=== PATIENT | male | born 1950 | race African-American/Black ===

== ENCOUNTER 2016-03-16 00:04 | Observation (INO) | payer MEDICARE, OTHER ==
[~2016-03-16] VITALS: Ht 167.6 cm; Wt 89.0 kg
[2016-03-16] VITALS (10 sets, daily range): BP systolic 127–156; BP diastolic 64–75; PULSE 57–88; RESP 18–19; TEMP 97.5–98.4; O2SAT 96–99
[~2016-03-16 00:04] MED LIST: CIPR500T4 PO
[2016-03-16] MEDS ORDERED: SODIUM CHLORIDE 0.9% FLUSH 5 ML FLUSH IVF PRN ×2 (00:30→01:45)
[2016-03-16] MEDS ORDERED: MORPHINE SULFATE 4 MG/ML INJ IV PUSH ONE (00:30)
--- NOTE | 2016-03-16 00:31 | PD ---
HPI Chief Complaint: Chest Pain Time Seen by Provider: 00:11 Travel History International Travel<30 days: No Contact w/Intl Traveler<30days: No Traveled to known affect area: No History of Present Illness HPI 65-year-old male with a history of coronary artery disease and end-stage renal disease arrives chest pain. It started while he was at dialysis today. It radiated from the left or right anterior chest. It was quite severe. Dialysis was stopped and he came here. Patient has undergone catheterization twice 16 years ago and again 2 years ago. He has 3 stents. He has diabetes, hypertension. He denies a smoking history. PFSH Past Medical History Hx Anticoagulant Therapy: Yes Arthritis: Yes Asthma: No Autoimmune Disease: No Blood Disorders: No Anxiety: No Depression: No Heart Rhythm Problems: No Cancer: Yes Cardiac Catheterization: Yes Cardiovascular Problems: Yes (HTN) High Cholesterol: Yes Chemotherapy: No Chest Pain: Yes Congestive Heart Failure: No Cerebrovascular Accident: Yes Coronary Artery Disease: Yes Diabetes: Yes Patient Takes Glucophage: No Diminished Hearing: No Endocrine: No Gastrointestinal Disorders: Yes GERD: Yes Genitourinary: No Headaches: No Hiatal Hernia: No Hypertension: Yes Immune Disorder: No Implanted Vascular Access Dvce: No Kidney Stones: Yes Musculoskeletal: Yes (METABOLIC MUSCLE DISEASE) Neurologic: Yes Psychiatric: No Reproductive: No Respiratory: No Migraines: No Myocardial Infarction: Yes (X 1 IN 2005) Radiation Therapy: No Renal Failure: No Seizures: No Sleep Apnea: No Thyroid Disease: No Ulcer: No ?: Not Past Surgical History Abdominal Surgery: Yes (HERNIA REPAIR) Cardiac Surgery: No Ear Surgery: No Endocrine Surgery: No Eye Surgery: No Genitourinary Surgery: Yes (LITHOTRIPSY) Gynecologic Surgery: No Neurologic Surgery: Yes (RT TEMPRAL ART BIOPSY) Oral Surgery: No Pacemaker: No Prostatectomy: Yes Thoracic Surgery: No Other Surgery: Yes (TEMPORAL ARTERITIS) Social History Alcohol Use: No Tobacco Use: No Substance Use: No Allergies-Medications (Allergen,Severity, Reaction): Coded Allergies: Shellfish (Verified Allergy, Severe, Swelling, 09/28/15) Reported Meds & Prescriptions Reported Meds & Active Scripts Active Reported Gaby-Cruz (B-Complex W/ C & Folic Acid) 1 Tab 1 Tab PO HS Ranitidine (Ranitidine HCl) 150 Mg Cap 150 Mg PO DAILY Phoslo (Calcium Acetate (Phosphate Binder)) 667 Mg Cap 667 Mg PO TID Omeprazole 40 Mg Cap 40 Mg PO DAILY Metoprolol Tartrate 25 Mg Tab 25 Mg PO DAILY Lovastatin 20 Mg Tab 20 Mg PO DAILY Lantus Inj (Insulin Glargine) 100 Unit/Ml Inj Humalog Kwikpen Pen Inj (Insulin Lispro (Human) Inj) 300 Unit/3 Ml Pen 100 Units SQ Gabapentin 300 Mg Cap 300 Mg PO DAILY Furosemide Liq (Furosemide) 10 Mg/Ml Soln 40 Mg PO DAILY Clopidogrel (Clopidogrel Bisulfate) 75 Mg Tab 75 Mg PO DAILY Amlodipine (Amlodipine Besylate) 10 Mg Tab 10 Mg PO DAILY Allopurinol 300 Mg Tab 300 Mg PO DAILY Review of Systems Except as stated in HPI: all other systems reviewed are Neg Physical Exam Narrative GENERAL: 65-year-old male no acute distress pleasant SKIN: Warm and dry. HEAD: Atraumatic. Normocephalic. EYES: Pupils equal and round. No scleral icterus. No injection or drainage. ENT: No nasal bleeding or discharge. Mucous membranes pink and moist. NECK: Trachea midline. No JVD. CARDIOVASCULAR: Regular rate and rhythm. No murmur appreciated. RESPIRATORY: No accessory muscle use. Clear to auscultation. Breath sounds equal bilaterally. GASTROINTESTINAL: Abdomen soft, non-tender, nondistended. Hepatic and splenic margins not palpable. MUSCULOSKELETAL: No obvious deformities. No clubbing. No cyanosis. No edema. NEUROLOGICAL: Awake and alert. No obvious cranial nerve deficits. Motor grossly within normal limits. Normal speech. PSYCHIATRIC: Appropriate mood and affect; insight and judgment normal. Data Data Last Documented VS Vital Signs Date Time Temp Pulse Resp B/P Pulse Ox O2 Delivery O2 Flow Rate FiO2 03/16/16 00:38 99 Room Air 03/16/16 00:13 98.2 67 18 156/65 Vital signs reviewed Orders Electrocardiogram (03/16/16 00:30) Basic Metabolic Panel (Bmp) (03/16/16 00:30) Ckmb (Isoenzyme) Profile (03/16/16 00:30) Complete Blood Count With Diff (03/16/16 00:30) Magnesium (Mg) (03/16/16 00:30) Prothrombin Time / Inr (Pt) (03/16/16 00:30) Act Partial Throm Time (Ptt) (03/16/16 00:30) Troponin I (03/16/16 00:30) Chest, Single Ap (03/16/16 00:30) Ecg Monitoring (03/16/16 00:30) Bilateral Bp Monitoring (03/16/16 00:30) Iv Access Insert/Monitor (03/16/16 00:30) Oximetry (03/16/16 00:30) Oxygen Administration (03/16/16 00:30) Morphine Inj (Morphine Inj) (03/16/16 00:30) Sodium Chloride 0.9% Flush (Ns Flush) (03/16/16 00:30) Nitroglycerin Sl (Nitrostat Sl) (03/16/16 00:30) CKMB (03/16/16 00:35) CKMB% (03/16/16 00:35) Activity Bed Rest With Brp (03/16/16 01:45) Vital Signs (Adult) Q4H (03/16/16 01:45) Cardiac Rhythm .As Directed (03/16/16 01:45) ^ Notify Dr: Other .PRN (03/16/16 01:45) ^ Notify Dr. Parameters (03/16/16 01:45) Resp Oxygen Nasal Cannula (03/16/16 ) Diet Npo (03/16/16 Breakfast) Ckmb (Isoenzyme) Profile (03/16/16 01:45) Ckmb (Isoenzyme) Profile (03/16/16 04:45) Troponin I (03/16/16 01:45) Troponin I (03/16/16 04:45) Electrocardiogram (03/16/16 01:45) Electrocardiogram (03/16/16 04:45) ^ Obtain (03/16/16 01:45) Sodium Chloride 0.9% Flush (Ns Flush) (03/16/16 01:45) Sodium Chloride 0.9% Flush (Ns Flush) (03/16/16 09:00) Acetamin-Hydrocod 325-7.5 Mg ([place] 7.5 (03/16/16 01:45) Morphine Inj (Morphine Inj) (03/16/16 01:45) Ondansetron Inj (Zofran Inj) (03/16/16 01:45) Nitroglycerin 2% Oint (Nitroglycerin 2% (03/16/16 06:00) Nitroglycerin Sl (Nitrostat Sl) (03/16/16 01:45) Aspirin (Aspirin) (03/16/16 09:00) Temazepam (Restoril) (03/16/16 01:45) Alprazolam (Xanax) (03/16/16 01:45) Admit Order (Ed Use Only) (03/16/16 01:45) Labs Laboratory Tests Test 03/16/16 00:35 White Blood Count 6.3 TH/MM3 Red Blood Count 3.34 MIL/MM3 Hemoglobin 10.6 GM/DL Hematocrit 31.5 % Mean Corpuscular Volume 94.3 FL Mean Corpuscular Hemoglobin 31.9 PG Mean Corpuscular Hemoglobin 33.8 % Concent Red Cell Distribution Width 18.4 % Platelet Count 262 TH/MM3 Mean Platelet Volume 7.2 FL Neutrophils (%) (Auto) 49.2 % Lymphocytes (%) (Auto) 30.1 % Monocytes (%) (Auto) 7.2 % Eosinophils (%) (Auto) 12.4 % Basophils (%) (Auto) 1.1 % Neutrophils # (Auto) 3.1 TH/MM3 Lymphocytes # (Auto) 1.9 TH/MM3 Monocytes # (Auto) 0.5 TH/MM3 Eosinophils # (Auto) 0.8 TH/MM3 Basophils # (Auto) 0.1 TH/MM3 CBC Comment DIFF FINAL Differential Comment Prothrombin Time 10.8 SEC Prothromb Time International 1.0 RATIO Ratio Activated Partial 35.9 SEC Thromboplast Time Sodium Level 138 MEQ/L Potassium Level 3.7 MEQ/L Chloride Level 104 MEQ/L Carbon Dioxide Level 25.5 MEQ/L Anion Gap 9 MEQ/L Blood Urea Nitrogen 13 MG/DL Creatinine 4.80 MG/DL Estimat Glomerular Filtration 15 ML/MIN Rate Random Glucose 196 MG/DL Calcium Level 8.5 MG/DL Magnesium Level 2.1 MG/DL Total Creatine Kinase 431 U/L Creatine Kinase MB 2.7 NG/ML Creatine Kinase MB % 0.6 % Troponin I 0.02 NG/ML MDM Medical Decision Making Medical Screen Exam Complete: Yes Emergency Medical Condition: Yes Medical Record Reviewed: Yes Differential Diagnosis NSTEMI, unstable angina, coronary vasospasm, PE, PTX, aortic dissection, pericarditis, myocarditis, endocarditis, PNA, esophageal disease, aneurysm, musculoskeletal etiologies, anxiety, cocaine/sympathomimetic abuse Narrative Course CBC & BMP Diagram 03/16/16 00:35 Troponin 0.02 Chest x-ray reveals no acute disease EKG reveals a sinus rhythm with no ischemia, rate 67, normal intervals The patient will be further evaluated in the chest pain center. Diagnosis Primary Impression: Chest pain Qualified Code: R07.9 - Chest pain, unspecified type Additional Impression: ESRD (end stage renal disease) on dialysis Admitting Information Admitting Physician Requests: Observation Eduard Lewis MD Mar 16, 2016 00:31 Admitting Physician Requests: Observation Eduard Lewis MD Mar 16, 2016 00:31
[2016-03-16] MEDS: NITROGLYCERIN 0.4 MG SL 25 TABS/BTL SL SCH ×3 (00:35→00:44)
--- NOTE | 2016-03-16 00:55 | RADRPT ---
EXAM DATE/TIME: 03/16/2016 00:46 [facility] COMPARISON: CHEST SINGLE AP, September 28, 2015, 3:36. INDICATIONS : Pt C/O chest pain x 2 days. MEDICAL HISTORY : Hypertension. Diabetes mellitus type II. Myocardial infarction. GERD, CAD, CVA SURGICAL HISTORY : Inguinal hernia repair. Prostatectomy. Bilat ankle and knee, Rt. Temporal artery BX ENCOUNTER: Initial ACUITY: 2 days PAIN SCORE: 8/10 LOCATION: Bilateral chest FINDINGS: A single view of the chest demonstrates the lungs to be symmetrically aerated without evidence of mas s, infiltrate or effusion. The cardiomediastinal contours are unremarkable. Osseous structures are intact. CONCLUSION: The lungs are clear. Patrick Griffin MD on March 16, 2016 at 0:53 Board Certified Radiologist. This report was verified electronically.
[2016-03-16 00:56] LABS: AUTOMATED NEUTROPHIL # 3.1 TH/MM3 (1.8-7.7); BASOPHIL # 0.1 TH/MM3 (0-0.2); BASOPHIL % 1.1 % (0.0-2.0); EOSINOPHIL # 0.8 TH/MM3 (0-0.4); EOSINOPHIL % 12.4 % (0.0-4.0); HEMATOCRIT 31.5 % (39.0-51.0); HEMO FLAGS DIFF FINAL; LYMPH % 30.1 % (9.0-44.0); LYMPHOCYTE # 1.9 TH/MM3 (1.0-4.8); MEAN CELL VOLUME 94.3 FL (80.0-100.0); MEAN CORPUSCULAR HEMOGLOBIN 31.9 PG (27.0-34.0); MEAN CORPUSCULAR HGB CONC 33.8 % (32.0-36.0); MONO % 7.2 % (0.0-8.0); NEUT % 49.2 % (16.0-70.0); PLATELET COUNT 262 TH/MM3 (150-450); RED BLOOD COUNT 3.34 MIL/MM3 (4.50-5.90); RED CELL DISTRIBUTION WIDTH 18.4 % (11.6-17.2); WHITE BLOOD COUNT 6.3 TH/MM3 (4.0-11.0)
[2016-03-16 01:04] LABS: APTT (PATIENT) 35.9 SEC (24.3-30.1); PROTHROMBIN TIME - PATIENT 10.8 SEC (9.8-11.6)
[2016-03-16] MEDS ORDERED: FURO10SO PO (01:09)
[2016-03-16] MEDS ORDERED: METO25TA3 PO (01:09)
[2016-03-16] MEDS ORDERED: HUMA100I3 SQ (01:09)
[2016-03-16] MEDS ORDERED: RENATAB5 PO (01:09)
[2016-03-16] MEDS ORDERED: AMLO10TA2 PO (01:09)
[2016-03-16] MEDS ORDERED: PHOS667C5 PO (01:09)
[2016-03-16] MEDS ORDERED: RANI150C PO (01:09)
[2016-03-16] MEDS ORDERED: CLOP75TA PO (01:09)
[2016-03-16] MEDS ORDERED: ALLO300T2 PO (01:09)
[2016-03-16] MEDS ORDERED: LOVA20TA PO (01:09)
[2016-03-16] MEDS ORDERED: LANTUS2P IM (01:09)
[2016-03-16] MEDS ORDERED: GABA300C5 PO (01:09)
[2016-03-16] MEDS ORDERED: OMEP40CA2 PO (01:09)
[2016-03-16 01:33] LABS: CKMB 2.7 NG/ML (0.5-3.6)
[2016-03-16 01:39] LABS: BICARBONATE 25.5 MEQ/L (21.0-32.0); MAGNESIUM 2.1 MG/DL (1.5-2.5); POTASSIUM 3.7 MEQ/L (3.5-5.1)
[2016-03-16] MEDS ORDERED: MORPHINE SULFATE 4 MG/ML INJ IV PRN (01:45)
[2016-03-16] MEDS ORDERED: TEMAZEPAM 15 MG CAP PO PRN (01:45)
[2016-03-16] MEDS ORDERED: ALPRAZolam 0.25 MG TAB PO PRN (01:45)
[2016-03-16] MEDS ORDERED: NITROGLYCERIN 0.4 MG SL 25 TABS/BTL SL PRN (01:45)
[2016-03-16] MEDS ORDERED: ACETAMINOPHEN/HYDROcodone 325 MG/7.5 MG TAB PO PRN (01:45)
[2016-03-16] MEDS ORDERED: ONDANSETRON HCL 4 MG/2 ML VIAL IV PRN (01:45)
[2016-03-16] MEDS: NITROGLYCERIN 2% OINT 1 GM PACKET TOP SCH ×4 (06:00→18:03)
[2016-03-16 06:11] LABS: CKMB 2.4 NG/ML (0.5-3.6)
[2016-03-16 08:02] LABS: CKMB 2.3 NG/ML (0.5-3.6)
[2016-03-16] MEDS: ASPIRIN 325 MG TAB PO SCH ×2 (09:00→14:18)
[2016-03-16] MEDS ORDERED: METOPROLOL TARTRATE 25 MG TAB PO SCH (09:00)
[2016-03-16] MEDS: CLOPIDOGREL 75 MG TAB PO SCH ×2 (09:00→14:18)
[2016-03-16] MEDS: GABAPENTIN 300 MG CAP PO SCH (09:19)
[2016-03-16] MEDS: FAMOTIDINE 20 MG TAB PO SCH ×2 (09:19→19:53)
[2016-03-16] MEDS: SODIUM CHLORIDE 0.9% FLUSH 5 ML FLUSH IVF SCH ×2 (09:20→19:53)
[2016-03-16] MEDS: PRAVASTATIN SOD 20 MG TAB PO SCH (09:36)
[2016-03-16] MEDS: INSULIN ASPART SUPPLEMENTAL SCALE SQ SCH ×3 (11:00→19:52)
[2016-03-16] MEDS ORDERED: DEXTROSE 50% IN WATER 50 ML VIAL(D50) IV PRN (11:00)
[2016-03-16] MEDS ORDERED: GLUCAGON 1 MG/ML VIAL IM/SQ PRN (11:00)
--- NOTE | 2016-03-16 11:30 | EKG ---
Date Performed: 03/16/2016 Time Performed: 07:30:11 PTAGE: 65 years EKG: Sinus rhythm Nonspecific ST and T wave abnormalities BORDERLINE ECG NO PREVIOUS TRACING Since previous tracing, no significant change noted DOCTOR: Benito Lewis Interpretating Date/Time 03/16/2016 11:28:28
[2016-03-16] MEDS ORDERED: SODIUM CHLORIDE 0.9% FLUSH 5 ML FLUSH FLUSH PRN (14:00)
[2016-03-16] MEDS ORDERED: ACETAMINOPHEN 325 MG TAB PO PRN (14:00)
[2016-03-16] MEDS ORDERED: BISACODYL 10 MG SUPP PR PRN (14:00)
[2016-03-16] MEDS ORDERED: ONDANSETRON HCL 4 MG/2 ML VIAL IVP PRN (14:00)
[2016-03-16] MEDS ORDERED: NALOXONE HCL 0.4 MG/ML AMP IV PRN (14:00)
[2016-03-16] MEDS ORDERED: MAGNESIUM HYDROXIDE SUSP 30 ML CUP PO PRN (14:00)
[2016-03-16] MEDS: HEPARIN SODIUM - SQ 10,000 UNITS/ML VIAL SQ SCH (14:22)
[2016-03-16] MEDS: DOCUSATE SODIUM 100 MG CAP PO SCH (14:22)
--- NOTE | 2016-03-16 14:23 | EKG ---
Date Performed: 03/16/2016 Time Performed: 04:08:41 PTAGE: 65 years EKG: Sinus rhythm Nonspecific ST and T wave abnormalities BORDERLINE ECG PREVIOUS TRACING : 03/16/2016 00.09 Since previous tracing, no significant change noted DOCTOR: Benito Lewis Interpretating Date/Time 03/16/2016 14:22:35
--- NOTE | 2016-03-16 14:38 | HHI.HP ---
[facility] Eunice Riggs DO Admission Diagnosis CP Diagnoses: Chief Complaint: Is an articulate 65-year-old black male who has a significant history Travel History International Travel<30 Days: No Contact w/Intl Traveler <30 Da: No Traveled to Known Affected Are: No History of Present Illness This is an articulate 65-year-old black male who has a significant history of coronary artery disease and end-stage renal disease. He was performing his regular ADLs yesterday, sat down to watch a movie last night, and noted a tired sensation. After about 15 minutes he began having sharp pains in his left chest which radiated into his axilla. Chest pain waxed and waned but patient was able to go to sleep last night. This a.m. patient went for his usual dialysis treatment. He then begin to have the sign sharp chest pain with more intensity than the night before. Also complains of nausea without emesis, and pain with numbness that radiates into his left arm and hand. He denies any diaphoresisno headache, appetite good. Patient also states that he was sick approximately 2 weeks ago with cough. He denies any fever and states that he took [id number] medicines and has recovered. Review of Systems Other A 10 point review was obtained with positives and negatives initiated in history of present illness. Past Family Social History Past Medical History Coronary artery disease History of anticoagulant therapy Arthritis Prostate cancer Hyperlipidemia Unstable angina CDA Diabetes type 2 insulin-dependent GERD Hypertension Temporal arthritis Kidney stones End stage renal disease Tobacco abuse Past Surgical History Lithotripsy Cardiac stents 3 Temporal arthritis cranial biopsy Prostatectomy AV shunt AV fistula Reported Medications Please see med reconciliation sheet Allergies: Coded Allergies: Shellfish (Verified Allergy, Severe, Swelling, 09/28/15) Family History Father of stroke mother of stroke, history of [place] Social History Patient was former smoker, quit approximately 20 years ago Former EtOH abuse quit in 1995 Patient is , no children Physical Exam Vital Signs Vital Signs Date Time Temp Pulse Resp B/P Pulse Ox O2 Delivery O2 Flow Rate FiO2 03/16/16 11:58 97.7 58 18 139/69 96 03/16/16 08:00 60 03/16/16 08:00 98.4 63 18 153/73 97 03/16/16 03:15 62 18 152/75 98 Room Air 03/16/16 01:58 88 18 138/75 99 Room Air 03/16/16 00:38 99 Room Air 03/16/16 00:38 99 Room Air 03/16/16 00:13 98.2 67 18 156/65 98 Physical Exam GENERAL: This is a well-nourished, well-developed patient, in no apparent distress. Good historian. SKIN: No rashes, ecchymoses or lesions. Cool and dry. HEAD: Atraumatic. Normocephalic. No temporal or scalp tenderness. EYES: Pupils 2MM equal round and reactive. Extraocular motions intact. No scleral icterus. No injection or drainage. ENT: Nose without bleeding, purulent drainage or septal hematoma. Throat without erythema, tonsillar hypertrophy or exudate. Uvula midline. Airway patent. NECK: Trachea midline. No JVD or lymphadenopathy. Supple, nontender CARDIOVASCULAR: Regular rate and rhythm without murmurs, gallops, or rubs. Sounds distant RESPIRATORY: Clear to auscultation. Breath sounds equal bilaterally. No wheezes , rales, or rhonchi. GASTROINTESTINAL: Abdomen large, soft, non-tender, nondistended. No hepato- splenomegaly, or palpable masses. No guarding. MUSCULOSKELETAL: Extremities without clubbing, cyanosis, or edema. No joint tenderness, effusion, or edema noted. No calf tenderness. bilaterally. NEUROLOGICAL: Awake and alert. Cranial nerves II through XII intact. Motor and sensory grossly within normal limits. Five out of 5 muscle strength in all muscle groups. Normal speech. Laboratory Laboratory Tests Test 03/16/16 03/16/16 03/16/16 00:35 04:49 07:00 White Blood Count 6.3 Red Blood Count 3.34 Hemoglobin 10.6 Hematocrit 31.5 Mean Corpuscular Volume 94.3 Mean Corpuscular Hemoglobin 31.9 Mean Corpuscular Hemoglobin 33.8 Concent Red Cell Distribution Width 18.4 Platelet Count 262 Mean Platelet Volume 7.2 Neutrophils (%) (Auto) 49.2 Lymphocytes (%) (Auto) 30.1 Monocytes (%) (Auto) 7.2 Eosinophils (%) (Auto) 12.4 Basophils (%) (Auto) 1.1 Neutrophils # (Auto) 3.1 Lymphocytes # (Auto) 1.9 Monocytes # (Auto) 0.5 Eosinophils # (Auto) 0.8 Basophils # (Auto) 0.1 CBC Comment DIFF FINAL Differential Comment Prothrombin Time 10.8 Prothromb Time International 1.0 Ratio Activated Partial 35.9 Thromboplast Time Sodium Level 138 Potassium Level 3.7 Chloride Level 104 Carbon Dioxide Level 25.5 Anion Gap 9 Blood Urea Nitrogen 13 Creatinine 4.80 Estimat Glomerular Filtration 15 Rate Random Glucose 196 Calcium Level 8.5 Magnesium Level 2.1 Total Creatine Kinase 431 407 384 Creatine Kinase MB 2.7 2.4 2.3 Creatine Kinase MB % 0.6 0.6 0.6 Troponin I 0.02 0.03 0.02 Result Diagram: 03/16/163403/16/1634 Imaging Chest x-ray shows lungs clear in all cabrera Course Assessments to be performed every shift with any change reported to physician. Septic Shock Reassessment Heart: Regular rate and rhythm Lungs: Clear Skin: Warm, Dry Peripheral Pulses: Bounding Right Radial Bounding Left Radial Bounding Right Popliteal Bounding Left Popliteal Bounding Right Dorsalis Pedis Bounding Left Dorsalis Pedis Bounding Right Posterior Tibial Bounding Left Posterior Tibial Capillary Refill: Brisk (no fever) Assessment and Plan Problem List: (1) Hypertension Plan: Reconcile home medications and monitor BP during hospital stay. Any abnormals including systolic less than 90 or diastolic greater than 100 to be reported to physician Add Nitrol ointment (2) Diabetes mellitus, type II, insulin dependent Plan: Accu-Cheks before meals and at bedtime with home insulin to be continued which is 35 units of Lantus every day. Adding scale insulin plan monitor lab work and blood sugar through hospital stay Reconcile medications (3) Chest pain Plan: Currently patient is a rule out AL . Cardiology consult in place for their expert opinion. Labs, telemetry monitoring, EKG daily and when necessary for any acute chest pain. Patient has significant history of coronary artery disease, possible stress test versus cardiac catheterization. CBC BMP ordered for a.m. O2 at 2 L Pain management and documentation Medication management DVT prophylaxis PUD prophylaxis Discussed with Dr. Serra discussed with patient (4) ESRD (end stage renal disease) on dialysis Plan: Nephrology consult to follow for medical management as well as dialysis needs Code Status Full code full aggressive care Discussed With: Other (patient, Dr. Serra) Problem Qualifiers (1) Chest pain: Qualified Code: R07.9 - Chest pain, unspecified type Isis Jose Mar 16, 2016 14:38
--- NOTE | 2016-03-16 14:41 | EKG ---
Date Performed: 03/16/2016 Time Performed: 00:09:38 PTAGE: 65 years EKG: Sinus rhythm MODERATE VOLTAGE CRITERIA FOR LVH, CONSIDER NORMAL VARIANT Nonspecific ST and T wave abnormalities B ORDERLINE ECG PREVIOUS TRACING : 09/28/2015 03.51 Since previous tracing, no significant change noted DOCTOR: Benito Lewis Interpretating Date/Time 03/16/2016 14:39:49
--- NOTE | 2016-03-16 16:21 | PD.CONS ---
HPI Service Nephrology Consult Requested By Reason for Consult ESRD Primary Care Physician Eunice Riggs DO History of Present Illness Mr. Fairchild is a 65 year old male with history of ESRD, hypertension, CAD and diabetes. He was on dialysis yesterday, had 3 hour of dialysis but it was terminated early because of his complaints of chest pain. He came to the ER with these complaints. The chest pain was substernal, and sharp in nature. He has had 3 coronary stents in the past. Review of Systems Constitutional: DENIES: Fatigue, Fever Cardiovascular: COMPLAINS OF: Chest pain, DENIES: Palpitations, Syncope Gastrointestinal: DENIES: Abdominal pain, Black stools Neurologic: DENIES: Abnormal gait, Localized weakness Psychiatric: DENIES: Anxiety, Confusion Past Family Social History Allergies: Coded Allergies: Shellfish (Verified Allergy, Severe, Swelling, 09/28/15) Past Medical History Coronary artery disease History of anticoagulant therapy Arthritis Prostate cancer Hyperlipidemia Unstable angina Diabetes type 2 insulin-dependent GERD Hypertension Temporal arthritis Kidney stones End stage renal disease Tobacco abuse Past Surgical History Lithotripsy Cardiac stents 3 Temporal arthritis cranial biopsy Prostatectomy AV shunt AV fistula Active Ordered Medications Current Medications Medications (Trade) Dose Ordered Sig/Prince Route Start Time Stop Time Status Last Admin (NS Flush) 2 ml UNSCH PRN IVF 03/16/16 00:30 (NS Flush) 2 ml UNSCH PRN IVF 03/16/16 01:45 (NS Flush) 2 ml BID IVF 03/16/16 09:00 03/16/16 09:20 ([place] 7.5-325 Mg) 1 tab Q4H PRN PO 03/16/16 01:45 (Morphine Inj) 2 mg Q4H PRN IV 03/16/16 01:45 (Zofran Inj) 4 mg Q6H PRN IV 03/16/16 01:45 (Nitroglycerin 2% Oint) 1 inch Q6HR TOP 03/16/16 06:00 03/16/16 14:18 (Nitrostat Sl) 0.4 mg Q5M PRN SL 03/16/16 01:45 (Aspirin) 325 mg DAILY PO 03/16/16 09:00 03/16/16 14:18 (Restoril) 15 mg HS PRN PO 03/16/16 01:45 (Xanax) 0.25 mg Q8H PRN PO 03/16/16 01:45 (Norvasc) 10 mg DAILY PO 03/16/16 09:00 03/16/16 09:20 (Plavix) 75 mg DAILY PO 03/16/16 09:00 03/16/16 14:18 (Neurontin) 300 mg DAILY PO 03/16/16 09:00 03/16/16 09:19 (Pravachol) 20 mg DAILY PO 03/16/16 09:00 03/16/16 09:36 (Lopressor) 25 mg DAILY PO 03/16/16 09:00 03/16/16 09:20 (Pepcid) 10 mg BID PO 03/16/16 09:00 03/16/16 09:19 (Nephrocaps) 1 cap HS PO 03/16/16 21:00 (D50w (Vial) Inj) 25 ml UNSCH PRN IV 03/16/16 11:00 (Glucagon Inj) 1 mg UNSCH PRN IM/SQ 03/16/16 11:00 (NS Flush) 2 ml UNSCH PRN FLUSH 03/16/16 14:00 (NS Flush) 2 ml BID FLUSH 03/16/16 21:00 (Tylenol) 650 mg Q4H PRN PO 03/16/16 14:00 (Zofran Inj) 4 mg Q6H PRN IVP 03/16/16 14:00 (Dulcolax Supp) 10 mg DAILY PRN HI 03/16/16 14:00 (Colace) 100 mg Q12H PO 03/16/16 14:00 03/16/16 14:22 (Milk Of Magnesia Liq) 30 ml Q12H PRN PO 03/16/16 14:00 (Heparin Inj) 5,000 units Q12H SQ 03/16/16 14:00 03/16/16 14:22 (Narcan Inj) 0.4 mg UNSCH PRN IV 03/16/16 14:00 Family History Father of stroke mother of stroke, history of [place] Social History Patient was former smoker, quit approximately 20 years ago Former EtOH abuse quit in 1995 Patient is , no children Physical Exam Vital Signs Vital Signs Date Time Temp Pulse Resp B/P Pulse Ox O2 Delivery O2 Flow Rate FiO2 03/16/16 11:58 97.7 58 18 139/69 96 03/16/16 08:00 60 03/16/16 08:00 98.4 63 18 153/73 97 03/16/16 03:15 62 18 152/75 98 Room Air 03/16/16 01:58 88 18 138/75 99 Room Air 03/16/16 00:38 99 Room Air 03/16/16 00:38 99 Room Air 03/16/16 00:13 98.2 67 18 156/65 98 Physical Exam GENERAL: comfortable at rest, alert and oriented SKIN: Warm and dry. HEAD: Normocephalic. EYES: No scleral icterus. No injection or drainage. NECK: Supple, trachea midline. No JVD or lymphadenopathy. CARDIOVASCULAR: Regular rate and rhythm without murmurs, gallops, or rubs. RESPIRATORY: Breath sounds equal bilaterally. No accessory muscle use. GASTROINTESTINAL: Abdomen soft, non-tender, nondistended. MUSCULOSKELETAL: No cyanosis, or edema. BACK: Nontender without obvious deformity. No CVA tenderness. Laboratory Laboratory Tests Test 03/16/16 03/16/16 03/16/16 00:35 04:49 07:00 White Blood Count 6.3 Red Blood Count 3.34 Hemoglobin 10.6 Hematocrit 31.5 Mean Corpuscular Volume 94.3 Mean Corpuscular Hemoglobin 31.9 Mean Corpuscular Hemoglobin 33.8 Concent Red Cell Distribution Width 18.4 Platelet Count 262 Mean Platelet Volume 7.2 Neutrophils (%) (Auto) 49.2 Lymphocytes (%) (Auto) 30.1 Monocytes (%) (Auto) 7.2 Eosinophils (%) (Auto) 12.4 Basophils (%) (Auto) 1.1 Neutrophils # (Auto) 3.1 Lymphocytes # (Auto) 1.9 Monocytes # (Auto) 0.5 Eosinophils # (Auto) 0.8 Basophils # (Auto) 0.1 CBC Comment DIFF FINAL Differential Comment Prothrombin Time 10.8 Prothromb Time International 1.0 Ratio Activated Partial 35.9 Thromboplast Time Sodium Level 138 Potassium Level 3.7 Chloride Level 104 Carbon Dioxide Level 25.5 Anion Gap 9 Blood Urea Nitrogen 13 Creatinine 4.80 Estimat Glomerular Filtration 15 Rate Random Glucose 196 Calcium Level 8.5 Magnesium Level 2.1 Total Creatine Kinase 431 407 384 Creatine Kinase MB 2.7 2.4 2.3 Creatine Kinase MB % 0.6 0.6 0.6 Troponin I 0.02 0.03 0.02 Result Diagram: 03/16/163403/16/1634 Assessment and Plan Problem List: (1) ESRD (end stage renal disease) on dialysis Plan: usually dialyzes MWF. Incomplete dialysis yesterday. His volume status is acceptable. Potassium is acceptable. No indication for dialysis today. Next dialysis most likely is going to be on Friday. I will continue to monitor volume status and electrolytes. Avoid Gadolinium in this patient. (2) Hypertension Plan: continue home medications. Monitor. (3) Diabetes mellitus, type II, insulin dependent Plan: continue insulin coverage. Maintain blood glucose between 140 and 180. (4) Chest pain Plan: Aspirin daily. He has ruled out for DE by serial cardiac enzymes. Cardiology has been consulted. Assessment and Plan Thanks for the consult. He can be discharged from renal standpoint. Problem Qualifiers (1) Chest pain: Qualified Code: R07.9 - Chest pain, unspecified type Lonnie Owens MD Mar 16, 2016 16:21
[2016-03-16] MEDS: VITAMIN B CMPLX/VITC/FOLIC AC CAP PO SCH (19:47)
[2016-03-16] MEDS: METOPROLOL TARTRATE 25 MG TAB PO SCH ×2 (19:53→19:58)
[2016-03-16] MEDS: SODIUM CHLORIDE 0.9% FLUSH 5 ML FLUSH FLUSH SCH (19:53)
--- NOTE | 2016-03-16 21:11 | MB ---
cc: LLOYD BORDEN MD DATE OF CONSULTATION 03/16/16 REASON FOR CONSULTATION Recurrence of chest pain HISTORY OF PRESENT ILLNESS This is a 65-year-old -Citizen Of [place] male who developed left-sided chest pain with radiation down the left arm yesterday watching television on and off. He went to sleep, however, this morning he went to dialysis and developed substernal sharp pain again with some nausea but no shortness of breath or diaphoresis. He said the pain was similar but much less to the pain that he had in October of 2015. At that time, he had a stress test done complicated by cardiac arrest. Following that, he had two stents put in by Dr. Cano. In November, he had staged PCI with another stent in a different artery. Since then, he denies any chest discomfort. On a good day he could walk four blocks before shortness of breath or pain in the knees. He has had severe degenerative arthritis of the knees. He is known to have hypertension and type 2 diabetes. He is slightly on the obese side. He had three strokes, the last one was in 2007. He had two myocardial infarcts, last one was 2006. He was a heavy smoker and quit 20 years ago. He is a nondrinker. REVIEW OF SYSTEMS Ten-point review has been stated in the chart. PAST MEDICAL HISTORY 1. Prostate cancer treated with prostatectomy 2. Multivessel angioplasty and stenting, 3. Hypertension, 4. Type 2 diabetes, 5. Myocardial infarct, 6. Cerebrovascular accident, 7. Kidney stone 8. End stage renal failure on dialysis 9. Lithotripsy 10. AV shunt creation ALLERGIES SHELLFISH FAMILY HISTORY Mother of a myocardial findings at age 57 and father in his 70s of cerebrovascular accident. 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 MEDICATIONS At home, as stated in the chart. PHYSICAL EXAMINATION VITAL SIGNS: On day of consultation showed blood pressure 137/66, pulse is 71 per minute. HEAD AND NECK: Normal oral exam. Neck is supple. CHEST: Clear CARDIOVASCULAR: Normal neck vein. S1-S2 normal. No S3, no S4. No murmur. ABDOMEN: Liver and spleen not palpable. Bowel sounds normal. Nontender abdomen. 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 PERIPHERAL VASCULAR: All peripheral pulses equal and normal. No bruits. ASSESSMENT 1. Chest pain similar to the angina pain in October of 2015 before the two stents. However, the severity was much less. At the moment after nitroglycerin and morphine, he is completely comfortable. EKG was not impressive. Three sets of cardiac enzymes were normal. There is no montes to do cardiac catheterization. Stress test is not recommended because last time he had a cardiac arrest. 2. Renal failure on dialysis. 3. Hypertension and type 2 diabetes with obesity. 4. Severe degenerative arthritis at the knees. 5. Anemia secondary to renal insufficiency. PLAN He will be treated medically for now. His metoprolol will be increased to twice a day for his hypertension. Heart rate should be able to tolerate more beta aracelis. Dr. Cano will manage the case on Friday and perhaps repeat the cardiac catheterization which can be done urgently if he develops chest pain again. MD MERI Lindsey/ /6:04 PM /8:45 PM MTDD
[2016-03-17] VITALS (8 sets, daily range): BP systolic 131–173; BP diastolic 69–84; PULSE 60–85; RESP 18–20; TEMP 97.7–98.1; O2SAT 96–100
[2016-03-17] MEDS: DOCUSATE SODIUM 100 MG CAP PO SCH ×2 (00:03→12:15)
[2016-03-17] MEDS: NITROGLYCERIN 2% OINT 1 GM PACKET TOP SCH ×4 (00:03→17:32)
[2016-03-17] MEDS: HEPARIN SODIUM - SQ 10,000 UNITS/ML VIAL SQ SCH ×2 (00:03→12:15)
[2016-03-17] MEDS: INSULIN ASPART SUPPLEMENTAL SCALE SQ SCH ×4 (05:42→20:47)
[2016-03-17 06:48] LABS: AUTOMATED NEUTROPHIL # 3.2 TH/MM3 (1.8-7.7); BASOPHIL # 0.1 TH/MM3 (0-0.2); BASOPHIL % 1.6 % (0.0-2.0); EOSINOPHIL # 0.7 TH/MM3 (0-0.4); EOSINOPHIL % 11.8 % (0.0-4.0); HEMATOCRIT 33.1 % (39.0-51.0); HEMO FLAGS DIFF FINAL; LYMPHOCYTE # 1.5 TH/MM3 (1.0-4.8); MEAN CELL VOLUME 94.3 FL (80.0-100.0); MEAN CORPUSCULAR HEMOGLOBIN 30.6 PG (27.0-34.0); MEAN CORPUSCULAR HGB CONC 32.4 % (32.0-36.0); MONO % 7.7 % (0.0-8.0); NEUT % 53.9 % (16.0-70.0); PLATELET COUNT 222 TH/MM3 (150-450); RED BLOOD COUNT 3.51 MIL/MM3 (4.50-5.90); RED CELL DISTRIBUTION WIDTH 18.8 % (11.6-17.2); WHITE BLOOD COUNT 5.9 TH/MM3 (4.0-11.0)
[2016-03-17 07:03] LABS: BICARBONATE 25.8 MEQ/L (21.0-32.0); POTASSIUM 3.9 MEQ/L (3.5-5.1)
[2016-03-17] MEDS ORDERED: SODIUM CHLOR 0.9% 1000 ML INJ 1,000 ML IV PRN ×3 (08:27)
--- NOTE | 2016-03-17 08:27 | HHI.NPPN ---
Subjective Interval History Cardiology note reviewed. Electrolytes noted. Dialysis will be MWF. Objective Data Data 03/16/16 03/17/16 19:00 07:00 Intake Total 2 ml Output Total 35 ml 100 ml Balance -33 ml -100 ml Intake IV Total 2 ml Output Urine Total 35 ml 100 ml # Bowel Movements 0 Vital Signs Date Time Temp Pulse Resp B/P Pulse Ox O2 Delivery O2 Flow Rate FiO2 03/17/16 07:54 97.8 62 18 133/73 100 03/17/16 04:30 97.7 60 20 131/70 99 03/16/16 23:56 97.8 57 18 127/67 97 03/16/16 20:00 60 03/16/16 20:00 98 03/16/16 19:55 97.5 60 18 129/64 98 03/16/16 16:19 97.8 71 19 137/66 96 03/16/16 11:58 97.7 58 18 139/69 96 -: 03/17/16 0620 03/17/16 0620 Physical Exam General Appearance: Well Developed, No Acute Distress Neck Neck Exam: Neck Supple Pulmonary Resp Exam: Clear Bilaterally, Breath Sounds Equal Cardiology CV Exam: Regular, Normal Sinus Rhythm Gastrointestinal/Abdomen GI Exam: Soft, Non-Tender, Bowel Sounds Present Musculoskeletal MS Exam: Joints Intact Integumentary Skin Exam: Intact Extremeties Extremities Exam: No Edema Neurologic Neuro Exam: Moving All Extremities Assessment/Plan Problem List: (1) ESRD (end stage renal disease) on dialysis Plan: usually dialyzes MWF. Incomplete dialysis on Friday. His volume status is acceptable. Potassium is acceptable. No indication for dialysis today. Next dialysis most likely is going to be on Friday. I will continue to monitor volume status and electrolytes. Avoid Gadolinium in this patient. (2) Hypertension Plan: continue home medications. Monitor. (3) Diabetes mellitus, type II, insulin dependent Plan: continue insulin coverage. Maintain blood glucose between 140 and 180. (4) Chest pain Plan: Aspirin daily. He has ruled out for [facility] by serial cardiac enzymes. Cardiology has been consulted. Problem Qualifiers (1) Chest pain: Qualified Code: R07.9 - Chest pain, unspecified type Lonnie Owens MD Mar 17, 2016 08:27
[2016-03-17] MEDS ORDERED: ALBUMIN HUMAN 25% 25 GM/100 ML BAGP IV PRN (08:30)
[2016-03-17] MEDS ORDERED: GELATIN 12 MM/7 MM FOAM TOP PRN (08:30)
[2016-03-17] MEDS ORDERED: ACETAMINOPHEN 325 MG TAB PO PRN (08:30)
[2016-03-17] MEDS ORDERED: NITROGLYCERIN 0.4 MG SL 25 TABS/BTL SL PRN (08:30)
[2016-03-17] MEDS ORDERED: EPOETIN ALFA 10,000 UNITS/ML VIAL IV PRN (08:30)
[2016-03-17] MEDS ORDERED: cloNIDine HCL 0.1 MG TAB PO PRN (08:30)
[2016-03-17] MEDS ORDERED: MANNITOL 12.5 GM/50 ML VIAL IV PRN (08:30)
[2016-03-17] MEDS ORDERED: HEPARIN SODIUM - IV 10,000 UNITS/10 ML VIAL PRN (08:30)
[2016-03-17] MEDS ORDERED: HEPARIN SODIUM - IV 10,000 UNITS/10 ML VIAL IVF PRN (08:30)
[2016-03-17] MEDS ORDERED: SODIUM CHLORIDE 0.9% FLUSH 5 ML FLUSH IVF PRN (08:30)
[2016-03-17] MEDS ORDERED: GENTAMICIN SULFATE (DIALYSIS USE ONLY) 20 MG/2 ML VIAL IV PRN (08:30)
[2016-03-17] MEDS ORDERED: ONDANSETRON HCL 4 MG/2 ML VIAL IV PRN (08:30)
[2016-03-17] MEDS ORDERED: diphenhydrAMINE HCL 25 MG CAP PO PRN (08:30)
[2016-03-17] MEDS: ASPIRIN 325 MG TAB PO SCH (09:00)
[2016-03-17] MEDS: SODIUM CHLORIDE 0.9% FLUSH 5 ML FLUSH IVF SCH ×2 (09:00→20:45)
[2016-03-17] MEDS: METOPROLOL TARTRATE 25 MG TAB PO SCH ×2 (09:01→20:45)
[2016-03-17] MEDS: PRAVASTATIN SOD 20 MG TAB PO SCH (09:01)
[2016-03-17] MEDS: GABAPENTIN 300 MG CAP PO SCH (09:02)
[2016-03-17] MEDS: CLOPIDOGREL 75 MG TAB PO SCH (09:02)
[2016-03-17] MEDS: SODIUM CHLORIDE 0.9% FLUSH 5 ML FLUSH FLUSH SCH ×2 (09:02→20:45)
[2016-03-17] MEDS: FAMOTIDINE 20 MG TAB PO SCH ×2 (09:07→20:46)
--- NOTE | 2016-03-17 09:59 | HHI.PR ---
Subjective Remarks No chest pain Feeling better Review of system for 12 point system otherwise unremarkable Objective Objective Results - Vital Signs Date Time Temp Pulse Resp B/P Pulse Ox O2 Delivery O2 Flow Rate FiO2 03/17/16 08:32 99 21 03/17/16 07:54 97.8 62 18 133/73 100 03/17/16 04:30 97.7 60 20 131/70 99 03/16/16 23:56 97.8 57 18 127/67 97 03/16/16 20:00 60 03/16/16 20:00 98 03/16/16 19:55 97.5 60 18 129/64 98 03/16/16 16:19 97.8 71 19 137/66 96 03/16/16 11:58 97.7 58 18 139/69 96 I/O 03/16/16 03/16/16 03/16/16 03/17/16 03/17/16 03/17/16 07:00 15:00 23:00 07:00 15:00 23:00 Intake Total 2 ml Output Total 35 ml 100 ml Balance -33 ml -100 ml Intake IV Total 2 ml Output Urine Total 35 ml 100 ml # Bowel Movements 0 Result Diagram: 03/17/16 0620 03/17/16 0620 Imaging Chest x-ray shows lungs clear in all cabrera Other Results Laboratory Tests Test 03/17/16 06:20 White Blood Count 5.9 Red Blood Count 3.51 Hemoglobin 10.7 Hematocrit 33.1 Mean Corpuscular Volume 94.3 Mean Corpuscular Hemoglobin 30.6 Mean Corpuscular Hemoglobin 32.4 Concent Red Cell Distribution Width 18.8 Platelet Count 222 Mean Platelet Volume 6.9 Neutrophils (%) (Auto) 53.9 Lymphocytes (%) (Auto) 25.0 Monocytes (%) (Auto) 7.7 Eosinophils (%) (Auto) 11.8 Basophils (%) (Auto) 1.6 Neutrophils # (Auto) 3.2 Lymphocytes # (Auto) 1.5 Monocytes # (Auto) 0.5 Eosinophils # (Auto) 0.7 Basophils # (Auto) 0.1 CBC Comment DIFF FINAL Differential Comment Sodium Level 139 Potassium Level 3.9 Chloride Level 105 Carbon Dioxide Level 25.8 Anion Gap 8 Blood Urea Nitrogen 24 Creatinine 7.29 Estimat Glomerular Filtration 9 Rate Random Glucose 173 Calcium Level 8.4 Physical Exam Physical Exam Physical Exam GENERAL: This is a well-nourished, well-developed patient, in no apparent distress. Good historian. SKIN: No rashes, ecchymoses or lesions. Cool and dry. HEAD: Atraumatic. Normocephalic. No temporal or scalp tenderness. EYES: Extraocular motions intact. No scleral icterus. No injection or drainage. ENT: Airway patent. NECK: Trachea midline. No JVD or lymphadenopathy. Supple, nontender CARDIOVASCULAR: Regular rate and rhythm without murmurs, gallops, or rubs. Sounds distant RESPIRATORY: Clear to auscultation. Breath sounds equal bilaterally. No wheezes , rales, or rhonchi. GASTROINTESTINAL: Abdomen large, soft, non-tender, nondistended. No hepato- splenomegaly, or palpable masses. No guarding. MUSCULOSKELETAL: Extremities without clubbing, cyanosis, or edema. No joint tenderness, effusion, or edema noted. No calf tenderness. bilaterally. NEUROLOGICAL: Awake and alert. Cranial nerves II through XII intact. Motor and sensory grossly within normal limits. Five out of 5 muscle strength in all muscle groups. Normal speech. A/P Assessment and Plan (1) Hypertension Plan: Reconcile home medications and monitor BP, stable (2) Diabetes mellitus, type II, insulin dependent Plan: Accu-Cheks before meals and at bedtime with sliding scale insulin coverage (3) Chest pain Plan: Currently patient is a rule out [place] . Cardiology consult appreciated. telemetry monitoring, EKG reviewed Patient has significant history of coronary artery disease, question of cardiac catheterization. Labs reviewed O2 at 2 L Pain management and documentation Medication management DVT prophylaxis PUD prophylaxis (4) ESRD (end stage renal disease) on dialysis Plan: Nephrology consult appreciated Code Status Full code full aggressive care Discussed With: Patient Discussed With: Other (patient, Dr. Serra) Christian Serra MD Mar 17, 2016 09:59
[2016-03-17] MEDS: INSULIN DETEMIR 100 UNITS/ML VIAL SQ SCH (10:42)
[2016-03-17] MEDS: CALCIUM ACETATE 667 MG CAP PO SCH ×2 (12:43→17:32)
--- NOTE | 2016-03-17 17:11 | PD.CARD.PN ---
Subjective Subjective Remarks CP similar to the CP before stenting last OCT, pain gone now after admission, enzymes normal EKG no acute changes Objective Vital Signs / I&O Vital Signs Date Time Temp Pulse Resp B/P Pulse Ox O2 Delivery O2 Flow Rate FiO2 03/17/16 15:06 97.8 65 18 137/69 96 03/17/16 12:30 98.1 85 18 173/84 98 03/17/16 08:32 99 21 03/17/16 07:54 97.8 62 18 133/73 100 03/17/16 04:30 97.7 60 20 131/70 99 03/16/16 23:56 97.8 57 18 127/67 97 03/16/16 20:00 60 03/16/16 20:00 98 03/16/16 19:55 97.5 60 18 129/64 98 I/O 03/16/16 03/16/16 03/16/16 03/17/16 03/17/16 03/17/16 07:00 15:00 23:00 07:00 15:00 23:00 Intake Total 2 ml Output Total 35 ml 100 ml Balance -33 ml -100 ml Intake IV Total 2 ml Output Urine Total 35 ml 100 ml # Bowel Movements 0 Physical Exam GENERAL: SKIN: Warm and dry. HEAD: Normocephalic. EYES: No scleral icterus. No injection or drainage. NECK: Supple, trachea midline. No JVD or lymphadenopathy. CARDIOVASCULAR: Regular rate and rhythm without murmurs, gallops, or rubs. RESPIRATORY: Breath sounds equal bilaterally. No accessory muscle use. GASTROINTESTINAL: Abdomen soft, non-tender, nondistended. MUSCULOSKELETAL: No cyanosis, or edema. BACK: Nontender without obvious deformity. No CVA tenderness. Laboratory Laboratory Tests Test 03/17/16 06:20 White Blood Count 5.9 TH/MM3 Red Blood Count 3.51 MIL/MM3 Hemoglobin 10.7 GM/DL Hematocrit 33.1 % Mean Corpuscular Volume 94.3 FL Mean Corpuscular Hemoglobin 30.6 PG Mean Corpuscular Hemoglobin 32.4 % Concent Red Cell Distribution Width 18.8 % Platelet Count 222 TH/MM3 Mean Platelet Volume 6.9 FL Neutrophils (%) (Auto) 53.9 % Lymphocytes (%) (Auto) 25.0 % Monocytes (%) (Auto) 7.7 % Eosinophils (%) (Auto) 11.8 % Basophils (%) (Auto) 1.6 % Neutrophils # (Auto) 3.2 TH/MM3 Lymphocytes # (Auto) 1.5 TH/MM3 Monocytes # (Auto) 0.5 TH/MM3 Eosinophils # (Auto) 0.7 TH/MM3 Basophils # (Auto) 0.1 TH/MM3 CBC Comment DIFF FINAL Differential Comment Sodium Level 139 MEQ/L Potassium Level 3.9 MEQ/L Chloride Level 105 MEQ/L Carbon Dioxide Level 25.8 MEQ/L Anion Gap 8 MEQ/L Blood Urea Nitrogen 24 MG/DL Creatinine 7.29 MG/DL Estimat Glomerular Filtration 9 ML/MIN Rate Random Glucose 173 MG/DL Calcium Level 8.4 MG/DL Assessment and Plan Problem List: (1) Chest pain Assessment and Plan: waiting for DR REYES to make decision Friday to cath or not to cath, at the moment he is stable with no chest pain (2) Hypertension (3) Diabetes mellitus, type II, insulin dependent (4) History of heart artery stent Problem Qualifiers (1) Chest pain: Qualified Code: R07.9 - Chest pain, unspecified type Calvin Rodgers MD Mar 17, 2016 17:11
[2016-03-18] MEDS: VITAMIN B CMPLX/VITC/FOLIC AC CAP PO SCH (01:28)
[2016-03-18] MEDS: NITROGLYCERIN 2% OINT 1 GM PACKET TOP SCH ×3 (01:28→12:20)
[2016-03-18] MEDS: DOCUSATE SODIUM 100 MG CAP PO SCH ×2 (01:28→14:00)
[2016-03-18] MEDS: HEPARIN SODIUM - SQ 10,000 UNITS/ML VIAL SQ SCH ×2 (01:29→16:30)
[2016-03-18 04:09] VITALS: BP 141/65; PULSE 62; RESP 16; TEMP 98; O2SAT 99
[2016-03-18 05:28] LABS: BICARBONATE 23.7 MEQ/L (21.0-32.0); POTASSIUM 4.4 MEQ/L (3.5-5.1)
[2016-03-18] MEDS: INSULIN ASPART SUPPLEMENTAL SCALE SQ SCH ×3 (06:54→16:00)
[2016-03-18 07:50] VITALS: O2SAT 98
--- NOTE | 2016-03-18 07:58 | HHI.PR ---
Subjective History of Present Illness (1) Hypertension Plan: Reconcile home medications and monitor BP, stable (2) Diabetes mellitus, type II, insulin dependent Plan: Accu-Cheks before meals and at bedtime with sliding scale insulin coverage (3) Chest pain Plan: Currently patient is a rule out [place] . Cardiology consult appreciated. telemetry monitoring, EKG reviewed Patient has significant history of coronary artery disease, question of cardiac catheterization. Labs reviewed O2 at 2 L Pain management and documentation Medication management DVT prophylaxis PUD prophylaxis (4) ESRD (end stage renal disease) on dialysis Plan: Nephrology consult appreciated Code Status Full code full aggressive care Discussed With: Patient Discussed With: Other (patient, Dr. Serra) Vitals/Results Vital Signs Vital Signs Date Time Temp Pulse Resp B/P Pulse Ox O2 Delivery O2 Flow Rate FiO2 03/18/16 04:09 98.0 62 16 141/65 99 03/17/16 20:31 98.0 68 18 145/75 99 03/17/16 20:09 67 03/17/16 19:55 97 03/17/16 15:06 97.8 65 18 137/69 96 03/17/16 12:30 98.1 85 18 173/84 98 03/17/16 08:32 99 21 CBC/BMP: 03/17/16 0620 03/18/16 0404 Lab Results Laboratory Tests Test 03/18/16 04:04 Sodium Level 138 MEQ/L Potassium Level 4.4 MEQ/L Chloride Level 105 MEQ/L Carbon Dioxide Level 23.7 MEQ/L Anion Gap 9 MEQ/L Blood Urea Nitrogen 33 MG/DL Creatinine 8.23 MG/DL Estimat Glomerular Filtration 8 ML/MIN Rate Random Glucose 155 MG/DL Calcium Level 9.1 MG/DL Phosphorus Level 4.1 MG/DL Albumin 3.6 GM/DL Physical Exam General General Appearance: Well Developed, No Acute Distress Neck Neck Exam: Neck Supple Pulmonary Resp Exam: Clear Bilaterally, Breath Sounds Equal Cardiology CV Exam: Regular, Normal Sinus Rhythm Gastrointestinal/Abdomen GI Exam: Soft, Non-Tender, Bowel Sounds Present Musculoskeletal MS Exam: Joints Intact Integumentary Skin Exam: Intact Extremeties Extremities Exam: No Edema Neurologic Neuro Exam: Moving All Extremities Isis Jose Mar 18, 2016 07:58
[2016-03-18 08:04] VITALS: PULSE 64
[2016-03-18 08:08] VITALS: BP 128/69; PULSE 65; RESP 16; TEMP 98.4; O2SAT 96
--- NOTE | 2016-03-18 08:37 | MH ---
cc: MIAH RANDALL DATE OF ADMISSION: 03/16/2016 DATE OF : 1950 CHIEF COMPLAINT Chest pain. HISTORY OF PRESENT ILLNESS: This is a 65 year-old male who presents to the emergency department with history of coronary artery disease, stating he had two stents in October 2015 and another one in November [address] Cano. He presents complaining of chest discomfort that he describes as a tightness in the center of his chest that began while he was having dialysis last evening. He states that the symptoms were intermittent lasting about 5 to 10 minutes at a time but they continue to recur for maybe ten episodes. This has not occurred recently in the hospital. He was short of breath and nauseous. He denies diaphoresis. He states that the same type of discomfort that he had when doing stenting last year with Dr. Cano. Denies recent illnesses. Denies fevers or chills. PAST MEDICAL HISTORY: 1. Coronary artery disease. 2. History of stenting times three. 3. Renal failure on dialysis Friday, Friday and Friday. 4. Hypertension. 5. Hyperlipidemia. 6. Diabetes. 7. History of prostate cancer with prostatectomy. FAMILY HISTORY: Positive for coronary artery disease. PAST SURGICAL HISTORY: 1. Heart catheterizations with interventions. 2. Hernia repair. 3. Lithotripsy. 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 Gabapentin 2. Allopurinol 3. Metoprolol tartrate. 4. Amlodipine 5. Lovastatin 6. Ranitidine 7. Lantus 8. Humalog for sliding scale. 9. Gaby-Cruz. 10. Plavix 11. PhosLo REVIEW OF SYSTEMS: HEAD, EYES, EARS, NOSE, AND THROAT: Denies headache, earache, short throat, difficulty swallowing. CARDIOVASCULAR SYSTEM: Describes the discomfort as mentioned above. There is no diaphoresis. Denies sensation of heart beating rapidly or irregularly. No syncope. RESPIRATORY: He was short of breath, no inspirational chest discomfort. Denies coughing, wheezing or hemoptysis. GASTROINTESTINAL: There is nausea but denies emesis. Denies abdominal pain. Denies diarrhea, constipation or blood in the stool. MUSCULOSKELETAL: Denies joint pain or edema. Denies calf pain or edema. NEUROVASCULAR: Denies headache or dizziness. ENDOCRINE: Denies polyuria or polydipsia. HEMATOLOGIC: Denies easy bruising. SKIN: Denies rash or itching. PHYSICAL EXAMINATION: VITAL SIGNS: In emergency initially included a blood pressure of 156/65, heart 67, respirations 18, pulse oximetry 90 inches room air and he was afebrile. Most recent vital signs include blood pressure 153 73 63, respiration was 18, pulse oximetry 97% room air and he was afebrile. IN GENERAL: The patient seen in the examination room in no apparent distress. Pleasant. Speaks in clear and complete sentences. HEAD, EYES, EARS, NOSE, AND THROAT: Head is atraumatic, normocephalic. NECK: Neck is supple without lymphadenopathy. Trachea none JVD or carotid bruit. CARDIOVASCULAR SYSTEM: Regular rate and rhythm without gallop or rub. There is a grade 2 systolic murmur, sore more per. RESPIRATORY: Lungs are clear to auscultation bilaterally. No wheezing, rales or rhonchi. No reproducible chest wall discomfort. No use of muscles. ' GASTROINTESTINAL: Abdomen is nontender, nondistended and bowel sounds are normal. No guarding or rebound. No obvious pulsatile mass or bruit. No CVA tenderness. Femoral pulses bilaterally. MUSCULOSKELETAL: The patient is moving upper and lower extremities freely. No joint tenderness or edema. No calf tenderness or edema, No Homans' sign. Strong pulses in upper and lower extremities. NEUROVASCULAR: The patient is alert and oriented, cranial nerves II through XII intact nerves II XII grossly intact. No focal deficits and speech is clear. SKIN: No rashes or normal. He does have the dialysis Access in his left arm. LABORATORY DATA CBC essentially unremarkable. Coagulation studies are unremarkable. Basic metabolic panel has a creatinine elevated 4.80 and GFR decreased to 15. Glucose elevated at 196. Serial cardiac enzymes normal x3. HISTORY OF PRESENT ILLNESS Go back to their nature. HISTORY OF PRESENT ILLNESS Put PAST MEDICAL HISTORY 11/1987 right eye history of stenting x3. A renal failure and in [facility] dialysis on Friday was Friday hypertension, hyperlipidemia, diabetes, history of prostate cancer with prostatectomy 911 international units in the. PROCEDURE Mildly elevated at this surgery short catheterizations with intervention. There are no injuries allergies. She also she MEDICATIONS current medications include he has had an IV abdomen. 1. Allopurinol. 2. Metoprolol tartrate. 3. Amlodipine. 4. Lovastatin. 5. Ranitidine lancets 8 pounds. 6. Humalog per sliding scale right of the left. Light glue. 7. Plavix possible. Return to. IMAGING STUDIES Chest x-ray in the emergency room read by radiologist as lungs are clear. EKG's have sinus rhythm with nonspecific lateral ST-T changes. ASSESSMENT 1. Chest pain: The patient has history of CAD. He had serial cardiac enzymes and EKG's for ruling out purposes. He describes the discomfort similar to when he had stenting. I discussed this patient with Dr. Guzman who is covering for Dr. Cano and request admission to hospitalist and consult Dr. Cano and states that he will see him for Dr. Cano this morning. unlikely for stress testing. 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 Further cardiac plan pending Dr. Nicole consultation. I did speak with Dr. Gross who graciously agreed to accept the patient. Dr. Randall will evaluate the patient as well. 2. Coronary artery disease, we will reassess with this visit per Dr. Roman. 3. Hypertension: Continue medication 4. Diabetes: Will have sliding scale insulin coverage while admitted. And further orders per Dr. Lydia Gross. He needs to follow diabetic diet. 5. Renal failure. With the patient under dialysis three days per week. I have consulted the patient's title department manager Dr. Day for further recommendations as he was not able to complete his dialysis last evening. He states it was short about an hour. 6. Hyperlipidemia, continue current medications. 7. The patient stable at time. He is agreeable this plan. DICTATED BY: Yan Ashley PA-c Miah Randall MD [facility]/ /11:03 AM /8:36 AM
[2016-03-18] MEDS: FAMOTIDINE 20 MG TAB PO SCH (08:43)
[2016-03-18] MEDS: CLOPIDOGREL 75 MG TAB PO SCH (08:43)
[2016-03-18] MEDS: METOPROLOL TARTRATE 25 MG TAB PO SCH (08:43)
[2016-03-18] MEDS: SODIUM CHLORIDE 0.9% FLUSH 5 ML FLUSH FLUSH SCH (08:43)
[2016-03-18] MEDS: ASPIRIN 325 MG TAB PO SCH (08:43)
[2016-03-18] MEDS: GABAPENTIN 300 MG CAP PO SCH (08:43)
[2016-03-18] MEDS: CALCIUM ACETATE 667 MG CAP PO SCH ×2 (08:43→12:20)
[2016-03-18] MEDS: PRAVASTATIN SOD 20 MG TAB PO SCH (08:43)
[2016-03-18] MEDS: INSULIN DETEMIR 100 UNITS/ML VIAL SQ SCH (08:44)
[2016-03-18] MEDS: SODIUM CHLORIDE 0.9% FLUSH 5 ML FLUSH IVF SCH (08:57)
--- NOTE | 2016-03-18 09:10 | HHI.NPPN ---
Subjective Complaints: Chest Pain General Problems: Anemia Renal Failure: Chronic, End Stage Renal Disease Interval History Sitting up eating breakfast. He has no reports of chest pain overnight, no acute concerns. (Carin Shaw) Review of Systems Cardiovascular Cardiac: Chest Pain Cardiac Remarks mostly resolved (Carin Shaw) Objective Data Data Vital Signs Date Time Temp Pulse Resp B/P Pulse Ox O2 Delivery O2 Flow Rate FiO2 03/18/16 08:08 98.4 65 16 128/69 96 03/18/16 04:09 98.0 62 16 141/65 99 03/17/16 20:31 98.0 68 18 145/75 99 03/17/16 20:09 67 03/17/16 19:55 97 03/17/16 15:06 97.8 65 18 137/69 96 03/17/16 12:30 98.1 85 18 173/84 98 (Carin Shaw) -: 03/17/16 0620 03/18/16 0404 Imaging Last 72 hours Impressions Chest X-Ray 03/16/16 0030 Signed Impressions: Service Date/Time: Wednesday, March 16, 2016 00:46 - CONCLUSION: The lungs are clear. Patrick Griffin MD (Carin Shaw) Physical Exam General Appearance: Well Developed, No Acute Distress, Comfortable (Carin Shaw) Throat Throat Exam: Oral Mucosa [place] & Moist (Carin Shaw) Neck Neck Exam: Neck Supple (Carin Shaw) Pulmonary Resp Exam: Clear Bilaterally, Breath Sounds Equal, No Distress (Carin hSaw) Cardiology CV Exam: Regular, Normal Sinus Rhythm, Good Perfusion (Carin Shaw) Gastrointestinal/Abdomen GI Exam: Soft, Non-Tender, Bowel Sounds Present (Carin Shaw) Musculoskeletal MS Exam: Joints Intact, Normal Tone (Carin Shaw) Integumentary Skin Exam: Clear, Warm, Dry, Intact (Carin Shaw) Extremeties Extremities Exam: No Edema Extremeties Remarks LUE AVF, + thrill/bruit (Carin Shaw) Neurologic Neuro Exam: Alert, Awake, Oriented, Speech Clear, Moving All Extremities ( Carin Shaw) Assessment/Plan Discussed Condition With: Patient Assessment Summary: Anemia of CKD, End Stage Renal Disease Problem List: (1) ESRD (end stage renal disease) on dialysis Plan: Typically dialyzes on MWF, He is due today after catheterization if that is decided His volume status is acceptable. Potassium is acceptable. No acute renal concerns AVF is patient Avoid Gadolinium in this patient. (2) Hypertension Plan: continue home medications. Monitor. (3) Diabetes mellitus, type II, insulin dependent Plan: continue insulin coverage. Maintain blood glucose between 140 and 180. (4) Chest pain Plan: He is on daily Aspirin and NTG patch Has been evaluate by cardiology, unsure about catheterization today, no reports of chest pain He has ruled out for CT by serial cardiac enzymes. appreciate further recommendations (Carin Shaw) Plan patient was seen and examined. Dialysis today. Agree with above assessment and plan. (Lonnie Owens MD) Problem Qualifiers (1) Chest pain: Qualified Code: R07.9 - Chest pain, unspecified type Carin Shaw Mar 18, 2016 09:10 Lonnie Owens MD Mar 18, 2016 09:45
--- NOTE | 2016-03-18 09:55 | HHI.PR ---
Subjective Remarks No pain today No SOB No fever No headache Appetite good, taking PO fluids well Voids in urinal Objective Objective Results - Vital Signs Date Time Temp Pulse Resp B/P Pulse Ox O2 Delivery O2 Flow Rate FiO2 03/18/16 08:08 98.4 65 16 128/69 96 03/18/16 04:09 98.0 62 16 141/65 99 03/17/16 20:31 98.0 68 18 145/75 99 03/17/16 20:09 67 03/17/16 19:55 97 03/17/16 15:06 97.8 65 18 137/69 96 03/17/16 12:30 98.1 85 18 173/84 98 I/O 03/17/16 03/17/16 03/17/16 03/18/16 03/18/16 03/18/16 07:00 15:00 23:00 07:00 15:00 23:00 Output Total 100 ml Balance -100 ml Output Urine Total 100 ml # Bowel Movements 0 Result Diagram: 03/17/16 0620 03/18/16 0404 ROS General: Other (12 point review obtained without issues) Physical Exam Physical Exam GENERAL: This is a well-nourished, well-developed patient, in no apparent distress. Good historian. SKIN: No rashes, ecchymoses or lesions. Cool and dry. HEAD: Atraumatic. Normocephalic. No temporal or scalp tenderness. EYES: Pupils 2MM equal round and reactive. Extraocular motions intact. No scleral icterus. No injection or drainage. ENT: Nose without bleeding, purulent drainage or septal hematoma. Throat without erythema, tonsillar hypertrophy or exudate. Uvula midline. Airway patent. NECK: Trachea midline. No JVD or lymphadenopathy. Supple, nontender CARDIOVASCULAR: Regular rate and rhythm without murmurs, gallops, or rubs. Sounds distant RESPIRATORY: Clear to auscultation. Breath sounds equal bilaterally. No wheezes , rales, or rhonchi. GASTROINTESTINAL: Abdomen large, soft, non-tender, nondistended. No hepato- splenomegaly, or palpable masses. No guarding. MUSCULOSKELETAL: Extremities without clubbing, cyanosis, or edema. No joint tenderness, effusion, or edema noted. No calf tenderness. bilaterally. NEUROLOGICAL: Awake and alert. Cranial nerves II through XII intact. Motor and sensory grossly within normal limits. Five out of 5 muscle strength in all muscle groups. Normal speech. A/P Diagnosis: (1) Chest pain Plan: MA ruled out Cardiology input appreciatd, waiting for card to decide on whether cardiac cath needed. continue with aspirin Morphine PRN Pain management with Morphine effective continue ASA/Plavix Nitro PRN (2) Hypertension Plan: monitor BP during hospital stay, continue home meds (3) Diabetes mellitus, type II, insulin dependent Plan: Accu-Cheks before meals and at bedtime with home insulin to be continued (4) ESRD (end stage renal disease) on dialysis Plan: Nephrology following, input appreciated Assessment and Plan Continue with DVT/PUD prophylaxis Discharge planning in progress will wait for cardiology input Discussed With: Other (, Dr. Serra, Bat[place] OMALLEY and patient.) Problem Qualifiers (1) Chest pain: Qualified Code: R07.9 - Chest pain, unspecified type (2) Hypertension: Qualified Code: I15.1 - Hypertension secondary to other renal disorders Isis Jose Mar 18, 2016 09:55
--- NOTE | 2016-03-18 11:50 | PD.CARD.PN ---
Subjective Subjective Remarks feeling well no cp no sob Objective Vital Signs / I&O Vital Signs Date Time Temp Pulse Resp B/P Pulse Ox O2 Delivery O2 Flow Rate FiO2 03/18/16 08:08 98.4 65 16 128/69 96 03/18/16 08:04 64 03/18/16 07:50 98 21 03/18/16 04:09 98.0 62 16 141/65 99 03/17/16 20:31 98.0 68 18 145/75 99 03/17/16 20:09 67 03/17/16 19:55 97 03/17/16 15:06 97.8 65 18 137/69 96 03/17/16 12:30 98.1 85 18 173/84 98 I/O 03/17/16 03/17/16 03/17/16 03/18/16 03/18/16 03/18/16 07:00 15:00 23:00 07:00 15:00 23:00 Intake Total 400 ml Output Total 100 ml Balance -100 ml 400 ml Intake Oral 400 ml Output Urine Total 100 ml # Voids 1 # Bowel Movements 0 Physical Exam vitals stable heart s1s2 lung clear abdomen and ext free Laboratory Laboratory Tests Test 03/18/16 04:04 Sodium Level 138 MEQ/L Potassium Level 4.4 MEQ/L Chloride Level 105 MEQ/L Carbon Dioxide Level 23.7 MEQ/L Anion Gap 9 MEQ/L Blood Urea Nitrogen 33 MG/DL Creatinine 8.23 MG/DL Estimat Glomerular Filtration 8 ML/MIN Rate Random Glucose 155 MG/DL Calcium Level 9.1 MG/DL Phosphorus Level 4.1 MG/DL Albumin 3.6 GM/DL Assessment and Plan Problem List: (1) Chest pain Assessment and Plan: very atypical cp ecg and enzymes negative ambulate and if stable with no cp could go home and follow up as outpatient (2) Hypertension (3) Diabetes mellitus, type II, insulin dependent (4) History of heart artery stent Problem Qualifiers (1) Chest pain: Qualified Code: R07.9 - Chest pain, unspecified type (2) Hypertension: Qualified Code: I15.1 - Hypertension secondary to other renal disorders Sammy Cano MD Mar 18, 2016 11:50
--- NOTE | 2016-03-18 12:47 | HHI.DCPOC ---
Discharge Care Plan Goals to Promote Your Health * To prevent worsening of your condition and complications * To maintain your health at the optimal level Directions to Meet Your Goals Take your medications as prescribed Follow your dietary instruction Follow activity as directed Keep your appointments as scheduled Take your immunizations and boosters as scheduled If your symptoms worsen call your PCP, if no PCP go to Urgent Care Center or Emergency Room Smoking is Dangerous to Your Health. Avoid second hand smoke Call the 24-hour hour crisis hotline for domestic abuse at Isis Jose Mar 18, 2016 12:47
[2016-03-18 12:49] VITALS: BP 140/77; PULSE 62; RESP 16; TEMP 98; O2SAT 16
--- NOTE | 2016-03-18 12:59 | HHI.DS ---
Discharge Summary Admission Date Mar 16, 2016 at 01:47 Discharge Date: Mar 18, 2016 Admitting Diagnosis (1) Chest pain Diagnosis: Principal (2) Hypertension Diagnosis: Principal (3) Diabetes mellitus, type II, insulin dependent Diagnosis: Principal (4) ESRD (end stage renal disease) on dialysis Diagnosis: Principal Procedures none CBC/BMP: 03/17/16 0620 03/18/16 0404 Significant Findings Laboratory Tests Test 03/16/16 03/16/16 03/16/16 03/17/16 00:35 04:49 07:00 06:20 Red Blood Count 3.34 MIL/MM3 3.51 MIL/MM3 (4.50-5.90) (4.50-5.90) Hemoglobin 10.6 GM/DL 10.7 GM/DL (13.0-17.0) (13.0-17.0) Hematocrit 31.5 % 33.1 % (39.0-51.0) (39.0-51.0) Red Cell Distribution Width 18.4 % 18.8 % (11.6-17.2) (11.6-17.2) Eosinophils (%) (Auto) 12.4 % 11.8 % (0.0-4.0) (0.0-4.0) Eosinophils # (Auto) 0.8 TH/MM3 0.7 TH/MM3 (0-0.4) (0-0.4) Activated Partial 35.9 SEC Thromboplast Time (24.3-30.1) Creatinine 4.80 MG/DL 7.29 MG/DL (0.60-1.30) (0.60-1.30) Estimat Glomerular Filtration 15 ML/MIN (>89) 9 ML/MIN (>89) Rate Random Glucose 196 MG/DL 173 MG/DL (74-106) (74-106) Total Creatine Kinase 431 U/L 407 U/L 384 U/L (39-308) (39-308) (39-308) Mean Platelet Volume 6.9 FL (7.0-11.0) Blood Urea Nitrogen 24 MG/DL (7-18) Calcium Level 8.4 MG/DL (8.5-10.1) Test 03/18/16 04:04 Blood Urea Nitrogen 33 MG/DL (7-18) Creatinine 8.23 MG/DL (0.60-1.30) Estimat Glomerular Filtration 8 ML/MIN (>89) Rate Random Glucose 155 MG/DL (74-106) Imaging Last Impressions Chest X-Ray 03/16/16 0030 Signed Impressions: Service Date/Time: Wednesday, March 16, 2016 00:46 - CONCLUSION: The lungs are clear. Patrick Griffin MD Hospital Course This was an articulate 65-year-old black male who has a significant history of coronary artery disease and end-stage renal disease. He was performing his regular ADLs day before admission, sat down to watch a movie , and noted a tired sensation. After about 15 minutes he began having sharp pains in his left chest which radiated into his axilla. Chest pain waxed and waned but patient was finally able to go to sleep last night. The day after, patient went for his usual dialysis treatment. He then begin to have the sign sharp chest pain with more intensity than the night before. Also complained of nausea without emesis, and pain with numbness that radiates into his left arm and hand. He denied any diaphoresis, no headache, appetite good. Patient also stated that he was sick approximately 2 weeks ago with cough. He denied any fever and states that he took [id number] medicines and has recovered. During the course of stay, MA was ruled out. Labs including troponins X 3 were negative. Cardiology saw patient and continue with aspirin and plavix. Morphine was given PRN and effective for pain management. Nitro SL PRN ordered, but not needed. BP was monitored during hospital stay, All home meds were continued. Accu-Cheks checked before meals and at bedtime with home insulin dose continued. Nephrology followed for dialysis and renal function needs. No dialysis procedures were needed during hospital stay. Continued with DVT/PUD prophylaxis Discharge planning initiated on admission and followed needs through hospital course. Cardiology consulted and evaluated plan of care. MA ruled out. CP was found atypical, recommended continuing on med management with ASA and Plavix Cardiology plan is to follow as OP along with patient PCP. OP home medications continued as before. Vitals and pain stable for discharge. Pt Condition on Discharge: Stable Discharge Disposition: Discharge Home Discharge Instructions DIET: Follow Instructions for: Heart Healthy Diet, Diabetic Diet, Renal Failure Diet Activities you can perform: Weight Bearing as Bong Activities to Avoid: Strenuous Activity (until floow up with PCP and cardiology.) Follow up Referrals: Cardiology with Sammy Cano MD PCP Follow-up Continued Medications: Allopurinol (Allopurinol) 300 Mg Tab 300 MG PO DAILY Gout #30 Ref 0 TAB Amlodipine (Amlodipine) 10 Mg Tab 10 MG PO DAILY Blood Pressure Management #30 Ref 0 TAB B-Complex W/ C & Folic Acid (Gaby-Cruz) 1 Tab 1 TAB PO HS TAB Calcium Acetate (Phosphate Binder) (Phoslo) 667 Mg Cap 667 MG PO TID Hyperphosphatemia #90 Ref 0 CAP Clopidogrel (Clopidogrel) 75 Mg Tab 75 MG PO DAILY Blood Clot Prevention #30 Ref 0 TAB Gabapentin (Gabapentin) 300 Mg Cap 300 MG PO DAILY #60 Ref 0 CAP Insulin Glargine Inj (Lantus Inj) 100 Unit/Ml Inj Insulin Lispro (Human) Inj (Humalog Kwikpen Pen Inj) 300 Unit/3 Ml Pen 100 UNITS SQ Blood Sugar Management Ref 0 PEN Lovastatin (Lovastatin) 20 Mg Tab 20 MG PO DAILY Cholesterol Management #30 Ref 0 TAB Metoprolol Tartrate (Metoprolol Tartrate) 25 Mg Tab 25 MG PO DAILY #30 Ref 0 TAB Ranitidine (Ranitidine) 150 Mg Cap 150 MG PO DAILY #30 Ref 0 CAP Isis Jose Mar 18, 2016 12:59 Isis Jose Mar 18, 2016 12:59
[2016-05-06] MEDS ORDERED: LISI10TA3 PO (09:12)
[2016-05-06] MEDS ORDERED: OMEP40CA2 PO (09:12)
[2016-05-06] MEDS ORDERED: NITR0.4S SL (09:12)
== END 2016-03-18 18:48 | disposition home or self-care (01) ==
LOC: NEPC 00:04 → NEDA 01:47 → NEPFCDU 03:42
PROVIDERS: ADMIT Specialist; ATTEND Specialist
DX: R07.89 Other chest pain (principal); D63.1 Anemia in chronic kidney disease; N18.6 End stage renal disease; I12.0 Hypertensive chronic kidney disease with stage 5 chronic kidney disease or end stage renal disease; E11.22 Type 2 diabetes mellitus with diabetic chronic kidney disease; I25.10 Atherosclerotic heart disease of native coronary artery without angina pectoris; E78.5 Hyperlipidemia, unspecified; K21.9 Gastro-esophageal reflux disease without esophagitis; E66.9 Obesity, unspecified; I25.2 Old myocardial infarction; E78.00 Pure hypercholesterolemia, unspecified; M17.0 Bilateral primary osteoarthritis of knee; Z79.4 Long term (current) use of insulin; Z79.02 Long term (current) use of antithrombotics/antiplatelets; Z86.74 Personal history of sudden cardiac arrest; Z87.442 Personal history of urinary calculi; Z87.891 Personal history of nicotine dependence; Z95.5 Presence of coronary angioplasty implant and graft; Z99.2 Dependence on renal dialysis; Z86.73 Personal history of transient ischemic attack (TIA), and cerebral infarction without residual deficits; Z85.46 Personal history of malignant neoplasm of prostate; Z79.82 Long term (current) use of aspirin
CPT/HCPCS: 71010; 80048; 80069; 82550; 82552; 82948; 83735; 84484; 85025; 85610; 85730; 93005; 96374; 99285; G0257; G0378; J1644; J1815; J2270; J7030; Q4081; 90935; J1580

== ENCOUNTER 2017-01-31 15:41 | Emergency (ER) | payer MEDICARE, OTHER ==
[~2017-01-31] VITALS: Ht 167.6 cm; Wt 87.0 kg
[~2017-01-31 15:41] MED LIST changes: +ALLO300T2 PO; +AMLO10TA2 PO; -CIPR500T4 PO; +CLOP75TA PO; +GABA300C5 PO; +HUMA100I3 SQ; +LANTUS2P IM; +LISI10TA3 PO; +LOVA20TA PO; +METO25TA3 PO; +NITR0.4S SL; +OMEP40CA2 PO; +PHOS667C5 PO; +RANI150C PO; +RENATAB5 PO
[2017-01-31 15:56] VITALS: BP 176/78; PULSE 61; RESP 22; TEMP 98; O2SAT 93
--- NOTE | 2017-01-31 16:16 | PD ---
HPI Chief Complaint: Syncope/Near-Syncope Time Seen by Provider: 16:05 Travel History International Travel<30 days: No Contact w/Intl Traveler<30days: No Traveled to known affect area: No History of Present Illness HPI 66-year-old Afro-Danish male with history of CAD, stents, history of stroke, type 2 diabetes, and dialysis; followed by , is brought into the emergency department via EMS status post witnessed syncopal event after dialysis earlier today. Patient has generalized weakness and states "I don't feel well". He denies fever or chills. He denies any specific pain at this time. He has no neurological complaints. He is allergic to shellfish. PFSH Past Medical History Hx Anticoagulant Therapy: Yes Arthritis: Yes Asthma: No Autoimmune Disease: No Blood Disorders: No Anxiety: No Depression: No Heart Rhythm Problems: No Cancer: Yes Cardiac Catheterization: Yes Cardiovascular Problems: Yes (MA AND 3 STINTS ) High Cholesterol: Yes Chemotherapy: No Chest Pain: Yes Congestive Heart Failure: No Cerebrovascular Accident: Yes (TIA X3) Coronary Artery Disease: Yes Diabetes: Yes (TYPE II ) Patient Takes Glucophage: Yes (TYPE II METFORMIN ) Diminished Hearing: No Endocrine: No Gastrointestinal Disorders: Yes GERD: Yes Genitourinary: No Headaches: No Hiatal Hernia: No Hypertension: Yes Immune Disorder: No Implanted Vascular Access Dvce: No Kidney Stones: Yes Musculoskeletal: Yes (METABOLIC MUSCLE DISEASE) Neurologic: Yes Psychiatric: No Reproductive: No Respiratory: No Immunizations Current: Yes Migraines: No Myocardial Infarction: Yes (X 1 IN 2006) Radiation Therapy: No Renal Failure: No Seizures: No Sleep Apnea: No Thyroid Disease: No Ulcer: No Past Surgical History Abdominal Surgery: Yes (HERNIA REPAIR) Cardiac Surgery: No Ear Surgery: No Endocrine Surgery: No Eye Surgery: No Genitourinary Surgery: Yes (LITHOTRIPSY) Gynecologic Surgery: No Neurologic Surgery: Yes (RT TEMPRAL ART BIOPSY) Oral Surgery: No Pacemaker: No Prostatectomy: Yes Thoracic Surgery: No Other Surgery: Yes (TEMPORAL ARTERITIS) Social History Alcohol Use: No Tobacco Use: No Substance Use: No Allergies-Medications (Allergen,Severity, Reaction): Coded Allergies: shellfish derived (Unverified Allergy, Severe, Swelling, 10/22/16) Reported Meds & Prescriptions Reported Meds & Active Scripts Active Reported Nitrostat SL (Nitroglycerin) 0.4 Mg Subl 0.4 Mg SL DIRECTED PRN 1 tablet under the tongue as needed for chest pain. Repeat every 5 minutes for a total of 3 DOSES or call 911 if NO relief. Lisinopril 10 Mg Tab 10 Mg PO DAILY Omeprazole 40 Mg Cap 40 Mg PO DAILY Gaby-Cruz (B-Complex W/ C & Folic Acid) 1 Tab 1 Tab PO HS Ranitidine (Ranitidine HCl) 150 Mg Cap 150 Mg PO DAILY Phoslo (Calcium Acetate (Phosphate Binder)) 667 Mg Cap 667 Mg PO TID Metoprolol Tartrate 25 Mg Tab 25 Mg PO DAILY Lovastatin 20 Mg Tab 20 Mg PO DAILY Lantus Inj (Insulin Glargine) 100 Unit/Ml Inj 35 Unit IM DAILY Humalog Kwikpen Pen Inj (Insulin Lispro (Human) Inj) 300 Unit/3 Ml Pen 100 Units SQ SLIDING SCALE Gabapentin 300 Mg Cap 300 Mg PO DAILY Clopidogrel (Clopidogrel Bisulfate) 75 Mg Tab 75 Mg PO DAILY Amlodipine (Amlodipine Besylate) 10 Mg Tab 10 Mg PO DAILY Allopurinol 300 Mg Tab 300 Mg PO DAILY Review of Systems Except as stated in HPI: all other systems reviewed are Neg General / Constitutional: No: Fever Eyes: No: Visual changes HENT: Positive: Lightheadedness, No: Headaches, Vertigo, Sore Throat, Rhinitis , Rhinorrhea, Neck Stiffness, Neck Pain Cardiovascular: Positive: Syncope, No: Chest Pain or Discomfort, Palpitations, Irregular Rhythm, Tachycardia, Diaphoresis, Dyspnea on exertion, Varicosities, Edema, Cyanosis Respiratory: No: Cough, Shortness of Breath, Wheezing Gastrointestinal: No: Nausea, Vomiting, Diarrhea, Abdominal Pain Genitourinary: No: Dysuria Musculoskeletal: No: Pain Skin: No Rash Neurologic: Positive: Syncope, No: Weakness, Dizziness, Focal Abnormalities, Coordination Problem, Tremor, Ataxia, Headache, Change in Mentation, Slurred Speech, Paresthesia, Incontinence, Seizures, Sensory Disturbance Psychiatric: No: Depression Endocrine: No: Polydipsia Hematologic/Lymphatic: No: Easy Bruising Physical Exam Narrative GENERAL: Patient appears in no acute distress. SKIN: Warm and dry. Normal color. Normal turgor. No diaphoresis. HEAD: Atraumatic. Normocephalic. EYES: Pupils equal and round. No scleral icterus. No injection or drainage. ENT: No nasal bleeding or discharge. Mucous membranes pink and moist. [place] clear. Airway is patent. NECK: Trachea midline. Supple and nontender. CARDIOVASCULAR: Regular rate and rhythm. No murmurs gallops or rubs appreciated. RESPIRATORY: No accessory muscle use. Clear to auscultation. Breath sounds equal bilaterally. GASTROINTESTINAL: Abdomen soft, non-tender, nondistended. Hepatic and splenic margins not palpable. MUSCULOSKELETAL: Extremities without clubbing, cyanosis, or edema. No obvious deformities. NEUROLOGICAL: Awake and alert. No obvious cranial nerve deficits. Motor grossly within normal limits. Five out of 5 muscle strength in the arms and legs. Normal speech. PSYCHIATRIC: Appropriate mood and affect; insight and judgment normal. Data Data Last Documented VS Vital Signs Date Time Temp Pulse Resp B/P (MAP) Pulse Ox O2 Delivery O2 Flow Rate FiO2 01/31/17 18:27 69 173/75 (107) 01/31/17 16:39 97 Room Air 01/31/17 16:05 2.00 01/31/17 15:56 98.0 22 Orders Orders Electrocardiogram (01/31/17 16:16) Complete Blood Count With Diff (01/31/17 16:16) Comprehensive Metabolic Panel (01/31/17 16:16) Magnesium (Mg) (01/31/17 16:16) Ckmb (Isoenzyme) Profile (01/31/17 16:16) Troponin I (01/31/17 16:16) Act Partial Throm Time (Ptt) (01/31/17 16:16) Prothrombin Time / Inr (Pt) (01/31/17 16:16) Chest, Single Ap (01/31/17 16:16) Ecg Monitoring (01/31/17 16:16) Iv Access Insert/Monitor (01/31/17 16:16) Oximetry (01/31/17 16:16) Oxygen Administration (01/31/17 16:16) Sodium Chloride 0.9% Flush (Ns Flush) (01/31/17 16:30) Orthostatic Vital Signs (01/31/17 16:16) CKMB (01/31/17 17:45) CKMB% (01/31/17 17:45) Labs Laboratory Tests Test 01/31/17 16:30 01/31/17 17:45 White Blood Count 4.9 TH/MM3 Red Blood Count 3.12 MIL/MM3 Hemoglobin 10.3 GM/DL Hematocrit 30.3 % Mean Corpuscular Volume 97.0 FL Mean Corpuscular Hemoglobin 33.0 PG Mean Corpuscular Hemoglobin Concent 34.1 % Red Cell Distribution Width 15.1 % Platelet Count 159 TH/MM3 Mean Platelet Volume 8.2 FL Neutrophils (%) (Auto) 56.0 % Lymphocytes (%) (Auto) 25.7 % Monocytes (%) (Auto) 5.1 % Eosinophils (%) (Auto) 12.3 % Basophils (%) (Auto) 0.9 % Neutrophils # (Auto) 2.8 TH/MM3 Lymphocytes # (Auto) 1.3 TH/MM3 Monocytes # (Auto) 0.3 TH/MM3 Eosinophils # (Auto) 0.6 TH/MM3 Basophils # (Auto) 0.0 TH/MM3 CBC Comment DIFF FINAL Differential Comment Prothrombin Time 10.7 SEC Prothromb Time International Ratio 1.0 RATIO Activated Partial Thromboplast Time 29.9 SEC Blood Urea Nitrogen 24 MG/DL Creatinine 6.92 MG/DL Random Glucose 81 MG/DL Total Protein 7.6 GM/DL Albumin 3.6 GM/DL Calcium Level 8.0 MG/DL Magnesium Level 1.8 MG/DL Alkaline Phosphatase 91 U/L Aspartate Amino Transf (AST/SGOT) 17 U/L Alanine Aminotransferase (ALT/SGPT) 15 U/L Total Bilirubin 0.4 MG/DL Sodium Level 139 MEQ/L Potassium Level 4.4 MEQ/L Chloride Level 104 MEQ/L Carbon Dioxide Level 27.2 MEQ/L Anion Gap 8 MEQ/L Estimat Glomerular Filtration Rate 10 ML/MIN Total Creatine Kinase 434 U/L Creatine Kinase MB 2.5 NG/ML Creatine Kinase MB % 0.6 % Troponin I 0.02 NG/ML [facility] Medical Decision Making Medical Screen Exam Complete: Yes Emergency Medical Condition: Yes Medical Record Reviewed: Yes Differential Diagnosis Syncope. Electrolyte imbalance. Dehydration. Narrative Course Patient is medically stable at time of exam. EKG shows sinus rhythm with nonspecific T-wave changes. Is ordered including CBC, CMP, cardiac panel, magnesium. Chest x-ray is ordered. Orthostatics were ordered. CBC is unremarkable except for hemoglobin 10.3 and hematocrit of 30.3 which is typical for the patient. Coagulation studies are normal. Chemistries show sodium 139, potassium 4.4, chloride 104, carbon dioxide 27.2 BUN is 24, creatinine is 6.92 with dysphagia 510. Creatinine kinase is 434. First troponin is 0.[address] English Patient is felt stable for discharge home with follow-up with his primary care physician. Diagnosis Primary Impression: Near syncope Referrals: Primary Care Physician Patient Instructions: General Instructions, Near Syncope (ED) Additional Instructions: CBC is unremarkable except for hemoglobin 10.3 and hematocrit of 30.3 which is typical for the patient. Coagulation studies are normal. Chemistries show sodium 139, potassium 4.4, chloride 104, carbon dioxide 27.2 BUN is 24, creatinine is 6.92 with dysphagia 510. Creatinine kinase is 434. First troponin is 0.[address] English Patient is felt stable for discharge home with follow-up with his primary care physician. Med/Other Pt SpecificInfo: No Change to Meds Disposition: 01 DISCHARGE HOME Condition: Stable Bari Randhawa Jan 31, 2017 16:16
[2017-01-31] MEDS ORDERED: SODIUM CHLORIDE 0.9% FLUSH 10 ML FLUSH IVF PRN (16:30)
[2017-01-31 16:39] VITALS: O2SAT 97
[2017-01-31 16:55] LABS: AUTOMATED NEUTROPHIL # 2.8 TH/MM3 (1.8-7.7); BASOPHIL % 0.9 % (0.0-2.0); EOSINOPHIL # 0.6 TH/MM3 (0-0.4); EOSINOPHIL % 12.3 % (0.0-4.0); HEMATOCRIT 30.3 % (39.0-51.0); HEMO FLAGS DIFF FINAL; LYMPH % 25.7 % (9.0-44.0); LYMPHOCYTE # 1.3 TH/MM3 (1.0-4.8); MEAN CORPUSCULAR HGB CONC 34.1 % (32.0-36.0); MONO % 5.1 % (0.0-8.0); PLATELET COUNT 159 TH/MM3 (150-450); RED BLOOD COUNT 3.12 MIL/MM3 (4.50-5.90); RED CELL DISTRIBUTION WIDTH 15.1 % (11.6-17.2); WHITE BLOOD COUNT 4.9 TH/MM3 (4.0-11.0)
--- NOTE | 2017-01-31 17:10 | RADRPT ---
EXAM DATE/TIME: 01/31/2017 16:46 [facility] COMPARISON: CHEST SINGLE AP, March 16, 2016, 0:46. INDICATIONS : Chest pain. MEDICAL HISTORY : Hypertension. Diabetes mellitus type II. Myocardial infarction. GERD, CAD, CVA SURGICAL HISTORY : Inguinal hernia repair. Prostatectomy. Stents. ENCOUNTER: Initial ACUITY: 1 day PAIN SCORE: 5/10 LOCATION: Left chest FINDINGS: A single view of the chest demonstrates the lungs to be symmetrically aerated without evidence of mas s, infiltrate or effusion. The cardiomediastinal contours are unremarkable. Osseous structures are intact. CONCLUSION: Normal examination. Ming Guajardo MD on January 31, 2017 at 17:08 Board Certified Radiologist. This report was verified electronically.
[2017-01-31 17:23] LABS: APTT (PATIENT) 29.9 SEC (24.3-30.1); PROTHROMBIN TIME - PATIENT 10.7 SEC (9.8-11.6)
[2017-01-31 18:25] VITALS: BP 182/79
[2017-01-31 18:27] VITALS: BP 173/75
[2017-01-31 18:40] LABS: ALKALINE PHOSPHATASE 91 U/L (45-117); CREATINE KINASE 434 U/L (39-308); TOTAL BILIRUBIN ADULT 0.4 MG/DL (0.2-1.0)
--- NOTE | 2017-01-31 18:51 | PD ---
Data Data Last Documented VS Vital Signs Date Time Temp Pulse Resp B/P (MAP) Pulse Ox O2 Delivery O2 Flow Rate FiO2 01/31/17 18:27 69 173/75 (107) 01/31/17 16:39 97 Room Air 01/31/17 16:05 2.00 01/31/17 15:56 98.0 22 Orders Orders Electrocardiogram (01/31/17 16:16) Complete Blood Count With Diff (01/31/17 16:16) Comprehensive Metabolic Panel (01/31/17 16:16) Magnesium (Mg) (01/31/17 16:16) Ckmb (Isoenzyme) Profile (01/31/17 16:16) Troponin I (01/31/17 16:16) Act Partial Throm Time (Ptt) (01/31/17 16:16) Prothrombin Time / Inr (Pt) (01/31/17 16:16) Chest, Single Ap (01/31/17 16:16) Ecg Monitoring (01/31/17 16:16) Iv Access Insert/Monitor (01/31/17 16:16) Oximetry (01/31/17 16:16) Oxygen Administration (01/31/17 16:16) Sodium Chloride 0.9% Flush (Ns Flush) (01/31/17 16:30) Orthostatic Vital Signs (01/31/17 16:16) CKMB (01/31/17 17:45) CKMB% (01/31/17 17:45) Labs Laboratory Tests Test 01/31/17 16:30 01/31/17 17:45 White Blood Count 4.9 TH/MM3 Red Blood Count 3.12 MIL/MM3 Hemoglobin 10.3 GM/DL Hematocrit 30.3 % Mean Corpuscular Volume 97.0 FL Mean Corpuscular Hemoglobin 33.0 PG Mean Corpuscular Hemoglobin Concent 34.1 % Red Cell Distribution Width 15.1 % Platelet Count 159 TH/MM3 Mean Platelet Volume 8.2 FL Neutrophils (%) (Auto) 56.0 % Lymphocytes (%) (Auto) 25.7 % Monocytes (%) (Auto) 5.1 % Eosinophils (%) (Auto) 12.3 % Basophils (%) (Auto) 0.9 % Neutrophils # (Auto) 2.8 TH/MM3 Lymphocytes # (Auto) 1.3 TH/MM3 Monocytes # (Auto) 0.3 TH/MM3 Eosinophils # (Auto) 0.6 TH/MM3 Basophils # (Auto) 0.0 TH/MM3 CBC Comment DIFF FINAL Differential Comment Prothrombin Time 10.7 SEC Prothromb Time International Ratio 1.0 RATIO Activated Partial Thromboplast Time 29.9 SEC Total Protein 7.6 GM/DL Alkaline Phosphatase 91 U/L Total Bilirubin 0.4 MG/DL Total Creatine Kinase 434 U/L Troponin I 0.02 NG/ML [facility] Supervised Visit with STEVEN: Yes Narrative Course The history, exam, and medical decision-making in the associated mid-level provider note were completed with my assistance. I reviewed and agree with the findings presented. I attest that I had a [id number] encounter with the patient on the same day, and personally performed and documented my assessment and findings in the medical record. *My assessment and Findings: This 66-year-old male presents emergency department following a syncopal episode. His a history of end-stage renal disease. 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 Patient's describes a blockage in the vessels going from his liver to his heart was causing him to pass out. Workup was reportedly otherwise unremarkable and he was instructed to follow up with his primary physician. Was in dialysis today, began to feel funny with lightheadedness and abdominal pain and asked to be taken off the machine early. He stood up or peripheral walk and felt lightheaded dizzy and passed out. He looks well now. We'll check labs chest x- ray and EKG. These are unremarkable including to be safe for outpatient follow- up as previously directed. Condition: Stable Ming English MD Jan 31, 2017 18:51
[2017-01-31 18:52] LABS: ALT (GPT) 15 U/L (12-78); ANION GAP 8 MEQ/L (5-15); AST (GOT) 17 U/L (15-37); BICARBONATE 27.2 MEQ/L (21.0-32.0); BLOOD UREA NITROGEN 24 MG/DL (7-18); CHLORIDE 104 MEQ/L (98-107); CKMB 2.5 NG/ML (0.5-3.6); GLOMERULAR FILTRATION RATE 10 ML/MIN (>89); MAGNESIUM 1.8 MG/DL (1.5-2.5); POTASSIUM 4.4 MEQ/L (3.5-5.1); SODIUM (NA) 139 MEQ/L (136-145)
--- NOTE | 2017-02-01 15:24 | EKG ---
Date Performed: 01/31/2017 Time Performed: 16:16:45 PTAGE: 66 years EKG: Sinus rhythm NONSPECIFIC T-WAVE ABNORMALITY ABNORMAL ECG Compared to the PREVIOUS TRACING from 03/16/16, no significant change DOCTOR: Benito Lewis Interpretating Date/Time 02/01/2017 15:22:43
== END 2017-01-31 19:55 | disposition home or self-care (01) ==
LOC: NEPC 15:41
DX: R55 Syncope and collapse (principal); R42 Dizziness and giddiness; R10.9 Unspecified abdominal pain; I25.10 Atherosclerotic heart disease of native coronary artery without angina pectoris; E11.9 Type 2 diabetes mellitus without complications; K21.9 Gastro-esophageal reflux disease without esophagitis; I10 Essential (primary) hypertension; E78.00 Pure hypercholesterolemia, unspecified; R94.31 Abnormal electrocardiogram [ECG] [EKG]
CPT/HCPCS: 71010; 80053; 82550; 82552; 83735; 84484; 85025; 85610; 85730; 93005; 99285

== ENCOUNTER 2017-04-01 10:26 | Inpatient (IN) | payer MEDICARE, OTHER ==
[2017-04-01] MEDS ORDERED: IOHEXOL 350 MG/ML 100 ML BTL (for Cath Lab) OTHER (10:27)
[2017-04-01 11:22] LABS: BASOPHIL # 0.1 TH/MM3 (0-0.2); BASOPHIL % 1.1 % (0.0-2.0); EOSINOPHIL # 1.6 TH/MM3 (0-0.4); EOSINOPHIL % 23.8 % (0.0-4.0); HEMATOCRIT 28.3 % (39.0-51.0); HEMO FLAGS DIFF FINAL; HEMOGLOBIN 9.4 GM/DL (13.0-17.0); LYMPH % 22.9 % (9.0-44.0); LYMPHOCYTE # 1.5 TH/MM3 (1.0-4.8); MEAN CELL VOLUME 102.3 FL (80.0-100.0); MEAN CORPUSCULAR HEMOGLOBIN 33.9 PG (27.0-34.0); MEAN CORPUSCULAR HGB CONC 33.2 % (32.0-36.0); MONO % 7.5 % (0.0-8.0); MONOCYTE # 0.5 TH/MM3 (0-0.9); NEUT % 44.7 % (16.0-70.0); PLATELET COUNT 275 TH/MM3 (150-450); RED BLOOD COUNT 2.77 MIL/MM3 (4.50-5.90); RED CELL DISTRIBUTION WIDTH 17.8 % (11.6-17.2); WHITE BLOOD COUNT 6.6 TH/MM3 (4.0-11.0)
[2017-04-01 11:30] LABS: APTT (PATIENT) 29.2 SEC (24.3-30.1); INTERNATIONAL NORMALIZED RATIO 1.2 RATIO; PROTHROMBIN TIME - PATIENT 12.1 SEC (9.8-11.6)
[2017-04-01 11:39] LABS: ANION GAP 6 MEQ/L (5-15); BICARBONATE 29.2 MEQ/L (21.0-32.0); BLOOD UREA NITROGEN 11 MG/DL (7-18); CALCIUM 8.5 MG/DL (8.5-10.1); CHLORIDE 108 MEQ/L (98-107); CREATININE 6.01 MG/DL (0.60-1.30); GLOMERULAR FILTRATION RATE 11 ML/MIN (>89); GLUCOSE,RANDOM 70 MG/DL (74-106); POTASSIUM 4.2 MEQ/L (3.5-5.1); SODIUM (NA) 143 MEQ/L (136-145)
[2017-04-01] MEDS ORDERED: HEPARIN-NS/PF INJ 1,000 ML (12:16)
[2017-04-01] MEDS: methylPREDNISolone SOD SUCC 125 MG/2 ML VIAL (12:23)
[2017-04-01] MEDS: diphenhydrAMINE HCL 50 MG/ML VIAL (12:23)
[2017-04-01] MEDS: HEPARIN SODIUM - IV 10,000 UNITS/10 ML VIAL (13:12)
[2017-04-01] MEDS: CLOPIDOGREL 300 MG TAB (13:33)
[2017-04-01] MEDS: ONDANSETRON HCL 4 MG/2 ML VIAL (13:34)
[2017-04-01] MEDS: NITROGLYCERIN-D5W 50 MG/250 ML 250 ML ×2 (13:39→21:56)
[2017-04-01] MEDS ORDERED: NITROGLYCERIN 2% OINT 1 GM PACKET (13:39)
[2017-04-01] MEDS ORDERED: MISC INFORMATION XX (14:15)
[2017-04-01] MEDS ORDERED: CLOPIDOGREL 300 MG TAB PO (14:15)
[2017-04-01] MEDS ORDERED: SODIUM CHLORIDE 0.9% FLUSH 10 ML FLUSH IV FLUSH (14:15)
[2017-04-01] MEDS ORDERED: LABETALOL HCL 100 MG/20 ML VIAL IV PUSH (15:30)
[2017-04-01] MEDS ORDERED: hydrALAZINE HCL 20 MG/ML VIAL IV PUSH (16:00)
[2017-04-01] MEDS ORDERED: ONDANSETRON HCL 4 MG/2 ML VIAL IV PUSH (16:15)
[2017-04-01] MEDS ORDERED: MISCELLANEOUS NURSING INFORMATION XX (16:15)
[2017-04-01] MEDS ORDERED: CHLORHEXIDINE GLUCONATE 2 % 1 PACK (2 CLOTHS) TOP (16:15)
[2017-04-01] MEDS ORDERED: RESP: ALBUTEROL 2.5 MG/IPRATROPIUM 0.5 MG NEB (PRN) INH (16:15)
[2017-04-01] MEDS: METOPROLOL TARTRATE 25 MG TAB PO ×2 (16:15→18:10)
[2017-04-01] MEDS ORDERED: NITROGLYCERIN 0.4 MG SL 25 TABS/BTL SL (16:15)
[2017-04-01] MEDS ORDERED: ACETAMINOPHEN 325 MG TAB PO (16:15)
[2017-04-01] MEDS ORDERED: GLUCAGON 1 MG/ML VIAL OTHER (16:30)
[2017-04-01] MEDS ORDERED: DEXTROSE 50% IN WATER 50 ML VIAL(D50) IV PUSH (16:30)
[2017-04-01] MEDS: SODIUM CHLOR 0.9% 1000 ML INJ 1,000 ML IV (17:00)
[2017-04-01] MEDS: INSULIN ASPART SUPPLEMENTAL SCALE SQ ×2 (17:00→20:12)
[2017-04-01] MEDS: PRAVASTATIN SOD 20 MG TAB PO (18:09)
[2017-04-01] MEDS: LISINOPRIL 10 MG TAB PO (18:10)
[2017-04-01] MEDS: CLOPIDOGREL 300 MG TAB PO (18:10)
[2017-04-01] MEDS: CALCIUM ACETATE 667 MG CAP PO (18:11)
[2017-04-01] MEDS: ASPIRIN 81 MG CHEW TAB PO (18:11)
[2017-04-01 19:09] LABS: MRSA PCR SURVEILLANCE MRSA NOT DETECTED (NOT DETECT)
[2017-04-01] MEDS: INSULIN DETEMIR 100 UNITS/ML VIAL SQ (20:11)
[2017-04-01] MEDS: FAMOTIDINE 20 MG/2 ML VIAL IV PUSH (20:11)
[2017-04-01] MEDS: SODIUM CHLORIDE 0.9% FLUSH 10 ML FLUSH IV FLUSH (20:12)
[2017-04-01] MEDS: VITAMIN B CMPLX/VITC/FOLIC AC CAP PO (20:22)
[2017-04-02] MEDS ORDERED: NITROGLYCERIN/DEXTROSE 5% 250 ML for chest pain IV (00:30)
[2017-04-02] MEDS: CHLORHEXIDINE GLUCONATE 2 % 1 PACK (2 CLOTHS) TOP (04:00)
[2017-04-02 04:53] LABS: AUTOMATED NEUTROPHIL # 6.5 TH/MM3 (1.8-7.7); BASOPHIL % 0.5 % (0.0-2.0); EOSINOPHIL % 0.3 % (0.0-4.0); HEMATOCRIT 27.8 % (39.0-51.0); HEMOGLOBIN 9.2 GM/DL (13.0-17.0); LYMPH % 11.6 % (9.0-44.0); LYMPHOCYTE # 0.9 TH/MM3 (1.0-4.8); MEAN CELL VOLUME 103.6 FL (80.0-100.0); MEAN CORPUSCULAR HEMOGLOBIN 34.2 PG (27.0-34.0); MEAN PLATELET VOLUME 7.4 FL (7.0-11.0); MONO % 4.9 % (0.0-8.0); MONOCYTE # 0.4 TH/MM3 (0-0.9); NEUT % 82.7 % (16.0-70.0); PLATELET COUNT 276 TH/MM3 (150-450); RED BLOOD COUNT 2.68 MIL/MM3 (4.50-5.90); RED CELL DISTRIBUTION WIDTH 18.7 % (11.6-17.2); WHITE BLOOD COUNT 7.9 TH/MM3 (4.0-11.0)
[2017-04-02 04:54] LABS: HEMO FLAGS AUTO DIFF
[2017-04-02 04:59] LABS: ANION GAP 8 MEQ/L (5-15); BICARBONATE 23.8 MEQ/L (21.0-32.0); BLOOD UREA NITROGEN 23 MG/DL (7-18); CALCIUM 8.1 MG/DL (8.5-10.1); CHLORIDE 106 MEQ/L (98-107); CREATINE KINASE 242 U/L (39-308); CREATININE 7.17 MG/DL (0.60-1.30); GLOMERULAR FILTRATION RATE 9 ML/MIN (>89); GLUCOSE,RANDOM 185 MG/DL (74-106); MAGNESIUM 2.1 MG/DL (1.5-2.5); PHOSPHORUS 1.9 MG/DL (2.5-4.9); POTASSIUM 5.6 MEQ/L (3.5-5.1); SODIUM (NA) 138 MEQ/L (136-145)
[2017-04-02 05:33] LABS: PLATELET ESTIMATE SMEAR NORMAL (NORMAL); POLYCHROMASIA 3.8 % (0.0-1.9)
[2017-04-02 05:34] LABS: SCAN/DIFF AUTO DIFF CONFIRMED
[2017-04-02 05:35] LABS: ACANTHOCYTES OCC (NORMAL); OVALOCYTES 1+ (NORMAL); PLATELET MORPHOLOGY NORMAL (NORMAL)
[2017-04-02] MEDS: INSULIN ASPART SUPPLEMENTAL SCALE SQ ×2 (08:00→12:00)
[2017-04-02] MEDS ORDERED: NON-FORMULARY DRUG (Ranitidine 150 MG) PO (09:00)
[2017-04-02] MEDS ORDERED: CLOPIDOGREL 75 MG TAB PO (09:00)
[2017-04-02] MEDS ORDERED: SODIUM CHLOR 0.9% 1000 ML INJ 1,000 ML IV (09:11)
[2017-04-02] MEDS ORDERED: SODIUM CHLOR 0.9% 1000 ML INJ 1,000 ML OTHER ×2 (09:11)
[2017-04-02] MEDS ORDERED: ONDANSETRON HCL 4 MG/2 ML VIAL IV PUSH (09:15)
[2017-04-02] MEDS ORDERED: HEPARIN SODIUM - IV 10,000 UNITS/10 ML VIAL (09:15)
[2017-04-02] MEDS ORDERED: SODIUM CHLORIDE 0.9% FLUSH 10 ML FLUSH IV FLUSH (09:15)
[2017-04-02] MEDS ORDERED: ALBUMIN 25% INJ 100 ML IV (09:15)
[2017-04-02] MEDS ORDERED: ACETAMINOPHEN 325 MG TAB PO (09:15)
[2017-04-02] MEDS ORDERED: EPOETIN ALFA 10,000 UNITS/ML VIAL IV PUSH (09:15)
[2017-04-02] MEDS ORDERED: cloNIDine HCL 0.1 MG TAB PO (09:15)
[2017-04-02] MEDS ORDERED: MANNITOL 12.5 GM/50 ML VIAL IV (09:15)
[2017-04-02] MEDS ORDERED: NITROGLYCERIN 0.4 MG SL 25 TABS/BTL SL (09:15)
[2017-04-02] MEDS ORDERED: diphenhydrAMINE HCL 25 MG CAP PO (09:15)
[2017-04-02] MEDS ORDERED: HEPARIN SODIUM - IV 10,000 UNITS/10 ML VIAL IV FLUSH (09:15)
[2017-04-02] MEDS ORDERED: GENTAMICIN SULFATE 20 MG/2 ML VIAL OTHER (09:15)
[2017-04-02] MEDS ORDERED: GELATIN 12 MM/7 MM FOAM TOP (09:15)
[2017-04-02] MEDS: SODIUM CHLOR 0.9% 1000 ML INJ 1,000 ML IV (11:00)
[2017-04-02] MEDS: PRAVASTATIN SOD 20 MG TAB PO (12:21)
[2017-04-02] MEDS: CALCIUM ACETATE 667 MG CAP PO ×2 (12:21→12:24)
[2017-04-02] MEDS: CLOPIDOGREL 75 MG TAB PO (12:22)
[2017-04-02] MEDS: ASPIRIN 81 MG CHEW TAB PO (12:22)
[2017-04-02] MEDS: LISINOPRIL 10 MG TAB PO (12:22)
[2017-04-02] MEDS: ALLOPURINOL 300 MG TAB PO (12:22)
[2017-04-02] MEDS: METOPROLOL TARTRATE 25 MG TAB PO (12:22)
[2017-04-02] MEDS: FAMOTIDINE 20 MG/2 ML VIAL IV PUSH (12:23)
[2017-04-02] MEDS: SODIUM CHLORIDE 0.9% FLUSH 10 ML FLUSH IV FLUSH (12:23)
[2017-04-02] MEDS: GABAPENTIN 300 MG CAP PO (12:23)
== END 2017-04-02 13:55 | disposition home or self-care (01) | DRG 248 ==
LOC: HDOC 10:26 → HDIC 10:26 → N03A 15:18 → HDOC 16:14 → N03A 16:14
PROC: 02703DZ Dilation of Coronary Artery, One Artery with Intraluminal Device, Percutaneous Approach (ICD-10-PCS; principal; 2017-04-01 12:15)
PROC: 4A023N7 Measurement of Cardiac Sampling and Pressure, Left Heart, Percutaneous Approach (ICD-10-PCS; 2017-04-01 12:15)
PROC: B2111ZZ Fluoroscopy of Multiple Coronary Arteries using Low Osmolar Contrast (ICD-10-PCS; 2017-04-01 12:15)
PROC: 5A1D70Z Performance of Urinary Filtration, Intermittent, Less than 6 Hours Per Day (ICD-10-PCS; 2017-04-01 12:15)
DX: I25.110 Atherosclerotic heart disease of native coronary artery with unstable angina pectoris (principal); N18.6 End stage renal disease; I12.0 Hypertensive chronic kidney disease with stage 5 chronic kidney disease or end stage renal disease; E88.89 Other specified metabolic disorders; T82.858A Stenosis of other vascular prosthetic devices, implants and grafts, initial encounter; E11.22 Type 2 diabetes mellitus with diabetic chronic kidney disease; Y71.2 Prosthetic and other implants, materials and accessory cardiovascular devices associated with adverse incidents; Z99.2 Dependence on renal dialysis; Z79.4 Long term (current) use of insulin; I16.0 Hypertensive urgency; Z91.041 Radiographic dye allergy status; R41.82 Altered mental status, unspecified; R11.10 Vomiting, unspecified
CPT/HCPCS: 70450; 80048; 82550; 82948; 83735; 84100; 85002; 85025; 85610; 85730; 87641; 90935; 92928; 93005; 93458; 96374

== ENCOUNTER → 2017-06-26 | Outpatient (CLI) | payer MEDICARE, OTHER ==
[~2017-06-26] VITALS: Ht 167.6 cm; Wt 89.3 kg
[~2017-06-26] MED LIST changes: +AMLO2.5T PO; +ASPI-516 CHEW; +ATOR20TA15 PO; +CALC667T PO; +CHLORHEXIDINE GLUCONATE 2 % 1 PACK (2 CLOTHS) TOPICAL PRN; +DEXTROSE 5%-LACTATED RING INJ 1,000 ML IV SCH; +DEXTROSE 50% IN WATER 50 ML SYRINGE IV ONE; +LACTATED RINGER'S 1000 ML IV PRN; -LOVA20TA PO; +METOPROLOL TARTRATE 25 MG TAB PO PRN; -PHOS667C5 PO; +POVIDONE IODINE 5% (ANTISEPSIS KIT) 4 APPLICATIONS EACH NARE PRN; +SODIUM CHLORID 0.9% 500 ML IV PRN
--- NOTE | 2017-06-26 11:28 | GIPROC ---
[facility] [address] [facility]. [facility], [address] EGD PROCEDURE REPORT EXAM DATE: 06/26/2017 PATIENT NAME: Andrey Fairchild MR #: [id number] BIRTHDATE: 1950 ATTENDING: eBcky Frank MD ORDER #: [id number] GROUP CONTROLLER: Kati Chan and Stacia Linn STATUS: outpatient INDICATIONS: The patient is a 66 yr old male here for an EGD due to anemia, melena, gi bleeding PROCEDURE PERFORMED: EGD w/ biopsy egd with ablation of avm MEDICATIONS: None and Per Anesthesia. TOPICAL ANESTHETIC: none CONSENT: The patient understands the risks and benefits of the procedure and understands that these risks include, but are not limited to: sedation, allergic reaction, infection, perforation and/or bleeding. Alternative means of evaluation and treatment include, among others: physical exam, x-rays, and/or surgical intervention. The patient elects to proceed with this endoscopic procedure. medical equipment was checked for proper function. Hand hygiene and appropriate measures for infection prevention was taken. After the risks, benefits and alternatives of the procedure were thoroughly explained, Informed consent was verified, confirmed and timeout was successfully executed by the treatment team. The patient was anesthetized with topical anesthesia and the EC-[id number] (Pedi C) endoscope was introduced through the mouth and advanced to the second portion of the duodenum. Retroflexed views revealed a hiatal hernia The gastroscope was then slowly withdrawn and removed. 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 ADVERSE EVENTS: There were no complications. IMPRESSIONS: 1. 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 Retroflexed views revealed a hiatal hernia RECOMMENDATIONS: 1. Await biopsy results. Biopsy results will not be ready for 7-10 days. If you don't hear from us in two weeks, call our office for biopsy results. 2. Anti-reflux regimen 3. Continue PPI 4. Avoid NSAIDS PATIENT CONDITION: stable DISPOSITION: Home REPEAT EXAM: Return 3 years EGD Becky Frank MD eSigned: Becky Frank MD 06/26/2017 11:27 AM cc: PATIENT NAME: Andrey Fairchild MR#: [id number]
--- NOTE | 2017-06-26 11:40 | GIPROC ---
[facility] [address] [facility]. [facility], [address] COLONOSCOPY PROCEDURE REPORT EXAM DATE: 06/26/2017 PATIENT NAME: Andrey Fairchild MR #: [id number] BIRTHDATE: 1950 ENDOSCOPIST: Becky Frank MD ORDER #: [id number] LITIGATION ATTORNEY: Kati Chan and Stacia Linn STATUS: outpatient INDICATIONS: The patient is a 66 yr old male here for a colonoscopy due to anemia , gi bleeding, history of polyps PROCEDURE PERFORMED: Colonoscopy, diagnostic MEDICATIONS: None and Per Anesthesia. PREP QUALITY: good PREP TYPE:Other: ESTIMATED BLOOD LOSS: None CONSENT: The patient understands the risks and benefits of the procedure and understands that these risks include, but are not limited to: sedation, allergic reaction, infection, perforation and/or bleeding. Alternative means of evaluation and treatment include, among others: physical exam, x-rays, and/or surgical intervention. The patient elects to proceed with this endoscopic procedure. medical equipment was checked for proper function. Hand hygiene and appropriate measures for infection prevention was taken. After the risks, benefits and alternatives of the procedure were thoroughly explained, Informed consent was verified, confirmed and timeout was successfully executed by the treatment team. A digital exam revealed external hemorrhoids The Pentax EC-3490Li endoscope was introduced through the anus and advanced to the cecum, which was identified by both the appendix and ileocecal valve. The instrument was then slowly withdrawn as the colon was fully examined. COLON FINDINGS: Diverticulosis sigmoid,descending tortous sigmoid colon. Retroflexed views revealed internal hemorrhoids and Retroflexed views revealed medium internal hemorrhoids The scope was then completely withdrawn from the patient and the procedure terminated. PROCEDURE WITHDRAWAL TIME:6minutes ADVERSE EVENTS: There were no complications. IMPRESSIONS: 1. Diverticulosis sigmoid,descending tortous sigmoid colon 2. Retroflexed views revealed internal hemorrhoids 3. Retroflexed views revealed medium internal hemorrhoids 4. Revealed external hemorrhoids RECOMMENDATIONS: 1. Benefiber 2 tsp daily 2. Probiotics from any C or health food store 3. Yearly rectal exams 4. Capsule endoscopy op RECALL: Return 5 years Colonoscopy Becky Frank MD eSigned: Becky Frank MD 06/26/2017 11:40 AM cc: PATIENT NAME: Andrey Fairchild MR#: [id number]
[2017-06-26 12:14] VITALS: BP 140/84; PULSE 65; RESP 18; TEMP 97.2; O2SAT 96
== END ==
LOC: HEND 08:28
PROVIDERS: ATTEND Internal Medicine Gastroenterology
DX: K31.811 Angiodysplasia of stomach and duodenum with bleeding (principal); D64.9 Anemia, unspecified; K44.9 Diaphragmatic hernia without obstruction or gangrene; K29.70 Gastritis, unspecified, without bleeding; K64.4 Residual hemorrhoidal skin tags; K64.8 Other hemorrhoids; I10 Essential (primary) hypertension; K57.30 Diverticulosis of large intestine without perforation or abscess without bleeding; Z86.010 Personal history of colon polyps; Z79.01 Long term (current) use of anticoagulants
CPT/HCPCS: 00813; 43270; 45378; 84132; 88305; 88312; J7040

== ENCOUNTER 2017-08-25 15:42 | Emergency (ER) | payer MEDICARE, OTHER ==
[~2017-08-25] VITALS: Ht 167.6 cm; Wt 88.0 kg
[~2017-08-25 15:42] MED LIST changes: -AMLO10TA2 PO; -CHLORHEXIDINE GLUCONATE 2 % 1 PACK (2 CLOTHS) TOPICAL PRN; -DEXTROSE 5%-LACTATED RING INJ 1,000 ML IV SCH; -DEXTROSE 50% IN WATER 50 ML SYRINGE IV ONE; -LACTATED RINGER'S 1000 ML IV PRN; -METOPROLOL TARTRATE 25 MG TAB PO PRN; -POVIDONE IODINE 5% (ANTISEPSIS KIT) 4 APPLICATIONS EACH NARE PRN; -SODIUM CHLORID 0.9% 500 ML IV PRN
[2017-08-25 15:57] VITALS: BP 158/73; PULSE 55; RESP 20; O2SAT 100
[2017-08-25 16:08] VITALS: BP 158/73; PULSE 56; RESP 20; O2SAT 99
[2017-08-25] MEDS ORDERED: ATOR40TA16 PO (16:12)
[2017-08-25] MEDS ORDERED: METO25TA3 PO (16:12)
[2017-08-25] MEDS ORDERED: AMLO10TA2 PO (16:12)
[2017-08-25] MEDS ORDERED: RANI300T PO (16:12)
[2017-08-25 16:45] VITALS: BP 182/78; PULSE 58; O2SAT 97
--- NOTE | 2017-08-25 17:06 | RADRPT ---
EXAM DATE: 08/25/2017 4:58 PM EDT AGE/SEX: 66 years / Male INDICATIONS: Fever, weakness, short of breath, nonproductive cough CLINICAL DATA: This is the patient's initial encounter. Patient reports that signs and symptoms have been present for 1 day and indicates a pain score of 0/10. MEDICAL/SURGICAL HISTORY: Cardiovascular disease. Renal failure, chronic. CVA, dialysis Prost atectomy. Coronary artery stent. COMPARISON: [facility] [place], CHEST SINGLE AP, 01/31/2017. . FINDINGS: The heart size is mildly enlarged. The lungs are grossly clear. No effusion is seen. Spurs are seen i n the thoracic spine. CONCLUSION: Mild cardiomegaly. Electronically signed by: Andrey Monte MD 08/25/2017 5:05 PM EDT
[2017-08-25 17:40] LABS: AUTOMATED NEUTROPHIL # 3.1 TH/MM3 (1.8-7.7); BASOPHIL # 0.1 TH/MM3 (0-0.2); EOSINOPHIL # 0.7 TH/MM3 (0-0.4); EOSINOPHIL % 12.8 % (0.0-4.0); HEMATOCRIT 35.5 % (39.0-51.0); HEMOGLOBIN 11.5 GM/DL (13.0-17.0); LYMPH % 24.8 % (9.0-44.0); LYMPHOCYTE # 1.4 TH/MM3 (1.0-4.8); MEAN CELL VOLUME 97.9 FL (80.0-100.0); MEAN CORPUSCULAR HEMOGLOBIN 31.7 PG (27.0-34.0); MEAN CORPUSCULAR HGB CONC 32.3 % (32.0-36.0); MEAN PLATELET VOLUME 7.7 FL (7.0-11.0); MONO % 6.5 % (0.0-8.0); MONOCYTE # 0.4 TH/MM3 (0-0.9); NEUT % 54.9 % (16.0-70.0); PLATELET COUNT 219 TH/MM3 (150-450); RED BLOOD COUNT 3.62 MIL/MM3 (4.50-5.90); RED CELL DISTRIBUTION WIDTH 17.4 % (11.6-17.2); WHITE BLOOD COUNT 5.7 TH/MM3 (4.0-11.0)
[2017-08-25 17:55] LABS: INTERNATIONAL NORMALIZED RATIO 1.1 RATIO; PROTHROMBIN TIME - PATIENT 11.4 SEC (9.8-11.6)
[2017-08-25 17:57] LABS: ALBUMIN 3.7 GM/DL (3.4-5.0); AST (GOT) 17 U/L (15-37); BICARBONATE 24.6 MEQ/L (21.0-32.0); BLOOD UREA NITROGEN 18 MG/DL (7-18); CALCIUM 8.7 MG/DL (8.5-10.1); CHLORIDE 106 MEQ/L (98-107); GLOMERULAR FILTRATION RATE 12 ML/MIN (>89); GLUCOSE,RANDOM 52 MG/DL (74-106); MAGNESIUM 1.9 MG/DL (1.5-2.5); SODIUM (NA) 140 MEQ/L (136-145)
[2017-08-25 17:58] LABS: ALT (GPT) 15 U/L (12-78)
[2017-08-25 18:02] LABS: ALKALINE PHOSPHATASE 88 U/L (45-117); TOTAL BILIRUBIN ADULT 0.5 MG/DL (0.2-1.0); TOTAL PROTEIN 7.6 GM/DL (6.4-8.2); TROPONIN I 0.03 NG/ML (0.02-0.05)
--- NOTE | 2017-08-25 18:27 | PD ---
HPI Chief Complaint: General Weakness Time Seen by Provider: 16:06 Travel History International Travel<30 days: No Contact w/Intl Traveler<30days: No Traveled to known affect area: No History of Present Illness HPI 66-year-old male the presents to the ED for evaluation of generalized weakness. Per patient he has had generalized weakness especially to his legs for the past week since Friday. Per patient his symptoms have not improved which is what prompted evaluation. Apparently he had an episode of diarrhea and nausea and vomiting during the weekend and he missed his Friday dialysis. He does have a history of ESRD, ACS as well as hypertension and diabetes. He actually went today to get his dialysis and had the dialysis finished when he continued to mention to his nurses that he was feeling weak and I told him to come here to get evaluated. Per patient the diarrhea now is gone. He does states having some dark stools but states he has had a full work up and has been given medications by his dialysis doctor to help with this. He states that he took some medications which made diarrhea better. Per patient he takes no blood thinners currently. He denies any shortness of breath or chest pain at this time states that he has had some chest pains on and off for the past couple of days. Comes and goes. Denies any fevers chills or sweats. Per patient his symptoms started with some cough and congestion and felt like he has some congestion in his chest. He denies any ear pain. No sore throat. No sick contacts. No recent travel. Uses a cane to get about. PFSH Past Medical History Hx Anticoagulant Therapy: Yes Arthritis: Yes Asthma: No Autoimmune Disease: No Blood Disorders: No Anxiety: No Depression: No Heart Rhythm Problems: No Cancer: Yes (prostate) Cardiac Catheterization: Yes Cardiovascular Problems: Yes High Cholesterol: Yes Chest Pain: Yes Congestive Heart Failure: No Cerebrovascular Accident: Yes Coronary Artery Disease: Yes Diabetes: Yes Patient Takes Glucophage: Yes Diminished Hearing: No Endocrine: Yes Gastrointestinal Disorders: Yes (gerd) GERD: Yes Genitourinary: No Headaches: No Hepatitis: No Hiatal Hernia: No Hypertension: Yes (and chol) Immune Disorder: No Implanted Vascular Access Dvce: No Kidney Stones: Yes Musculoskeletal: Yes (arthritis) Neurologic: Yes (stroke 7 years ago-L sided weakness) Psychiatric: No Reproductive: No Respiratory: Yes Immunizations Current: Yes Migraines: No Myocardial Infarction: Yes (X 1 IN 2006) Radiation Therapy: No Renal Failure: Yes (HD Mon, Wed, Fri) Seizures: No Sleep Apnea: No Thyroid Disease: No Ulcer: No Tetanus Vaccination: < 5 Years Influenza Vaccination: Yes Past Surgical History Abdominal Surgery: Yes (Hernia repair) Body Medical Devices: 3 cardiac stents Cardiac Surgery: Yes (Cardiac stent x3) Ear Surgery: No Endocrine Surgery: No Eye Surgery: No Genitourinary Surgery: Yes (prostatectomy) Gynecologic Surgery: No Joint Replacement: No Neurologic Surgery: Yes (Rt temporal biopsy) Oral Surgery: No Pacemaker: No Prostatectomy: Yes Thoracic Surgery: No Other Surgery: Yes (TEMPORAL ARTERITIS) Social History Alcohol Use: No Tobacco Use: No Substance Use: No Allergies-Medications (Allergen,Severity, Reaction): Coded Allergies: Iodinated Contrast- Oral and IV Dye (Verified Allergy, Severe, Swelling, ) shellfish derived (Verified Allergy, Severe, Swelling, 08/25/17) Reported Meds & Prescriptions Reported Meds & Active Scripts Active Azithromycin 250 Mg Tab 250 Mg PO DIRECTED Take 2 tabs (500 mg) on day 1 then 1 tab daily x 4 days. Reported Ranitidine (Ranitidine HCl) 300 Mg Tab 300 Mg PO DAILY Metoprolol Tartrate 25 Mg Tab 25 Mg PO BID Atorvastatin (Atorvastatin Calcium) 40 Mg Tab 40 Mg PO HS Amlodipine (Amlodipine Besylate) 10 Mg Tab 10 Mg PO DAILY Aspirin 81 Mg Chew 81 Mg CHEW DAILY Calcium Acetate (Phosphate Binder) 667 Mg Tab 667 Mg PO TID Nitrostat SL (Nitroglycerin) 0.4 Mg Subl 0.4 Mg SL DIRECTED PRN 1 tablet under the tongue as needed for chest pain. Repeat every 5 minutes for a total of 3 DOSES or call 911 if NO relief. Lisinopril 10 Mg Tab 10 Mg PO DAILY Omeprazole 40 Mg Cap 40 Mg PO DAILY Gaby-Cruz (B-Complex W/ C & Folic Acid) 1 Tab 1 Tab PO DAILY Gabapentin 300 Mg Cap 300 Mg PO DAILY Clopidogrel (Clopidogrel Bisulfate) 75 Mg Tab 75 Mg PO DAILY Review of Systems Except as stated in HPI: all other systems reviewed are Neg Physical Exam Narrative GENERAL: SKIN: Warm and dry. Patient has a fistula on his left arm. HEAD: Atraumatic. Normocephalic. EYES: Pupils equal and round. No scleral icterus. No injection or drainage. ENT: No nasal bleeding or discharge. Mucous membranes pink and moist. Tongue is midline. No uvula deviation. NECK: Trachea midline. No JVD. CARDIOVASCULAR: Regular rate and rhythm. No murmurs, S3, S4. RESPIRATORY: No accessory muscle use. Clear to auscultation. Breath sounds equal bilaterally. GASTROINTESTINAL: Abdomen soft, non-tender, nondistended. Hepatic and splenic margins not palpable. MUSCULOSKELETAL: Extremities without clubbing, cyanosis, or edema. No obvious deformities. Full range of motion of the upper and lower extremities bilaterally. 2+ pulses bilaterally. NEUROLOGICAL: Awake and alert. No obvious cranial nerve deficits. Motor grossly within normal limits. Five out of 5 muscle strength in the arms and legs. Normal speech. PSYCHIATRIC: Appropriate mood and affect; insight and judgment normal. Data Data Last Documented VS Vital Signs Date Time Temp Pulse Resp B/P (MAP) Pulse Ox O2 Delivery O2 Flow Rate FiO2 08/25/17 16:45 58 182/78 (112) 97 Room Air 08/25/17 16:08 20 Orders Orders Electrocardiogram (08/25/17 16:14) Complete Blood Count With Diff (08/25/17 16:14) Comprehensive Metabolic Panel (08/25/17 16:14) Ckmb (Isoenzyme) Profile (08/25/17 16:14) Troponin I (08/25/17 16:14) B-Type Natriuretic Peptide (08/25/17 16:14) Prothrombin Time / Inr (Pt) (08/25/17 16:14) Act Partial Throm Time (Ptt) (08/25/17 16:14) Blood Culture (08/25/17 16:14) Magnesium (Mg) (08/25/17 16:14) Chest, Single Ap (08/25/17 16:14) Iv Access Insert/Monitor (08/25/17 16:14) Ecg Monitoring (08/25/17 16:14) Oximetry (08/25/17 16:14) Lactic Acid Sepsis Protocol (08/25/17 16:14) Vascular Access Team Consult/P PRN (08/25/17 16:42) Vascular Poc Ultrasound (08/25/17 ) CKMB (08/25/17 17:20) CKMB% (08/25/17 17:20) Ed Discharge Order (08/25/17 19:10) Azithromycin (Zithromax) (08/25/17 19:15) Labs Laboratory Tests Test 08/25/17 17:20 White Blood Count 5.7 TH/MM3 Red Blood Count 3.62 MIL/MM3 Hemoglobin 11.5 GM/DL Hematocrit 35.5 % Mean Corpuscular Volume 97.9 FL Mean Corpuscular Hemoglobin 31.7 PG Mean Corpuscular Hemoglobin Concent 32.3 % Red Cell Distribution Width 17.4 % Platelet Count 219 TH/MM3 Mean Platelet Volume 7.7 FL Neutrophils (%) (Auto) 54.9 % Lymphocytes (%) (Auto) 24.8 % Monocytes (%) (Auto) 6.5 % Eosinophils (%) (Auto) 12.8 % Basophils (%) (Auto) 1.0 % Neutrophils # (Auto) 3.1 TH/MM3 Lymphocytes # (Auto) 1.4 TH/MM3 Monocytes # (Auto) 0.4 TH/MM3 Eosinophils # (Auto) 0.7 TH/MM3 Basophils # (Auto) 0.1 TH/MM3 CBC Comment DIFF FINAL Differential Comment Prothrombin Time 11.4 SEC Prothromb Time International Ratio 1.1 RATIO Activated Partial Thromboplast Time 28.9 SEC Blood Urea Nitrogen 18 MG/DL Creatinine 5.90 MG/DL Random Glucose 52 MG/DL Total Protein 7.6 GM/DL Albumin 3.7 GM/DL Calcium Level 8.7 MG/DL Magnesium Level 1.9 MG/DL Alkaline Phosphatase 88 U/L Aspartate Amino Transf (AST/SGOT) 17 U/L Alanine Aminotransferase (ALT/SGPT) 15 U/L Total Bilirubin 0.5 MG/DL Sodium Level 140 MEQ/L Potassium Level 3.7 MEQ/L Chloride Level 106 MEQ/L Carbon Dioxide Level 24.6 MEQ/L Anion Gap 9 MEQ/L Estimat Glomerular Filtration Rate 12 ML/MIN Lactic Acid Level 1.0 mmol/L Total Creatine Kinase 287 U/L Creatine Kinase MB 3.1 NG/ML Troponin I 0.03 NG/ML B-Type Natriuretic Peptide 202 PG/ML MDM Medical Decision Making Medical Screen Exam Complete: Yes Emergency Medical Condition: Yes Medical Record Reviewed: Yes Interpretation(s) CBC & BMP Diagram 08/25/17 17:20 Total Protein 7.6, Albumin 3.7, Calcium Level 8.7, Magnesium Level 1.9, Alkaline Phosphatase 88, Aspartate Amino Transf (AST/SGOT) 17, Alanine Aminotransferase (ALT/SGPT) 15, Total Bilirubin 0.5 Last Impressions Chest X-Ray 08/25/17 1614 Signed Impressions: CONCLUSION: Mild cardiomegaly. Troponin and CK-MB negative. Lactic acid within normal limits. Differential Diagnosis Fever versus weakness versus acute kidney disease versus electron normality versus chest pain versus a typical chest pain versus pneumonia versus bronchitis Narrative Course 66-year-old male the presents to the ED for evaluation of weakness. Patient was properly examined and found to have signs and symptoms consistent appears to be weakness. Unclear etiology at this time. He does have significant history. He had dialysis today and finished it. He states that apparently he had some diarrhea over the weekend which has resolved states that he has dark stools. He has a history of anemia. Labs and imaging were ordered. Labs and imaging showed no sign of acute disease. Vitals and physical exam are reassuring. My attending Dr. Manning herself evaluated the patient and agrees with plan and discharge. Patient was given first dose of azithromycin. Patient hungry and asked for food and this was given. Told of results. Need for follow up with PCP. See ED if worst. Given prescription for azithromycin. Dr Taylor and patient agree with plan. Diagnosis Primary Impression: Acute bronchitis Qualified Codes: J20.9 - Acute bronchitis, unspecified Additional Impressions: Weakness generalized ESRD (end stage renal disease) on dialysis Patient Instructions: General Instructions Additional Instructions: Motrin and Tylenol for pain and fever. You can use [id number] antihistamine as well as well as Mucinex as needed for runny nose and congestion. Cough drops for cough as needed. Drink plenty of fluids. Follow-up with PCP. See ED for worsening symptoms. Med/Other Pt SpecificInfo: Prescription(s) given Scripts Benzonatate (Tessalon Perles) 100 Mg Cap 100 MG PO TID Y for COUGH, #20 CAP 0 Refills Prov: Luisana Taylor MD 08/25/17 Azithromycin (Azithromycin) 250 Mg Tab 250 MG PO DIRECTED for Infection, #6 TAB 0 Refills Take 2 tabs (500 mg) on day 1 then 1 tab daily x 4 days. Prov: Luisana Taylor MD 08/25/17 Disposition: 01 DISCHARGE HOME Condition: Stable Shubham Smith Aug 25, 2017 18:27
[2017-08-25] MEDS ORDERED: AZIT250T3 PO (19:12)
[2017-08-25] MEDS ORDERED: BENZ100 PO (19:13)
[2017-08-25] MEDS ORDERED: AZITHROMYCIN 250 MG TAB PO ONE (19:15)
--- NOTE | 2017-08-26 17:04 | EKG ---
Date Performed: 08/25/2017 Time Performed: 17:00:54 PTAGE: 66 years EKG: SINUS BRADYCARDIA WITH FIRST DEGREE AV BLOCK MODERATE T-WAVE ABNORMALITY, CONSIDER ANTEROLA TERAL ISCHEMIA ABNORMAL ECG PREVIOUS TRACING :04/01/2017 @11.44 Since the previous tracing, no significant change noted DOCTOR: Lianna Wilkinson Interpretating Date/Time 08/26/2017 17:01:20
== END 2017-08-25 20:11 | disposition home or self-care (01) ==
LOC: NEPE 15:42
DX: I51.7 Cardiomegaly (principal); J20.9 Acute bronchitis, unspecified; R94.31 Abnormal electrocardiogram [ECG] [EKG]; N18.6 End stage renal disease; E11.22 Type 2 diabetes mellitus with diabetic chronic kidney disease; I12.0 Hypertensive chronic kidney disease with stage 5 chronic kidney disease or end stage renal disease; R11.2 Nausea with vomiting, unspecified; R19.7 Diarrhea, unspecified; M19.90 Unspecified osteoarthritis, unspecified site; E78.00 Pure hypercholesterolemia, unspecified; I25.10 Atherosclerotic heart disease of native coronary artery without angina pectoris; K21.9 Gastro-esophageal reflux disease without esophagitis; I25.2 Old myocardial infarction; Z87.442 Personal history of urinary calculi; Z99.2 Dependence on renal dialysis; Z79.01 Long term (current) use of anticoagulants; Z95.5 Presence of coronary angioplasty implant and graft
CPT/HCPCS: 71045; 80053; 82550; 82552; 83605; 83735; 83880; 84484; 85025; 85610; 85730; 87040; 93005; 99285

== ENCOUNTER 2017-11-17 15:36 | Observation (INO) ==
[2017-11-17] MEDS ORDERED: Sod Chloride 0.9% Inj 1,000 ML IV.CONT SCH (15:45)
--- NOTE | 2017-11-17 16:00 | XR ---
EXAM DATE: 11/17/2017 3:56 PM EDT AGE/SEX: 66 years / Male INDICATIONS: Stroke Alert CLINICAL DATA: This is the patient's initial encounter. Patient reports that signs and symptoms have been present for 1 day and indicates a pain score of 0/10. MEDICAL/SURGICAL HISTORY: Hypertension. Previous stroke CABG. Cardiac stent [place] [facility] [place]. . FINDINGS: Heart is mildly enlarged. Lungs are free of significant airspace disease or congestion. There are no pleural effusions. Spondylosis seen throughout the thoracic spine. CONCLUSION: Mild cardiomegaly without evidence of acute cardiopulmonary process. Electronically signed by: Cristhian Schrader MD 11/17/2017 3:58 PM EDT
--- NOTE | 2017-11-17 16:15 | ED ---
HPI General Chief complaint: Weakness Stated complaint: Weakness Time Seen by Provider: 11/17/17 15:42 Source: patient, EMS, RN notes reviewed and old records reviewed Mode of arrival: EMS Limitations: other (Poor historian) History of Present Illness HPI Narrative: 66-year-old male presents stating he has had 2 hour onset of left -sided weakness that is worse than his baseline from his prior stroke in 2010. He also notes headache. He denies any other concurrent complaints. He states he normally can ambulate on his own. He states he had completed all of his dialysis. 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 Complaint: focal weakness Onset (ago): hour(s) Duration: constant Location: LUE and LLE Migration: none Relieving factors: none Exacerbating factors: none Associated symptoms: headaches Related Data Home Medications Medication Instructions Recorded Confirmed B complex-vitamin C-folic acid 1 tab PO DAILY 11/17/17 11/17/17 [Gaby-Cruz] amlodipine 10 mg PO DAILY 11/17/17 11/17/17 aspirin 81 mg PO DAILY 11/17/17 11/17/17 atorvastatin 40 mg PO DAILY 11/17/17 11/17/17 calcium acetate 667 mg PO TID 11/17/17 11/17/17 clopidogrel 75 mg PO DAILY 11/17/17 11/17/17 gabapentin 300 mg PO DAILY 11/17/17 11/17/17 lisinopril 10 mg PO DAILY 11/17/17 11/17/17 metoprolol succinate 25 mg PO DAILY 11/17/17 11/17/17 omeprazole 40 mg PO DAILY 11/17/17 11/17/17 ranitidine HCl 300 mg PO DAILY 11/17/17 11/17/17 Allergies Allergy/AdvReac Type Severity Reaction Status Date / Time Iodinated Contrast- Oral and Allergy Severe Swelling Verified 11/17/17 15:42 IV Dye shellfish derived Allergy Severe Swelling Verified 11/17/17 15:42 Review of Systems ROS: all other systems reviewed are negative [facility] Medical History Medical History Anemia (Acute) CVA (cerebral vascular accident) (Acute) Diabetes (Acute) Dialysis patient (Acute) ESRD (end stage renal disease) (Acute) Hypokalemia (Acute) Hypothyroidism (Acute) TIA (transient ischemic attack) (Acute) Social History Social History Smoking Status: Former smoker How Often Do You Have a Drink Containing Alcohol: Never Recent Travel in [place] within the Last 8 Weeks: No Recent Out of Country Travel within the Last 8 Weeks: No Exam Narrative Exam Narrative: GENERAL: 66-year-old male in no apparent distress SKIN: Focused skin assessment warm/dry. HEAD: Atraumatic. Normocephalic. EYES: Pupils equal and round. No scleral icterus. No injection or drainage. ENT: No nasal bleeding or discharge. Mucous membranes pink and moist. NECK: Trachea midline. CARDIOVASCULAR: Regular rate and rhythm. RESPIRATORY: No accessory muscle use. Clear to auscultation. Breath sounds equal bilaterally. GASTROINTESTINAL: Abdomen soft, non-tender, nondistended. MUSCULOSKELETAL: No obvious deformities. No clubbing. No cyanosis. NEUROLOGICAL: Awake and alert. Normal speech. Patient has significant weakness to the left arm and left leg. He can lift his left leg for a second about an inch and then it quickly falls to the bed. His left arm he is able to lift up but has pronator drift noted. He has decreased grasp on the left. He states this is significantly more than his prior from his stroke. Course Reevaluation(s) Reevaluation #1: patient will be admitted for further care Consultations Consultation #1: dr norris states to make stroke alert and also check mri and mra stat Consultation #2: dr norris states no emergent findings noted on reyna and mra and states to admit, no tpa Consultation #3: dr collins agrees to admit Initial Documented Vital Signs Temperature 97.5 F L 11/17/17 15:42 Pulse Rate 58 L 11/17/17 15:42 Respiratory Rate 16 11/17/17 15:42 Pulse Oximetry 99 11/17/17 15:42 Last Documented Vital Signs Temperature 97.5 F L 11/17/17 15:42 Pulse Rate 60 11/17/17 18:00 Respiratory Rate 16 11/17/17 18:00 Blood Pressure 152/68 H 11/17/17 18:00 Pulse Oximetry 99 11/17/17 18:00 Medical Decision Making MDM Narrative Medical decision making narrative: Will check stroke workup and discuss with neurologist given possible 2 hour timeline with difficult to determine baseline from prior stroke Medical Screen Exam Complete: Yes Emergency Medical Condition: Yes Differential Diagnosis Differential Diagnosis: Stroke, bleed, mass Medical Records Medical records reviewed: Yes I reviewed the patient's medical records. Prior neurology examinations on the last visit show normal, one before that he was in the ICU so limited exam of moving all extremities and lethargic and one before that was normal again the patient states he has been a little bit weak on the left side since 2010. Lab Data Lab results reviewed: Yes I reviewed the patient's lab results. Result diagrams: 11/17/17 16:00 11/17/17 16:00 Lab Results 11/17/17 11/17/17 11/17/17 Range/Units 16:00 16:00 16:00 WBC 6.7 (4.0-11.0) th/mm3 RBC 2.85 L (4.50-5.90) mil/mm3 Hgb 10.7 L (13.0-17.0) gm/dL POC Hgb (Calc) (13.0-17.0) g/dL Hct 30.3 L (39.0-51.0) % POC Hct (39-51.0) % MCV 106.6 H (80.0-100.0) fL MCH 37.6 H (27.0-34.0) pg MCHC 35.3 (32.0-36.0) % RDW 16.3 (11.6-17.2) % Plt Count 205 (150-450) th/mm3 MPV 7.9 (7.0-11.0) fL Neut % (Auto) 53.2 (16.0-70.0) % Lymph % (Auto) 19.8 (9.0-44.0) % [place] % (Auto) 6.5 (0.0-8.0) % Eos % (Auto) 19.5 H (0.0-4.0) % Baso % (Auto) 1.0 (0.0-2.0) % Neut # (Auto) 3.6 (1.8-7.7) th/mm3 Lymph # (Auto) 1.3 (1.0-4.8) th/mm3 [place] # (Auto) 0.4 (0.0-0.9) th/mm3 Eos # (Auto) 1.3 H (0.0-0.4) th/mm3 Baso # (Auto) 0.1 (0.0-0.2) th/mm3 WBC Differential . Differential Comment Auto diff final PT 10.6 (9.8-11.6) sec INR 1.0 Ratio APTT 23.5 L (24.3-30.1) sec Fibrinogen 353 (227-377) mg/dL POC Sodium (137-144) mmol/L Sodium 140 (136-145) meq/L POC Potassium (3.6-5.0) mmol/L Potassium 3.3 L (3.5-5.1) meq/L POC Chloride (102-111) mmol/L Chloride 107 (98-107) meq/L Carbon Dioxide 22.2 (21.0-32.0) meq/L Anion Gap 11 (5-15) meq/L POC BUN (5-21) mg/dL BUN 20 H (7-18) mg/dL Creatinine 6.69 H (0.60-1.30) mg/dL POC Creatinine (0.6-1.3) mg/dL Estimated GFR 10 L (>89) mL/min POC Glucose (68-110) mg/dL Random Glucose 146 H (74-106) mg/dL Calcium 8.0 L (8.5-10.1) mg/dL Total Creatine Kinase (39-308) U/L CK-MB (CK-2) (0.5-3.6) ng/mL CK-MB (CK-2) % (0.0-4.0) % Troponin I (0.02-0.05) ng/mL Triglycerides (42-150) mg/dL Cholesterol (120-200) mg/dL HDL Cholesterol (40.0-60.0) mg/dL Cholesterol/HDL Ratio Ratio 11/17/17 11/17/17 11/17/17 Range/Units 16:00 16:00 16:00 WBC (4.0-11.0) th/mm3 RBC (4.50-5.90) mil/mm3 Hgb (13.0-17.0) gm/dL POC Hgb (Calc) 10.2 L (13.0-17.0) g/dL Hct (39.0-51.0) % POC Hct 30.0 L (39-51.0) % MCV (80.0-100.0) fL MCH (27.0-34.0) pg MCHC (32.0-36.0) % RDW (11.6-17.2) % Plt Count (150-450) th/mm3 MPV (7.0-11.0) fL Neut % (Auto) (16.0-70.0) % Lymph % (Auto) (9.0-44.0) % [place] % (Auto) (0.0-8.0) % Eos % (Auto) (0.0-4.0) % Baso % (Auto) (0.0-2.0) % Neut # (Auto) (1.8-7.7) th/mm3 Lymph # (Auto) (1.0-4.8) th/mm3 [place] # (Auto) (0.0-0.9) th/mm3 Eos # (Auto) (0.0-0.4) th/mm3 Baso # (Auto) (0.0-0.2) th/mm3 WBC Differential Differential Comment PT (9.8-11.6) sec INR Ratio APTT (24.3-30.1) sec Fibrinogen (227-377) mg/dL POC Sodium 140 (137-144) mmol/L Sodium (136-145) meq/L POC Potassium 3.3 L (3.6-5.0) mmol/L Potassium (3.5-5.1) meq/L POC Chloride 105 (102-111) mmol/L Chloride (98-107) meq/L Carbon Dioxide (21.0-32.0) meq/L Anion Gap (5-15) meq/L POC BUN 20 (5-21) mg/dL BUN (7-18) mg/dL Creatinine (0.60-1.30) mg/dL POC Creatinine 7.1 H (0.6-1.3) mg/dL Estimated GFR (>89) mL/min POC Glucose 141 H (68-110) mg/dL Random Glucose (74-106) mg/dL Calcium (8.5-10.1) mg/dL Total Creatine Kinase 471 H (39-308) U/L CK-MB (CK-2) 3.7 H (0.5-3.6) ng/mL CK-MB (CK-2) % 0.8 (0.0-4.0) % Troponin I 0.06 H (0.02-0.05) ng/mL Triglycerides 463 H (42-150) mg/dL Cholesterol 127 (120-200) mg/dL HDL Cholesterol 26.1 L (40.0-60.0) mg/dL Cholesterol/HDL Ratio 4.86 Ratio Imaging Data Attestation: I personally reviewed and interpreted this imaging study as follows : Radiologist's impression: Chest X-Ray 11/17/17 15:42 CONCLUSION: Mild cardiomegaly without evidence of acute cardiopulmonary process. Head MRI 11/17/17 15:53 CONCLUSION: 1. No acute hemorrhage or infarction. 2. Atrophy and mild chronic small vessel ischemic changes. Head MRA 11/17/17 15:53 CONCLUSION: 1. Unremarkable exam. Head CT 11/17/17 15:57 CONCLUSION: 1. Stable noncontrast head CT. No acute intracranial abnormality is identified. 2. Chronic findings include mild generalized atrophy and mild chronic periventricular white matter change. This report was telephoned to Dr. Varela on 11/17/2017 at 4:20 PM. Discharge Plan Discharge Disposition Patient Disposition: 30 Still Patient Discharge Condition Condition: Stable Discharge Details Diagnosis: Weakness, ESRD (end stage renal disease) Physicians Team ED Provider: Evie Varela Primary Care Provider: Eunice Riggs Rxs /Orders / Referrals /Forms Prescriptions: No Action atorvastatin 40 mg Tablet 40 mg PO DAILY RF: 0 clopidogrel 75 mg Tablet 75 mg PO DAILY RF: 0 calcium acetate 667 mg Tablet 667 mg PO TID RF: 0 omeprazole 40 mg Capsule,Delayed Release(Dr/Ec) 40 mg PO DAILY RF: 0 amlodipine 10 mg Tablet 10 mg PO DAILY RF: 0 ranitidine HCl 300 mg Capsule 300 mg PO DAILY RF: 0 lisinopril 10 mg Tablet 10 mg PO DAILY RF: 0 gabapentin 300 mg Capsule 300 mg PO DAILY RF: 0 aspirin 81 mg Tablet,Chewable 81 mg PO DAILY RF: 0 B complex-vitamin C-folic acid [Gaby-Cruz] 0.8 mg Tablet 1 tab PO DAILY RF: 0 metoprolol succinate 25 mg Tablet Extended Release 24 Hr 25 mg PO DAILY RF: 0 Status ED Status: Admitted Observation Patient
[2017-11-17 16:21] LABS: Baso # (Auto) 0.1 th/mm3 (0.0-0.2); Eos # (Auto) 1.3 th/mm3 (0.0-0.4); Eos % (Auto) 19.5 % (0.0-4.0); Hematocrit 30.3 % (39.0-51.0); Hemoglobin 10.7 gm/dL (13.0-17.0); Lymph # (Auto) 1.3 th/mm3 (1.0-4.8); Lymph % (Auto) 19.8 % (9.0-44.0); Mean Corpuscular HGB Conc 35.3 % (32.0-36.0); Mean Corpuscular Hemoglobin 37.6 pg (27.0-34.0); Mean Corpuscular Volume 106.6 fL (80.0-100.0); Mean Platelet Volume 7.9 fL (7.0-11.0); Mono # (Auto) 0.4 th/mm3 (0.0-0.9); Mono % (Auto) 6.5 % (0.0-8.0); Neut # (Auto) 3.6 th/mm3 (1.8-7.7); Neut % (Auto) 53.2 % (16.0-70.0); Platelet Count 205 th/mm3 (150-450); Red Blood Count 2.85 mil/mm3 (4.50-5.90); Red Cell Distribution Width 16.3 % (11.6-17.2); White Blood Count 6.7 th/mm3 (4.0-11.0)
--- NOTE | 2017-11-17 16:23 | CT ---
EXAM DATE: 11/17/2017 4:13 PM EDT AGE/SEX: 66 years / Male INDICATIONS: Generalized weakness let side weakness CLINICAL DATA: This is the patient's initial encounter. Patient reports that signs and symptoms have been present for 1 day and indicates a pain score of 0/10. MEDICAL/SURGICAL HISTORY: Cerebrovascular disease. Renal disease, end stage. None. RADIATION DOSE: 40.71 CTDI (mGy) COMPARISON: [facility] [place], 04/01/2017. . TECHNIQUE: CT of the head without contrast. Using automated exposure control and adjustment of the mA and/or kV according to patient size, radiation dose was kept as low as reasonably achievable to ob tain optimal diagnostic quality images. DICOM format image data is available electronically for revi ew and comparison. FINDINGS: Cerebrum: There is mild generalized atrophy and ventricles are normal given the degree of atrophy. M ild periventricular white matter change is present. No midline shift, mass lesion, hemorrhage or acu te infarction. No extraaxial fluid collections are seen. There is a cavum septum lucidum. Posterior Fossa: The cerebellum and brainstem demonstrate no acute abnormality. The 4th ventricle is midline. The cerebellopontine angle is within normal limits. Extracranial: The visualized sinuses are clear. Skull: The calvaria is intact. No skull fracture. CONCLUSION: 1. Stable noncontrast head CT. No acute intracranial abnormality is identified. 2. Chronic findings include mild generalized atrophy and mild chronic periventricular white matter c hange. This report was telephoned to Dr. Varela on 11/17/2017 at 4:20 PM. Electronically signed by: Andrey Kc MD 11/17/2017 4:21 PM EDT
[2017-11-17 16:52] LABS: Carbon Dioxide 22.2 meq/L (21.0-32.0); Potassium 3.3 meq/L (3.5-5.1)
[2017-11-17 16:55] LABS: Troponin I 0.06 ng/mL (0.02-0.05)
[2017-11-17 17:05] LABS: Activated Partial Thrombo Time 23.5 sec (24.3-30.1); Prothrombin Time 10.6 sec (9.8-11.6)
[2017-11-17 17:11] LABS: CKMB Percent 0.8 % (0.0-4.0); Creatine Kinase MB 3.7 ng/mL (0.5-3.6)
[2017-11-17 17:55] LABS: Chol/HDL Ratio 4.86 Ratio; HDL Cholesterol 26.1 mg/dL (40.0-60.0)
--- NOTE | 2017-11-17 18:50 | MR ---
EXAM DATE: 11/17/2017 6:43 PM EDT AGE/SEX: 66 years / Male INDICATIONS: Cephalgia. Left-sided weakness. CLINICAL DATA: This is the patient's initial encounter. Patient reports that signs and symptoms have been present for 1 day and indicates a pain score of 1/10. MEDICAL/SURGICAL HISTORY: Diabetes mellitus type II. CVA. Inguinal hernia repair. Bilateral kn ee repair. [place] [facility] [place]17/2017. . TECHNIQUE: Multiplanar, multisequence examination of the brain was performed without contrast. FINDINGS: Cerebrum: The ventricles are normal for age with diffuse mild to moderate atrophic change with sulca l and ventricular prominence. No evidence of midline shift, mass lesion, hemorrhage or acute infarcti on. No extraaxial fluid collections are seen. The pituitary gland and suprasellar cistern are julia l in configuration. White Matter: Mild chronic small vessel ischemic changes are noted in the white matter on the FLAIR weighted images. Posterior Fossa: The cerebellum and brainstem are intact. The 4th ventricle is midline. The cerebel lopontine angle is unremarkable. The cerebellar tonsils are normal in position. Diffusion Imaging: No focal areas of restricted diffusion are seen. No evidence of acute infarction . Extracranial: The visualized portions of the orbits and paranasal sinuses are unremarkable. CONCLUSION: 1. No acute hemorrhage or infarction. 2. Atrophy and mild chronic small vessel ischemic changes. Electronically signed by: Isidoro Swan MD 11/17/2017 6:49 PM EDT
--- NOTE | 2017-11-17 18:51 | MR ---
EXAM DATE: 11/17/2017 6:43 PM EDT AGE/SEX: 66 years / Male INDICATIONS: Cephalgia. Weakness. CLINICAL DATA: This is the patient's initial encounter. Patient reports that signs and symptoms have been present for 1 day and indicates a pain score of 0/10. MEDICAL/SURGICAL HISTORY: Diabetes mellitus type II. CVA. Inguinal hernia repair. Bilateral kn ee repair. [place] [facility] [place]. . TECHNIQUE: 3D [id number] MRA was performed. Source images, multiplanar STS MIP, and 3D volum e MIP reconstructions were reviewed. FINDINGS: There is excellent visualization of the major intracranial arteries out to the second-order branch ve ssels. There is no evidence for aneurysm, vessel truncation or stenosis, and no evidence for vascula r malformation. CONCLUSION: 1. Unremarkable exam. Electronically signed by: Isidoro Swan MD 11/17/2017 6:50 PM EDT
[2017-11-17] MEDS ORDERED: Aspirin 325 MG Tablet PO ONE (18:52)
[2017-11-17] MEDS ORDERED: Acetaminophen 325 MG Tablet PO PRN (20:02)
[2017-11-17] MEDS ORDERED: Dextrose 50% in Water 50 ML Vial IV.PUSH PRN (21:20)
--- NOTE | 2017-11-17 21:22 | MB ---
cc: Jeff Aviles MD, PhD DATE: 11/17/2017 REASON FOR CONSULTATION: Stroke alert. HISTORY OF PRESENT ILLNESS: Mr. Fairchild is a 66-year-old man, end-stage renal disease on dialysis and has had strokes in the past with chronic left-sided weakness. He was in dialysis, he felt he got weaker on the left side. He came to the ER as a stroke alert. On interviewing the patient, it was unclear whether he was at his baseline or whether his weakness was accentuated. He normally takes an aspirin a day. CT of the brain revealed no acute change. Therefore, an MRI of the brain has been ordered to try to differentiate as to whether or not this is an acute stroke. He cannot get contrast for a CTA or CT perfusion due to his renal failure. PAST MEDICAL HISTORY: History of stroke in the past with chronic left-sided weakness. He has a history of coronary artery disease with coronary stents in place. History of end-stage renal disease, on dialysis. MEDICATIONS: He takes aspirin. He is not on any anticoagulation. NEUROLOGICAL EXAMINATION: VITAL SIGNS: His blood pressure is described. Pulse is 58 regular, respirations are 16, temperature 97.4 degrees. NEUROLOGICAL: Higher cortical functions are normal, including speech. Cranial nerves are intact. Motor exam: He is weak in the left arm and left leg, rated at 4/5, proximally and distally. He states that he is improving in strength. He has normal strength on the right. Sensory exam is diminished left arm and left leg, diffusely. Reflexes are 2+ symmetric. IMAGING STUDIES: CT scan of the head: Stable chronic changes, mild atrophy is seen periventricular ischemic changes identified. There is no acute change present. No hemorrhage. LABORATORY DATA: The white count is 6700, hemoglobin 10.7, hematocrit 30.3%, platelets 205,000. His PT is 10.6, INR 1, aPTT 23.5. Sodium is 140, potassium 3.3, chloride 105, CO2 is 22.2, BUN is 20, creatinine is 6.69. CPK 471. IMPRESSION: Left-sided weakness, which based on exam is probably residual from his old stroke. I cannot say for sure that there is increasing weakness and the patient states at this time, his major problem is pain in the foot. I recommend MRI of the brain stat to further differentiate as to whether or not there is an acute change in the diffusion images to indicate an acute stroke, I would not recommend tPA because of its risk unless the MRI were to show acute changes consistent with stroke. Thank you for asking me to see this patient in consultation. I also recommend completing NIH stroke scale. Jeff Aviles MD, PhD MARIALUISA/nam , 05:08 PM , 05:16 PM
--- NOTE | 2017-11-17 21:24 | P.HP ---
History of Present Illness Service: [facility] Primary Care Physician: Eunice Riggs History of Present Illness: 66-year-old male with a past medical history significant for coronary artery disease, history of previous CVA, history of prostate cancer, diabetes mellitus , hypertension, hyperlipidemia, ESRD on dialysis, neuropathy and history of temporal arteritis presents to the emergency department from dialysis for weakness. The patient reports he woke up this morning with a headache and states he just generally "did not feel well." He went to dialysis after skipping all of his medication. While in dialysis he slept and woke up with a severe headache. His blood pressure in dialysis was 180/93. He also reports left upper and lower extremity weakness that is worse from his baseline from a previous CVA. He complains of left foot tingling which is chronic for the past 4 months. He also states for the past 2 days he has had left eye pulsations and tingling any states the vision in his left eye is "weak". He states that the symptoms are similar to when he had temporal arteritis in his right eye. The patient denies any chest pain or shortness of breath. No nausea/vomiting/ diarrhea. No fevers/chills. 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 - Medical History Medical History: Medical History (Last Updated 11/17/17 @ 21:08 by Cierra Sousa MD) AV fistula Anemia CAD (coronary artery disease) CVA (cerebral vascular accident) Diabetes Dialysis patient ESRD (end stage renal disease) HTN (hypertension) Hypokalemia Hypothyroidism TIA (transient ischemic attack) Temporal arteritis - Surgical History Surgical History: Surgical History (Last Updated 11/17/17 @ 21:08 by Cierra Sousa MD) History of ankle surgery History of cardiac catheterization History of knee surgery - Family History Family History: Family History (Last Updated 11/17/17 @ 21:09 by Cierra Sousa MD) Other CAD (coronary artery disease) Diabetes mellitus - Tobacco History Smoking Status: Former smoker - Alcohol History How Often Do You Have a Drink Containing Alcohol: Never - Travel History Recent Travel in the [place] Within the Last 8 Weeks: No Recent Travel Out of the Country Within the Last 8 Weeks: No - Immunization History Tetanus Immunization: Unsure Hx Influenza Vaccine This Season: No Medications and Allergies Active Medications: Active Medications Acetaminophen (Tylenol) 650 mg PO Q4H PRN PRN Reason: Temp > 100.4 Amlodipine Besylate (Norvasc) 10 mg PO DAILY [facility] Aspirin (Aspirin Chew) 81 mg PO DAILY [facility] Atorvastatin Calcium (Lipitor) 40 mg PO DAILY [facility] Calcium Acetate (Phoslo) 667 mg PO TID [facility] Clopidogrel Bisulfate (Plavix) 75 mg PO DAILY [facility] Famotidine (Pepcid) 10 mg PO BID [facility] Gabapentin (Neurontin) 300 mg PO DAILY [facility] Heparin Sodium (Porcine) (Heparin Inj) 5,000 units SQ Q8H [facility] Lisinopril (Prinivil) 10 mg PO DAILY [facility] Metoprolol Succinate (Toprol Xl) 25 mg PO DAILY [facility] Ondansetron HCl (Zofran Inj) 4 mg IV.PUSH Q6H PRN PRN Reason: NAUSEA OR VOMITING Pantoprazole Sodium (Protonix) 40 mg PO DAILY [facility] Vitamin B Complex/Vit C/Folic Acid (Nephrocaps) 1 tab PO DAILY [facility] Allergies Allergy/AdvReac Type Severity Reaction Status Date / Time Iodinated Contrast- Oral and Allergy Severe Swelling Verified 11/17/17 15:42 IV Dye shellfish derived Allergy Severe Swelling Verified 11/17/17 15:42 Home Medications Medication Instructions Recorded Confirmed Type B complex-vitamin C-folic acid 1 tab PO DAILY 11/17/17 11/17/17 History [Gaby-Cruz] amlodipine 10 mg PO DAILY 11/17/17 11/17/17 History aspirin 81 mg PO DAILY 11/17/17 11/17/17 History atorvastatin 40 mg PO DAILY 11/17/17 11/17/17 History calcium acetate 667 mg PO TID 11/17/17 11/17/17 History clopidogrel 75 mg PO DAILY 11/17/17 11/17/17 History gabapentin 300 mg PO DAILY 11/17/17 11/17/17 History lisinopril 10 mg PO DAILY 11/17/17 11/17/17 History metoprolol succinate 25 mg PO DAILY 11/17/17 11/17/17 History omeprazole 40 mg PO DAILY 11/17/17 11/17/17 History ranitidine HCl 300 mg PO DAILY 11/17/17 11/17/17 History Exam Vital signs: Vital Signs 11/17/17 15:42 11/17/17 18:00 11/17/17 19:46 Temperature 97.5 F L Pulse Rate 58 L 60 64 Respiratory Rate 16 16 18 Blood Pressure 152/68 H 160/78 H Pulse Oximetry 99 99 98 Intake & Output 11/17/17 11/17/17 11/18/17 06:59 18:59 06:59 Weight 87.5 kg Narrative: Gen.: No acute distress Head: Normocephalic. Atraumatic. No temporal pain. EENT: Pupils equal round and reactive to light. Nose without drainage. Airway intact. Throat without injection. Cardiovascular: Regular rate and rhythm. No murmurs, rubs or gallops. Respiratory: Lungs clear to auscultation bilaterally. No wheezes or rhonchi. Abdomen: Soft, nontender, nondistended. No peritoneal signs. Musculoskeletal: No gross deformities. No edema. Skin: No obvious rashes or erythema. Neuro: Decreased sensation left upper and lower extremity. Cranial nerves II through XII intact. A&O 4. Strength 2/5 and handgrip, upper and lower extremity of the left side. Patient's effort is questionable throughout exam. Results - Labs CBC & Chem 7: 11/17/17 16:00 11/17/17 16:00 Labs: Laboratory Results - last 24 hr 11/17/17 11/17/17 11/17/17 16:00 16:00 16:00 WBC 6.7 RBC 2.85 L Hgb 10.7 L POC Hgb (Calc) Hct 30.3 L POC Hct MCV 106.6 H MCH 37.6 H MCHC 35.3 RDW 16.3 Plt Count 205 MPV 7.9 Neut % (Auto) 53.2 Lymph % (Auto) 19.8 [place] % (Auto) 6.5 Eos % (Auto) 19.5 H Baso % (Auto) 1.0 Neut # (Auto) 3.6 Lymph # (Auto) 1.3 [place] # (Auto) 0.4 Eos # (Auto) 1.3 H Baso # (Auto) 0.1 WBC Differential . Differential Comment Auto diff final PT 10.6 INR 1.0 APTT 23.5 L Fibrinogen 353 POC Sodium Sodium 140 POC Potassium Potassium 3.3 L POC Chloride Chloride 107 Carbon Dioxide 22.2 Anion Gap 11 POC BUN BUN 20 H Creatinine 6.69 H POC Creatinine Estimated GFR 10 L POC Glucose Random Glucose 146 H Calcium 8.0 L Total Creatine Kinase CK-MB (CK-2) CK-MB (CK-2) % Troponin I Triglycerides Cholesterol LDL Cholesterol, Calc HDL Cholesterol Cholesterol/HDL Ratio 11/17/17 11/17/17 11/17/17 16:00 16:00 16:00 WBC RBC Hgb POC Hgb (Calc) 10.2 L Hct POC Hct 30.0 L MCV MCH MCHC RDW Plt Count MPV Neut % (Auto) Lymph % (Auto) [place] % (Auto) Eos % (Auto) Baso % (Auto) Neut # (Auto) Lymph # (Auto) [place] # (Auto) Eos # (Auto) Baso # (Auto) WBC Differential Differential Comment PT INR APTT Fibrinogen POC Sodium 140 Sodium POC Potassium 3.3 L Potassium POC Chloride 105 Chloride Carbon Dioxide Anion Gap POC BUN 20 BUN Creatinine POC Creatinine 7.1 H Estimated GFR POC Glucose 141 H Random Glucose Calcium Total Creatine Kinase 471 H CK-MB (CK-2) 3.7 H CK-MB (CK-2) % 0.8 Troponin I 0.06 H Triglycerides 463 H Cholesterol 127 LDL Cholesterol, Calc HDL Cholesterol 26.1 L Cholesterol/HDL Ratio 4.86 - Imaging Impressions Chest X-Ray 11/17/17 15:42 CONCLUSION: Mild cardiomegaly without evidence of acute cardiopulmonary process. Head MRI 11/17/17 15:53 CONCLUSION: 1. No acute hemorrhage or infarction. 2. Atrophy and mild chronic small vessel ischemic changes. Head MRA 11/17/17 15:53 CONCLUSION: 1. Unremarkable exam. Head CT 11/17/17 15:57 CONCLUSION: 1. Stable noncontrast head CT. No acute intracranial abnormality is identified. 2. Chronic findings include mild generalized atrophy and mild chronic periventricular white matter change. This report was telephoned to Dr. Varela on 11/17/2017 at 4:20 PM. Caprini VTE Risk Assessment Caprini VTE Risk Assessment: Moderate/High Risk (score >= 2) Caprini Risk Assessment Model: Point Value = 1 Point Value = 2 Point Value = 3 Point Value = 5 Age 41-60 Minor surgery BMI > 25 kg/m2 Swollen legs Varicose veins or History of unexplained or recurrent spontaneous Oral contraceptives or hormone replacement Sepsis (< 1 month) Serious lung disease, including pneumonia (< 1 month) Abnormal pulmonary function Acute myocardial infarction Congestive heart failure (< 1 month) History of inflammatory bowel disease Medical patient at bed rest Age 61-74 Arthroscopic surgery Major open surgery (> 45 min) Laparoscopic surgery (> 45 min) Malignancy Confined to bed (> 72 hours) Immobilizing plaster cast Central venous access Age >= 75 History of VTE Family history of VTE Factor V Leiden Prothrombin [id number] Lupus anticoagulant Anticardiolipin antibodies Elevated serum homocysteine Heparin-induced thrombocytopenia Other congenital or acquired thrombophilia Stroke (< 1 month) Elective arthroplasty Hip, pelvis, or leg fracture Acute spinal cord injury (< 1 month) Prophylaxis Regimen: Total Risk Factor Score Risk Level Prophylaxis Regimen 0-1 Low Early ambulation 2 Moderate Order ONE of the following: *Sequential Compression Device (SCD) *Heparin 5000 units SQ BID 3-4 Higher Order ONE of the following medications: *Heparin 5000 units SQ TID *Enoxaparin/Lovenox 40 mg SQ daily (WT < 150 kg, CrCl > 30 mL/min) *Enoxaparin/Lovenox 30 mg SQ daily (WT < 150 kg, CrCl > 10-29 mL/min) *Enoxaparin/Lovenox 30 mg SQ BID (WT < 150 kg, CrCl > 30 mL/min) AND/OR *Sequential Compression Device (SCD) 5 or more Highest Order ONE of the following medications: *Heparin 5000 units SQ TID (Preferred with Epidurals) *Enoxaparin/Lovenox 40 mg SQ daily (WT < 150 kg, CrCl > 30 mL/min) *Enoxaparin/Lovenox 30 mg SQ daily (WT < 150 kg, CrCl > 10-29 mL/min) *Enoxaparin/Lovenox 30 mg SQ BID (WT < 150 kg, CrCl > 30 mL/min) AND *Sequential Compression Device (SCD) Assessment and Plan - Plan Assessment/plan: 1. Weakness/? CVA Head CT, head MRI/MRA negative Neurology consulted, appreciate recommendations Echo pending 2. End-stage renal disease on dialysis Status post dialysis today Nephrology consulted, appreciate assistance 3. Diabetes mellitus Sliding-scale insulin Monitor blood glucose 4. Headache/visual changes/? Temporal arteritis No significant visual changes No temporal pain with palpation ESR pending 5. Hypertension/hyperlipidemia/CAD/neuropathy Continue home medications FEN NPO Electrolytes: Monitor and replete as needed Heparin
[2017-11-17] MEDS: Famotidine 20 MG Tablet PO SCH (22:02)
[2017-11-17] MEDS: Heparin - SQ 10,000 UNITS/ML Vial SQ SCH (22:03)
--- NOTE | 2017-11-17 22:03 | US ---
EXAM DATE: 11/17/2017 10:00 PM EDT AGE/SEX: 66 years / Male INDICATIONS: Cerebrovascular accident. CLINICAL DATA: This is the patient's subsequent encounter. Patient reports that signs and symptoms h ave been present for 1 day and indicates a pain score of 0/10. MEDICAL/SURGICAL HISTORY: Anemia. Diabetes. Renal disease, end stage. AV fistula. Coronary a rtery disease. Cerebral vascular accident. Dialysis. Hypertension. Hypokalemia. Hypothyroidism. Tempo ral arteritis. Transient ischemic attack. . Ankle surgery. Cardiac catheterization. Knee surgery. [place] [facility] [place]. . VELOCITY PARAMETERS: ICA/CCA Ratio: Right 0.9 , Left 1.0 ICA: Right 74 cm/sec, Left 75 cm/sec CCA: Right 82 cm/sec, Left 74 cm/sec ECA: Right 97 cm/sec, Left 93 cm/sec Vertebral: Right 93 cm/sec antegrade, Left 33 cm/sec antegrade FINDINGS: Right Carotid: No significant plaque is visualized.The waveforms are within normal limits. Left Carotid: No significant plaque is visualized. The waveforms are within normal limits. Other: None. CONCLUSION: Negative exam with no evidence of stenosis. Electronically signed by: Isidoro Swan MD 11/17/2017 10:02 PM EDT
[2017-11-18] MEDS: Insulin NovoLOG Aspart Correctional Sugar Inj SQ SCH ×3 (04:15→13:13)
[2017-11-18 04:42] LABS: Troponin I 0.07 ng/mL (0.02-0.05)
[2017-11-18 04:54] LABS: CKMB Percent 0.8 % (0.0-4.0); Creatine Kinase MB 3.5 ng/mL (0.5-3.6)
[2017-11-18] MEDS: Heparin - SQ 10,000 UNITS/ML Vial SQ SCH ×2 (05:23→13:13)
[2017-11-18 07:32] VITALS: RESP 18
--- NOTE | 2017-11-18 08:37 | P.CONNP ---
<Juan JoséjanelleElinor pollock - Last Filed: 11/18/17 09:05> History of Present Illness Service: Nephrology Consult date: 11/18/17 Requesting Physician: Cierra Sousa Reason for Consult: End stage renal disease on hemodialysis Primary Care Provider: Eunice Riggs Family Provider: Eunice Riggs History of Present Illness: Patient is a 66-year-old male with a past medical history significant for coronary artery disease, history of previous CVA, history of prostate cancer, diabetes mellitus, hypertension, hyperlipidemia, ESRD on dialysis, neuropathy and history of temporal arteritis. Presented to the emergency department from dialysis with headache, weakness, pressure over left eye and increased weakness over left upper arm and leg. Nephrology is consulted for end stage renal disease on hemodialysis. 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 He completed all of hemodialysis on Friday. Yesterday he reported some nausea which has resolved now. Denies any shortness of breath, chest pain, vomiting, diarrhea, or fevers. REPLACED BY [facility] - History History Provided By: Patient - Medical History Medical History: Medical History (Last Updated 11/17/17 @ 21:08 by Cierra Sousa MD) AV fistula Anemia CAD (coronary artery disease) CVA (cerebral vascular accident) Diabetes Dialysis patient ESRD (end stage renal disease) HTN (hypertension) Hypokalemia Hypothyroidism TIA (transient ischemic attack) Temporal arteritis - Surgical History Surgical History: Surgical History (Last Updated 11/17/17 @ 21:08 by Cierra Sousa MD) History of ankle surgery History of cardiac catheterization History of knee surgery - Family History Family History: Family History (Last Updated 11/17/17 @ 21:09 by Cierra Sousa MD) Other CAD (coronary artery disease) Diabetes mellitus - Tobacco History Second Hand Smoke Exposure: No Tobacco Use In Past 30 Days: No Smoking Status: Former smoker Tobacco Type: Cigarettes - Alcohol History How Often Do You Have a Drink Containing Alcohol: Never - Substance Use History Substance History: No History of Abuse - Travel History Recent Travel in the [place] Within the Last 8 Weeks: No Recent Travel Out of the Country Within the Last 8 Weeks: No - Immunization History Tetanus Immunization: Unsure Hx Influenza Vaccine This Season: No Medications and Allergies Allergies Allergy/AdvReac Type Severity Reaction Status Date / Time Iodinated Contrast- Oral and Allergy Severe Swelling Verified 11/17/17 15:42 IV Dye shellfish derived Allergy Severe Swelling Verified 11/17/17 15:42 Home Medications Medication Instructions Recorded Confirmed Type B complex-vitamin C-folic acid 1 tab PO DAILY 11/17/17 11/17/17 History [Gaby-Cruz] amlodipine 10 mg PO DAILY 11/17/17 11/17/17 History aspirin 81 mg PO DAILY 11/17/17 11/17/17 History atorvastatin 40 mg PO DAILY 11/17/17 11/17/17 History calcium acetate 667 mg PO TID 11/17/17 11/17/17 History clopidogrel 75 mg PO DAILY 11/17/17 11/17/17 History gabapentin 300 mg PO DAILY 11/17/17 11/17/17 History lisinopril 10 mg PO DAILY 11/17/17 11/17/17 History metoprolol succinate 25 mg PO DAILY 11/17/17 11/17/17 History omeprazole 40 mg PO DAILY 11/17/17 11/17/17 History ranitidine HCl 300 mg PO DAILY 11/17/17 11/17/17 History Active Medications: Active Medications Acetaminophen (Tylenol) 650 mg PO Q4H PRN PRN Reason: Temp > 100.4 Amlodipine Besylate (Norvasc) 10 mg PO DAILY [facility] Aspirin (Aspirin Chew) 81 mg PO DAILY [facility] Atorvastatin Calcium (Lipitor) 40 mg PO DAILY [facility] Calcium Acetate (Phoslo) 667 mg PO TID [facility] Clopidogrel Bisulfate (Plavix) 75 mg PO DAILY [facility] Dextrose (D50w Vial) 50 ml IV.PUSH UNSCH PRN PRN Reason: PER HYPOGLYCEMIA PROTOCOL Famotidine (Pepcid) 10 mg PO BID [facility] Last Admin: 11/17/17 22:02 Dose: 10 mg Gabapentin (Neurontin) 300 mg PO DAILY [facility] Glucagon (Glucagon Inj) 1 mg OTHER PRN PRN PRN Reason: for Hypoglycemia Protocol Heparin Sodium (Porcine) (Heparin Inj) 5,000 units SQ Q8H [facility] Last Admin: 11/18/17 05:23 Dose: 5,000 units Insulin Aspart (Novolog Insulin Correctional Sugar Inj) 0 unit SQ ACHS AND 3AM [facility]; Protocol Last Admin: 11/18/17 04:15 Dose: Not Given Lisinopril (Prinivil) 10 mg PO DAILY [facility] Metoprolol Succinate (Toprol Xl) 25 mg PO DAILY [facility] Ondansetron HCl (Zofran Inj) 4 mg IV.PUSH Q6H PRN PRN Reason: NAUSEA OR VOMITING Pantoprazole Sodium (Protonix) 40 mg PO DAILY [facility] Vitamin B Complex/Vit C/Folic Acid (Nephrocaps) 1 tab PO DAILY [facility] Exam Vital signs: Vital Signs 11/17/17 15:42 11/17/17 18:00 11/17/17 19:46 Temperature 97.5 F L Pulse Rate 58 L 60 64 Respiratory Rate 16 16 18 Blood Pressure 152/68 H 160/78 H Pulse Oximetry 99 99 98 11/17/17 22:13 11/18/17 00:00 11/18/17 04:00 Temperature 98.0 F 97.7 F 98.2 F Pulse Rate 61 61 51 L Respiratory Rate 20 16 16 Blood Pressure 132/83 144/66 H 153/79 H Pulse Oximetry 97 99 100 11/18/17 07:31 11/18/17 07:45 Temperature 97.5 F L Pulse Rate 60 68 Respiratory Rate 18 Blood Pressure 158/73 H Pulse Oximetry 98 Intake & Output 11/17/17 11/18/17 11/18/17 18:59 06:59 18:59 Intake Total 1000 / 1000 Balance 1000 / 1000 Weight 87.5 kg 87.09 kg Intake: IV 1000 / 1000 NS Inj 1,000 ML @ 70 mls/hr IV. 1000 / 1000 CONT .[id number] [facility] Rx#:[id number] Other: # Voids 2 Date of Last Bowel Movement 11/17/17 Weight On Admission 87.09 kg Narrative: General: Alert and oriented. NAD Head: Normocephalic. Atraumatic. No temporal pain. EENT: Pupils equal round and reactive to light. Nose without drainage. Airway intact. Cardiovascular: Regular rate and rhythm. No murmurs, rubs or gallops. Left AVF positive thrill and bruit. Respiratory: Lungs clear to auscultation bilaterally. No wheezes or rhonchi. Abdomen: Soft, nontender, nondistended. No peritoneal signs. Musculoskeletal: No gross deformities. No edema. Skin: No obvious rashes or erythema. Neuro: Decreased strength left upper and lower extremity. Results - Lab Results 11/17/17 16:00 11/17/17 16:00 Most recent lab results Calcium 8.0 mg/dL (8.5-10.1) L 11/17/17 16:00 Assessment and Plan - Assessment (1) ESRD (end stage renal disease) Code(s): N18.6 - End stage renal disease Status: Acute Plan: End stage renal disease on hemodialysis on Friday, Friday, and Friday Left AVF with positive thrill and bruit Avoid IVF administration. Continue phoslo Hemodialysis planned for tomorrow (2) Weakness Code(s): R53.1 - Weakness Status: Acute Plan: Neurology consulted. MRI and Head CT with no acute findings. (3) Hypertension Code(s): I10 - Essential (primary) hypertension Status: Acute Plan: SBP in 140's to 150's Continue current antihypertensives. <Deloris Crespo - Last Filed: 11/18/17 16:37> History of Present Illness Primary Care Provider: Eunice Riggs Family Provider: Eunice Riggs REPLACED BY [facility] - Medical History Medical History: Medical History (Last Updated 11/17/17 @ 21:08 by Cierra Sousa MD) AV fistula Anemia CAD (coronary artery disease) CVA (cerebral vascular accident) Diabetes Dialysis patient ESRD (end stage renal disease) HTN (hypertension) Hypokalemia Hypothyroidism TIA (transient ischemic attack) Temporal arteritis - Surgical History Surgical History: Surgical History (Last Updated 11/17/17 @ 21:08 by Cierra Sousa MD) History of ankle surgery History of cardiac catheterization History of knee surgery - Family History Family History: Family History (Last Updated 11/17/17 @ 21:09 by Cierra Sousa MD) Other CAD (coronary artery disease) Diabetes mellitus Medications and Allergies Active Medications: Active Medications Acetaminophen (Tylenol) 650 mg PO Q4H PRN PRN Reason: Temp > 100.4 Acetaminophen (Tylenol) 650 mg PO UNSCH PRN PRN Reason: SEE LABEL COMMENTS Amlodipine Besylate (Norvasc) 10 mg PO DAILY [facility] Last Admin: 11/18/17 09:14 Dose: 10 mg Aspirin (Aspirin Chew) 81 mg PO DAILY [facility] Last Admin: 11/18/17 09:15 Dose: 81 mg Atorvastatin Calcium (Lipitor) 40 mg PO DAILY [facility] Last Admin: 11/18/17 09:14 Dose: 40 mg Calcium Acetate (Phoslo) 667 mg PO TID [facility] Last Admin: 11/18/17 13:13 Dose: 667 mg Clonidine HCl (Catapres) 0.1 mg PO UNSCH PRN PRN Reason: SEE LABEL COMMENTS Clopidogrel Bisulfate (Plavix) 75 mg PO DAILY [facility] Last Admin: 11/18/17 09:14 Dose: 75 mg Dextrose (D50w Vial) 50 ml IV.PUSH UNSCH PRN PRN Reason: PER HYPOGLYCEMIA PROTOCOL Diphenhydramine HCl (Benadryl) 25 mg PO UNSCH PRN PRN Reason: SEE LABEL COMMENTS Famotidine (Pepcid) 10 mg PO BID [facility] Last Admin: 11/18/17 09:14 Dose: 10 mg Gabapentin (Neurontin) 300 mg PO DAILY [facility] Last Admin: 11/18/17 09:15 Dose: 300 mg Gelatin (Gelfoam 12 Mm/7 Mm Topical) 1 foam TOPICAL PRN PRN PRN Reason: help stop bleeding from site Gentamicin Sulfate (Gentamicin Inj) 20 mg OTHER WITH DIALYSIS PRN PRN Reason: Dwell Gentamycin Lock Glucagon (Glucagon Inj) 1 mg OTHER PRN PRN PRN Reason: for Hypoglycemia Protocol Heparin Sodium (Porcine) (Heparin Inj) 5,000 units SQ Q8H [facility] Last Admin: 11/18/17 13:13 Dose: 5,000 units Heparin Sodium (Porcine) (Heparin Inj) 8,000 units OTHER WITH DIALYSIS PRN PRN Reason: for machine prime Heparin Sodium (Porcine) (Heparin Inj) 1,000 units OTHER WITH DIALYSIS PRN PRN Reason: Dwell Heparin to Fill Catheter Sodium Chloride (Ns Inj) 1,000 mls @ 0 mls/hr OTHER .Q0M PRN PRN Reason: for prime and rinse back Sodium Chloride (Ns Inj) 1,000 mls @ 200 mls/hr OTHER .Q5H PRN PRN Reason: for dialyzer flush PRN Sodium Chloride (Ns Inj) 1,000 mls @ 0 mls/hr IV.CONT .Q0M PRN PRN Reason: hypotension / volume replace Albumin Human (Flexbumin 25% Inj) 100 mls @ 60 mls/hr IV.SIG WITH DIALYSIS PRN PRN Reason: hypotension / volume replace Insulin Aspart (Novolog Insulin Correctional Sugar Inj) 0 unit SQ ACHS AND 3AM [facility]; Protocol Last Admin: 11/18/17 13:13 Dose: Not Given Lisinopril (Prinivil) 10 mg PO DAILY [facility] Last Admin: 11/18/17 09:14 Dose: 10 mg Mannitol (Mannitol Inj) 12.5 gm IV.PUSH UNSCH PRN PRN Reason: hypotension / volume replace Metoprolol Succinate (Toprol Xl) 25 mg PO DAILY [facility] Last Admin: 11/18/17 09:14 Dose: 25 mg Nitroglycerin (Nitrostat Sl) 0.4 mg SL Q5M PRN PRN Reason: CHEST PAIN Ondansetron HCl (Zofran Inj) 4 mg IV.PUSH Q6H PRN PRN Reason: NAUSEA OR VOMITING Ondansetron HCl (Zofran Inj) 4 mg IV.PUSH UNSCH PRN PRN Reason: NAUSEA OR VOMITING Pantoprazole Sodium (Protonix) 40 mg PO DAILY [facility] Last Admin: 11/18/17 09:14 Dose: 40 mg Sodium Chloride (Ns Flush) 5 ml IV.FLUSH PRN PRN PRN Reason: flush each lumen during HD Vitamin B Complex/Vit C/Folic Acid (Nephrocaps) 1 tab PO DAILY [facility] Last Admin: 11/18/17 09:15 Dose: 1 tab Exam Vital signs: Vital Signs 11/17/17 18:00 11/17/17 19:46 11/17/17 22:13 Temperature 98.0 F Pulse Rate 60 64 61 Respiratory Rate 16 18 20 Blood Pressure 152/68 H 160/78 H 132/83 Pulse Oximetry 99 98 97 11/18/17 00:00 11/18/17 04:00 11/18/17 07:31 Temperature 97.7 F 98.2 F 97.5 F L Pulse Rate 61 51 L 60 Respiratory Rate 16 16 18 Blood Pressure 144/66 H 153/79 H 158/73 H Pulse Oximetry 99 100 98 11/18/17 07:45 11/18/17 11:28 11/18/17 11:58 Temperature 96.4 F L Pulse Rate 68 60 58 L Respiratory Rate 18 Blood Pressure 163/72 H Pulse Oximetry 99 Intake & Output 11/17/17 11/18/17 11/18/17 18:59 06:59 18:59 Intake Total 1000 / 1000 Balance 1000 / 1000 Weight 87.5 kg 87.09 kg Intake: IV 1000 / 1000 NS Inj 1,000 ML @ 70 mls/hr IV. 1000 / 1000 CONT .[id number] [facility] Rx#:[id number] Other: # Voids 2 Date of Last Bowel Movement 11/17/17 Weight On Admission 87.09 kg Results - Lab Results 11/17/17 16:00 11/17/17 16:00 Most recent lab results Calcium 8.0 mg/dL (8.5-10.1) L 11/17/17 16:00 Assessment and Plan - Assessment (1) ESRD (end stage renal disease) Code(s): N18.6 - End stage renal disease Status: Acute Plan: Patient seen and examined, agree with above. HD was done yesterday, Now the BP is stable, K was low after HD. For discharge home, to continue HD as out patient. He he will follow with Dr. Day. (2) Weakness Code(s): R53.1 - Weakness Status: Acute (3) Hypertension Code(s): I10 - Essential (primary) hypertension Status: Acute
[2017-11-18] MEDS ORDERED: amLODIPine 10 MG Tablet PO SCH (09:00)
[2017-11-18] MEDS ORDERED: Gabapentin 300 MG Capsule PO SCH (09:00)
[2017-11-18] MEDS ORDERED: Lisinopril 10 MG Tablet PO SCH (09:00)
[2017-11-18] MEDS ORDERED: Vitamin B Complex/Vit C/Folic Tablet PO SCH (09:00)
[2017-11-18] MEDS ORDERED: Gelatin 12 MM/7 MM Topical Foam TOPICAL PRN (09:07)
[2017-11-18] MEDS ORDERED: Sod Chloride 0.9% Inj 1,000 ML OTHER PRN ×2 (09:07)
[2017-11-18] MEDS ORDERED: Acetaminophen 325 MG Tablet PO PRN (09:07)
[2017-11-18] MEDS ORDERED: Sod Chloride 0.9% Inj 1,000 ML IV.CONT PRN (09:07)
[2017-11-18] MEDS ORDERED: Heparin 10,000 UNITS/10 ML Vial (for IV use) OTHER PRN ×2 (09:07)
[2017-11-18] MEDS ORDERED: Albumin Human 25% Inj 100 ML IV.SIG PRN (09:07)
[2017-11-18] MEDS: Calcium Acetate 667 MG Capsule PO SCH ×2 (09:14→13:13)
[2017-11-18] MEDS: Famotidine 20 MG Tablet PO SCH (09:14)
[2017-11-18 11:36] VITALS: BP 163/72; TEMP 96.4; O2SAT 99
[2017-11-18 12:01] VITALS: PULSE 58
--- NOTE | 2017-11-18 14:00 | ECG ---
Date Performed: 11/17/2017 Time Performed: 22:45:51 PTAGE: 66 years EKG: SINUS BRADYCARDIA WITH FIRST DEGREE AV BLOCK MODERATE T-WAVE ABNORMALITY, CONSIDER LATERAL ISCHEMIA ABNORMAL ECG Since the PREVIOUS TRACING , no significant change noted PREVIOUS TRACIN08/25/2017 17.00 DOCTOR: Dion Perkins Interpretating Date/Time 11/18/2017 13:58:52
--- NOTE | 2017-11-18 14:20 | P.PN ---
Subjective Interval history: Patient thinks that his 4 times a week dialysis sessions are little bit too much and cause him to feel a little bit more drained and fatigued. Says after eating his meal today he feels much more energetic and ready to go home. Physical Exam Vital signs: Vital Signs 11/17/17 15:42 11/17/17 18:00 11/17/17 19:46 Temperature 97.5 F L Pulse Rate 58 L 60 64 Respiratory Rate 16 16 18 Blood Pressure 152/68 H 160/78 H Pulse Oximetry 99 99 98 11/17/17 22:13 11/18/17 00:00 11/18/17 04:00 Temperature 98.0 F 97.7 F 98.2 F Pulse Rate 61 61 51 L Respiratory Rate 20 16 16 Blood Pressure 132/83 144/66 H 153/79 H Pulse Oximetry 97 99 100 11/18/17 07:31 11/18/17 07:45 11/18/17 11:28 Temperature 97.5 F L 96.4 F L Pulse Rate 60 68 60 Respiratory Rate 18 18 Blood Pressure 158/73 H 163/72 H Pulse Oximetry 98 99 11/18/17 11:58 Temperature Pulse Rate 58 L Respiratory Rate Blood Pressure Pulse Oximetry Intake & Output 11/17/17 11/18/17 11/18/17 18:59 06:59 18:59 Intake Total 1000 / 1000 Balance 1000 / 1000 Weight 87.5 kg 87.09 kg Intake: IV 1000 / 1000 NS Inj 1,000 ML @ 70 mls/hr IV. 1000 / 1000 CONT .[id number] [facility] Rx#:[id number] Other: # Voids 2 Date of Last Bowel Movement 11/17/17 Weight On Admission 87.09 kg Narrative: 5/5 proximal upper and lower extremity strength bilaterally No facial droop, no slurred speech Alert and oriented 3 Results - Labs CBC & Chem 7: 11/17/17 16:00 11/17/17 16:00 Laboratory Results - last 24 hr 11/17/17 11/17/17 11/17/17 16:00 16:00 16:00 WBC 6.7 RBC 2.85 L Hgb 10.7 L POC Hgb (Calc) Hct 30.3 L POC Hct MCV 106.6 H MCH 37.6 H MCHC 35.3 RDW 16.3 Plt Count 205 MPV 7.9 Neut % (Auto) 53.2 Lymph % (Auto) 19.8 [place] % (Auto) 6.5 Eos % (Auto) 19.5 H Baso % (Auto) 1.0 Neut # (Auto) 3.6 Lymph # (Auto) 1.3 [place] # (Auto) 0.4 Eos # (Auto) 1.3 H Baso # (Auto) 0.1 WBC Differential . Differential Comment Auto diff final ESR PT 10.6 INR 1.0 APTT 23.5 L Fibrinogen 353 POC Sodium Sodium 140 POC Potassium Potassium 3.3 L POC Chloride Chloride 107 Carbon Dioxide 22.2 Anion Gap 11 POC BUN BUN 20 H Creatinine 6.69 H POC Creatinine Estimated GFR 10 L POC Glucose Random Glucose 146 H Calcium 8.0 L Total Creatine Kinase CK-MB (CK-2) CK-MB (CK-2) % Troponin I Triglycerides Cholesterol LDL Cholesterol, Calc HDL Cholesterol Cholesterol/HDL Ratio Blood Type Antibody Screen 11/17/17 11/17/17 11/17/17 16:00 16:00 16:00 WBC RBC Hgb POC Hgb (Calc) 10.2 L Hct POC Hct 30.0 L MCV MCH MCHC RDW Plt Count MPV Neut % (Auto) Lymph % (Auto) [place] % (Auto) Eos % (Auto) Baso % (Auto) Neut # (Auto) Lymph # (Auto) [place] # (Auto) Eos # (Auto) Baso # (Auto) WBC Differential Differential Comment ESR PT INR APTT Fibrinogen POC Sodium 140 Sodium POC Potassium 3.3 L Potassium POC Chloride 105 Chloride Carbon Dioxide Anion Gap POC BUN 20 BUN Creatinine POC Creatinine 7.1 H Estimated GFR POC Glucose 141 H Random Glucose Calcium Total Creatine Kinase 471 H CK-MB (CK-2) 3.7 H CK-MB (CK-2) % 0.8 Troponin I 0.06 H Triglycerides 463 H Cholesterol 127 LDL Cholesterol, Calc HDL Cholesterol 26.1 L Cholesterol/HDL Ratio 4.86 Blood Type Antibody Screen 11/17/17 11/17/17 11/17/17 16:00 20:00 21:23 WBC RBC Hgb POC Hgb (Calc) Hct POC Hct MCV MCH MCHC RDW Plt Count MPV Neut % (Auto) Lymph % (Auto) [place] % (Auto) Eos % (Auto) Baso % (Auto) Neut # (Auto) Lymph # (Auto) [place] # (Auto) Eos # (Auto) Baso # (Auto) WBC Differential Differential Comment ESR 36 H PT INR APTT Fibrinogen POC Sodium Sodium POC Potassium Potassium POC Chloride Chloride Carbon Dioxide Anion Gap POC BUN BUN Creatinine POC Creatinine Estimated GFR POC Glucose 88 Random Glucose Calcium Total Creatine Kinase CK-MB (CK-2) CK-MB (CK-2) % Troponin I Triglycerides Cholesterol LDL Cholesterol, Calc HDL Cholesterol Cholesterol/HDL Ratio Blood Type O Negative Antibody Screen Negative 11/18/17 11/18/17 11/18/17 02:38 03:36 07:41 WBC RBC Hgb POC Hgb (Calc) Hct POC Hct MCV MCH MCHC RDW Plt Count MPV Neut % (Auto) Lymph % (Auto) [place] % (Auto) Eos % (Auto) Baso % (Auto) Neut # (Auto) Lymph # (Auto) [place] # (Auto) Eos # (Auto) Baso # (Auto) WBC Differential Differential Comment ESR PT INR APTT Fibrinogen POC Sodium Sodium POC Potassium Potassium POC Chloride Chloride Carbon Dioxide Anion Gap POC BUN BUN Creatinine POC Creatinine Estimated GFR POC Glucose 94 75 Random Glucose Calcium Total Creatine Kinase 464 H CK-MB (CK-2) 3.5 CK-MB (CK-2) % 0.8 Troponin I 0.07 H Triglycerides Cholesterol LDL Cholesterol, Calc HDL Cholesterol Cholesterol/HDL Ratio Blood Type Antibody Screen 11/18/17 12:45 WBC RBC Hgb POC Hgb (Calc) Hct POC Hct MCV MCH MCHC RDW Plt Count MPV Neut % (Auto) Lymph % (Auto) [place] % (Auto) Eos % (Auto) Baso % (Auto) Neut # (Auto) Lymph # (Auto) [place] # (Auto) Eos # (Auto) Baso # (Auto) WBC Differential Differential Comment ESR PT INR APTT Fibrinogen POC Sodium Sodium POC Potassium Potassium POC Chloride Chloride Carbon Dioxide Anion Gap POC BUN BUN Creatinine POC Creatinine Estimated GFR POC Glucose 142 H Random Glucose Calcium Total Creatine Kinase CK-MB (CK-2) CK-MB (CK-2) % Troponin I Triglycerides Cholesterol LDL Cholesterol, Calc HDL Cholesterol Cholesterol/HDL Ratio Blood Type Antibody Screen - Imaging Impressions Carotid Doppler Study 11/17/17 00:00 CONCLUSION: Negative exam with no evidence of stenosis. Chest X-Ray 11/17/17 15:42 CONCLUSION: Mild cardiomegaly without evidence of acute cardiopulmonary process. Head MRI 11/17/17 15:53 CONCLUSION: 1. No acute hemorrhage or infarction. 2. Atrophy and mild chronic small vessel ischemic changes. Head MRA 11/17/17 15:53 CONCLUSION: 1. Unremarkable exam. Head CT 11/17/17 15:57 CONCLUSION: 1. Stable noncontrast head CT. No acute intracranial abnormality is identified. 2. Chronic findings include mild generalized atrophy and mild chronic periventricular white matter change. This report was telephoned to Dr. Varela on 11/17/2017 at 4:20 PM. Assessment and Plan - Plan Weakness resolved. Imaging studies are negative for any acute neurological insults. Neurology does not feel that the patient has a true acute strokelike presentation. Patient feels good and wants to go home. I advised him that he can hold off on taking his Lipitor if his muscle cramps increased to unbearable levels. Discussed case with neurology and nephrology, clear for discharge. Patient has met maximal benefit from hospitalization.
== END 2017-11-18 18:04 | disposition home or self-care (01) ==
LOC: NEDA 15:36 → NEPE 15:36 → NEPHCDU 20:53
PROVIDERS: ADMIT Hospitalist; ATTEND Hospitalist

== ENCOUNTER 2017-12-15 12:58 | Inpatient (IN) ==
--- NOTE | 2017-12-15 13:51 | XR ---
EXAM DATE: 12/15/2017 1:24 PM EDT AGE/SEX: 67 years / Male INDICATIONS: Chest pain for about one month, short of breath CLINICAL DATA: This is the patient's initial encounter. Patient reports that signs and symptoms have been present for 1 month and indicates a pain score of 10/10. MEDICAL/SURGICAL HISTORY: Cardiovascular disease. Hypertension. Stroke. CABG. Coronary arter y stent. COMPARISON: [facility] – [place], CHEST 1V SINGLE AP, 11/17/2017. . FINDINGS: A single AP view of the chest demonstrates cardiomegaly with slight interstitial prominence. No cons olidation or pleural effusion. The cardiomediastinal contours are unremarkable. Osseous structures a re intact. CONCLUSION: Cardiomegaly with slight interstitial prominence. No change. Electronically signed by: Cavlin Hewitt MD 12/15/2017 1:49 PM EDT
[2017-12-15 15:21] LABS: Baso # (Auto) 0.1 th/mm3 (0.0-0.2); Baso % (Auto) 1.1 % (0.0-2.0); Eos # (Auto) 0.5 th/mm3 (0.0-0.4); Eos % (Auto) 9.3 % (0.0-4.0); Hematocrit 21.1 % (39.0-51.0); Hemoglobin 7.4 gm/dL (13.0-17.0); Lymph # (Auto) 1.2 th/mm3 (1.0-4.8); Lymph % (Auto) 22.6 % (9.0-44.0); Mean Corpuscular Hemoglobin 38.1 pg (27.0-34.0); Mean Corpuscular Volume 108.9 fL (80.0-100.0); Mean Platelet Volume 7.6 fL (7.0-11.0); Mono # (Auto) 0.4 th/mm3 (0.0-0.9); Neut # (Auto) 3.2 th/mm3 (1.8-7.7); Platelet Count 183 th/mm3 (150-450); Red Blood Count 1.93 mil/mm3 (4.50-5.90); Red Cell Distribution Width 16.1 % (11.6-17.2); White Blood Count 5.4 th/mm3 (4.0-11.0)
--- NOTE | 2017-12-15 15:38 | ED ---
HPI General Chief Complaint: Chest Pain Stated Complaint: Chest discomfort Time Seen by Provider: 12/15/17 13:16 Source: patient Limitations: no limitations History of Present Illness HPI narrative: Patient is a 67-year-old placed and end-stage renal disease on hemodialysis who presents with complaint of chest pain. He was in dialysis today when he began to have chest pain at which time he was given aspirin and his pain was relieved with sublingual nitroglycerin. Dialysis was then stopped thus he only had 1-2 hours of his dialysis. He states that he has had this pain intermittently for the last several weeks and had a stress test last week with his power shovel operator helper which he failed. He has an appointment with his power shovel operator helper, Dr. Daily, tomorrow. He denies any fever, chills. He denies any cough. MD complaint: Reports chest pain STEMI Alert: No Onset (ago): hour(s) Duration: intermittent Onset: during rest Pain location: Reports substernal Severity: mild Quality: Reports aching Pain radiation: Reports none Relieving factors: nitroglycerin Exacerbating factors: nothing Treatments prior to arrival chest pain: Reports aspirin and nitroglycerin Related Data Home Medications Medication Instructions Recorded Confirmed B complex-vitamin C-folic acid 1 tab PO DAILY 11/17/17 12/15/17 [Gaby-Cruz] amlodipine 10 mg PO DAILY 11/17/17 12/15/17 aspirin 81 mg PO DAILY 11/17/17 12/15/17 calcium acetate 2 - 3 tab PO TID 11/17/17 12/15/17 clopidogrel 75 mg PO DAILY 11/17/17 12/15/17 gabapentin 300 mg PO TID 11/17/17 12/15/17 lisinopril 10 mg PO HS 11/17/17 12/15/17 metoprolol succinate 25 mg PO DAILY 11/17/17 12/15/17 omeprazole 40 mg PO DAILY 11/17/17 12/15/17 insulin glargine [Lantus Solostar 35 unit SUBCUT 12/15/17 12/15/17 U-100 Insulin] ranitidine HCl [Zantac] 150 mg PO DAILY 12/15/17 12/15/17 Allergies Allergy/AdvReac Type Severity Reaction Status Date / Time Iodinated Contrast- Oral and Allergy Severe Swelling Verified 09/10/18 15:42 IV Dye shellfish derived Allergy Severe Swelling Verified 11/17/17 15:42 diphenhydramine Allergy Hives Verified 12/16/17 22:38 [From Benadryl] Review of Systems ROS: all other systems reviewed are negative [facility] Medical History Medical History AV fistula (Acute) Anemia (Acute) CAD (coronary artery disease) (Acute) CVA (cerebral vascular accident) (Acute) Diabetes (Acute) Dialysis patient (Acute) ESRD (end stage renal disease) (Acute) HTN (hypertension) (Acute) Hypokalemia (Acute) Hypothyroidism (Acute) TIA (transient ischemic attack) (Acute) Temporal arteritis (Acute) Surgical History Surgical History History of ankle surgery (Acute) History of cardiac catheterization (Acute) History of knee surgery (Acute) Family History Family History Other CAD (coronary artery disease) Diabetes mellitus Social History Social History Substance History: No History of Abuse Second Hand Smoke Exposure: No Smoking Status: Former smoker Tobacco Type: Cigarettes How Often Do You Have a Drink Containing Alcohol: Never Recent Travel in [facility] within the Last 8 Weeks: No Recent Out of Country Travel within the Last 8 Weeks: No Immunization History Tetanus Immunization: <5 Years Exam Narrative Exam Narrative: GENERAL: Well-appearing male in no acute distress SKIN: Focused skin assessment warm/dry. No rashes. Bandages over his left AV fistula. HEAD: Atraumatic. Normocephalic. EYES: Pupils equal and round. No scleral icterus. No injection or drainage. ENT: No nasal bleeding or discharge. Mucous membranes pink and moist. NECK: Trachea midline. No JVD. CARDIOVASCULAR: Regular rate and rhythm. No murmur appreciated. Intact and equal peripheral pulses. Positive thrill in the left upper extremity. RESPIRATORY: No accessory muscle use. Clear to auscultation. Breath sounds equal bilaterally. GASTROINTESTINAL: Abdomen soft, non-tender, nondistended. Hepatic and splenic margins not palpable. MUSCULOSKELETAL: No obvious deformities. No clubbing. No cyanosis. Bilateral lower extremity pitting edema. NEUROLOGICAL: Awake and alert. No obvious cranial nerve deficits. Motor grossly within normal limits. Normal speech. PSYCHIATRIC: Appropriate mood and affect; insight and judgment normal. Course Initial Documented Vital Signs Temperature 97.6 F 12/15/17 13:13 Pulse Rate 60 12/15/17 13:13 Respiratory Rate 20 12/15/17 13:13 Blood Pressure 151/68 H 12/15/17 13:13 Pulse Oximetry 100 12/15/17 13:13 Last Documented Vital Signs Temperature 97.8 F 12/17/17 17:43 Pulse Rate 60 12/17/17 17:43 Respiratory Rate 18 12/17/17 17:43 Blood Pressure 164/56 H 12/17/17 17:43 Pulse Oximetry 97 12/17/17 17:43 Sign Out Sign Out Data: Patient Sign Out occurred on 12/15/17 at 16:32. Patient's care was discussed, and care was transferred from Angela Bryant MD to Anupam Melvin. Sign Out Comment: Labs pending. Plan to discuss with his power shovel operator helper, Dr Daily, when labs return. Last updated by Angela Bryant MD at 12/15/17 15:01 Post-Handoff Eval: Found to have anemia of 7.4/21 down from 01/06 from November 17. Significant for a megaloblastic type of anemia MCV of 109 Troponin 0 0.05, total CPK of 840 CK-MB percentage is pending Elect lites are within normal limits. As expected severely elevated creatinine and BUN consistent with ESRD Chest x-ray read by radiologist as cardiomegaly with slight interstitial prominence. Medical Decision Making MDM Narrative Medical decision making narrative: Patient is a 67-year-old male who presents with complaint of chest pain during dialysis today. EKG has nonspecific changes. He was given aspirin and nitro prior to arrival and has no pain on arrival here. Chest x-ray shows cardiomegaly but no other changes. Labs pending at time of checkout to Dr. Melvin. Medical Screen Exam Complete: Yes Emergency Medical Condition: Yes Differential Diagnosis Differential Diagnosis: Differential diagnosis includes but is not limited to acute coronary syndrome, pericardial effusion, pneumonia. Medical Records Medical records reviewed: Yes I reviewed the patient's medical records. Lab Data Lab results reviewed: Yes I reviewed the patient's lab results. Result diagrams: 12/17/17 05:19 12/16/17 05:00 Lab Results 12/15/17 12/15/17 12/15/17 Range/Units 14:45 14:45 14:45 WBC 5.4 (4.0-11.0) th/mm3 RBC 1.93 L (4.50-5.90) mil/mm3 Hgb 7.4 L (13.0-17.0) gm/dL Hct 21.1 L (39.0-51.0) % MCV 108.9 H (80.0-100.0) fL MCH 38.1 H (27.0-34.0) pg MCHC 35.0 (32.0-36.0) % RDW 16.1 (11.6-17.2) % Plt Count 183 (150-450) th/mm3 MPV 7.6 (7.0-11.0) fL Neut % (Auto) 60.0 (16.0-70.0) % Lymph % (Auto) 22.6 (9.0-44.0) % [place] % (Auto) 7.0 (0.0-8.0) % Eos % (Auto) 9.3 H (0.0-4.0) % Baso % (Auto) 1.1 (0.0-2.0) % Neut # (Auto) 3.2 (1.8-7.7) th/mm3 Lymph # (Auto) 1.2 (1.0-4.8) th/mm3 [place] # (Auto) 0.4 (0.0-0.9) th/mm3 Eos # (Auto) 0.5 H (0.0-0.4) th/mm3 Baso # (Auto) 0.1 (0.0-0.2) th/mm3 WBC Differential . Differential Comment Auto diff final Sodium 143 (136-145) meq/L Potassium 4.2 (3.5-5.1) meq/L Chloride 108 H (98-107) meq/L Carbon Dioxide 23.8 (21.0-32.0) meq/L Anion Gap 11 (5-15) meq/L BUN 39 H (7-18) mg/dL Creatinine 9.88 H (0.60-1.30) mg/dL Estimated GFR 6 L (>89) mL/min POC Glucose (68-110) mg/dl Random Glucose 76 (74-106) mg/dL Calcium 7.7 L (8.5-10.1) mg/dL Iron (65-175) mcg/dL TIBC (250-450) mcg/dL % Saturation (20-50) % Ferritin (26-388) ng/mL Total Bilirubin 0.4 (0.2-1.0) mg/dL AST 19 (15-37) U/L ALT 13 (12-78) U/L Alkaline Phosphatase 78 (45-117) U/L Total Creatine Kinase 840 H (39-308) U/L CK-MB (CK-2) 4.4 H (0.5-3.6) ng/mL CK-MB (CK-2) % 0.5 (0.0-4.0) % Troponin I 0.05 (0.02-0.05) ng/mL B-Natriuretic Peptide 96 (0-100) pg/mL Total Protein 7.0 (6.4-8.2) g/dL Albumin 3.5 (3.4-5.0) g/dL Blood Type Antibody Screen MTS Gel Crossmatch 12/15/17 12/15/17 12/15/17 Range/Units 16:40 23:09 23:29 WBC (4.0-11.0) th/mm3 RBC (4.50-5.90) mil/mm3 Hgb (13.0-17.0) gm/dL Hct (39.0-51.0) % MCV (80.0-100.0) fL MCH (27.0-34.0) pg MCHC (32.0-36.0) % RDW (11.6-17.2) % Plt Count (150-450) th/mm3 MPV (7.0-11.0) fL Neut % (Auto) (16.0-70.0) % Lymph % (Auto) (9.0-44.0) % [place] % (Auto) (0.0-8.0) % Eos % (Auto) (0.0-4.0) % Baso % (Auto) (0.0-2.0) % Neut # (Auto) (1.8-7.7) th/mm3 Lymph # (Auto) (1.0-4.8) th/mm3 [place] # (Auto) (0.0-0.9) th/mm3 Eos # (Auto) (0.0-0.4) th/mm3 Baso # (Auto) (0.0-0.2) th/mm3 WBC Differential Differential Comment Sodium (136-145) meq/L Potassium (3.5-5.1) meq/L Chloride (98-107) meq/L Carbon Dioxide (21.0-32.0) meq/L Anion Gap (5-15) meq/L BUN (7-18) mg/dL Creatinine (0.60-1.30) mg/dL Estimated GFR (>89) mL/min POC Glucose 92 (68-110) mg/dl Random Glucose (74-106) mg/dL Calcium (8.5-10.1) mg/dL Iron (65-175) mcg/dL TIBC (250-450) mcg/dL % Saturation (20-50) % Ferritin (26-388) ng/mL Total Bilirubin (0.2-1.0) mg/dL AST (15-37) U/L ALT (12-78) U/L Alkaline Phosphatase (45-117) U/L Total Creatine Kinase (39-308) U/L CK-MB (CK-2) (0.5-3.6) ng/mL CK-MB (CK-2) % (0.0-4.0) % Troponin I 0.06 H 0.05 (0.02-0.05) ng/mL B-Natriuretic Peptide (0-100) pg/mL Total Protein (6.4-8.2) g/dL Albumin (3.4-5.0) g/dL Blood Type Antibody Screen MTS Gel Crossmatch 12/15/17 12/16/17 12/16/17 Range/Units 23:29 02:37 05:00 WBC (4.0-11.0) th/mm3 RBC (4.50-5.90) mil/mm3 Hgb 7.9 L (13.0-17.0) gm/dL Hct 24.7 L (39.0-51.0) % MCV (80.0-100.0) fL MCH (27.0-34.0) pg MCHC (32.0-36.0) % RDW (11.6-17.2) % Plt Count (150-450) th/mm3 MPV (7.0-11.0) fL Neut % (Auto) (16.0-70.0) % Lymph % (Auto) (9.0-44.0) % [place] % (Auto) (0.0-8.0) % Eos % (Auto) (0.0-4.0) % Baso % (Auto) (0.0-2.0) % Neut # (Auto) (1.8-7.7) th/mm3 Lymph # (Auto) (1.0-4.8) th/mm3 [place] # (Auto) (0.0-0.9) th/mm3 Eos # (Auto) (0.0-0.4) th/mm3 Baso # (Auto) (0.0-0.2) th/mm3 WBC Differential Differential Comment Sodium 143 (136-145) meq/L Potassium 4.8 (3.5-5.1) meq/L Chloride 108 H (98-107) meq/L Carbon Dioxide 22.7 (21.0-32.0) meq/L Anion Gap 12 (5-15) meq/L BUN 44 H (7-18) mg/dL Creatinine 11.14 H* D (0.60-1.30) mg/dL Estimated GFR 6 L (>89) mL/min POC Glucose (68-110) mg/dl Random Glucose 91 (74-106) mg/dL Calcium 8.0 L (8.5-10.1) mg/dL Iron 75 (65-175) mcg/dL TIBC 279 (250-450) mcg/dL % Saturation 26.9 (20-50) % Ferritin 147 (26-388) ng/mL Total Bilirubin (0.2-1.0) mg/dL AST (15-37) U/L ALT (12-78) U/L Alkaline Phosphatase (45-117) U/L Total Creatine Kinase (39-308) U/L CK-MB (CK-2) (0.5-3.6) ng/mL CK-MB (CK-2) % (0.0-4.0) % Troponin I 0.04 (0.02-0.05) ng/mL B-Natriuretic Peptide (0-100) pg/mL Total Protein (6.4-8.2) g/dL Albumin (3.4-5.0) g/dL Blood Type O Negative Antibody Screen Negative MTS Gel Crossmatch See Detail 12/16/17 12/16/17 12/16/17 Range/Units 08:00 12:06 17:21 WBC 5.0 (4.0-11.0) th/mm3 RBC 2.05 L (4.50-5.90) mil/mm3 Hgb 7.5 L (13.0-17.0) gm/dL Hct 22.5 L (39.0-51.0) % MCV 109.8 H (80.0-100.0) fL MCH 36.4 H (27.0-34.0) pg MCHC 33.2 (32.0-36.0) % RDW 16.0 (11.6-17.2) % Plt Count 188 (150-450) th/mm3 MPV 7.7 (7.0-11.0) fL Neut % (Auto) 60.5 (16.0-70.0) % Lymph % (Auto) 21.7 (9.0-44.0) % [place] % (Auto) 6.3 (0.0-8.0) % Eos % (Auto) 10.7 H (0.0-4.0) % Baso % (Auto) 0.8 (0.0-2.0) % Neut # (Auto) 3.0 (1.8-7.7) th/mm3 Lymph # (Auto) 1.1 (1.0-4.8) th/mm3 [place] # (Auto) 0.3 (0.0-0.9) th/mm3 Eos # (Auto) 0.5 H (0.0-0.4) th/mm3 Baso # (Auto) 0.0 (0.0-0.2) th/mm3 WBC Differential . Differential Comment Auto diff final Sodium (136-145) meq/L Potassium (3.5-5.1) meq/L Chloride (98-107) meq/L Carbon Dioxide (21.0-32.0) meq/L Anion Gap (5-15) meq/L BUN (7-18) mg/dL Creatinine (0.60-1.30) mg/dL Estimated GFR (>89) mL/min POC Glucose 130 H 107 (68-110) mg/dl Random Glucose (74-106) mg/dL Calcium (8.5-10.1) mg/dL Iron (65-175) mcg/dL TIBC (250-450) mcg/dL % Saturation (20-50) % Ferritin (26-388) ng/mL Total Bilirubin (0.2-1.0) mg/dL AST (15-37) U/L ALT (12-78) U/L Alkaline Phosphatase (45-117) U/L Total Creatine Kinase (39-308) U/L CK-MB (CK-2) (0.5-3.6) ng/mL CK-MB (CK-2) % (0.0-4.0) % Troponin I (0.02-0.05) ng/mL B-Natriuretic Peptide (0-100) pg/mL Total Protein (6.4-8.2) g/dL Albumin (3.4-5.0) g/dL Blood Type Antibody Screen MTS Gel Crossmatch 12/16/17 12/16/17 12/17/17 Range/Units 19:40 20:40 05:19 WBC (4.0-11.0) th/mm3 RBC (4.50-5.90) mil/mm3 Hgb 8.6 L (13.0-17.0) gm/dL Hct 25.6 L (39.0-51.0) % MCV (80.0-100.0) fL MCH (27.0-34.0) pg MCHC (32.0-36.0) % RDW (11.6-17.2) % Plt Count (150-450) th/mm3 MPV (7.0-11.0) fL Neut % (Auto) (16.0-70.0) % Lymph % (Auto) (9.0-44.0) % [place] % (Auto) (0.0-8.0) % Eos % (Auto) (0.0-4.0) % Baso % (Auto) (0.0-2.0) % Neut # (Auto) (1.8-7.7) th/mm3 Lymph # (Auto) (1.0-4.8) th/mm3 [place] # (Auto) (0.0-0.9) th/mm3 Eos # (Auto) (0.0-0.4) th/mm3 Baso # (Auto) (0.0-0.2) th/mm3 WBC Differential Differential Comment Sodium (136-145) meq/L Potassium (3.5-5.1) meq/L Chloride (98-107) meq/L Carbon Dioxide (21.0-32.0) meq/L Anion Gap (5-15) meq/L BUN (7-18) mg/dL Creatinine (0.60-1.30) mg/dL Estimated GFR (>89) mL/min POC Glucose 154 H (68-110) mg/dl Random Glucose (74-106) mg/dL Calcium (8.5-10.1) mg/dL Iron (65-175) mcg/dL TIBC (250-450) mcg/dL % Saturation (20-50) % Ferritin (26-388) ng/mL Total Bilirubin (0.2-1.0) mg/dL AST (15-37) U/L ALT (12-78) U/L Alkaline Phosphatase (45-117) U/L Total Creatine Kinase (39-308) U/L CK-MB (CK-2) (0.5-3.6) ng/mL CK-MB (CK-2) % (0.0-4.0) % Troponin I 0.03 (0.02-0.05) ng/mL B-Natriuretic Peptide (0-100) pg/mL Total Protein (6.4-8.2) g/dL Albumin (3.4-5.0) g/dL Blood Type Antibody Screen MTS Gel Crossmatch 12/17/17 12/17/17 12/17/17 Range/Units 08:30 13:23 17:22 WBC (4.0-11.0) th/mm3 RBC (4.50-5.90) mil/mm3 Hgb (13.0-17.0) gm/dL Hct (39.0-51.0) % MCV (80.0-100.0) fL MCH (27.0-34.0) pg MCHC (32.0-36.0) % RDW (11.6-17.2) % Plt Count (150-450) th/mm3 MPV (7.0-11.0) fL Neut % (Auto) (16.0-70.0) % Lymph % (Auto) (9.0-44.0) % [place] % (Auto) (0.0-8.0) % Eos % (Auto) (0.0-4.0) % Baso % (Auto) (0.0-2.0) % Neut # (Auto) (1.8-7.7) th/mm3 Lymph # (Auto) (1.0-4.8) th/mm3 [place] # (Auto) (0.0-0.9) th/mm3 Eos # (Auto) (0.0-0.4) th/mm3 Baso # (Auto) (0.0-0.2) th/mm3 WBC Differential Differential Comment Sodium (136-145) meq/L Potassium (3.5-5.1) meq/L Chloride (98-107) meq/L Carbon Dioxide (21.0-32.0) meq/L Anion Gap (5-15) meq/L BUN (7-18) mg/dL Creatinine (0.60-1.30) mg/dL Estimated GFR (>89) mL/min POC Glucose 183 H 139 H 270 H (68-110) mg/dl Random Glucose (74-106) mg/dL Calcium (8.5-10.1) mg/dL Iron (65-175) mcg/dL TIBC (250-450) mcg/dL % Saturation (20-50) % Ferritin (26-388) ng/mL Total Bilirubin (0.2-1.0) mg/dL AST (15-37) U/L ALT (12-78) U/L Alkaline Phosphatase (45-117) U/L Total Creatine Kinase (39-308) U/L CK-MB (CK-2) (0.5-3.6) ng/mL CK-MB (CK-2) % (0.0-4.0) % Troponin I (0.02-0.05) ng/mL B-Natriuretic Peptide (0-100) pg/mL Total Protein (6.4-8.2) g/dL Albumin (3.4-5.0) g/dL Blood Type Antibody Screen MTS Gel Crossmatch 12/17/17 Range/Units 20:15 WBC (4.0-11.0) th/mm3 RBC (4.50-5.90) mil/mm3 Hgb (13.0-17.0) gm/dL Hct (39.0-51.0) % MCV (80.0-100.0) fL MCH (27.0-34.0) pg MCHC (32.0-36.0) % RDW (11.6-17.2) % Plt Count (150-450) th/mm3 MPV (7.0-11.0) fL Neut % (Auto) (16.0-70.0) % Lymph % (Auto) (9.0-44.0) % [place] % (Auto) (0.0-8.0) % Eos % (Auto) (0.0-4.0) % Baso % (Auto) (0.0-2.0) % Neut # (Auto) (1.8-7.7) th/mm3 Lymph # (Auto) (1.0-4.8) th/mm3 [place] # (Auto) (0.0-0.9) th/mm3 Eos # (Auto) (0.0-0.4) th/mm3 Baso # (Auto) (0.0-0.2) th/mm3 WBC Differential Differential Comment Sodium (136-145) meq/L Potassium (3.5-5.1) meq/L Chloride (98-107) meq/L Carbon Dioxide (21.0-32.0) meq/L Anion Gap (5-15) meq/L BUN (7-18) mg/dL Creatinine (0.60-1.30) mg/dL Estimated GFR (>89) mL/min POC Glucose 209 H (68-110) mg/dl Random Glucose (74-106) mg/dL Calcium (8.5-10.1) mg/dL Iron (65-175) mcg/dL TIBC (250-450) mcg/dL % Saturation (20-50) % Ferritin (26-388) ng/mL Total Bilirubin (0.2-1.0) mg/dL AST (15-37) U/L ALT (12-78) U/L Alkaline Phosphatase (45-117) U/L Total Creatine Kinase (39-308) U/L CK-MB (CK-2) (0.5-3.6) ng/mL CK-MB (CK-2) % (0.0-4.0) % Troponin I (0.02-0.05) ng/mL B-Natriuretic Peptide (0-100) pg/mL Total Protein (6.4-8.2) g/dL Albumin (3.4-5.0) g/dL Blood Type Antibody Screen MTS Gel Crossmatch Imaging Data Attestation: I personally reviewed and interpreted this imaging study as follows : My impression: Cardiomegaly. Radiologist's impression: Chest X-Ray 12/15/17 13:24 CONCLUSION: Cardiomegaly with slight interstitial prominence. No change. ECG Data EKG Prior to Arrival: No Attestation: I personally reviewed and interpreted this ECG as follows: (Sinus rhythm at a rate of 59 bpm. There is nonspecific T wave changes in the inferior leads with T wave inversions in V5 and V6. No ST changes.) Interpretation: moriah: Sinus bradycardia, 59 bpm, with first-degree AV block , some nonspecific ST-T wave changes without any evidence of acute ST elevation [place] Discharge Plan Discharge Disposition Patient Disposition: 30 Still Patient Discharge Condition Condition: Fair Discharge Details Diagnosis: Chest pain, rule out acute myocardial infarction Physicians Team ED Provider: Anupam Melvin Primary Care Provider: Eunice Riggs Attending Provider: Nadia Ferreiar Other Providers: Doe Daily ; Romina Krishnamurthy ; Easton Kruger Status ED Status: Left Department Discharge Information Discharge Date/Time: 12/15/17 20:50
[2017-12-15 16:29] LABS: Alanine Aminotransferase 13 U/L (12-78); Albumin 3.5 g/dL (3.4-5.0); Anion Gap 11 meq/L (5-15); Aspartate Aminotransferase 19 U/L (15-37); Blood Urea Nitrogen 39 mg/dL (7-18); Calcium 7.7 mg/dL (8.5-10.1); Carbon Dioxide 23.8 meq/L (21.0-32.0); Chloride 108 meq/L (98-107); Glomerular Filtration Rate 6 mL/min (>89); Glucose,Random 76 mg/dL (74-106); Potassium 4.2 meq/L (3.5-5.1); Sodium 143 meq/L (136-145)
[2017-12-15 16:33] LABS: Alkaline Phosphatase 78 U/L (45-117); Creatine Kinase 840 U/L (39-308); Troponin I 0.05 ng/mL (0.02-0.05)
[2017-12-15 16:45] LABS: CKMB Percent 0.5 % (0.0-4.0); Creatine Kinase MB 4.4 ng/mL (0.5-3.6)
[2017-12-15] MEDS ORDERED: Senna/Docusate Sodium 8.6/50 MG Tablet PO SCH (21:00)
[2017-12-15] MEDS: Pantoprazole Inj 40 MG Vial IV.PUSH SCH (21:28)
[2017-12-15] MEDS: Lisinopril 10 MG Tablet PO SCH (21:29)
--- NOTE | 2017-12-15 21:59 | P.HPIM ---
History of Present Illness Service: [facility] Primary Care Physician: Eunice Riggs Chief Complaint: chest pain, sob History of Present Illness: 67 y/o male with a history of ESRD on hemodialysis, CVA, HTN, DM, and hypothyroid presented to the ED with complaints of sob and chest pain. Patient was at dialysis today when he developed chest pain and dialysis was then stopped. He states his chest pain has been a 6/10, intermittent to the Left lower chest, with increasing shortness of breath. NO radiation or associated symptoms. Patient states nothing makes it worse or better. He states one week ago he had a stress test and failed it outpatient. No cardiac cath was scheduled. He is due to follow up with Dr. Daily. He denies any blood in his stool, or urine. No fever or chills noted. 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 - Medical History Medical History: Medical History (Last Reviewed 12/15/17 @ 21:46 by SHAHRAM Sheldon) AV fistula Anemia CAD (coronary artery disease) CVA (cerebral vascular accident) Diabetes Dialysis patient ESRD (end stage renal disease) HTN (hypertension) Hypokalemia Hypothyroidism TIA (transient ischemic attack) Temporal arteritis - Surgical History Surgical History: Surgical History (Last Reviewed 12/15/17 @ 21:46 by SHAHRAM Sheldon) History of ankle surgery History of cardiac catheterization History of knee surgery - Family History Family History: Family History (Last Reviewed 12/15/17 @ 21:46 by SHAHRAM Sheldon) Other CAD (coronary artery disease) Diabetes mellitus - Social History I have reviewed the patient's Social History: Yes - Tobacco History Second Hand Smoke Exposure: No Smoking Status: Former smoker Tobacco Type: Cigarettes - Alcohol History How Often Do You Have a Drink Containing Alcohol: Never - Substance Use History Substance History: No History of Abuse - Travel History Recent Travel in the [place] Within the Last 8 Weeks: No Recent Travel Out of the Country Within the Last 8 Weeks: No - Immunization History Tetanus Immunization: <5 Years Medications and Allergies Active Medications: Active Medications Amlodipine Besylate (Norvasc) 10 mg PO DAILY [facility] Aspirin (Aspirin Chew) 81 mg PO DAILY [facility] Clopidogrel Bisulfate (Plavix) 75 mg PO DAILY [facility] Gabapentin (Neurontin) 300 mg PO DAILY [facility] Lisinopril (Prinivil) 10 mg PO [facility] Last Admin: 12/15/17 21:29 Dose: 10 mg Metoprolol Succinate (Toprol Xl) 25 mg PO DAILY [facility] Ondansetron HCl (Zofran Inj) 4 mg IV.PUSH Q6H PRN PRN Reason: NAUSEA OR VOMITING Pantoprazole Sodium (Protonix Inj) 40 mg IV.PUSH Q12H [facility] Last Admin: 12/15/17 21:28 Dose: 40 mg Sodium Chloride (Ns Flush) 2 ml IV.FLUSH UNSCH PRN PRN Reason: FLUSH AFTER USING IV ACCESS Allergies Allergy/AdvReac Type Severity Reaction Status Date / Time Iodinated Contrast- Oral and Allergy Severe Swelling Verified 11/17/17 15:42 IV Dye shellfish derived Allergy Severe Swelling Verified 11/17/17 15:42 Home Medications Medication Instructions Recorded Confirmed Type B complex-vitamin C-folic acid 1 tab PO DAILY 11/17/17 12/15/17 History [Gaby-Cruz] amlodipine 10 mg PO DAILY 11/17/17 12/15/17 History aspirin 81 mg PO DAILY 11/17/17 12/15/17 History calcium acetate 2 - 3 tab PO TID 11/17/17 12/15/17 History clopidogrel 75 mg PO DAILY 11/17/17 12/15/17 History gabapentin 300 mg PO TID 11/17/17 12/15/17 History lisinopril 10 mg PO HS 11/17/17 12/15/17 History metoprolol succinate 25 mg PO DAILY 11/17/17 12/15/17 History omeprazole 40 mg PO DAILY 11/17/17 12/15/17 History insulin glargine [Lantus Solostar 35 unit SUBCUT 12/15/17 12/15/17 History U-100 Insulin] ranitidine HCl [Zantac] 150 mg PO DAILY 12/15/17 12/15/17 History Exam Vital signs: Vital Signs 12/15/17 13:13 12/15/17 13:24 12/15/17 13:26 Temperature 97.6 F Pulse Rate 60 60 58 L Respiratory Rate 20 16 Blood Pressure 151/68 H 149/65 H Pulse Oximetry 100 100 100 12/15/17 15:18 12/15/17 20:00 12/15/17 21:40 Temperature 97.5 F L Pulse Rate 66 53 L Respiratory Rate 18 16 Blood Pressure 166/71 H 128/62 Pulse Oximetry 100 100 99 Intake & Output 12/15/17 12/15/17 12/16/17 06:59 18:59 06:59 Weight 113.398 kg Narrative: GENERAL: This is a well-nourished, well-developed patient, in no apparent distress. CARDIOVASCULAR: Regular rate and rhythm without murmurs, gallops, or rubs. RESPIRATORY: Clear to auscultation. Breath sounds equal bilaterally. No wheezes , rales, or rhonchi. GASTROINTESTINAL: Abdomen soft, non-tender, nondistended. Normal active bowel sounds MUSCULOSKELETAL: Extremities without clubbing, cyanosis, or edema. NEURO: Alert & Oriented x4 to person, place, time, situation. Moves all ext x4 Results - Labs CBC & Chem 7: 12/15/17 23:29 12/15/17 14:45 Labs: Short CBC 12/15/17 Range/Units 14:45 WBC 5.4 (4.0-11.0) th/mm3 Hgb 7.4 L (13.0-17.0) gm/dL Hct 21.1 L (39.0-51.0) % Plt Count 183 (150-450) th/mm3 BMP 12/15/17 14:45 Sodium 143 Potassium 4.2 Chloride 108 H Carbon Dioxide 23.8 BUN 39 H Creatinine 9.88 H Calcium 7.7 L Cardiac Enzymes 12/15/17 12/15/17 Range/Units 14:45 16:40 Total Creatine Kinase 840 H (39-308) U/L CK-MB (CK-2) 4.4 H (0.5-3.6) ng/mL Troponin I 0.05 0.06 H (0.02-0.05) ng/mL Liver Function 12/15/17 Range/Units 14:45 Total Bilirubin 0.4 (0.2-1.0) mg/dL AST 19 (15-37) U/L ALT 13 (12-78) U/L Alkaline Phosphatase 78 (45-117) U/L Albumin 3.5 (3.4-5.0) g/dL - Imaging Impressions Chest X-Ray 12/15/17 13:24 CONCLUSION: Cardiomegaly with slight interstitial prominence. No change. Caprini VTE Risk Assessment Caprini VTE Risk Assessment: Moderate/High Risk (score >= 2) Caprini Risk Assessment Model: Point Value = 1 Point Value = 2 Point Value = 3 Point Value = 5 Age 41-60 Minor surgery BMI > 25 kg/m2 Swollen legs Varicose veins or History of unexplained or recurrent spontaneous Oral contraceptives or hormone replacement Sepsis (< 1 month) Serious lung disease, including pneumonia (< 1 month) Abnormal pulmonary function Acute myocardial infarction Congestive heart failure (< 1 month) History of inflammatory bowel disease Medical patient at bed rest Age 61-74 Arthroscopic surgery Major open surgery (> 45 min) Laparoscopic surgery (> 45 min) Malignancy Confined to bed (> 72 hours) Immobilizing plaster cast Central venous access Age >= 75 History of VTE Family history of VTE Factor V Leiden Prothrombin [id number] Lupus anticoagulant Anticardiolipin antibodies Elevated serum homocysteine Heparin-induced thrombocytopenia Other congenital or acquired thrombophilia Stroke (< 1 month) Elective arthroplasty Hip, pelvis, or leg fracture Acute spinal cord injury (< 1 month) Prophylaxis Regimen: Total Risk Factor Score Risk Level Prophylaxis Regimen 0-1 Low Early ambulation 2 Moderate Order ONE of the following: *Sequential Compression Device (SCD) *Heparin 5000 units SQ BID 3-4 Higher Order ONE of the following medications: *Heparin 5000 units SQ TID *Enoxaparin/Lovenox 40 mg SQ daily (WT < 150 kg, CrCl > 30 mL/min) *Enoxaparin/Lovenox 30 mg SQ daily (WT < 150 kg, CrCl > 10-29 mL/min) *Enoxaparin/Lovenox 30 mg SQ BID (WT < 150 kg, CrCl > 30 mL/min) AND/OR *Sequential Compression Device (SCD) 5 or more Highest Order ONE of the following medications: *Heparin 5000 units SQ TID (Preferred with Epidurals) *Enoxaparin/Lovenox 40 mg SQ daily (WT < 150 kg, CrCl > 30 mL/min) *Enoxaparin/Lovenox 30 mg SQ daily (WT < 150 kg, CrCl > 10-29 mL/min) *Enoxaparin/Lovenox 30 mg SQ BID (WT < 150 kg, CrCl > 30 mL/min) AND *Sequential Compression Device (SCD) Assessment and Plan - Plan 67 y/o male with a history of ESRD on hemodialysis, CVA, HTN, DM, and hypothyroid presented to the ED with complaints of sob and chest pain. Chest pain, likely Symptomatic Anemia, hgb 7.4, baseline 10.7, r/o ACS Troponin .05--.06 -repeat h&h ordered, 7.9, transfuse 1 unit because patient is symptomatic -Serial troponin and ekg -Iron profile ordered -Occult stool ordered, consult GI if positive -Protonix IV ordered ESRD on hemodialysis MWF -Consult nephrology for evaluation -Avoid nephrotoxins -Resume home medications HTN, chronic -Resume home medications, monitor vitals Diabetes -Accu checks with SSI -Resume home medications DVT prophylaxis: SCDs, hold anticoagulation due to decreased hemoglobin Discussed Condition With: Patient and RN
[2017-12-15] MEDS ORDERED: Dextrose 50% in Water 50 ML Vial IV.PUSH PRN (22:38)
[2017-12-15] MEDS ORDERED: Sodium Chloride 0.9% 2 ML Flush PRN IV.FLUSH (23:10)
[2017-12-16 00:22] LABS: Hematocrit 24.7 % (39.0-51.0); Hemoglobin 7.9 gm/dL (13.0-17.0)
[2017-12-16] MEDS ORDERED: Sodium Chlor 0.9% Inj 250 ML IV.SIG SCH (01:00)
[2017-12-16 06:09] LABS: % Iron Saturation 26.9 % (20-50); Carbon Dioxide 22.7 meq/L (21.0-32.0); Potassium 4.8 meq/L (3.5-5.1); Troponin I 0.04 ng/mL (0.02-0.05)
[2017-12-16] MEDS: Insulin NovoLOG Aspart Correctional Sugar Inj SQ SCH ×4 (07:38→20:51)
[2017-12-16] MEDS: amLODIPine 10 MG Tablet PO SCH (08:21)
[2017-12-16] MEDS: Pantoprazole Inj 40 MG Vial IV.PUSH SCH ×2 (08:21→20:45)
[2017-12-16] MEDS: Sodium Chloride 0.9% 2 ML Flush BID IV.FLUSH SCH ×2 (08:22→20:48)
[2017-12-16] MEDS: Gabapentin 300 MG Capsule PO SCH (08:22)
[2017-12-16] MEDS: Calcium Acetate 667 MG Capsule PO SCH ×3 (08:22→18:06)
[2017-12-16 08:30] LABS: Baso % (Auto) 0.8 % (0.0-2.0); Eos # (Auto) 0.5 th/mm3 (0.0-0.4); Eos % (Auto) 10.7 % (0.0-4.0); Hematocrit 22.5 % (39.0-51.0); Hemoglobin 7.5 gm/dL (13.0-17.0); Lymph # (Auto) 1.1 th/mm3 (1.0-4.8); Lymph % (Auto) 21.7 % (9.0-44.0); Mean Corpuscular HGB Conc 33.2 % (32.0-36.0); Mean Corpuscular Hemoglobin 36.4 pg (27.0-34.0); Mean Corpuscular Volume 109.8 fL (80.0-100.0); Mean Platelet Volume 7.7 fL (7.0-11.0); Mono # (Auto) 0.3 th/mm3 (0.0-0.9); Mono % (Auto) 6.3 % (0.0-8.0); Neut % (Auto) 60.5 % (16.0-70.0); Platelet Count 188 th/mm3 (150-450); Red Blood Count 2.05 mil/mm3 (4.50-5.90)
--- NOTE | 2017-12-16 09:37 | P.PNIM ---
Subjective Interval history: f/u; chest pain in no acute distress. has on and off chest pain. no sob. blood transfusion in process. Physical Exam Vital signs: Vital Signs 12/15/17 13:13 12/15/17 13:24 12/15/17 13:26 Temperature 97.6 F Pulse Rate 60 60 58 L Respiratory Rate 20 16 Blood Pressure 151/68 H 149/65 H Pulse Oximetry 100 100 100 12/15/17 15:18 12/15/17 20:00 12/15/17 21:40 Temperature 97.5 F L Pulse Rate 66 53 L Respiratory Rate 18 16 Blood Pressure 166/71 H 128/62 Pulse Oximetry 100 100 99 12/16/17 00:00 12/16/17 04:00 12/16/17 06:09 Temperature 97.5 F L 97.7 F 97.5 F L Pulse Rate 54 L 57 L 58 L Respiratory Rate 17 16 16 Blood Pressure 154/71 H 146/69 H 112/59 L Pulse Oximetry 100 99 99 12/16/17 06:29 12/16/17 06:33 12/16/17 08:00 Temperature 97.7 F 97.7 F Pulse Rate 60 65 65 Respiratory Rate 16 16 Blood Pressure 106/76 106/76 Pulse Oximetry 96 98 Intake & Output 12/15/17 12/16/17 12/16/17 18:59 06:59 18:59 Intake Total 240 / 240 Balance 240 / 240 Weight 113.398 kg 113.398 kg Intake: Oral 240 / 240 Intake (Blood Product) Amt 0 / 0 Rbc As-3 Leukoreduced Unit 0 / 0 [id number] Other: Weight On Admission 113.398 kg - Constitutional no acute distress - Routine Respiratory Exam Present: CTA bilaterally - Routine Cardiovascular Exam Present: RRR - Routine Abdominal Exam Present: soft - Routine Extremities Exam Comments: no pedal edema. - Routine Neurological Exam Present: alert, oriented X3 Results - Labs CBC & Chem 7: 12/16/17 08:00 12/16/17 05:00 Laboratory Results - last 24 hr 12/15/17 12/15/17 12/15/17 14:45 14:45 14:45 WBC 5.4 RBC 1.93 L Hgb 7.4 L Hct 21.1 L MCV 108.9 H MCH 38.1 H MCHC 35.0 RDW 16.1 Plt Count 183 MPV 7.6 Neut % (Auto) 60.0 Lymph % (Auto) 22.6 Ashley % (Auto) 7.0 Eos % (Auto) 9.3 H Baso % (Auto) 1.1 Neut # (Auto) 3.2 Lymph # (Auto) 1.2 Ashley # (Auto) 0.4 Eos # (Auto) 0.5 H Baso # (Auto) 0.1 WBC Differential . Differential Comment Auto diff final Sodium 143 Potassium 4.2 Chloride 108 H Carbon Dioxide 23.8 Anion Gap 11 BUN 39 H Creatinine 9.88 H Estimated GFR 6 L POC Glucose Random Glucose 76 Calcium 7.7 L Iron TIBC % Saturation Ferritin Total Bilirubin 0.4 AST 19 ALT 13 Alkaline Phosphatase 78 Total Creatine Kinase 840 H CK-MB (CK-2) 4.4 H CK-MB (CK-2) % 0.5 Troponin I 0.05 B-Natriuretic Peptide 96 Total Protein 7.0 Albumin 3.5 Blood Type Antibody Screen MTS Gel Crossmatch 12/15/17 12/15/17 12/15/17 16:40 23:09 23:29 WBC RBC Hgb Hct MCV MCH MCHC RDW Plt Count MPV Neut % (Auto) Lymph % (Auto) Ashley % (Auto) Eos % (Auto) Baso % (Auto) Neut # (Auto) Lymph # (Auto) Ashley # (Auto) Eos # (Auto) Baso # (Auto) WBC Differential Differential Comment Sodium Potassium Chloride Carbon Dioxide Anion Gap BUN Creatinine Estimated GFR POC Glucose 92 Random Glucose Calcium Iron TIBC % Saturation Ferritin Total Bilirubin AST ALT Alkaline Phosphatase Total Creatine Kinase CK-MB (CK-2) CK-MB (CK-2) % Troponin I 0.06 H 0.05 B-Natriuretic Peptide Total Protein Albumin Blood Type Antibody Screen MTS Gel Crossmatch 12/15/17 12/16/17 12/16/17 23:29 02:37 05:00 WBC RBC Hgb 7.9 L Hct 24.7 L MCV MCH MCHC RDW Plt Count MPV Neut % (Auto) Lymph % (Auto) Ashley % (Auto) Eos % (Auto) Baso % (Auto) Neut # (Auto) Lymph # (Auto) Ashley # (Auto) Eos # (Auto) Baso # (Auto) WBC Differential Differential Comment Sodium 143 Potassium 4.8 Chloride 108 H Carbon Dioxide 22.7 Anion Gap 12 BUN 44 H Creatinine 11.14 H* D Estimated GFR 6 L POC Glucose Random Glucose 91 Calcium 8.0 L Iron 75 TIBC 279 % Saturation 26.9 Ferritin 147 Total Bilirubin AST ALT Alkaline Phosphatase Total Creatine Kinase CK-MB (CK-2) CK-MB (CK-2) % Troponin I 0.04 B-Natriuretic Peptide Total Protein Albumin Blood Type O Negative Antibody Screen Negative MTS Gel Crossmatch See Detail 12/16/17 08:00 WBC 5.0 RBC 2.05 L Hgb 7.5 L Hct 22.5 L MCV 109.8 H MCH 36.4 H MCHC 33.2 RDW 16.0 Plt Count 188 MPV 7.7 Neut % (Auto) 60.5 Lymph % (Auto) 21.7 Ashley % (Auto) 6.3 Eos % (Auto) 10.7 H Baso % (Auto) 0.8 Neut # (Auto) 3.0 Lymph # (Auto) 1.1 Ashley # (Auto) 0.3 Eos # (Auto) 0.5 H Baso # (Auto) 0.0 WBC Differential . Differential Comment Auto diff final Sodium Potassium Chloride Carbon Dioxide Anion Gap BUN Creatinine Estimated GFR POC Glucose Random Glucose Calcium Iron TIBC % Saturation Ferritin Total Bilirubin AST ALT Alkaline Phosphatase Total Creatine Kinase CK-MB (CK-2) CK-MB (CK-2) % Troponin I B-Natriuretic Peptide Total Protein Albumin Blood Type Antibody Screen MTS Gel Crossmatch - Imaging Impressions Chest X-Ray 12/15/17 13:24 CONCLUSION: Cardiomegaly with slight interstitial prominence. No change. Assessment and Plan - Plan Chest pain, likely Symptomatic Anemia, hgb 7.4, baseline 10.7, r/o ACS Troponin stable. - transfused 1 unit because patient is symptomatic -Iron profile ordered -Occult stool ordered, consult GI if positive -cardiology consulted. ESRD on hemodialysis MWF -Consult nephrology for evaluation -Avoid nephrotoxins -Resumed home medications HTN, chronic -Resumed home medications, monitor vitals Diabetes -Accu checks with SSI -Resumed home medications DVT prophylaxis: SCDs, hold anticoagulation due to decreased hemoglobin Discharge Planning: awaiting cardiology/ nephrology evaluation.
[2017-12-16] MEDS ORDERED: Gelatin 12 MM/7 MM Topical Foam TOPICAL PRN (11:38)
[2017-12-16] MEDS ORDERED: Sod Chloride 0.9% Inj 1,000 ML OTHER PRN ×2 (11:38)
[2017-12-16] MEDS ORDERED: Acetaminophen 325 MG Tablet PO PRN (11:38)
[2017-12-16] MEDS ORDERED: Heparin 10,000 UNITS/10 ML Vial (for IV use) OTHER PRN (11:38)
[2017-12-16] MEDS ORDERED: Albumin Human 25% Inj 100 ML IV.SIG PRN (11:38)
[2017-12-16] MEDS ORDERED: Sod Chloride 0.9% Inj 1,000 ML IV.CONT PRN (11:38)
--- NOTE | 2017-12-16 12:12 | P.CONNP ---
History of Present Illness Service: Nephrology Consult date: 12/16/17 Primary Care Provider: Eunice Riggs Family Provider: Eunice Riggs Chief Complaint: chest pain, sob History of Present Illness: Patient is a 67-year-old black male with history of end-stage renal disease on hemodialysis, coronary artery disease, history of CVA, hypertension who was admitted yesterday after expressing chest pain during dialysis, his dialysis milligrams 4 hours hour this was cut short and he was sent over here, patient states that he is feeling tired he has intermittent chest pains, he is getting blood products packed red blood cell due to low hemoglobin., He denies any abdominal pain, GI bleeding, but admits to dark stools. He follows with Dr. Day and his dialysis days are Friday, Friday and Friday. Review of Systems Constitutional: Reports lack of energy Eyes: Denies blind spots, Denies blurry vision, Denies bulging eyes, Denies change in vision, Denies double vision, Denies discharge, Denies dry eyes, Denies floaters, Denies irritation, Denies itchy eyes, Denies loss of vision, Denies pain, Denies requires corrective lenses, Denies sensitivity to light, Denies other Ears, Nose, Mouth, and Throat: Denies abnormal hearing, Denies bleeding gums, Denies bad breath, Denies change in voice, Denies dental pain, Denies difficulty swallowing, Denies dizziness, Denies dry mouth, Denies ear discharge , Denies ear pain, Denies facial pain, Denies headache(s), Denies hearing loss, Denies hoarseness, Denies lip swelling, Denies nosebleed, Denies mouth lesions, Denies mouth pain, Denies nasal congestion, Denies nasal discharge, Denies nasal obstruction, Denies nasal trauma, Denies neck lump, Denies neck pain, Denies nose pain, Denies pain with swallowing, Denies poor balance, Denies post nasal drip, Denies ringing in the ears, Denies sinus pain, Denies sinus pressure , Denies sore throat, Denies throat swelling, Denies tongue swelling, Denies other Cardiovascular: Reports chest pain, Reports shortness of breath Respiratory: Reports shortness of breath with activity Gastrointestinal: Reports black, tarry stools Genitourinary: Reports other Musculoskeletal: Reports muscle weakness Skin/Breast: Reports other Neurologic: Reports weakness Psychiatric: Reports anxiety Endocrine: Reports other Hematologic/Lymphatic: Reports other PMFSH - History History Provided By: Patient - Medical History Medical History: Medical History (Last Reviewed 12/16/17 @ 12:08 by Romina Krishnamurthy MD) AV fistula Anemia CAD (coronary artery disease) CVA (cerebral vascular accident) Diabetes Dialysis patient ESRD (end stage renal disease) HTN (hypertension) Hypokalemia Hypothyroidism TIA (transient ischemic attack) Temporal arteritis - Surgical History Surgical History: Surgical History (Last Reviewed 12/16/17 @ 12:08 by Romina Krishnamurthy MD) History of ankle surgery History of cardiac catheterization History of knee surgery - Family History Family History: Family History (Last Reviewed 12/16/17 @ 12:08 by Romina Krishnamurthy MD) Other CAD (coronary artery disease) Diabetes mellitus - Social History I have reviewed the patient's Social History: Yes - Tobacco History Second Hand Smoke Exposure: No Smoking Status: Former smoker Tobacco Type: Cigarettes - Alcohol History How Often Do You Have a Drink Containing Alcohol: Never - Substance Use History Substance History: No History of Abuse - Travel History Recent Travel in the [place] Within the Last 8 Weeks: No Recent Travel Out of the Country Within the Last 8 Weeks: No - Immunization History Tetanus Immunization: <5 Years Medications and Allergies Active Medications: Active Medications Acetaminophen (Tylenol) 650 mg PO UNSCH PRN PRN Reason: SEE LABEL COMMENTS Amlodipine Besylate (Norvasc) 10 mg PO DAILY [facility] [place] Last Admin: 12/16/17 08:21 Dose: 10 mg Aspirin (Aspirin Chew) 81 mg PO DAILY [facility] [place] Last Admin: 12/16/17 08:21 Dose: 81 mg Calcium Acetate (Phoslo) 2,001 mg PO TID [facility] [place] Last Admin: 12/16/17 08:22 Dose: 2,001 mg Clonidine HCl (Catapres) 0.1 mg PO UNSCH PRN PRN Reason: SEE LABEL COMMENTS Clopidogrel Bisulfate (Plavix) 75 mg PO DAILY [facility] [place] Last Admin: 12/16/17 08:21 Dose: 75 mg Dextrose (D50w Vial) 50 ml IV.PUSH UNSCH PRN PRN Reason: PER HYPOGLYCEMIA PROTOCOL Diphenhydramine HCl (Benadryl) 25 mg PO UNSCH PRN PRN Reason: SEE LABEL COMMENTS Epoetin Linus (Epogen Inj) 10,000 unit IV.PUSH UNSCH PRN PRN Reason: SEE LABEL COMMENTS Gabapentin (Neurontin) 300 mg PO DAILY [facility] [place] Last Admin: 12/16/17 08:22 Dose: 300 mg Gelatin (Gelfoam 12 Mm/7 Mm Topical) 1 foam TOPICAL PRN PRN PRN Reason: help stop bleeding from site Glucagon (Glucagon Inj) 1 mg OTHER PRN PRN PRN Reason: for Hypoglycemia Protocol Heparin Sodium (Porcine) (Heparin Inj) 8,000 units OTHER WITH DIALYSIS PRN PRN Reason: for machine prime Sodium Chloride (Ns Inj) 250 mls @ 15 mls/hr IV.SIG ONCE ANAYA Stop: 12/16/17 17:39 Last Admin: 12/16/17 02:41 Dose: 15 mls/hr Albumin Human (Flexbumin 25% Inj) 100 mls @ 60 mls/hr IV.SIG WITH DIALYSIS PRN PRN Reason: hypotension / volume replace Sodium Chloride (Ns Inj) 1,000 mls @ 0 mls/hr OTHER .Q0M PRN PRN Reason: for prime and rinse back Sodium Chloride (Ns Inj) 1,000 mls @ 200 mls/hr OTHER .Q5H PRN PRN Reason: for dialyzer flush PRN Sodium Chloride (Ns Inj) 1,000 mls @ 0 mls/hr IV.CONT .Q0M PRN PRN Reason: hypotension / volume replace Insulin Aspart (Novolog Insulin Correctional Sugar Inj) 0 unit SQ ACHS [facility] [place]; Protocol Last Admin: 12/16/17 07:38 Dose: Not Given Insulin Detemir (Levemir Inj) 35 unit SQ HS [facility] [place] Lisinopril (Prinivil) 10 mg PO HS [facility] [place] Last Admin: 12/15/17 21:29 Dose: 10 mg Mannitol (Mannitol Inj) 12.5 gm IV.PUSH UNSCH PRN PRN Reason: hypotension / volume replace Metoprolol Succinate (Toprol Xl) 25 mg PO DAILY [facility] [place] Last Admin: 12/16/17 08:22 Dose: 25 mg Nitroglycerin (Nitrostat Sl) 0.4 mg SL Q5M PRN PRN Reason: CHEST PAIN Ondansetron HCl (Zofran Inj) 4 mg IV.PUSH Q6H PRN PRN Reason: NAUSEA OR VOMITING Ondansetron HCl (Zofran Inj) 4 mg IV.PUSH UNSCH PRN PRN Reason: NAUSEA OR VOMITING Pantoprazole Sodium (Protonix Inj) 40 mg IV.PUSH Q12H [facility] [place] Last Admin: 12/16/17 08:21 Dose: 40 mg Sodium Chloride (Ns Flush) 2 ml IV.FLUSH BID [facility] [place] Last Admin: 12/16/17 08:22 Dose: 2 ml Sodium Chloride (Ns Flush) 2 ml IV.FLUSH PRN PRN PRN Reason: FLUSH AFTER USING IV ACCESS Sodium Chloride (Ns Flush) 5 ml IV.FLUSH PRN PRN PRN Reason: flush each lumen during HD Vitamin B Complex/Vit C/Folic Acid (Nephrocaps) 1 tab PO DAILY [facility] [place] Allergies Allergy/AdvReac Type Severity Reaction Status Date / Time Iodinated Contrast- Oral and Allergy Severe Swelling Verified 11/17/17 15:42 IV Dye shellfish derived Allergy Severe Swelling Verified 11/17/17 15:42 Home Medications Medication Instructions Recorded Confirmed Type B complex-vitamin C-folic acid 1 tab PO DAILY 11/17/17 12/15/17 History [Gaby-Cruz] amlodipine 10 mg PO DAILY 11/17/17 12/15/17 History aspirin 81 mg PO DAILY 11/17/17 12/15/17 History calcium acetate 2 - 3 tab PO TID 11/17/17 12/15/17 History clopidogrel 75 mg PO DAILY 11/17/17 12/15/17 History gabapentin 300 mg PO TID 11/17/17 12/15/17 History lisinopril 10 mg PO HS 11/17/17 12/15/17 History metoprolol succinate 25 mg PO DAILY 11/17/17 12/15/17 History omeprazole 40 mg PO DAILY 11/17/17 12/15/17 History insulin glargine [Lantus Solostar 35 unit SUBCUT 12/15/17 12/15/17 History U-100 Insulin] ranitidine HCl [Zantac] 150 mg PO DAILY 12/15/17 12/15/17 History Exam Vital signs: Vital Signs 12/15/17 13:13 12/15/17 13:24 12/15/17 13:26 Temperature 97.6 F Pulse Rate 60 60 58 L Respiratory Rate 20 16 Blood Pressure 151/68 H 149/65 H Pulse Oximetry 100 100 100 12/15/17 15:18 12/15/17 20:00 12/15/17 21:40 Temperature 97.5 F L Pulse Rate 66 53 L Respiratory Rate 18 16 Blood Pressure 166/71 H 128/62 Pulse Oximetry 100 100 99 12/16/17 00:00 12/16/17 04:00 12/16/17 06:09 Temperature 97.5 F L 97.7 F 97.5 F L Pulse Rate 54 L 57 L 58 L Respiratory Rate 17 16 16 Blood Pressure 154/71 H 146/69 H 112/59 L Pulse Oximetry 100 99 99 12/16/17 06:29 12/16/17 06:33 12/16/17 08:00 Temperature 97.7 F 97.7 F Pulse Rate 60 65 65 Respiratory Rate 16 16 Blood Pressure 106/76 106/76 Pulse Oximetry 96 98 12/16/17 11:32 Temperature 97.7 F Pulse Rate 64 Respiratory Rate 18 Blood Pressure 126/60 Pulse Oximetry 99 Intake & Output 12/15/17 12/16/17 12/16/17 18:59 06:59 18:59 Intake Total 240 / 240 Balance 240 / 240 Weight 113.398 kg 113.398 kg Intake: Oral 240 / 240 Intake (Blood Product) Amt 0 / 0 Rbc As-3 Leukoreduced Unit 0 / 0 [id number] Other: Weight On Admission 113.398 kg Narrative: GENERAL: Well-nourished, well-developed patient. SKIN: Warm and dry. HEAD: Normocephalic. EYES: No scleral icterus. No injection or drainage. NECK: Supple, trachea midline. No JVD or lymphadenopathy. CARDIOVASCULAR: Regular rate and rhythm without murmurs, gallops, or rubs. RESPIRATORY: Breath sounds equal bilaterally. No accessory muscle use. GASTROINTESTINAL: Abdomen soft, non-tender, nondistended. EXTREMITIES: No edema NEUROLOGICAL: Awake, alert, and oriented x 3. Non-focal. Results - Lab Results 12/16/17 08:00 12/16/17 05:00 Most recent lab results Calcium 8.0 mg/dL (8.5-10.1) L 12/16/17 05:00 Assessment and Plan - Assessment (1) ESRD (end stage renal disease) Code(s): N18.6 - End stage renal disease Status: Acute (2) Weakness Code(s): R53.1 - Weakness Status: Acute (3) Hypertension Code(s): I10 - Essential (primary) hypertension Status: Acute (4) Chest pain, rule out acute myocardial infarction Code(s): R07.9 - Chest pain, unspecified Status: Acute (5) GI bleed Code(s): K92.2 - Gastrointestinal hemorrhage, unspecified Status: Acute - Plan Patient is seen he follows with Dr. Day Hemodialysis is planned for Friday, Friday and Friday Continue supportive care Chest pain likely due to severe anemia he is getting blood transfusion Cardiology consult is pending may need GI consult for anemia
[2017-12-16] MEDS: Vitamin B Complex/Vit C/Folic Tablet PO SCH (12:32)
--- NOTE | 2017-12-16 15:13 | P.CONGI ---
History of Present Illness Consult date: 12/16/17 Consult reason: Anemia with black stools Chief complaint: cp r/o mi History of Present Illness: Mr. Fairchild is a 67-year-old -[place] male with a medical history significant for renal failure on hemodialysis, CVA, hypertension, diabetes, and hypothyroidism. Patient also endorses history of prostate cancer diagnosed in 2010. Patient presented to the emergency room at [facility] on 12/15 with report of shortness of breath and chest pain. Patient reported that chest pain began while he was receiving dialysis treatment and dialysis treatment was ended at that time. Patient attends hemodialysis 3 times a week on Wednesdays and Fridays. GI has been consulted to evaluate patient's report of "dark to black tarry" stools for 1 month. Of note, patient is currently on Plavix 75 mg p.o. daily last dose this a.m. Patient states he is on Plavix for history of CVA as well as NM in 2006. Patient states last EGD and colonoscopy were done approximately 1 year ago. Per patient there were no ulcers or polyps found and he states he was not told of any significant findings. Patient denies alcohol or tobacco use. He denies any known family history for any gastrointestinal diseases or disorders. Patient denies any nausea vomiting or abdominal pain. Denies heartburn or any acid reflux symptoms. Patient states he is on omeprazole and ranitidine at home that controls symptoms of GERD. 12/16/2017 hemoglobin 7.5 hematocrit 22.5 platelet count 188. Patient completed transfusion of 1 unit of leuko-reduced packed RBCs today. <Rowan Velázquez - Last Filed: 12/16/17 14:40> Review of Systems All other systems reviewed negative except as stated in HPI <Rowan Velázquez - Last Filed: 12/16/17 14:40> PMFSH - History History Provided By: Patient - Medical History Medical History: Medical History (Last Reviewed 12/16/17 @ 12:08 by Romina Krishnamurthy MD) AV fistula Anemia CAD (coronary artery disease) CVA (cerebral vascular accident) Diabetes Dialysis patient ESRD (end stage renal disease) HTN (hypertension) Hypokalemia Hypothyroidism TIA (transient ischemic attack) Temporal arteritis - Surgical History Surgical History: Surgical History (Last Reviewed 12/16/17 @ 12:08 by Romina Krishnamurthy MD) History of ankle surgery History of cardiac catheterization History of knee surgery - Family History Family History: Family History (Last Reviewed 12/16/17 @ 12:08 by Romina Krishnamurthy MD) Other CAD (coronary artery disease) Diabetes mellitus - Tobacco History Second Hand Smoke Exposure: No Smoking Status: Former smoker Tobacco Type: Cigarettes - Alcohol History How Often Do You Have a Drink Containing Alcohol: Never - Substance Use History Substance History: No History of Abuse - Travel History Recent Travel in the [place] Within the Last 8 Weeks: No Recent Travel Out of the Country Within the Last 8 Weeks: No - Immunization History Tetanus Immunization: <5 Years <Rowan Velázquez - Last Filed: 12/16/17 14:40> - Medical History Medical History: Medical History (Last Reviewed 12/16/17 @ 12:08 by Romina Krishnamurthy MD) AV fistula Anemia CAD (coronary artery disease) CVA (cerebral vascular accident) Diabetes Dialysis patient ESRD (end stage renal disease) HTN (hypertension) Hypokalemia Hypothyroidism TIA (transient ischemic attack) Temporal arteritis - Surgical History Surgical History: Surgical History (Last Reviewed 12/16/17 @ 12:08 by Romina Krishnamurthy MD) History of ankle surgery History of cardiac catheterization History of knee surgery - Family History Family History: Family History (Last Reviewed 12/16/17 @ 12:08 by Romina Krishnamurthy MD) Other CAD (coronary artery disease) Diabetes mellitus <Easton Kruger - Last Filed: 12/16/17 15:23> Medications and Allergies Active Medications: Active Medications Acetaminophen (Tylenol) 650 mg PO UNSCH PRN PRN Reason: SEE LABEL COMMENTS Amlodipine Besylate (Norvasc) 10 mg PO DAILY COUNT INCLUDES THE [facility] Last Admin: 12/16/17 08:21 Dose: 10 mg Aspirin (Aspirin Chew) 81 mg PO DAILY COUNT INCLUDES THE [facility] Last Admin: 12/16/17 08:21 Dose: 81 mg Calcium Acetate (Phoslo) 2,001 mg PO TID COUNT INCLUDES THE [facility] Last Admin: 12/16/17 12:32 Dose: 2,001 mg Clonidine HCl (Catapres) 0.1 mg PO UNSCH PRN PRN Reason: SEE LABEL COMMENTS Clopidogrel Bisulfate (Plavix) 75 mg PO DAILY COUNT INCLUDES THE [facility] Last Admin: 12/16/17 08:21 Dose: 75 mg Dextrose (D50w Vial) 50 ml IV.PUSH UNSCH PRN PRN Reason: PER HYPOGLYCEMIA PROTOCOL Diphenhydramine HCl (Benadryl) 25 mg PO UNSCH PRN PRN Reason: SEE LABEL COMMENTS Epoetin Linus (Epogen Inj) 10,000 unit IV.PUSH UNSCH PRN PRN Reason: SEE LABEL COMMENTS Gabapentin (Neurontin) 300 mg PO DAILY COUNT INCLUDES THE [facility] Last Admin: 12/16/17 08:22 Dose: 300 mg Gelatin (Gelfoam 12 Mm/7 Mm Topical) 1 foam TOPICAL PRN PRN PRN Reason: help stop bleeding from site Glucagon (Glucagon Inj) 1 mg OTHER PRN PRN PRN Reason: for Hypoglycemia Protocol Heparin Sodium (Porcine) (Heparin Inj) 8,000 units OTHER WITH DIALYSIS PRN PRN Reason: for machine prime Sodium Chloride (Ns Inj) 250 mls @ 15 mls/hr IV.SIG ONCE ANAYA Stop: 12/16/17 17:39 Last Admin: 12/16/17 02:41 Dose: 15 mls/hr Albumin Human (Flexbumin 25% Inj) 100 mls @ 60 mls/hr IV.SIG WITH DIALYSIS PRN PRN Reason: hypotension / volume replace Sodium Chloride (Ns Inj) 1,000 mls @ 0 mls/hr OTHER .Q0M PRN PRN Reason: for prime and rinse back Sodium Chloride (Ns Inj) 1,000 mls @ 200 mls/hr OTHER .Q5H PRN PRN Reason: for dialyzer flush PRN Sodium Chloride (Ns Inj) 1,000 mls @ 0 mls/hr IV.CONT .Q0M PRN PRN Reason: hypotension / volume replace Insulin Aspart (Novolog Insulin Correctional Sugar Inj) 0 unit SQ ACHS ANAYA; Protocol Last Admin: 12/16/17 12:32 Dose: Not Given Insulin Detemir (Levemir Inj) 35 unit SQ HS ANAYA Lisinopril (Prinivil) 10 mg PO HS COUNT INCLUDES THE [facility] Last Admin: 12/15/17 21:29 Dose: 10 mg Mannitol (Mannitol Inj) 12.5 gm IV.PUSH UNSCH PRN PRN Reason: hypotension / volume replace Methylprednisolone Sodium Succinate (Solumedrol Inj) 60 mg IV.PUSH Q12HR ANAYA Stop: 12/17/17 11:00 Metoprolol Succinate (Toprol Xl) 25 mg PO DAILY COUNT INCLUDES THE [facility] Last Admin: 12/16/17 08:22 Dose: 25 mg Nitroglycerin (Nitrostat Sl) 0.4 mg SL Q5M PRN PRN Reason: CHEST PAIN Ondansetron HCl (Zofran Inj) 4 mg IV.PUSH Q6H PRN PRN Reason: NAUSEA OR VOMITING Ondansetron HCl (Zofran Inj) 4 mg IV.PUSH UNSCH PRN PRN Reason: NAUSEA OR VOMITING Pantoprazole Sodium (Protonix Inj) 40 mg IV.PUSH Q12H COUNT INCLUDES THE [facility] Last Admin: 12/16/17 08:21 Dose: 40 mg Sodium Chloride (Ns Flush) 2 ml IV.FLUSH BID COUNT INCLUDES THE [facility] Last Admin: 12/16/17 08:22 Dose: 2 ml Sodium Chloride (Ns Flush) 2 ml IV.FLUSH PRN PRN PRN Reason: FLUSH AFTER USING IV ACCESS Sodium Chloride (Ns Flush) 5 ml IV.FLUSH PRN PRN PRN Reason: flush each lumen during HD Vitamin B Complex/Vit C/Folic Acid (Nephrocaps) 1 tab PO DAILY COUNT INCLUDES THE [facility] Last Admin: 12/16/17 12:32 Dose: 1 tab <Rowan Velázquez - Last Filed: 12/16/17 14:40> Active Medications: Active Medications Acetaminophen (Tylenol) 650 mg PO UNSCH PRN PRN Reason: SEE LABEL COMMENTS Amlodipine Besylate (Norvasc) 10 mg PO DAILY COUNT INCLUDES THE [facility] Last Admin: 12/16/17 08:21 Dose: 10 mg Aspirin (Aspirin Chew) 81 mg PO DAILY COUNT INCLUDES THE [facility] Last Admin: 12/16/17 08:21 Dose: 81 mg Calcium Acetate (Phoslo) 2,001 mg PO TID COUNT INCLUDES THE [facility] Last Admin: 12/16/17 12:32 Dose: 2,001 mg Clonidine HCl (Catapres) 0.1 mg PO UNSCH PRN PRN Reason: SEE LABEL COMMENTS Clopidogrel Bisulfate (Plavix) 75 mg PO DAILY COUNT INCLUDES THE [facility] Last Admin: 12/16/17 08:21 Dose: 75 mg Dextrose (D50w Vial) 50 ml IV.PUSH UNSCH PRN PRN Reason: PER HYPOGLYCEMIA PROTOCOL Diphenhydramine HCl (Benadryl) 25 mg PO UNSCH PRN PRN Reason: SEE LABEL COMMENTS Epoetin Linus (Epogen Inj) 10,000 unit IV.PUSH UNSCH PRN PRN Reason: SEE LABEL COMMENTS Gabapentin (Neurontin) 300 mg PO DAILY COUNT INCLUDES THE [facility] Last Admin: 12/16/17 08:22 Dose: 300 mg Gelatin (Gelfoam 12 Mm/7 Mm Topical) 1 foam TOPICAL PRN PRN PRN Reason: help stop bleeding from site Glucagon (Glucagon Inj) 1 mg OTHER PRN PRN PRN Reason: for Hypoglycemia Protocol Heparin Sodium (Porcine) (Heparin Inj) 8,000 units OTHER WITH DIALYSIS PRN PRN Reason: for machine prime Sodium Chloride (Ns Inj) 250 mls @ 15 mls/hr IV.SIG ONCE ANAYA Stop: 12/16/17 17:39 Last Admin: 12/16/17 02:41 Dose: 15 mls/hr Albumin Human (Flexbumin 25% Inj) 100 mls @ 60 mls/hr IV.SIG WITH DIALYSIS PRN PRN Reason: hypotension / volume replace Sodium Chloride (Ns Inj) 1,000 mls @ 0 mls/hr OTHER .Q0M PRN PRN Reason: for prime and rinse back Sodium Chloride (Ns Inj) 1,000 mls @ 200 mls/hr OTHER .Q5H PRN PRN Reason: for dialyzer flush PRN Sodium Chloride (Ns Inj) 1,000 mls @ 0 mls/hr IV.CONT .Q0M PRN PRN Reason: hypotension / volume replace Insulin Aspart (Novolog Insulin Correctional Sugar Inj) 0 unit SQ [facility] COUNT INCLUDES THE [facility]; Protocol Last Admin: 12/16/17 12:32 Dose: Not Given Insulin Detemir (Levemir Inj) 35 unit SQ HS COUNT INCLUDES THE [facility] Lisinopril (Prinivil) 10 mg PO HS COUNT INCLUDES THE [facility] Last Admin: 12/15/17 21:29 Dose: 10 mg Mannitol (Mannitol Inj) 12.5 gm IV.PUSH UNSCH PRN PRN Reason: hypotension / volume replace Methylprednisolone Sodium Succinate (Solumedrol Inj) 60 mg IV.PUSH Q12HR COUNT INCLUDES THE [facility] Stop: 12/17/17 11:00 Metoprolol Succinate (Toprol Xl) 25 mg PO DAILY COUNT INCLUDES THE [facility] Last Admin: 12/16/17 08:22 Dose: 25 mg Nitroglycerin (Nitrostat Sl) 0.4 mg SL Q5M PRN PRN Reason: CHEST PAIN Ondansetron HCl (Zofran Inj) 4 mg IV.PUSH Q6H PRN PRN Reason: NAUSEA OR VOMITING Ondansetron HCl (Zofran Inj) 4 mg IV.PUSH UNSCH PRN PRN Reason: NAUSEA OR VOMITING Pantoprazole Sodium (Protonix Inj) 40 mg IV.PUSH Q12H COUNT INCLUDES THE [facility] Last Admin: 12/16/17 08:21 Dose: 40 mg Sodium Chloride (Ns Flush) 2 ml IV.FLUSH BID COUNT INCLUDES THE [facility] Last Admin: 12/16/17 08:22 Dose: 2 ml Sodium Chloride (Ns Flush) 2 ml IV.FLUSH PRN PRN PRN Reason: FLUSH AFTER USING IV ACCESS Sodium Chloride (Ns Flush) 5 ml IV.FLUSH PRN PRN PRN Reason: flush each lumen during HD Vitamin B Complex/Vit C/Folic Acid (Nephrocaps) 1 tab PO DAILY COUNT INCLUDES THE [facility] Last Admin: 12/16/17 12:32 Dose: 1 tab <Easton Kruger - Last Filed: 12/16/17 15:23> Allergies Allergy/AdvReac Type Severity Reaction Status Date / Time Iodinated Contrast- Oral and Allergy Severe Swelling Verified 11/17/17 15:42 IV Dye shellfish derived Allergy Severe Swelling Verified 11/17/17 15:42 Home Medications Medication Instructions Recorded Confirmed Type B complex-vitamin C-folic acid 1 tab PO DAILY 11/17/17 12/15/17 History [Gaby-Cruz] amlodipine 10 mg PO DAILY 11/17/17 12/15/17 History aspirin 81 mg PO DAILY 11/17/17 12/15/17 History calcium acetate 2 - 3 tab PO TID 11/17/17 12/15/17 History clopidogrel 75 mg PO DAILY 11/17/17 12/15/17 History gabapentin 300 mg PO TID 11/17/17 12/15/17 History lisinopril 10 mg PO HS 11/17/17 12/15/17 History metoprolol succinate 25 mg PO DAILY 11/17/17 12/15/17 History omeprazole 40 mg PO DAILY 11/17/17 12/15/17 History insulin glargine [Lantus Solostar 35 unit SUBCUT HS 12/15/17 12/15/17 History U-100 Insulin] ranitidine HCl [Zantac] 150 mg PO DAILY 12/15/17 12/15/17 History Exam Vital signs: Vital Signs 12/15/17 15:18 12/15/17 20:00 12/15/17 21:40 Temperature 97.5 F L Pulse Rate 66 53 L Respiratory Rate 18 16 Blood Pressure 166/71 H 128/62 Pulse Oximetry 100 100 99 12/16/17 00:00 12/16/17 04:00 12/16/17 06:09 Temperature 97.5 F L 97.7 F 97.5 F L Pulse Rate 54 L 57 L 58 L Respiratory Rate 17 16 16 Blood Pressure 154/71 H 146/69 H 112/59 L Pulse Oximetry 100 99 99 12/16/17 06:29 12/16/17 06:33 12/16/17 08:00 Temperature 97.7 F 97.7 F Pulse Rate 60 65 65 Respiratory Rate 16 16 Blood Pressure 106/76 106/76 Pulse Oximetry 96 98 12/16/17 09:00 12/16/17 11:32 Temperature 97.7 F Pulse Rate 66 64 Respiratory Rate 18 Blood Pressure 126/60 Pulse Oximetry 99 Intake & Output 12/15/17 12/16/17 12/16/17 18:59 06:59 18:59 Intake Total 240 / 240 Balance 240 / 240 Weight 113.398 kg 113.398 kg Intake: Oral 240 / 240 Intake (Blood Product) Amt 0 / 0 Rbc As-3 Leukoreduced Unit 0 / 0 [id number] Other: Weight On Admission 113.398 kg - Constitutional no acute distress - Routine HEENT Exam Head: Present: normocephalic - Routine Neck Exam Present: supple, full ROM - Routine Respiratory Exam Present: CTA bilaterally. Absent: accessory muscle use - Routine Cardiovascular Exam Present: RRR - Routine Abdominal Exam Present: soft, normoactive bowel sounds. Absent: tenderness, distended, guarding, firm - Routine Extremities Exam Present: full ROM, pulses intact. Absent: edema - Routine Skin Exam Present: dry, pallor, warm - Routine Neurological Exam Present: alert, oriented X3 <Velázquez,Rowan - Last Filed: 12/16/17 14:40> Vital signs: Vital Signs 12/15/17 20:00 12/15/17 21:40 12/16/17 00:00 Temperature 97.5 F L 97.5 F L Pulse Rate 53 L 54 L Respiratory Rate 16 17 Blood Pressure 128/62 154/71 H Pulse Oximetry 100 99 100 12/16/17 04:00 12/16/17 06:09 12/16/17 06:29 Temperature 97.7 F 97.5 F L 97.7 F Pulse Rate 57 L 58 L 60 Respiratory Rate 16 16 16 Blood Pressure 146/69 H 112/59 L 106/76 Pulse Oximetry 99 99 96 12/16/17 06:33 12/16/17 08:00 12/16/17 09:00 Temperature 97.7 F Pulse Rate 65 65 66 Respiratory Rate 16 Blood Pressure 106/76 Pulse Oximetry 98 12/16/17 11:32 Temperature 97.7 F Pulse Rate 64 Respiratory Rate 18 Blood Pressure 126/60 Pulse Oximetry 99 Intake & Output 12/15/17 12/16/17 12/16/17 18:59 06:59 18:59 Intake Total 240 / 240 Balance 240 / 240 Weight 113.398 kg 113.398 kg Intake: Oral 240 / 240 Intake (Blood Product) Amt 0 / 0 Rbc As-3 Leukoreduced Unit 0 / 0 [id number] Other: Weight On Admission 113.398 kg <Easton Kruger - Last Filed: 12/16/17 15:23> Results - Labs CBC & Chem 7: 12/16/17 08:00 12/16/17 05:00 Labs: Laboratory Results - last 24 hr 12/15/17 12/15/17 12/15/17 14:45 14:45 14:45 WBC 5.4 RBC 1.93 L Hgb 7.4 L Hct 21.1 L MCV 108.9 H MCH 38.1 H MCHC 35.0 RDW 16.1 Plt Count 183 MPV 7.6 Neut % (Auto) 60.0 Lymph % (Auto) 22.6 [place] % (Auto) 7.0 Eos % (Auto) 9.3 H Baso % (Auto) 1.1 Neut # (Auto) 3.2 Lymph # (Auto) 1.2 [place] # (Auto) 0.4 Eos # (Auto) 0.5 H Baso # (Auto) 0.1 WBC Differential . Differential Comment Auto diff final Sodium 143 Potassium 4.2 Chloride 108 H Carbon Dioxide 23.8 Anion Gap 11 BUN 39 H Creatinine 9.88 H Estimated GFR 6 L POC Glucose Random Glucose 76 Calcium 7.7 L Iron TIBC % Saturation Ferritin Total Bilirubin 0.4 AST 19 ALT 13 Alkaline Phosphatase 78 Total Creatine Kinase 840 H CK-MB (CK-2) 4.4 H CK-MB (CK-2) % 0.5 Troponin I 0.05 B-Natriuretic Peptide 96 Total Protein 7.0 Albumin 3.5 Blood Type Antibody Screen MTS Gel Crossmatch 12/15/17 12/15/17 12/15/17 16:40 23:09 23:29 WBC RBC Hgb Hct MCV MCH MCHC RDW Plt Count MPV Neut % (Auto) Lymph % (Auto) [place] % (Auto) Eos % (Auto) Baso % (Auto) Neut # (Auto) Lymph # (Auto) [place] # (Auto) Eos # (Auto) Baso # (Auto) WBC Differential Differential Comment Sodium Potassium Chloride Carbon Dioxide Anion Gap BUN Creatinine Estimated GFR POC Glucose 92 Random Glucose Calcium Iron TIBC % Saturation Ferritin Total Bilirubin AST ALT Alkaline Phosphatase Total Creatine Kinase CK-MB (CK-2) CK-MB (CK-2) % Troponin I 0.06 H 0.05 B-Natriuretic Peptide Total Protein Albumin Blood Type Antibody Screen MTS Gel Crossmatch 12/15/17 12/16/17 12/16/17 23:29 02:37 05:00 WBC RBC Hgb 7.9 L Hct 24.7 L MCV MCH MCHC RDW Plt Count MPV Neut % (Auto) Lymph % (Auto) [place] % (Auto) Eos % (Auto) Baso % (Auto) Neut # (Auto) Lymph # (Auto) [place] # (Auto) Eos # (Auto) Baso # (Auto) WBC Differential Differential Comment Sodium 143 Potassium 4.8 Chloride 108 H Carbon Dioxide 22.7 Anion Gap 12 BUN 44 H Creatinine 11.14 H* D Estimated GFR 6 L POC Glucose Random Glucose 91 Calcium 8.0 L Iron 75 TIBC 279 % Saturation 26.9 Ferritin 147 Total Bilirubin AST ALT Alkaline Phosphatase Total Creatine Kinase CK-MB (CK-2) CK-MB (CK-2) % Troponin I 0.04 B-Natriuretic Peptide Total Protein Albumin Blood Type O Negative Antibody Screen Negative MTS Gel Crossmatch See Detail 12/16/17 12/16/17 08:00 12:06 WBC 5.0 RBC 2.05 L Hgb 7.5 L Hct 22.5 L MCV 109.8 H MCH 36.4 H MCHC 33.2 RDW 16.0 Plt Count 188 MPV 7.7 Neut % (Auto) 60.5 Lymph % (Auto) 21.7 [place] % (Auto) 6.3 Eos % (Auto) 10.7 H Baso % (Auto) 0.8 Neut # (Auto) 3.0 Lymph # (Auto) 1.1 [place] # (Auto) 0.3 Eos # (Auto) 0.5 H Baso # (Auto) 0.0 WBC Differential . Differential Comment Auto diff final Sodium Potassium Chloride Carbon Dioxide Anion Gap BUN Creatinine Estimated GFR POC Glucose 130 H Random Glucose Calcium Iron TIBC % Saturation Ferritin Total Bilirubin AST ALT Alkaline Phosphatase Total Creatine Kinase CK-MB (CK-2) CK-MB (CK-2) % Troponin I B-Natriuretic Peptide Total Protein Albumin Blood Type Antibody Screen MTS Gel Crossmatch <Rowan Velázquez - Last Filed: 12/16/17 14:40> - Labs CBC & Chem 7: 12/16/17 08:00 12/16/17 05:00 Labs: Laboratory Results - last 24 hr 12/15/17 12/15/17 12/15/17 14:45 14:45 14:45 WBC 5.4 RBC 1.93 L Hgb 7.4 L Hct 21.1 L MCV 108.9 H MCH 38.1 H MCHC 35.0 RDW 16.1 Plt Count 183 MPV 7.6 Neut % (Auto) 60.0 Lymph % (Auto) 22.6 [place] % (Auto) 7.0 Eos % (Auto) 9.3 H Baso % (Auto) 1.1 Neut # (Auto) 3.2 Lymph # (Auto) 1.2 [place] # (Auto) 0.4 Eos # (Auto) 0.5 H Baso # (Auto) 0.1 WBC Differential . Differential Comment Auto diff final Sodium 143 Potassium 4.2 Chloride 108 H Carbon Dioxide 23.8 Anion Gap 11 BUN 39 H Creatinine 9.88 H Estimated GFR 6 L POC Glucose Random Glucose 76 Calcium 7.7 L Iron TIBC % Saturation Ferritin Total Bilirubin 0.4 AST 19 ALT 13 Alkaline Phosphatase 78 Total Creatine Kinase 840 H CK-MB (CK-2) 4.4 H CK-MB (CK-2) % 0.5 Troponin I 0.05 B-Natriuretic Peptide 96 Total Protein 7.0 Albumin 3.5 Blood Type Antibody Screen MTS Gel Crossmatch 12/15/17 12/15/17 12/15/17 16:40 23:09 23:29 WBC RBC Hgb Hct MCV MCH MCHC RDW Plt Count MPV Neut % (Auto) Lymph % (Auto) [place] % (Auto) Eos % (Auto) Baso % (Auto) Neut # (Auto) Lymph # (Auto) [place] # (Auto) Eos # (Auto) Baso # (Auto) WBC Differential Differential Comment Sodium Potassium Chloride Carbon Dioxide Anion Gap BUN Creatinine Estimated GFR POC Glucose 92 Random Glucose Calcium Iron TIBC % Saturation Ferritin Total Bilirubin AST ALT Alkaline Phosphatase Total Creatine Kinase CK-MB (CK-2) CK-MB (CK-2) % Troponin I 0.06 H 0.05 B-Natriuretic Peptide Total Protein Albumin Blood Type Antibody Screen MTS Gel Crossmatch 12/15/17 12/16/17 12/16/17 23:29 02:37 05:00 WBC RBC Hgb 7.9 L Hct 24.7 L MCV MCH MCHC RDW Plt Count MPV Neut % (Auto) Lymph % (Auto) [place] % (Auto) Eos % (Auto) Baso % (Auto) Neut # (Auto) Lymph # (Auto) [place] # (Auto) Eos # (Auto) Baso # (Auto) WBC Differential Differential Comment Sodium 143 Potassium 4.8 Chloride 108 H Carbon Dioxide 22.7 Anion Gap 12 BUN 44 H Creatinine 11.14 H* D Estimated GFR 6 L POC Glucose Random Glucose 91 Calcium 8.0 L Iron 75 TIBC 279 % Saturation 26.9 Ferritin 147 Total Bilirubin AST ALT Alkaline Phosphatase Total Creatine Kinase CK-MB (CK-2) CK-MB (CK-2) % Troponin I 0.04 B-Natriuretic Peptide Total Protein Albumin Blood Type O Negative Antibody Screen Negative MTS Gel Crossmatch See Detail 12/16/17 12/16/17 08:00 12:06 WBC 5.0 RBC 2.05 L Hgb 7.5 L Hct 22.5 L MCV 109.8 H MCH 36.4 H MCHC 33.2 RDW 16.0 Plt Count 188 MPV 7.7 Neut % (Auto) 60.5 Lymph % (Auto) 21.7 [place] % (Auto) 6.3 Eos % (Auto) 10.7 H Baso % (Auto) 0.8 Neut # (Auto) 3.0 Lymph # (Auto) 1.1 [place] # (Auto) 0.3 Eos # (Auto) 0.5 H Baso # (Auto) 0.0 WBC Differential . Differential Comment Auto diff final Sodium Potassium Chloride Carbon Dioxide Anion Gap BUN Creatinine Estimated GFR POC Glucose 130 H Random Glucose Calcium Iron TIBC % Saturation Ferritin Total Bilirubin AST ALT Alkaline Phosphatase Total Creatine Kinase CK-MB (CK-2) CK-MB (CK-2) % Troponin I B-Natriuretic Peptide Total Protein Albumin Blood Type Antibody Screen MTS Gel Crossmatch <Easton Kruger - Last Filed: 12/16/17 15:23> Assessment and Plan (1) Anemia Status: Acute Code(s): D64.9 - Anemia, unspecified (2) GI bleed Status: Acute Code(s): K92.2 - Gastrointestinal hemorrhage, unspecified - Plan Melena stools-patient endorses 1 month history of black tarry stools, of note patient is currently taking Plavix 75 mg p.o. daily for history of CVA as well as NM. We will need to hold Plavix, plan for EGD. Anemia-12/16/2017 hemoglobin 7.5 hematocrit 22.5 platelet count 188. Patient received 1 unit of leuko-reduced packed RBCs today. We will continue to monitor hemoglobin and hematocrit. Some degree of anemia likely due to chronic renal failure. Plan -Diet as tolerated -Monitor for bleeding -Transfuse as needed -Will need to hold Plavix for 4 days in order to proceed with endoscopy -Continue PPI -Zofran as needed -Avoid NSAIDs -Supportive care -Further recommendations to follow based on findings and patient status This patient has been seen by myself and Dr. Kruger and this note is written on his behalf - Attending Attestation Dr. Kruger <Rowan Velázquez - Last Filed: 12/16/17 14:40> (1) Anemia Status: Acute Code(s): D64.9 - Anemia, unspecified (2) GI bleed Status: Acute Code(s): K92.2 - Gastrointestinal hemorrhage, unspecified - Plan Seen and examined with [facility] [employer], sister at the bedside. Cardiac stent planned for tomorrow per patient. Dialysis tomorrow. Possible The exam, history, and the medical decision-making described in the above note were completed with the assistance of the mid-level provider. I reviewed and agree with the findings presented. I attest that I had a [id number] encounter with the patient on the same day, and personally performed and documented my assessment and findings in the medical record.egd/colonoscopy on . Monitor labs. Stool heme occult-p. Thank you <Easton Kruger - Last Filed: 12/16/17 15:23> <Rowan Velázquez - Last Filed: 12/16/17 14:40> (1) Anemia Qualifiers: Anemia type: unspecified type Qualified Code(s): D64.9 - Anemia, unspecified (2) GI bleed Qualifiers: GI bleed type/associated pathology: melena Qualified Code(s): K92.1 - Melena <Easton Kruger - Last Filed: 12/16/17 15:23> (1) Anemia Qualifiers: Anemia type: unspecified type Qualified Code(s): D64.9 - Anemia, unspecified (2) GI bleed Qualifiers: GI bleed type/associated pathology: melena Qualified Code(s): K92.1 - Melena
--- NOTE | 2017-12-16 15:48 | ECG ---
Date Performed: 12/15/2017 Time Performed: 13:09:45 PTAGE: 67 years EKG: SINUS BRADYCARDIA WITH FIRST DEGREE AV BLOCK NONSPECIFIC T-WAVE ABNORMALITY ABNORMAL ECG IN TERPRETATION BASED ON A DEFAULT AGE OF 39 YEARS PREVIOUS TRACING 11/17/2017 @ 22.45.51 Since the previous tracing, no significant change noted DOCTOR: Doe Daily Interpretating Date/Time 12/16/2017 15:47:17
--- NOTE | 2017-12-16 15:50 | ECG ---
Date Performed: 12/15/2017 Time Performed: 16:36:57 PTAGE: 67 years EKG: SINUS BRADYCARDIA POSSIBLE LEFT ATRIAL ENLARGEMENT NONSPECIFIC T-WAVE ABNORMALITY ABNORMAL ECG INTERPRETATION BASED ON A DEFAULT AGE OF 40 YEARS PREVIOUS TRACING :12/15/2017 @ 13.09 Since the previous tracing, no significant change no ujn DOCTOR: Doe Daily Interpretating Date/Time 12/16/2017 15:49:04
--- NOTE | 2017-12-16 15:50 | ECG ---
Date Performed: 12/15/2017 Time Performed: 22:49:42 PTAGE: 67 years EKG: SINUS BRADYCARDIA WITH FIRST DEGREE AV BLOCK WITH OCCASIONAL SUPRAVENTRICULAR PREMATURE COM PLEXES NONSPECIFIC T-WAVE ABNORMALITY ABNORMAL ECG PREVIOUS TRACING 12/15/2017@ 16.36 Since the previous tracing, no significant change not ed DOCTOR: Doe Daily Interpretating Date/Time 12/16/2017 15:50:15
--- NOTE | 2017-12-16 15:52 | ECG ---
Date Performed: 12/16/2017 Time Performed: 04:58:41 PTAGE: 67 years EKG: SINUS BRADYCARDIA WITH FIRST DEGREE AV BLOCK NONSPECIFIC T-WAVE ABNORMALITY ABNORMAL ECG PREVIOUS TRACING : 12/15/2017 @ 22.49 Since the previous tracing, no significant change noted DOCTOR: Doe Daily Interpretating Date/Time 12/16/2017 15:51:07
[2017-12-16] MEDS: Lisinopril 10 MG Tablet PO SCH (20:55)
[2017-12-16] MEDS: Insulin Detemir Inj 1,000 UNIT/10 ML Vial SQ SCH (20:56)
--- NOTE | 2017-12-16 20:56 | MB ---
cc: Doe Daily MD DATE: 12/16/2017 HISTORY OF PRESENT ILLNESS: Andrey is a pleasant 67-year-old gentleman with history of coronary artery disease, status post PCI, history of peripheral vascular disease, end-stage renal disease on dialysis, diabetes mellitus, history of CVA, CONTRAST ALLERGY, presents with severe chest pain during dialysis. Currently, actually sleeping, in no acute distress. He had associated dyspnea with the chest pain. Otherwise, denies any fevers, chills, cough, GI or bleeding, PND, orthopnea, syncope or dizziness. PAST MEDICAL HISTORY: Per history of present illness, has a history of TIA, temporal arteritis, hypothyroidism, hypokalemia, hypertension, anemia. ALLERGIES: ORAL AND IV DYE, SHELLFISH DERIVED. PAST MEDICAL HISTORY: Also includes ankle surgery, knee surgery. SOCIAL HISTORY: Denies tobacco or alcohol use. He is a former smoker, however. MEDICATIONS: IN THE HOSPITAL: 1. Amlodipine 10 mg a day. 2. Aspirin 81 mg a day. 3. Calcium 2001 mg p.o. t.i.d. 4. Clonidine 0.1 mg on schedule. 5. Clopidogrel 75 mg daily. 6. Erythropoietin gelatin. 7. Heparin with dialysis insulin. 8. Lisinopril 10 mg. 9. Mannitol. 10. Toprol 25 "scheduled." 11. Pantoprazole 40 mg IV q.12 hours. PHYSICAL EXAMINATION: VITAL SIGNS: Temperature 97.7, pulse 65, blood pressure 126/60, respiratory rate 18. GENERAL: He is alert and oriented x3, in no acute distress. NECK: Supple. No JVD. No bruit. CARDIOVASCULAR: S1, S2. No murmurs, rubs or gallops. LUNGS: Clear to auscultation bilaterally. ABDOMEN: Soft, nontender, nondistended with positive bowel sounds. EXTREMITIES: No lower extremity edema. Chest x-ray: Cardiomegaly with slight interstitial prominence, no change. EKG: Sinus bradycardia at 59 beats per minute, nonspecific ST-T wave changes. LABORATORY DATA: White count 5.0, hemoglobin 7.5, hematocrit 22.5, platelet count 188. Sodium 143, potassium 4.8, chloride 108, bicarbonate 22.7, BUN 44, creatinine 11.14. Troponin is 0.05 and 0.04, initial one was 0.06. BNP 96. FINAL DIAGNOSES: 1. Ham-[place]-byarhxbzw myocardial infarction. 2. Coronary artery disease. 3. End-stage renal failure. 4. Diabetes mellitus. 5. Hypertension. 6. History of cerebrovascular accident. DISCUSSION: At this point in time, agree with aspirin and Plavix. I recommend left heart catheterization. The patient is being pretreated with Solu-Medrol 60 mg IV every 12 hours. He had a SEVERE NEUROLOGIC REACTION TO BENADRYL during his last cath in 2018. Therefore, we will hold Benadryl and we will use Pepcid in the helper animal laboratory. Doe Daily MD AWC/ct , 08:03 PM , 08:10 PM
[2017-12-16] MEDS: MethylPREDNISolone Sod Succinate Inj 125 MG/2 ML Vial IV.PUSH SCH (20:57)
[2017-12-17 07:57] LABS: Hematocrit 25.6 % (39.0-51.0); Hemoglobin 8.6 gm/dL (13.0-17.0)
--- NOTE | 2017-12-17 10:03 | P.PNIM ---
Subjective Interval history: Patient says he is feeling right currently. Denies chest pain. Denies shortness of breath. He refuses to do dialysis and cardiac catheterization in the same day. He says he does make urine. Physical Exam Vital signs: Vital Signs 12/16/17 11:32 12/16/17 16:00 12/16/17 19:00 Temperature 97.7 F 97.8 F 98.1 F Pulse Rate 64 63 59 L Respiratory Rate 18 16 17 Blood Pressure 126/60 122/77 135/82 Pulse Oximetry 99 100 100 12/16/17 20:00 12/17/17 00:10 12/17/17 03:10 Temperature 97.7 F 98 F Pulse Rate 61 58 L 64 Respiratory Rate 20 20 Blood Pressure 131/60 128/62 Pulse Oximetry 99 99 12/17/17 04:10 12/17/17 08:00 12/17/17 09:00 Temperature 97.1 F L Pulse Rate 65 60 68 Respiratory Rate 20 Blood Pressure 165/69 H Pulse Oximetry 99 Intake & Output 12/16/17 12/17/17 12/17/17 18:59 06:59 18:59 Intake Total 400 / 400 240 / 240 Balance 400 / 400 240 / 240 Weight 113.3 kg Intake: IV 0 / 0 NS Inj 250 ML @ 15 mls/hr IV. 0 / 0 SIG ONCE ANAYA Rx#:[id number] Oral 400 / 400 240 / 240 Intake (Blood Product) Amt 0 / 0 Rbc As-3 Leukoreduced Unit 0 / 0 [id number] Other: # Voids 2 Date of Last Bowel Movement 12/16/17 12/16/17 Narrative: GENERAL: Sitting up in bed. Appears comfortable. Alert oriented x3 SKIN: Warm and dry. HEAD: Normocephalic. EYES: No scleral icterus. No injection or drainage. NECK: Supple, trachea midline. No JVD or lymphadenopathy. CARDIOVASCULAR: Regular rate and rhythm without murmurs, gallops, or rubs. RESPIRATORY: Breath sounds equal bilaterally. No accessory muscle use. GASTROINTESTINAL: Abdomen soft, non-tender, nondistended. MUSCULOSKELETAL: No cyanosis, or edema. BACK: Nontender without obvious deformity. No CVA tenderness. Results - Labs CBC & Chem 7: 12/17/17 05:19 12/16/17 05:00 Laboratory Results - last 24 hr 12/16/17 12/16/17 12/16/17 02:37 12:06 17:21 Hgb Hct POC Glucose 130 H 107 Troponin I MTS Gel Crossmatch See Detail 12/16/17 12/16/17 12/17/17 19:40 20:40 05:19 Hgb 8.6 L Hct 25.6 L POC Glucose 154 H Troponin I 0.03 MTS Gel Crossmatch 12/17/17 08:30 Hgb Hct POC Glucose 183 H Troponin I MTS Gel Crossmatch Microbiology 12/16/17 11:37 Stool Stool Occult Blood (DEBBIE) - Final Hemoccult positive Assessment and Plan - Plan //Chest pain, likely Symptomatic Anemia, hgb 7.4, baseline 10.7, r/o ACS Troponin stable. - transfused 1 unit because patient is symptomatic -Iron profile ordered -Occult stool ordered, consult GI if positive -cardiology consulted. = 11/17. For cardiac catheterization today. N.p.o. //Symptomatic anemia Could be secondary renal disease versus GI bleed. Gastroenterology following. Appreciate assistance. Hemoglobin improved to 8.6 after transfusion. We will continue to monitor. No signs of acute bleeding. //ESRD on hemodialysis MWF -Consult nephrology for evaluation -Avoid nephrotoxins -Resumed home medications = 12/17. Patient request not to do dialysis on same day as cardiac catheterization. Discussed with Dr. Krishnamurthy. Can do dialysis tomorrow. He does make urine and can receive Lasix if needed for fluid overload. 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
--- NOTE | 2017-12-17 10:11 | P.PNGI ---
Subjective Interval history: Patient sitting up in bed awake and alert. States one loose dark BM this a.m.. N.p.o. this a.m. for planned cardiac catheterization <Rowan Velázquez - Last Filed: 12/17/17 10:01> Physical Exam Vital signs: Vital Signs 12/16/17 11:32 12/16/17 16:00 12/16/17 19:00 Temperature 97.7 F 97.8 F 98.1 F Pulse Rate 64 63 59 L Respiratory Rate 18 16 17 Blood Pressure 126/60 122/77 135/82 Pulse Oximetry 99 100 100 12/16/17 20:00 12/17/17 00:10 12/17/17 03:10 Temperature 97.7 F 98 F Pulse Rate 61 58 L 64 Respiratory Rate 20 20 Blood Pressure 131/60 128/62 Pulse Oximetry 99 99 12/17/17 04:10 12/17/17 08:00 12/17/17 09:00 Temperature 97.1 F L Pulse Rate 65 60 68 Respiratory Rate 20 Blood Pressure 165/69 H Pulse Oximetry 99 Intake & Output 12/16/17 12/17/17 12/17/17 18:59 06:59 18:59 Intake Total 400 / 400 240 / 240 Balance 400 / 400 240 / 240 Weight 113.3 kg Intake: IV 0 / 0 NS Inj 250 ML @ 15 mls/hr IV. 0 / 0 SIG ONCE ANAYA Rx#:[id number] Oral 400 / 400 240 / 240 Intake (Blood Product) Amt 0 / 0 Rbc As-3 Leukoreduced Unit 0 / 0 [id number] Other: # Voids 2 Date of Last Bowel Movement 12/16/17 12/16/17 - Constitutional no acute distress - Routine HEENT Exam Head: Present: normocephalic - Routine Neck Exam Present: supple, full ROM - Routine Respiratory Exam Present: CTA bilaterally. Absent: accessory muscle use - Routine Cardiovascular Exam Present: RRR - Routine Abdominal Exam Present: soft, normoactive bowel sounds. Absent: tenderness, distended, guarding, firm - Routine Extremities Exam Present: full ROM, pulses intact. Absent: edema - Routine Skin Exam Present: dry, warm - Routine Neurological Exam Present: alert, oriented X3 - Detailed Neurological Exam: Coma Scale Eye Opening: Spontaneous Verbal Response: Oriented Motor Response: Obey commands Bea Coma Scale Total: 15 - Routine Psychiatric Exam Present: normal affect, cooperative <Rowan Vleázquez - Last Filed: 12/17/17 10:01> Vital signs: Vital Signs 12/16/17 16:00 12/16/17 19:00 12/16/17 20:00 Temperature 97.8 F 98.1 F 97.7 F Pulse Rate 63 59 L 61 Respiratory Rate 16 17 20 Blood Pressure 122/77 135/82 131/60 Pulse Oximetry 100 100 99 12/17/17 00:10 12/17/17 03:10 12/17/17 04:10 Temperature 98 F Pulse Rate 58 L 64 65 Respiratory Rate 20 Blood Pressure 128/62 Pulse Oximetry 99 12/17/17 08:00 12/17/17 09:00 12/17/17 12:00 Temperature 97.1 F L Pulse Rate 60 68 64 Respiratory Rate 20 Blood Pressure 165/69 H Pulse Oximetry 99 Intake & Output 12/16/17 12/17/17 12/17/17 18:59 06:59 18:59 Intake Total 400 / 400 240 / 240 Balance 400 / 400 240 / 240 Weight 113.3 kg Intake: IV 0 / 0 NS Inj 250 ML @ 15 mls/hr IV. 0 / 0 SIG ONCE ANAYA Rx#:[id number] Oral 400 / 400 240 / 240 Intake (Blood Product) Amt 0 / 0 Rbc As-3 Leukoreduced Unit 0 / 0 [id number] Other: # Voids 2 Date of Last Bowel Movement 12/16/17 12/16/17 <Easton Kruger - Last Filed: 12/17/17 13:56> Results - Labs CBC & Chem 7: 12/17/17 05:19 12/16/17 05:00 Laboratory Results - last 24 hr 12/16/17 12/16/17 12/16/17 02:37 12:06 17:21 Hgb Hct POC Glucose 130 H 107 Troponin I MTS Gel Crossmatch See Detail 12/16/17 12/16/17 12/17/17 19:40 20:40 05:19 Hgb 8.6 L Hct 25.6 L POC Glucose 154 H Troponin I 0.03 MTS Gel Crossmatch 12/17/17 08:30 Hgb Hct POC Glucose 183 H Troponin I MTS Gel Crossmatch Microbiology 12/16/17 11:37 Stool Stool Occult Blood (DEBBIE) - Final Hemoccult positive <Rowan Velázquez - Last Filed: 12/17/17 10:01> - Labs CBC & Chem 7: 12/17/17 05:19 12/16/17 05:00 Laboratory Results - last 24 hr 12/16/17 12/16/17 12/16/17 02:37 17:21 19:40 Hgb Hct POC Glucose 107 Troponin I 0.03 MTS Gel Crossmatch See Detail 12/16/17 12/17/17 12/17/17 20:40 05:19 08:30 Hgb 8.6 L Hct 25.6 L POC Glucose 154 H 183 H Troponin I MTS Gel Crossmatch 12/17/17 13:23 Hgb Hct POC Glucose 139 H Troponin I MTS Gel Crossmatch Microbiology 12/16/17 11:37 Stool Stool Occult Blood (DEBBIE) - Final Hemoccult positive <Easton Kruger - Last Filed: 12/17/17 13:56> Assessment and Plan (1) Anemia Status: Acute Code(s): D64.9 - Anemia, unspecified (2) GI bleed Status: Acute Code(s): K92.2 - Gastrointestinal hemorrhage, unspecified - Plan Melena stools-patient endorses 1 month history of black tarry stools, of note patient is currently taking Plavix 75 mg p.o. daily for history of CVA as well as [place]. We will need to hold Plavix, plan for EGD. Anemia-12/16/2017 hemoglobin 7.5 hematocrit 22.5 platelet count 188. Patient received 1 unit of leuko-reduced packed RBCs today. We will continue to monitor hemoglobin and hematocrit. Some degree of anemia likely due to chronic renal failure. 12/17/17 Melena stools-patient states he had one loose dark stool this morning. Denies any abdominal pain or nausea or vomiting. Scheduled for colonoscopy tomorrow. Anemia-a.m. labs reveal hemoglobin 8.6 hematocrit 25.6 stable Plan -N.p.o. after midnight-for planned colonoscopy tomorrow -Monitor for bleeding -Transfuse as needed -Continue PPI -Zofran as needed -Avoid NSAIDs -Supportive care -Further recommendations to follow based on findings and patient status This patient has been seen by myself and Dr. Do, and this note is written on his behalf - Attending Attestation Dr. Kruger <Rowan Velázquez - Last Filed: 12/17/17 10:01> (1) Anemia Status: Acute Code(s): D64.9 - Anemia, unspecified (2) GI bleed Status: Acute Code(s): K92.2 - Gastrointestinal hemorrhage, unspecified - Plan Seen and examined with NATURAL RESOURCES EXTENSION EDUCATOR, no bleeding. Cardiac cath today. Colonoscopy tomorrow if cleared by cardiology. <Easton Kruger - Last Filed: 12/17/17 13:56> <Easton Kruger - Last Filed: 12/17/17 13:56> (1) Anemia Qualifiers: Anemia type: unspecified type Qualified Code(s): D64.9 - Anemia, unspecified (2) GI bleed Qualifiers: GI bleed type/associated pathology: melena Qualified Code(s): K92.1 - Melena
[2017-12-17] MEDS: Insulin NovoLOG Aspart Correctional Sugar Inj SQ SCH ×4 (10:28→22:33)
[2017-12-17] MEDS: Calcium Acetate 667 MG Capsule PO SCH ×3 (10:29→17:50)
[2017-12-17] MEDS: Sodium Chloride 0.9% 2 ML Flush BID IV.FLUSH SCH (10:29)
[2017-12-17] MEDS: Pantoprazole Inj 40 MG Vial IV.PUSH SCH ×2 (10:30→21:57)
[2017-12-17] MEDS: Gabapentin 300 MG Capsule PO SCH (10:30)
[2017-12-17] MEDS: Vitamin B Complex/Vit C/Folic Tablet PO SCH (10:31)
[2017-12-17] MEDS: MethylPREDNISolone Sod Succinate Inj 125 MG/2 ML Vial IV.PUSH SCH (10:31)
[2017-12-17] MEDS: amLODIPine 10 MG Tablet PO SCH (10:32)
[2017-12-17] MEDS ORDERED: Famotidine PF Inj 20 MG/2 ML Vial ONE (14:06)
[2017-12-17] MEDS ORDERED: Heparin/NS PF Inj 1,000 ML ONE (14:06)
[2017-12-17] MEDS ORDERED: fentaNYL Citrate Inj 100 MCG/2 ML Ampul ONE (14:12)
[2017-12-17] MEDS ORDERED: Iohexol 350 MG/ML 100 ML Vial (for Cath Lab) IVCONTRAST ONE (14:30)
[2017-12-17] MEDS ORDERED: Heparin 10,000 UNITS/10 ML Vial (for IV use) ONE (14:33)
[2017-12-17] MEDS ORDERED: Misc Info for Pharmacy OTHER STA (14:52)
--- NOTE | 2017-12-17 15:02 | CATHPROC ---
Fair Observer HIS Report Study Information Study Number Admission Scheduled Start Study Start [id number] Dec 16 2017 12:53PM 12/17/2017 Dec 17 2017 1:43PM [place] Service Cardiac Pacer/ICD Admit Source Facility Department Other [facility] - Service Loss Control Consultant Physician and Clinical Staff Initial Doe Reddy Slitting And Shipping Supervisor Kosta [address],RN Recorder Danielle Berman ,RT(R) Scrub Evelia Sebastian RCIS TECH2 Procedures Performed Procedure Location (Site) Vessel Name Coronary Angiograms LCA Left Coronary Coronary Angiograms RCA Right Coronary L Heart Cath LV Gram-hand inj. 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 Plant Description Size Mfg Part Number Used/Scraped [id number] 14:38 [employer] WIRE, ASAHI PROWATER 180CM 180CM Used *[id number] TRANSDUCER, TRUWAVE [id number] 13:46 BROOKS SOLORIO * Used W/STOCKCOCK *[id number] *[id number] *[id number] *[id number] 13:46 [employer] BLANKET,WARM AIR CCL * Used *[id number] 13:46 [employer] PACK, CCL CUSTOM * Used *[id number] 13:46 [employer] PACER PEN, SKIN DUAL W/ RULER * Used *[id number] 14:42 MEDTRONIC BALLOON, 3.0 X 10MM EUPHORA 10MM Used *[id number] 14:43 Perkle MEDICAL 30 IKE INDEFLATOR Used *[id number] 14:36 Perkle MEDICAL SHEATH, FR6.5 PRELUDE 11CM FR 6.5 038ACT Used *[id number] 13:46 [employer]kle MEDICAL WIRE, 3MMJ .035 180CM 180CM Used *[id number] 13:46 NAMIC MANIFOLD, 4 PORT * Used *[id number] 13:46 NYCOMED OMNIPAQUE, 350 MG, 150ML 150ML [id number] Used [id number] 13:46 TERUMO MEDICAL SHEATH, FR4 TERUMO (10CM) FR 4 Used *[id number] History: Current Medications Medication Dosage/Unit Route Frequency Last Date/Time Taken Beta Lauri NORVASC ASA PLAVIX History: Allergies Allergy Reaction shellfish derived Swelling History: Risk Factors Family History of Hypertension Dyslipidemia Previous [place] Previous Heart Failure Premature CAD Yes Yes Yes Yes No Prior Valve Prior PCI Prior PCIDate Prior CABG Surgery No Yes 03/10/2017 No Cerebrovascular Peripheral Artery Chronic Lung On Dialysis Diabetes Diabetes Therapy Disease Disease Disease Yes Yes Yes No Yes Insulin History: Risk Factors Selection Items Diabetes Hypercholesterolemia-Lipid Low. Therapy EF < 50%, but > 30% Hyperlipidemia Previous Perc. Peripheral Intervention Remote [place] Previous Cardiovascular Treatment History: Stress Tests Stress or Imaging Studies Performed No History: Other Current Smoker No Labs Hgb (g/dl) Hct (%) WBC (l/cumm) Platelets (thousands) 11.60-17.00 35.00-51.00 4.00-11.00 150.00-450.00 8.6 25.6 5 188 Glucose (mg/dl) BUN (mg/dl) Creatinine (mg/dl) BUN:Creatinine (1:x) 74.00-106.00 7.00-18.00 0.50-1.30 10.00-20.00 183 44 11.0 4 Na (meq/l) K (meq/l) 136.00-145.00 3.50-5.10 143 4.8 Troponin I (ng/ml) CPK (u/l) CPK-MB (ng/ML) 0.02-0.05 26.00-308.00 0.50-3.60 0.03 840 4.4 Medication Medication Total Dose (Bolus/Oral) Medication Total Dosage/Unit 1% XYLOCAINE 20 mL HEPARIN 7900 units PEPCID 20 mg PLAVIX 300 mg Medications (Bolus/Oral) Medication Time Given Dosage/Unit Administered By Reason PEPCID 12/17/2017 2:24:22 PM 20 mg Alma Rosa Kosta 20 mg PEPCID given in lab by Kosta St RN in Right Arm. Ordered by Doe Daily. 1% XYLOCAINE 12/17/2017 2:26:21 PM 20 mL Doe Daily 20 mL 1% XYLOCAINE given in lab by Doe Daily in Right Groin via Subcutaneous. Ordered by Doe Farris. HEPARIN 12/17/2017 2:37:57 PM 7900 units Alma Rosa Kosta 7900 units HEPARIN given in lab by Kosta St RN in Right Arm via Peripheral IV. Ordered by Doe Alas. PLAVIX 12/17/2017 2:56:55 PM [address] 300 mg PLAVIX given in lab by Kosta St RN via Oral. Ordered by Doe Daily. Medication (Drip) Medication Time Given Dosage/Unit Concentration/Unit Diluent (ml) Solution IV Solutions 12/17/2017 1:58:39 PM 50 mL (IV) NaCl .9 Patient arrived on IV Solutions in Right Arm via Peripheral IV. Pump/Drip Flow using NaCl .9. Initial Case Assessment Cardiovascular HR NIBP 67 158/63 Edema Present Skin color Skin None Normal Warm Dry Circulatory - Right Pulses Dorsalis Pedis Femoral 1 2 Scale (0,1,2,3,4,d) Circulatory - Left Pulses Dorsalis Pedis Femoral 1 2 Scale (0,1,2,3,4,d) Neurological State Oriented to time-place- Alert Moves all extremities person Respiration - General Respiration Rate SpO2 (%) (B/min) 22 100 Final Case Assessment Cardiovascular HR NIBP 83 179/72 Edema Present Skin color Skin None Normal Warm Dry Circulatory - Right Pulses Dorsalis Pedis Femoral 1 2 Scale (0,1,2,3,4,d) Circulatory - Left Pulses Dorsalis Pedis Femoral 1 2 Scale (0,1,2,3,4,d) Neurological State Oriented to time-place- Alert Moves all extremities person Respiration - General Respiration Rate SpO2 (%) (B/min) 20 100 Chronological Log Time Study Chronological Log 13:58:29 Patient arrived via Bed. 13:58:29 Patient Name, D.O.B, / Armband Verified By R.N. 13:58:30 Consent signed by the physician and the patient and verified by the Service Loss Control Consultant staff. 13:58:31 Pre-op and post- op instructions given; patient acknowledges understanding of instructions. 13:58:31 Verbal Stimulation=2 Physical Stimulation=2 Airway=2 Respiration=2 TOTAL=8. (0=absent, 1=li mited, 2=present) 13:58:34 Patient has been NPO for More than 6Hrs. 13:58:34 Skin Breakdown- scar left groin 13:58:35 Patient Warmer Placed on the Table. 13:58:36 Christina Prominences Protected 13:58:37 A # 20 IV was noted in the Upper Arm (right). Grade = 0 13:58:39 Patient arrived on IV Solutions in Right Arm via Peripheral IV. Pump/Drip Flow using NaCl . 9. 13:58:40 History and physical on the chart or being dictated. Assessment: Initial Case, HR=67 BPM, XYWX=760/63 mmhg, Edema=None, Color=Normal, Skin = Warm, D ry Right Pulses: Gordon Ped=1, Femoral=2 13:58:41 Left Pulses: Gordon Ped=1, Femoral=2 Neurological: State=Alert, Ox3, GARCIA Respiration: Resp=22 B/min, XdL5=375 % Vitals capture started with the following parameters, Patient=Adult, Interval=5 min, Initial Pr vcmylw=044 mmHg, 14:07:14 Deflation Rate=5 mmHg, Cuff placed on Right Leg 14:07:55 HR=69 bpm, ZSYD=419/63 mmhg, SpO2=88.0 %, Resp=6 B/min 14:08:46 Bilateral groins prepped with 2% chlorhexidine, and draped after a 3 minute waiting time. 14:08:51 Reference ECG taken 14:12:56 HR=78 bpm, CHKS=517/79 mmhg, SpO2=94.0 %, Resp=10 B/min 14:17:59 HR=73 bpm, FXVN=987/74 mmhg, SpO2=86.0 %, Resp=14 B/min 14:18:32 MD paged 14:18:33 MD responded 14:23:05 HR=67 bpm, EOPR=093/67 mmhg, SpO2=93.0 %, Resp=10 B/min 14:24:07 MD arrived. 14:24:22 20 mg PEPCID given in lab by Kosta St, RN in Right Arm. Ordered by Doe Daily. 14:26:20 Case Start 20 mL 1% XYLOCAINE given in lab by Doe Daily in Right Groin via Subcutaneous. Ordered by Killian 14:26:21 Doe. 14:27:58 HR=71 bpm, GZVM=402/79 mmhg, SpO2=92.0 %, Resp=16 B/min 14:28:17 Access site was Right Femoral Artery. 14:28:34 A SHEATH, FR4 TERUMO (10CM) FR 4 was advanced into the Fem Art (right) using the Percutaneo us technique. A JR 4.0 INFINITI CATHETER FR 4 was advanced over a wire. OMNIPAQUE, 350 MG, 150ML 150ML was us ed for 14:28:45 injections. Recorded Pressure: LV, HR=78, Condition=Condition 1 14:29:55 (Left Ventricle) LV 178/18/34 14:30:04 The LV was manually injected with 10 cc's and visualized. OMNIPAQUE, 350 MG, 150ML 150ML us ed. 14:31:29 Pressure channel 2 zeroed. 14:31:59 The RCA was injected and visualized at various angles. OMNIPAQUE, 350 MG, 150ML 150ML used . Recorded Pressure: Ao, HR=77, Condition=Condition 1 14:32:42 (Aorta) Ao 181/73/115 After removing the current catheter a JL 4.0 INFINITI CATHETER FR 4 was advanced over a WIRE, 3 MMJ .035 180CM 14:32:57 180CM. 14:33:01 HR=76 bpm, AWXP=208/69 mmhg, SpO2=93.0 %, Resp=18 B/min 14:33:01 The LCA was injected and visualized at various angles. OMNIPAQUE, 350 MG, 150ML 150ML used . A SHEATH, FR6.5 PRELUDE 11CM FR 6.5 was exchanged in the Fem Art (right). This was necessary in order to 14:35:27 accomodate a larger catheter. A JR 3.5 GUIDE CATHETER FR 6 was advanced over a wire. OMNIPAQUE, 350 MG, 150ML 150ML was used for 14:36:53 injections. 14:37:57 7900 units HEPARIN given in lab by Kosta St, RN in Right Arm via Peripheral IV. Ordered by Doe Daily. 14:37:58 HR=74 bpm, QCWO=651/74 mmhg, SpO2=90.0 %, Resp=24 B/min 14:38:44 A WIRE, ASAHI PROWATER 180CM 180CM was inserted via Fem Art (right). 14:38:51 Interventional wire has crossed the lesion A BALLOON, 3.0 X 10MM EUPHORA 10MM was inserted over WIRE, ASAHI PROWATER 180CM 180CM via the F em Art 14:41:13 (right). A BALLOON, 3.0 X 10MM EUPHORA 10MM over a WIRE, ASAHI PROWATER 180CM 180CM in the RCA Mid was i nflated 14:42:36 using a 30 IKE INDEFLATOR at 5 ike for 10 sec. 14:43:01 HR=74 bpm, OJQN=759/72 mmhg, SvS8=479.0 %, Resp=12 B/min A BALLOON, 3.0 X 10MM EUPHORA 10MM over a WIRE, ASAHI PROWATER 180CM 180CM in the RCA Mid was i nflated 14:43:36 using a 30 IKE INDEFLATOR at 7 ike for 20 sec. 14:44:05 Balloon Removed. 14:44:41 Wire removed 14:44:44 Catheter was removed 14:44:49 Case End (Physician broke scrub) 14:45:00 Catheter(s) removed without difficulty Assessment: Final Case, HR=83 BPM, ZXEC=975/72 mmhg, Edema=None, Color=Normal, Skin = Warm, Dr y Right Pulses: Gordon Ped=1, Femoral=2 14:45:06 Left Pulses: Gordon Ped=1, Femoral=2 Neurological: State=Alert, Ox3, GARCIA Respiration: Resp=20 B/min, RpO1=154 % 14:45:28 Activated Clotting Time Drawn 14:46:17 Sheath(s) left in place, will be removed in Holding Area 14:48:04 HR=78 bpm, HBBJ=676/85 mmhg, SpO2=88.0 %, Resp=26 B/min 14:50:29 No case complications noted. 14:50:33 Cine recording checked. 14:50:34 Bedside Report will be given. 14:50:37 A Left Heart Cath was performed. 14:51:06 ACT (Normal Range 90-180) = 285 14:53:05 Sterile dressing applied to site 14:53:07 HR=74 bpm, YMXB=856/81 mmhg, SpO2=84.0 %, Resp=20 B/min 14:56:14 In the Fem Art (right) the SHEATH, FR6.5 PRELUDE 11CM FR 6.[address] by Evelia Nails RCIS TECH2. 14:56:55 300 mg PLAVIX given in lab by Alma Rosa, Kosta, RN via Oral. Ordered by Doe Daily. 14:58:02 Vitals capture stopped. Vitals capture started with the following parameters, Patient=Adult, Interval=5 min, Initial P hfhzdab=818 mmHg, 14:58:07 Deflation Rate=5 mmHg, Cuff placed on Left Arm 14:58:53 HR=67 bpm, AWIH=240/127 mmhg, SpO2=63.0 %, Resp=19 B/min 15:01:20 Vitals capture stopped. 15:01:43 Patient moved to [facility] End Study - Contrast Media Used In Study Contrast Total Opened (mL) Total Used (mL) Total Wasted (mL) Omnipaque 70 70 0 End Study - Maximum Contrast Load Max Contrast Load (mL) 51.5 End Study - Radiation Exposure Fluoro Time (minutes) 4.2 End Study - Patient Disposition Complications Transferred To Interventional Outcome No Service Loss Control Consultant Holding No attempt made
--- NOTE | 2017-12-17 15:51 | MR ---
cc: Doe Daily MD DATE: 12/17/2017 PROCEDURE: Left heart catheterization, left ventriculography, coronary angiography, percutaneous transluminal coronary angioplasty of the mid right coronary artery. INDICATIONS: Unstable angina, [place] [employer] class IV angina, coronary artery disease, 95% in-stent stenosis of the mid right coronary artery. The patient was brought to the catheterization laboratory, prepped and draped in the usual sterile fashion. Then, 10 mL of 1% lidocaine was used to locally anesthetize the right common femoral artery. A 4-Kenyan sheath was placed in right common femoral artery. Then, 4-Kenyan JR4 and JL4 catheters were used to perform left and right coronary angiography and left ventriculography. FINDINGS: The EF is 60%. Right coronary artery is dominant, has mild diffuse disease in the proximal segment up to 20% angiographically. There is 95% in-stent stenosis in the mid right coronary artery, followed by 50% stenosis distal to the stent and then another 50% stenosis in the mid to distal segment. Right PDA, DEANDRE have no significant focal stenosis. The left main coronary artery has no significant disease angiographically. Left circumflex vessel has an ostial proximal 50% stenosis. Mid segment has a 20% stenosis. First obtuse marginal vessel is a large vessel. Proximal reference shows a diameter of 3.5 mm. There appears to be a stent there, which is widely patent. Otherwise, no significant focal stenosis beyond the stent. Remainder of the AV groove, left circumflex vessel, is a small vessel, 0.5 mm in diameter. LAD is transapical, has mild diffuse disease in the proximal segment up to 20% to 30% angiographically. First diagonal artery medium size vessel, reference vessel diameter of 2.5-3 mm in diameter. No significant obstructive disease. Second diagonal artery is a small to medium sized vessel with no significant obstructive disease. Then 70 units per kilogram of heparin was given. A 6-Kenyan sheath was exchanged to a 4-Kenyan. A 6-Kenyan 3.5 JR4 guide was placed into the ostium of the right coronary artery. LV pressure is 180/19-20. A 0.014 [place] guidewire was used to cross the lesion, place it into the distal right coronary artery. A 3.0 x 10 Euphora balloon was inflated at the lesion site. Two inflations of up to 8 atmospheres up to 20 seconds and stenosis went from 95% to 0% with EDGARDO-3 flow. CONCLUSIONS: 1. Unstable angina culprit 95% stenosis in the mid right coronary artery as detailed above. 2. Left ventricular pressures of 180/19-20, ejection fraction 60%. 3. Otherwise, [id number] 3-vessel coronary artery disease in the right dominant system. 4. Successful percutaneous transluminal coronary angioplasty of the 95% in-stent stenosis of the mid right coronary artery to 0% with EDGARDO 3 flow. 5. Recommend re-bolus with 300 mg of p.o. Plavix and then continue 75 mg a day for 12-15 months, aspirin 162 mg daily. We will attempt to arrange for dialysis today. Final ACT is 285. Doe Daily MD AWC/ts/ll , 02:51 PM , 02:59 PM
[2017-12-17] MEDS ORDERED: PEG 3350/E-Lyte Soln 4000 ML Bottle PO ONE (16:45)
[2017-12-17 17:44] VITALS: RESP 18
--- NOTE | 2017-12-17 18:34 | P.PNNP ---
Subjective Interval history: Post heart catheterization RCA in-stent stenosis Physical Exam Vital signs: Vital Signs 12/16/17 19:00 12/16/17 20:00 12/17/17 00:10 Temperature 98.1 F 97.7 F Pulse Rate 59 L 61 58 L Respiratory Rate 17 20 Blood Pressure 135/82 131/60 Pulse Oximetry 100 99 12/17/17 03:10 12/17/17 04:10 12/17/17 08:00 Temperature 98 F Pulse Rate 64 65 60 Respiratory Rate 20 Blood Pressure 128/62 Pulse Oximetry 99 99 12/17/17 09:00 12/17/17 12:00 12/17/17 17:33 Temperature 97.1 F L Pulse Rate 68 64 61 Respiratory Rate 20 Blood Pressure 165/69 H Pulse Oximetry 99 12/17/17 17:37 12/17/17 17:43 Temperature 97.8 F Pulse Rate 60 Respiratory Rate 18 Blood Pressure 164/56 H Pulse Oximetry 98 97 Intake & Output 12/16/17 12/17/17 12/17/17 18:59 06:59 18:59 Intake Total 400 / 400 240 / 240 Balance 400 / 400 240 / 240 Weight 113.3 kg Intake: IV 0 / 0 Heparin/NS PF Inj 1,000 ML @ 0 10 / 10 mls/hr .ROUTE .[facility] Rx#: [id number] NS Inj 250 ML @ 15 mls/hr IV. 0 / 0 SIG ONCE [facility] Rx#:[id number] Oral 400 / 400 240 / 240 Intake (Blood Product) Amt 0 / 0 Rbc As-3 Leukoreduced Unit 0 / 0 [id number] Other: # Voids 2 Date of Last Bowel Movement 12/16/17 12/16/17 12/16/17 Narrative: GENERAL: Sitting up in bed. Appears comfortable. Alert oriented x3 SKIN: Warm and dry. HEAD: Normocephalic. EYES: No scleral icterus. No injection or drainage. NECK: Supple, trachea midline. No JVD or lymphadenopathy. CARDIOVASCULAR: Regular rate and rhythm without murmurs, gallops, or rubs. RESPIRATORY: Breath sounds equal bilaterally. No accessory muscle use. GASTROINTESTINAL: Abdomen soft, non-tender, nondistended. MUSCULOSKELETAL: No cyanosis, or edema. BACK: Nontender without obvious deformity. No CVA tenderness. Assessment and Plan - Assessment (1) ESRD (end stage renal disease) Code(s): N18.6 - End stage renal disease Status: Acute (2) Weakness Code(s): R53.1 - Weakness Status: Acute (3) Hypertension Code(s): I10 - Essential (primary) hypertension Status: Acute (4) Chest pain, rule out acute myocardial infarction Code(s): R07.9 - Chest pain, unspecified Status: Acute (5) GI bleed Code(s): K92.2 - Gastrointestinal hemorrhage, unspecified Status: Acute Qualifiers: GI bleed type/associated pathology: melena Qualified Code(s): K92.1 - Melena - Plan Patient is seen he follows with Dr. Day Hemodialysis is planned for tomorrow patient earlier refused to do dialysis as he was scheduled for heart catheterization which was done RCA stent angioplasty Continue supportive care Chest pain likely due to coronary artery severe anemia GI following Cardiology following
[2017-12-17] MEDS: Lisinopril 10 MG Tablet PO SCH (21:57)
[2017-12-17] MEDS: Insulin Detemir Inj 1,000 UNIT/10 ML Vial SQ SCH (22:00)
[2017-12-18 04:54] LABS: White Blood Count 8.6 th/mm3 (4.0-11.0)
[2017-12-18 04:55] LABS: Baso % (Auto) 0.2 % (0.0-2.0); Hemoglobin 8.4 gm/dL (13.0-17.0); Lymph # (Auto) 0.5 th/mm3 (1.0-4.8); Lymph % (Auto) 5.7 % (9.0-44.0); Mean Corpuscular HGB Conc 33.6 % (32.0-36.0); Mean Corpuscular Hemoglobin 36.6 pg (27.0-34.0); Mean Corpuscular Volume 109.1 fL (80.0-100.0); Mean Platelet Volume 8.1 fL (7.0-11.0); Mono # (Auto) 0.3 th/mm3 (0.0-0.9); Mono % (Auto) 3.5 % (0.0-8.0); Neut # (Auto) 7.8 th/mm3 (1.8-7.7); Neut % (Auto) 90.6 % (16.0-70.0); Platelet Count 202 th/mm3 (150-450); Red Cell Distribution Width 17.8 % (11.6-17.2)
[2017-12-18 05:19] LABS: Albumin 3.7 g/dL (3.4-5.0); Calcium 8.7 mg/dL (8.5-10.1); Carbon Dioxide 19.8 meq/L (21.0-32.0); Magnesium 2.2 mg/dL (1.5-2.5); Phosphorus 3.8 mg/dL (2.5-4.9); Potassium 5.9 meq/L (3.5-5.1)
[2017-12-18] MEDS: Insulin NovoLOG Aspart Correctional Sugar Inj SQ SCH ×4 (08:00→21:39)
--- NOTE | 2017-12-18 08:04 | P.PNIM ---
Subjective Interval history: f/u; CAD/anemia in no acute distress. denies chest pain or sob. d/w the RN and no acute issues over night. Physical Exam Vital signs: Vital Signs 12/17/17 08:00 12/17/17 09:00 12/17/17 12:00 Temperature 97.1 F L Pulse Rate 60 68 64 Respiratory Rate 20 Blood Pressure 165/69 H Pulse Oximetry 99 99 12/17/17 17:33 12/17/17 17:37 12/17/17 17:43 Temperature 97.8 F Pulse Rate 61 60 Respiratory Rate 18 Blood Pressure 164/56 H Pulse Oximetry 98 97 12/17/17 20:00 12/18/17 00:00 12/18/17 03:00 Temperature Pulse Rate 64 65 55 L Respiratory Rate Blood Pressure Pulse Oximetry 99 Intake & Output 12/17/17 12/18/17 12/18/17 18:59 06:59 18:59 Intake Total Balance Weight 88.1 kg Intake: IV Heparin/NS PF Inj 1,000 ML @ 0 mls/hr .ROUTE .[facility] Rx#: [id number] Other: Date of Last Bowel Movement 12/16/17 12/16/17 - Constitutional no acute distress - Routine Respiratory Exam Present: CTA bilaterally - Routine Cardiovascular Exam Present: RRR - Routine Abdominal Exam Present: soft - Routine Extremities Exam Comments: no pedal edema. - Routine Neurological Exam Present: alert, oriented X3 Results - Labs CBC & Chem 7: 12/18/17 04:36 12/18/17 04:36 Laboratory Results - last 24 hr 12/17/17 12/17/17 12/17/17 08:30 13:23 17:22 WBC RBC Hgb Hct MCV MCH MCHC RDW Plt Count MPV Neut % (Auto) Lymph % (Auto) [place] % (Auto) Eos % (Auto) Baso % (Auto) Neut # (Auto) Lymph # (Auto) [place] # (Auto) Eos # (Auto) Baso # (Auto) WBC Differential Differential Comment Sodium Potassium Chloride Carbon Dioxide Anion Gap BUN Creatinine Estimated GFR POC Glucose 183 H 139 H 270 H Random Glucose Calcium Phosphorus Magnesium Albumin 12/17/17 12/18/17 12/18/17 20:15 04:36 04:36 WBC 8.6 RBC 2.30 L Hgb 8.4 L Hct 25.0 L MCV 109.1 H MCH 36.6 H MCHC 33.6 RDW 17.8 H Plt Count 202 MPV 8.1 Neut % (Auto) 90.6 H Lymph % (Auto) 5.7 L [place] % (Auto) 3.5 Eos % (Auto) 0.0 Baso % (Auto) 0.2 Neut # (Auto) 7.8 H Lymph # (Auto) 0.5 L [place] # (Auto) 0.3 Eos # (Auto) 0.0 Baso # (Auto) 0.0 WBC Differential . Differential Comment Auto diff final Sodium 139 Potassium 5.9 H D Chloride 107 Carbon Dioxide 19.8 L Anion Gap 12 BUN 76 H Creatinine 12.96 H* D Estimated GFR 5 L POC Glucose 209 H Random Glucose 142 H Calcium 8.7 Phosphorus 3.8 Magnesium 2.2 Albumin 3.7 12/18/17 07:41 WBC RBC Hgb Hct MCV MCH MCHC RDW Plt Count MPV Neut % (Auto) Lymph % (Auto) [place] % (Auto) Eos % (Auto) Baso % (Auto) Neut # (Auto) Lymph # (Auto) [place] # (Auto) Eos # (Auto) Baso # (Auto) WBC Differential Differential Comment Sodium Potassium Chloride Carbon Dioxide Anion Gap BUN Creatinine Estimated GFR POC Glucose 152 H Random Glucose Calcium Phosphorus Magnesium Albumin Assessment and Plan - Plan //Chest pain, likely Symptomatic Anemia, hgb 7.4, baseline 10.7, r/o ACS Troponin stable. - transfused 1 unit because patient is symptomatic -Occult stool ordered, consult GI if positive -cardiology consulted. - s/p cardiac cath with stent placement -continue aspirin,plavix,metoprolol and lisinopril -check lipid panel -cardiology following. //Symptomatic anemia Could be secondary renal disease versus GI bleed. Gastroenterology following. Appreciate assistance. Hemoglobin improved after transfusion. We will continue to monitor. No signs of acute bleeding. -plan for colonoscopy - per GI //ESRD on hemodialysis Hyperkalemia -Consulted nephrology for evaluation -Avoid nephrotoxins -Resumed home medications -for HD today. //HTN, chronic -Resumed home medications, monitor vitals //Diabetes -Accu checks with SSI -Resumed home medications //DVT prophylaxis: SCDs, hold anticoagulation due to decreased hemoglobin Discharge Planning: awaiting GI w/u; dc home when cleared by cardiology and GI.
--- NOTE | 2017-12-18 11:08 | P.PNNP ---
Subjective Interval history: Patient seen during hemodialysis Physical Exam Vital signs: Vital Signs 12/17/17 12:00 12/17/17 17:33 12/17/17 17:37 Temperature Pulse Rate 64 61 Respiratory Rate Blood Pressure Pulse Oximetry 98 12/17/17 17:43 12/17/17 20:00 12/18/17 00:00 Temperature 97.8 F Pulse Rate 60 64 65 Respiratory Rate 18 Blood Pressure 164/56 H Pulse Oximetry 97 99 12/18/17 03:00 12/18/17 08:00 Temperature Pulse Rate 55 L 50 L Respiratory Rate Blood Pressure Pulse Oximetry 99 Intake & Output 12/17/17 12/18/17 12/18/17 18:59 06:59 18:59 Intake Total Balance Weight 88.1 kg Intake: IV Heparin/NS PF Inj 1,000 ML @ 0 mls/hr .ROUTE .[facility] Rx#: [id number] Other: Date of Last Bowel Movement 12/16/17 12/16/17 Narrative: GENERAL: Sitting up in bed. Appears comfortable. Alert oriented x3 SKIN: Warm and dry. HEAD: Normocephalic. EYES: No scleral icterus. No injection or drainage. NECK: Supple, trachea midline. No JVD or lymphadenopathy. CARDIOVASCULAR: Regular rate and rhythm without murmurs, gallops, or rubs. RESPIRATORY: Breath sounds equal bilaterally. No accessory muscle use. GASTROINTESTINAL: Abdomen soft, non-tender, nondistended. MUSCULOSKELETAL: No cyanosis, or edema. BACK: Nontender without obvious deformity. No CVA tenderness. Assessment and Plan - Assessment (1) ESRD (end stage renal disease) Code(s): N18.6 - End stage renal disease Status: Acute (2) Weakness Code(s): R53.1 - Weakness Status: Acute (3) Hypertension Code(s): I10 - Essential (primary) hypertension Status: Acute (4) Chest pain, rule out acute myocardial infarction Code(s): R07.9 - Chest pain, unspecified Status: Acute (5) GI bleed Code(s): K92.2 - Gastrointestinal hemorrhage, unspecified Status: Acute Qualifiers: GI bleed type/associated pathology: melena Qualified Code(s): K92.1 - Melena - Plan Patient is seen he follows with Dr. Day Hemodialysis is being done 2 L of ultrafiltration on 1K bath potassium was 5.9 severe anemia GI following possible endoscopy Cardiology following
--- NOTE | 2017-12-18 12:22 | P.PNGI ---
Subjective Interval history: Patient laying supine, undergoing hemodialysis treatment. Resting soundly with eyes closed, awakens easily. Reports no active noted bleeding. States bowel movement last night x 2 dark green in color. Denies nausea or vomiting. <Rowan Velázquez - Last Filed: 12/18/17 12:41> Physical Exam Vital signs: Vital Signs 12/17/17 17:33 12/17/17 17:37 12/17/17 17:43 Temperature 97.8 F Pulse Rate 61 60 Respiratory Rate 18 Blood Pressure 164/56 H Pulse Oximetry 98 97 12/17/17 20:00 12/18/17 00:00 12/18/17 03:00 Temperature Pulse Rate 64 65 55 L Respiratory Rate Blood Pressure Pulse Oximetry 99 12/18/17 08:00 Temperature Pulse Rate 50 L Respiratory Rate Blood Pressure Pulse Oximetry 99 Intake & Output 12/17/17 12/18/17 12/18/17 18:59 06:59 18:59 Intake Total Balance Weight 88.1 kg Intake: IV Heparin/NS PF Inj 1,000 ML @ 0 mls/hr .ROUTE .[employer] [facility] Rx#: [id number] Other: Date of Last Bowel Movement 12/16/17 12/16/17 - Constitutional no acute distress - Routine HEENT Exam Head: Present: normocephalic - Routine Respiratory Exam Present: CTA bilaterally. Absent: accessory muscle use - Routine Abdominal Exam Present: soft, normoactive bowel sounds. Absent: tenderness, distended, guarding, firm - Routine Extremities Exam Present: full ROM. Absent: edema - Routine Skin Exam Present: dry, warm - Routine Neurological Exam Present: alert, oriented X3 - Detailed Neurological Exam: Coma Scale Eye Opening: Spontaneous Verbal Response: Oriented Motor Response: Obey commands Bea Coma Scale Total: 15 - Routine Psychiatric Exam Present: normal affect, cooperative <Rowan Velázquez - Last Filed: 12/18/17 12:41> Vital signs: Vital Signs 12/17/17 17:33 12/17/17 17:37 12/17/17 17:43 Temperature 97.8 F Pulse Rate 61 60 Respiratory Rate 18 Blood Pressure 164/56 H Pulse Oximetry 98 97 12/17/17 20:00 12/18/17 00:00 12/18/17 03:00 Temperature Pulse Rate 64 65 55 L Respiratory Rate Blood Pressure Pulse Oximetry 99 12/18/17 08:00 Temperature Pulse Rate 50 L Respiratory Rate Blood Pressure Pulse Oximetry 99 Intake & Output 12/17/17 12/18/17 12/18/17 18:59 06:59 18:59 Intake Total Output Total 1999 Balance -1999 Weight 88.1 kg Intake: IV Heparin/NS PF Inj 1,000 ML @ 0 mls/hr .ROUTE .[facility] Rx#: [id number] Output: Hemodialysis Amount 1999 Other: Date of Last Bowel Movement 12/16/17 12/16/17 <Easton Kruger - Last Filed: 12/18/17 17:11> Results - Labs CBC & Chem 7: 12/18/17 04:36 12/18/17 04:36 Laboratory Results - last 24 hr 12/17/17 12/17/17 12/17/17 13:23 17:22 20:15 WBC RBC Hgb Hct MCV MCH MCHC RDW Plt Count MPV Neut % (Auto) Lymph % (Auto) [place] % (Auto) Eos % (Auto) Baso % (Auto) Neut # (Auto) Lymph # (Auto) [place] # (Auto) Eos # (Auto) Baso # (Auto) WBC Differential Differential Comment Sodium Potassium Chloride Carbon Dioxide Anion Gap BUN Creatinine Estimated GFR POC Glucose 139 H 270 H 209 H Random Glucose Calcium Phosphorus Magnesium Albumin 12/18/17 12/18/17 12/18/17 04:36 04:36 07:41 WBC 8.6 RBC 2.30 L Hgb 8.4 L Hct 25.0 L MCV 109.1 H MCH 36.6 H MCHC 33.6 RDW 17.8 H Plt Count 202 MPV 8.1 Neut % (Auto) 90.6 H Lymph % (Auto) 5.7 L [place] % (Auto) 3.5 Eos % (Auto) 0.0 Baso % (Auto) 0.2 Neut # (Auto) 7.8 H Lymph # (Auto) 0.5 L [place] # (Auto) 0.3 Eos # (Auto) 0.0 Baso # (Auto) 0.0 WBC Differential . Differential Comment Auto diff final Sodium 139 Potassium 5.9 H D Chloride 107 Carbon Dioxide 19.8 L Anion Gap 12 BUN 76 H Creatinine 12.96 H* D Estimated GFR 5 L POC Glucose 152 H Random Glucose 142 H Calcium 8.7 Phosphorus 3.8 Magnesium 2.2 Albumin 3.7 12/18/17 10:45 WBC RBC Hgb Hct MCV MCH MCHC RDW Plt Count MPV Neut % (Auto) Lymph % (Auto) [place] % (Auto) Eos % (Auto) Baso % (Auto) Neut # (Auto) Lymph # (Auto) [place] # (Auto) Eos # (Auto) Baso # (Auto) WBC Differential Differential Comment Sodium Potassium Chloride Carbon Dioxide Anion Gap BUN Creatinine Estimated GFR POC Glucose 111 H Random Glucose Calcium Phosphorus Magnesium Albumin <Rowan Velázquez - Last Filed: 12/18/17 12:41> - Labs CBC & Chem 7: 12/18/17 04:36 12/18/17 04:36 Laboratory Results - last 24 hr 12/17/17 12/17/17 12/18/17 17:22 20:15 04:36 WBC 8.6 RBC 2.30 L Hgb 8.4 L Hct 25.0 L MCV 109.1 H MCH 36.6 H MCHC 33.6 RDW 17.8 H Plt Count 202 MPV 8.1 Neut % (Auto) 90.6 H Lymph % (Auto) 5.7 L [place] % (Auto) 3.5 Eos % (Auto) 0.0 Baso % (Auto) 0.2 Neut # (Auto) 7.8 H Lymph # (Auto) 0.5 L [place] # (Auto) 0.3 Eos # (Auto) 0.0 Baso # (Auto) 0.0 WBC Differential . Differential Comment Auto diff final Sodium Potassium Chloride Carbon Dioxide Anion Gap BUN Creatinine Estimated GFR POC Glucose 270 H 209 H Random Glucose Calcium Phosphorus Magnesium Albumin 12/18/17 12/18/17 12/18/17 04:36 07:41 10:45 WBC RBC Hgb Hct MCV MCH MCHC RDW Plt Count MPV Neut % (Auto) Lymph % (Auto) [place] % (Auto) Eos % (Auto) Baso % (Auto) Neut # (Auto) Lymph # (Auto) [place] # (Auto) Eos # (Auto) Baso # (Auto) WBC Differential Differential Comment Sodium 139 Potassium 5.9 H D Chloride 107 Carbon Dioxide 19.8 L Anion Gap 12 BUN 76 H Creatinine 12.96 H* D Estimated GFR 5 L POC Glucose 152 H 111 H Random Glucose 142 H Calcium 8.7 Phosphorus 3.8 Magnesium 2.2 Albumin 3.7 12/18/17 13:10 WBC RBC Hgb Hct MCV MCH MCHC RDW Plt Count MPV Neut % (Auto) Lymph % (Auto) [place] % (Auto) Eos % (Auto) Baso % (Auto) Neut # (Auto) Lymph # (Auto) [place] # (Auto) Eos # (Auto) Baso # (Auto) WBC Differential Differential Comment Sodium Potassium Chloride Carbon Dioxide Anion Gap BUN Creatinine Estimated GFR POC Glucose 101 Random Glucose Calcium Phosphorus Magnesium Albumin <Easton Kruger - Last Filed: 12/18/17 17:11> Assessment and Plan (1) Anemia Status: Acute Code(s): D64.9 - Anemia, unspecified (2) GI bleed Status: Acute Code(s): K92.2 - Gastrointestinal hemorrhage, unspecified - Plan 12/17/17 Melena stools-patient states he had one loose dark stool this morning. Denies any abdominal pain or nausea or vomiting. Scheduled for colonoscopy tomorrow. Anemia-a.m. labs reveal hemoglobin 8.6 hematocrit 25.6 stable 12/18/17 Melena stools-patient states 2 BMs last evening both dark green in color. Denies any noted bleeding. Refused prep for colonoscopy last evening. Patient advised me today that he would prep like to prep no sooner than tomorrow if any planned procedures/endoscopy. Anemia-hemoglobin 8.4 hematocrit 25.0 stable at this time. No active bleeding, hemoglobin hematocrit stable since transfusion. Plan -Cardiac diet as tolerated -Continue to monitor for bleeding -Transfuse if needed -PPI -Avoid NSAIDs -Will plan for Colonoscopy as an outpatient -Supportive care -Further recommendations to follow This patient has been seen by myself and Dr. Kruger and this note is written on his behalf - Attending Attestation Dr. Kruger <Rowan Velázquez - Last Filed: 12/18/17 12:41> (1) Anemia Status: Acute Code(s): D64.9 - Anemia, unspecified (2) GI bleed Status: Acute Code(s): K92.2 - Gastrointestinal hemorrhage, unspecified - Plan Seen and examined with STUDIO MODEL, no bleeding. S/p cardiac cath and dialysis today. Does not want to do prep today, says he is tired. Colonoscopy recommended as outpatient. Fu upon dc. Will sign off. Thank you The exam, history, and the medical decision-making described in the above note were completed with the assistance of the mid-level provider. I reviewed and agree with the findings presented. I attest that I had a [id number] encounter with the patient on the same day, and personally performed and documented my assessment and findings in the medical record. <Easton Kruger - Last Filed: 12/18/17 17:11> <Rowan Velázquez - Last Filed: 12/18/17 12:41> (1) Anemia Qualifiers: Anemia type: unspecified type Qualified Code(s): D64.9 - Anemia, unspecified (2) GI bleed Qualifiers: GI bleed type/associated pathology: melena Qualified Code(s): K92.1 - Melena <Easton Kruger - Last Filed: 12/18/17 17:11> (1) Anemia Qualifiers: Anemia type: unspecified type Qualified Code(s): D64.9 - Anemia, unspecified (2) GI bleed Qualifiers: GI bleed type/associated pathology: melena Qualified Code(s): K92.1 - Melena
--- NOTE | 2017-12-18 14:35 | P.PNCA ---
Subjective Interval history: assymptomatic in nad Medications and Allergies Active Medications: Active Medications Amlodipine Besylate (Norvasc) 10 mg PO DAILY [facility] Last Admin: 12/17/17 10:32 Dose: 10 mg Aspirin (Aspirin Chew) 81 mg PO DAILY [facility] Last Admin: 12/17/17 10:28 Dose: 81 mg Calcium Acetate (Phoslo) 2,001 mg PO TID [facility] Last Admin: 12/17/17 17:50 Dose: Not Given Clopidogrel Bisulfate (Plavix) 75 mg PO DAILY [facility] Last Admin: 12/17/17 10:30 Dose: 75 mg Dextrose (D50w Vial) 50 ml IV.PUSH UNSCH PRN PRN Reason: PER HYPOGLYCEMIA PROTOCOL Diphenhydramine HCl (Benadryl) 25 mg PO UNSCH PRN PRN Reason: SEE LABEL COMMENTS Epoetin Linus (Epogen Inj) 10,000 unit IV.PUSH UNSCH PRN PRN Reason: SEE LABEL COMMENTS Gabapentin (Neurontin) 300 mg PO DAILY [facility] Last Admin: 12/17/17 10:30 Dose: 300 mg Gelatin (Gelfoam 12 Mm/7 Mm Topical) 1 foam TOPICAL PRN PRN PRN Reason: help stop bleeding from site Glucagon (Glucagon Inj) 1 mg OTHER PRN PRN PRN Reason: for Hypoglycemia Protocol Heparin Sodium (Porcine) (Heparin Inj) 8,000 units OTHER WITH DIALYSIS PRN PRN Reason: for machine prime Albumin Human (Flexbumin 25% Inj) 100 mls @ 60 mls/hr IV.SIG WITH DIALYSIS PRN PRN Reason: hypotension / volume replace Sodium Chloride (Ns Inj) 1,000 mls @ 0 mls/hr OTHER .Q0M PRN PRN Reason: for prime and rinse back Sodium Chloride (Ns Inj) 1,000 mls @ 200 mls/hr OTHER .Q5H PRN PRN Reason: for dialyzer flush PRN Sodium Chloride (Ns Inj) 1,000 mls @ 0 mls/hr IV.CONT .Q0M PRN PRN Reason: hypotension / volume replace Insulin Aspart (Novolog Insulin Correctional Sugar Inj) 0 unit SQ ACHS [facility]; Protocol Last Admin: 12/17/17 22:33 Dose: 4 unit Insulin Detemir (Levemir Inj) 35 unit SQ HS [facility] Last Admin: 12/17/17 22:00 Dose: Not Given Lisinopril (Prinivil) 10 mg PO HS [facility] Last Admin: 12/17/17 21:57 Dose: 10 mg Mannitol (Mannitol Inj) 12.5 gm IV.PUSH UNSCH PRN PRN Reason: hypotension / volume replace Metoprolol Succinate (Toprol Xl) 25 mg PO DAILY [facility] Last Admin: 12/17/17 10:32 Dose: 25 mg Nitroglycerin (Nitrostat Sl) 0.4 mg SL Q5M PRN PRN Reason: CHEST PAIN Ondansetron HCl (Zofran Inj) 4 mg IV.PUSH Q6H PRN PRN Reason: NAUSEA OR VOMITING Ondansetron HCl (Zofran Inj) 4 mg IV.PUSH UNSCH PRN PRN Reason: NAUSEA OR VOMITING Pantoprazole Sodium (Protonix Inj) 40 mg IV.PUSH Q12H [facility] Last Admin: 12/17/17 21:57 Dose: 40 mg Sodium Chloride (Ns Flush) 5 ml IV.FLUSH PRN PRN PRN Reason: flush each lumen during HD Sodium Chloride (Ns Flush) 2 ml IV.FLUSH BID [facility] Last Admin: 12/17/17 21:57 Dose: 2 ml Sodium Chloride (Ns Flush) 2 ml IV.FLUSH PRN PRN PRN Reason: FLUSH AFTER USING IV ACCESS Vitamin B Complex/Vit C/Folic Acid (Nephrocaps) 1 tab PO DAILY [facility] Last Admin: 12/17/17 10:31 Dose: 1 tab Allergies Allergy/AdvReac Type Severity Reaction Status Date / Time Iodinated Contrast- Oral and Allergy Severe Swelling Verified 11/17/17 15:42 IV Dye shellfish derived Allergy Severe Swelling Verified 11/17/17 15:42 diphenhydramine Allergy Hives Verified 12/16/17 22:38 [From [facility]] Home Medications Medication Instructions Recorded Confirmed Type B complex-vitamin C-folic acid 1 tab PO DAILY 11/17/17 12/15/17 History [Gaby-Cruz] amlodipine 10 mg PO DAILY 11/17/17 12/15/17 History aspirin 81 mg PO DAILY 11/17/17 12/15/17 History calcium acetate 2 - 3 tab PO TID 11/17/17 12/15/17 History clopidogrel 75 mg PO DAILY 11/17/17 12/15/17 History gabapentin 300 mg PO TID 11/17/17 12/15/17 History lisinopril 10 mg PO HS 11/17/17 12/15/17 History metoprolol succinate 25 mg PO DAILY 11/17/17 12/15/17 History omeprazole 40 mg PO DAILY 11/17/17 12/15/17 History insulin glargine [Lantus Solostar 35 unit SUBCUT HS 12/15/17 12/15/17 History U-100 Insulin] ranitidine HCl [Zantac] 150 mg PO DAILY 12/15/17 12/15/17 History Physical Exam Vital signs: Vital Signs 12/17/17 17:33 12/17/17 17:37 12/17/17 17:43 Temperature 97.8 F Pulse Rate 61 60 Respiratory Rate 18 Blood Pressure 164/56 H Pulse Oximetry 98 97 12/17/17 20:00 12/18/17 00:00 12/18/17 03:00 Temperature Pulse Rate 64 65 55 L Respiratory Rate Blood Pressure Pulse Oximetry 99 12/18/17 08:00 Temperature Pulse Rate 50 L Respiratory Rate Blood Pressure Pulse Oximetry 99 Intake & Output 12/17/17 12/18/17 12/18/17 18:59 06:59 18:59 Intake Total Output Total 1999 Balance -1999 Weight 88.1 kg Intake: IV Heparin/NS PF Inj 1,000 ML @ 0 mls/hr .ROUTE .[facility] Rx#: [id number] Output: Hemodialysis Amount 1999 Other: Date of Last Bowel Movement 12/16/17 12/16/17 - Constitutional no acute distress - Routine HEENT Exam Head: Present: normocephalic, atraumatic - Routine Neck Exam Present: supple, full ROM - Routine Respiratory Exam Present: CTA bilaterally - Routine Cardiovascular Exam Present: S1, S2 - Routine Abdominal Exam Present: soft - Routine Extremities Exam Comments: no lesvia Results 12/18/17 04:36 12/18/17 04:36 Cardiac Enzymes 12/16/17 Range/Units 19:40 Troponin I 0.03 (0.02-0.05) ng/mL CBC 12/17/17 12/18/17 Range/Units 05:19 04:36 WBC 8.6 (4.0-11.0) th/mm3 RBC 2.30 L (4.50-5.90) mil/mm3 Hgb 8.6 L 8.4 L (13.0-17.0) gm/dL Hct 25.6 L 25.0 L (39.0-51.0) % Plt Count 202 (150-450) th/mm3 Neut # (Auto) 7.8 H (1.8-7.7) th/mm3 Lymph # (Auto) 0.5 L (1.0-4.8) th/mm3 [place]mer # (Auto) 0.3 (0.0-0.9) th/mm3 Eos # (Auto) 0.0 (0.0-0.4) th/mm3 Baso # (Auto) 0.0 (0.0-0.2) th/mm3 Comprehensive Metabolic Panel 12/18/17 Range/Units 04:36 Sodium 139 (136-145) meq/L Potassium 5.9 H D (3.5-5.1) meq/L Chloride 107 (98-107) meq/L Carbon Dioxide 19.8 L (21.0-32.0) meq/L BUN 76 H (7-18) mg/dL Creatinine 12.96 H* D (0.60-1.30) mg/dL Calcium 8.7 (8.5-10.1) mg/dL Albumin 3.7 (3.4-5.0) g/dL Intake and Output 12/17/17 12/18/17 12/18/17 22:59 06:59 14:59 Intake Total Output Total 1999 Balance -1999 Intake: IV Heparin/NS PF Inj 1,000 ML @ 0 mls/hr .ROUTE .[facility] Rx#: [id number] Output: Hemodialysis Amount 1999 Other: Date of Last Bowel Movement 12/16/17 Weight 88.1 kg Assessment and Plan - Assessment (1) CAD (coronary artery disease) Code(s): I25.10 - Atherosclerotic heart disease of [place] coronary artery without angina pectoris Status: Acute (2) Unstable angina Code(s): I20.0 - Unstable angina Status: Acute (3) ESRD (end stage renal disease) Code(s): N18.6 - End stage renal disease Status: Acute (4) Hypertension Code(s): I10 - Essential (primary) hypertension Status: Acute (5) Chest pain, rule out acute myocardial infarction Code(s): R07.9 - Chest pain, unspecified Status: Acute - Plan 1.) CAD - pod #1 ptca isr mid rca, [place] resolved, continue aspirin and plavix; moderate risk for noncardiac procedure
[2017-12-18] MEDS: Calcium Acetate 667 MG Capsule PO SCH ×2 (17:36→19:52)
[2017-12-18] MEDS: Gabapentin 300 MG Capsule PO SCH (17:44)
[2017-12-18] MEDS: Vitamin B Complex/Vit C/Folic Tablet PO SCH (17:46)
[2017-12-18 18:14] VITALS: BP 119/56; TEMP 97.5
[2017-12-18] MEDS: amLODIPine 10 MG Tablet PO SCH (19:51)
[2017-12-18] MEDS: Pantoprazole Inj 40 MG Vial IV.PUSH SCH ×2 (19:52→21:38)
[2017-12-18] MEDS: Lisinopril 10 MG Tablet PO SCH (21:37)
[2017-12-18] MEDS: Insulin Detemir Inj 1,000 UNIT/10 ML Vial SQ SCH (21:39)
[2017-12-19 04:51] LABS: Albumin 3.3 g/dL (3.4-5.0); Calcium 7.9 mg/dL (8.5-10.1); Carbon Dioxide 28.5 meq/L (21.0-32.0); Chol/HDL Ratio 4.53 Ratio; HDL Cholesterol 24.5 mg/dL (40.0-60.0); Total Protein 6.5 g/dL (6.4-8.2)
[2017-12-19 08:21] VITALS: O2SAT 95
--- NOTE | 2017-12-19 10:09 | P.DS ---
Date of admission: 12/16/17 12:53 Primary care physician: Eunice Riggs Brief History from admission: 67 y/o male with a history of ESRD on hemodialysis, CVA, HTN, DM, and hypothyroid presented to the ED with complaints of sob and chest pain. Patient was at dialysis today when he developed chest pain and dialysis was then stopped. He states his chest pain has been a 6/10, intermittent to the Left lower chest, with increasing shortness of breath. NO radiation or associated symptoms. Patient states nothing makes it worse or better. He states one week ago he had a stress test and failed it outpatient. No cardiac cath was scheduled. He is due to follow up with Dr. Daily. He denies any blood in his stool, or urine. No fever or chills noted. DS: Medications - Discharge Medications Prescriptions: atorvastatin 40 mg PO HS #30 tab DS: Summary Hospital Course: Patient was admitted with chest pain. Patient was noted suspicion for GI bleed but he deferred colonoscopy for outpatient, hemoglobin remained stable underwent cardiac cath. Patient was to remain on aspirin and Plavix per cardiology, including through any future procedures such as a colonoscopy because it would be high risk otherwise to come off of them. He had a dialysis session on the day of departure. Patient has met maximal benefit from hospitalization is clinically stable for discharge. He is to get a colonoscopy as an outpatient. Patient was clearly instructed to refrain from operating any heavy machinery or driving given his history of what sounds like syncopal episodes. Was instructed to follow-up with cardiology for possible loop recorder placement and to follow-up with his PCP. - Time Spent with Patient Total time spent providing and/or coordinating discharge services: Less than 30 minutes - Quality: VTE Deep Vein Thrombosis/Pulmonary Embolism Present on Admission: No Exam Vital signs: Vital Signs 12/18/17 11:00 12/18/17 12:00 12/18/17 13:00 Pulse Rate 62 68 66 Pulse Oximetry 12/18/17 14:00 12/18/17 15:00 12/18/17 16:00 Pulse Rate 76 74 70 Pulse Oximetry 12/18/17 17:00 12/18/17 18:00 12/18/17 19:00 Pulse Rate 66 77 63 Pulse Oximetry 12/18/17 19:59 12/18/17 23:00 12/19/17 02:00 Pulse Rate 64 59 L Pulse Oximetry 96 12/19/17 03:00 12/19/17 04:00 12/19/17 06:00 Pulse Rate 55 L 53 L 73 Pulse Oximetry 12/19/17 07:00 12/19/17 08:00 12/19/17 09:16 Pulse Rate 59 L 59 L Pulse Oximetry 95 95 Intake & Output 12/18/17 12/19/17 12/19/17 18:59 06:59 18:59 Intake Total 240 / 240 Output Total 1999 Balance -1999 240 / 240 Weight 87.7 kg Intake: Oral 240 / 240 Output: Hemodialysis Amount 1999 Other: # Voids 2 Narrative: Heart sounds regular rate rhythm, no murmurs Clear lungs bilaterally, unlabored breathing - Constitutional chronically ill appearing Results Procedures completed during hospitalization: Cardiac catheterization ptca isr mid rca Labs on day of discharge: Labs from last 24 hours 12/19/17 12/19/17 12/18/17 07:49 03:52 20:27 Sodium 138 Potassium 4.0 D Chloride 103 Carbon Dioxide 28.5 Anion Gap 7 BUN 55 H Creatinine 10.02 H* D Estimated GFR 6 L POC Glucose 99 176 H Random Glucose 140 H Calcium 7.9 L D Total Bilirubin 0.4 Direct Bilirubin 0.1 Indirect Bilirubin 0.3 AST 10 L ALT 10 L Alkaline Phosphatase 69 Total Protein 6.5 Albumin 3.3 L Triglycerides 143 Cholesterol 111 L LDL Cholesterol, Calc 58 HDL Cholesterol 24.5 L Cholesterol/HDL Ratio 4.53 12/18/17 12/18/17 12/18/17 17:10 13:10 10:45 Sodium Potassium Chloride Carbon Dioxide Anion Gap BUN Creatinine Estimated GFR POC Glucose 252 H 101 111 H Random Glucose Calcium Total Bilirubin Direct Bilirubin Indirect Bilirubin AST ALT Alkaline Phosphatase Total Protein Albumin Triglycerides Cholesterol LDL Cholesterol, Calc HDL Cholesterol Cholesterol/HDL Ratio - Impressions ITS Impressions Chest X-Ray 12/15/17 13:24 CONCLUSION: Cardiomegaly with slight interstitial prominence. No change. Discharge Plan - Discharge Disposition Patient Disposition: 01 Discharge Home - Discharge Condition Condition: Fair - Discharge Order Discharge Orders: Discharge Order (Routine); Ordered 12/19/17 Ordered By: Den Joseph Nephrology Clear for Discharge (Routine); Ordered 12/19/17 Ordered By: Romina Krishnamurthy - Discharge Details Discharge Comment: DC once cleared w/ cardiology and nephrology - Physicians Team Primary Care Provider: Eunice Riggs Attending Provider: Den Joseph Other Providers: Doe Daily MD ; Romina Krishnamurthy MD ; Easton Kruger MD
--- NOTE | 2017-12-19 10:49 | P.PNCA ---
Subjective Interval history: assymptomatic in nad Medications and Allergies Active Medications: Active Medications Amlodipine Besylate (Norvasc) 10 mg PO DAILY [facility] Last Admin: 12/18/17 19:51 Dose: Not Given Aspirin (Aspirin Chew) 81 mg PO DAILY [facility] Last Admin: 12/18/17 17:44 Dose: 81 mg Calcium Acetate (Phoslo) 2,001 mg PO TID [facility] Last Admin: 12/18/17 19:52 Dose: Not Given Clopidogrel Bisulfate (Plavix) 75 mg PO DAILY [facility] Last Admin: 12/18/17 17:44 Dose: 75 mg Dextrose (D50w Vial) 50 ml IV.PUSH UNSCH PRN PRN Reason: PER HYPOGLYCEMIA PROTOCOL Diphenhydramine HCl (Benadryl) 25 mg PO UNSCH PRN PRN Reason: SEE LABEL COMMENTS Epoetin Linus (Epogen Inj) 10,000 unit IV.PUSH UNSCH PRN PRN Reason: SEE LABEL COMMENTS Gabapentin (Neurontin) 300 mg PO DAILY [facility] Last Admin: 12/18/17 17:44 Dose: 300 mg Gelatin (Gelfoam 12 Mm/7 Mm Topical) 1 foam TOPICAL PRN PRN PRN Reason: help stop bleeding from site Glucagon (Glucagon Inj) 1 mg OTHER PRN PRN PRN Reason: for Hypoglycemia Protocol Heparin Sodium (Porcine) (Heparin Inj) 8,000 units OTHER WITH DIALYSIS PRN PRN Reason: for machine prime Albumin Human (Flexbumin 25% Inj) 100 mls @ 60 mls/hr IV.SIG WITH DIALYSIS PRN PRN Reason: hypotension / volume replace Sodium Chloride (Ns Inj) 1,000 mls @ 0 mls/hr OTHER .Q0M PRN PRN Reason: for prime and rinse back Sodium Chloride (Ns Inj) 1,000 mls @ 200 mls/hr OTHER .Q5H PRN PRN Reason: for dialyzer flush PRN Sodium Chloride (Ns Inj) 1,000 mls @ 0 mls/hr IV.CONT .Q0M PRN PRN Reason: hypotension / volume replace Insulin Aspart (Novolog Insulin Correctional Sugar Inj) 0 unit SQ ACHS [facility]; Protocol Last Admin: 12/18/17 21:39 Dose: 2 unit Insulin Detemir (Levemir Inj) 35 unit SQ HS [facility] Last Admin: 12/18/17 21:39 Dose: Not Given Lisinopril (Prinivil) 10 mg PO HS [facility] Last Admin: 12/18/17 21:37 Dose: 10 mg Mannitol (Mannitol Inj) 12.5 gm IV.PUSH UNSCH PRN PRN Reason: hypotension / volume replace Metoprolol Succinate (Toprol Xl) 25 mg PO DAILY [facility] Last Admin: 12/18/17 17:45 Dose: 25 mg Nitroglycerin (Nitrostat Sl) 0.4 mg SL Q5M PRN PRN Reason: CHEST PAIN Ondansetron HCl (Zofran Inj) 4 mg IV.PUSH Q6H PRN PRN Reason: NAUSEA OR VOMITING Ondansetron HCl (Zofran Inj) 4 mg IV.PUSH UNSCH PRN PRN Reason: NAUSEA OR VOMITING Pantoprazole Sodium (Protonix Inj) 40 mg IV.PUSH Q12H [facility] Last Admin: 12/18/17 21:38 Dose: 40 mg Sodium Chloride (Ns Flush) 5 ml IV.FLUSH PRN PRN PRN Reason: flush each lumen during HD Sodium Chloride (Ns Flush) 2 ml IV.FLUSH BID [facility] Last Admin: 12/18/17 21:38 Dose: 2 ml Sodium Chloride (Ns Flush) 2 ml IV.FLUSH PRN PRN PRN Reason: FLUSH AFTER USING IV ACCESS Vitamin B Complex/Vit C/Folic Acid (Nephrocaps) 1 tab PO DAILY [facility] Last Admin: 12/18/17 17:46 Dose: 1 tab Allergies Allergy/AdvReac Type Severity Reaction Status Date / Time Iodinated Contrast- Oral and Allergy Severe Swelling Verified 11/17/17 15:42 IV Dye shellfish derived Allergy Severe Swelling Verified 11/17/17 15:42 diphenhydramine Allergy Hives Verified 12/16/17 22:38 [From [facility]] Home Medications Medication Instructions Recorded Confirmed Type B complex-vitamin C-folic acid 1 tab PO DAILY 11/17/17 12/15/17 History [Gaby-Cruz] amlodipine 10 mg PO DAILY 11/17/17 12/15/17 History aspirin 81 mg PO DAILY 11/17/17 12/15/17 History calcium acetate 2 - 3 tab PO TID 11/17/17 12/15/17 History clopidogrel 75 mg PO DAILY 11/17/17 12/15/17 History gabapentin 300 mg PO TID 11/17/17 12/15/17 History lisinopril 10 mg PO HS 11/17/17 12/15/17 History metoprolol succinate 25 mg PO DAILY 11/17/17 12/15/17 History omeprazole 40 mg PO DAILY 11/17/17 12/15/17 History insulin glargine [Lantus Solostar 35 unit SUBCUT HS 12/15/17 12/15/17 History U-100 Insulin] ranitidine HCl [Zantac] 150 mg PO DAILY 12/15/17 12/15/17 History Physical Exam Vital signs: Vital Signs 12/18/17 11:00 12/18/17 12:00 12/18/17 13:00 Pulse Rate 62 68 66 Pulse Oximetry 12/18/17 14:00 12/18/17 15:00 12/18/17 16:00 Pulse Rate 76 74 70 Pulse Oximetry 12/18/17 17:00 12/18/17 18:00 12/18/17 19:00 Pulse Rate 66 77 63 Pulse Oximetry 12/18/17 19:59 12/18/17 23:00 12/19/17 02:00 Pulse Rate 64 59 L Pulse Oximetry 96 12/19/17 03:00 12/19/17 04:00 12/19/17 06:00 Pulse Rate 55 L 53 L 73 Pulse Oximetry 12/19/17 07:00 12/19/17 08:00 12/19/17 09:16 Pulse Rate 59 L 59 L Pulse Oximetry 95 95 Intake & Output 12/18/17 12/19/17 12/19/17 18:59 06:59 18:59 Intake Total 240 / 240 Output Total 1999 Balance -1999 / -1999 240 / 240 Weight 87.7 kg Intake: Oral 240 / 240 Output: Hemodialysis Amount 1999 Other: # Voids 2 - Constitutional no acute distress - Routine HEENT Exam Head: Present: normocephalic, atraumatic - Routine Respiratory Exam Present: CTA bilaterally - Routine Cardiovascular Exam Present: S1, S2 - Routine Abdominal Exam Present: soft - Routine Extremities Exam Comments: no lesvia Results 12/18/17 04:36 12/19/17 03:52 Cardiac Enzymes 12/19/17 Range/Units 03:52 AST 10 L (15-37) U/L Lipids 12/19/17 Range/Units 03:52 Triglycerides 143 (42-150) mg/dL Cholesterol 111 L (120-200) mg/dL HDL Cholesterol 24.5 L (40.0-60.0) mg/dL Cholesterol/HDL Ratio 4.53 Ratio CBC 12/18/17 Range/Units 04:36 WBC 8.6 (4.0-11.0) th/mm3 RBC 2.30 L (4.50-5.90) mil/mm3 Hgb 8.4 L (13.0-17.0) gm/dL Hct 25.0 L (39.0-51.0) % Plt Count 202 (150-450) th/mm3 Neut # (Auto) 7.8 H (1.8-7.7) th/mm3 Lymph # (Auto) 0.5 L (1.0-4.8) th/mm3 Dent # (Auto) 0.3 (0.0-0.9) th/mm3 Eos # (Auto) 0.0 (0.0-0.4) th/mm3 Baso # (Auto) 0.0 (0.0-0.2) th/mm3 Comprehensive Metabolic Panel 12/18/17 12/19/17 Range/Units 04:36 03:52 Sodium 139 138 (136-145) meq/L Potassium 5.9 H D 4.0 D (3.5-5.1) meq/L Chloride 107 103 (98-107) meq/L Carbon Dioxide 19.8 L 28.5 (21.0-32.0) meq/L BUN 76 H 55 H (7-18) mg/dL Creatinine 12.96 H* D 10.02 H* D (0.60-1.30) mg/dL Calcium 8.7 7.9 L D (8.5-10.1) mg/dL Direct Bilirubin 0.1 (0.0-0.2) mg/dL Indirect Bilirubin 0.3 (0.0-0.8) mg/dL AST 10 L (15-37) U/L ALT 10 L (12-78) U/L Alkaline Phosphatase 69 (45-117) U/L Total Protein 6.5 (6.4-8.2) g/dL Albumin 3.7 3.3 L (3.4-5.0) g/dL Intake and Output 12/18/17 12/19/1718 22:59 06:59 14:59 Intake Total 240 / 240 Balance 240 / 240 Intake: Oral 240 / 240 Other: # Voids 2 Weight 87.7 kg Assessment and Plan - Assessment (1) CAD (coronary artery disease) Code(s): I25.10 - Atherosclerotic heart disease of [place] coronary artery without angina pectoris Status: Acute (2) Unstable angina Code(s): I20.0 - Unstable angina Status: Acute (3) ESRD (end stage renal disease) Code(s): N18.6 - End stage renal disease Status: Acute (4) Hypertension Code(s): I10 - Essential (primary) hypertension Status: Acute (5) Chest pain, rule out acute myocardial infarction Code(s): R07.9 - Chest pain, unspecified Status: Acute - Plan 1.) CAD - pod #2 ptca isr mid rca, [place] resolved, continue aspirin and plavix; moderate risk for noncardiac procedure; i advised patient to f/u with me in office alonso, he understands
--- NOTE | 2017-12-19 11:14 | P.PNNP ---
Subjective Interval history: Patient is upset that he has to do dialysis again continue to argue that he do not want to wait till Friday Physical Exam Vital signs: Vital Signs 12/18/17 12:00 12/18/17 13:00 12/18/17 14:00 Pulse Rate 68 66 76 Pulse Oximetry 12/18/17 15:00 12/18/17 16:00 12/18/17 17:00 Pulse Rate 74 70 66 Pulse Oximetry 12/18/17 18:00 12/18/17 19:00 12/18/17 19:59 Pulse Rate 77 63 Pulse Oximetry 96 12/18/17 23:00 12/19/17 02:00 12/19/17 03:00 Pulse Rate 64 59 L 55 L Pulse Oximetry 12/19/17 04:00 12/19/17 06:00 12/19/17 07:00 Pulse Rate 53 L 73 59 L Pulse Oximetry 12/19/17 08:00 12/19/17 09:16 Pulse Rate 59 L Pulse Oximetry 95 95 Intake & Output 12/18/17 12/19/17 12/19/17 18:59 06:59 18:59 Intake Total 240 / 240 Output Total 1999 Balance -1999 240 / 240 Weight 87.7 kg Intake: Oral 240 / 240 Output: Hemodialysis Amount 1999 Other: # Voids 2 Narrative: Heart sounds regular rate rhythm, no murmurs Clear lungs bilaterally, unlabored breathing Assessment and Plan - Assessment (1) ESRD (end stage renal disease) Code(s): N18.6 - End stage renal disease Status: Acute (2) Weakness Code(s): R53.1 - Weakness Status: Acute (3) Hypertension Code(s): I10 - Essential (primary) hypertension Status: Acute (4) Chest pain, rule out acute myocardial infarction Code(s): R07.9 - Chest pain, unspecified Status: Acute (5) GI bleed Code(s): K92.2 - Gastrointestinal hemorrhage, unspecified Status: Acute Qualifiers: GI bleed type/associated pathology: melena Qualified Code(s): K92.1 - Melena - Plan Patient is seen he follows with Dr. Day Hemodialysis discussed with him in detail that needs to be done 3 times a week, patient continued to argue with me I told him either he has to do it today or wait till tomorrow for his safety we cannot leave him 3 days without dialysis He stated that he has been noncompliant as outpatient and missed Friday on regular basis We told him he had heart procedure dye study and stent placed it is unsafe to leave him without dialysis for 3 days If he wants to do that than leave AGAINST MEDICAL ADVICE He then got upset why I am using AGAINST MEDICAL ADVICE argument And then with intervention of in charge nurse he finally calmed down and stated he will do his dialysis today Patient remains very irate He had repeatedly saying he wants to chino me for advising the dialysis treatment 1550 pm seen at dialysis UF 2 L tolerated it well
[2017-12-19] MEDS: Insulin NovoLOG Aspart Correctional Sugar Inj SQ SCH ×2 (12:22→17:00)
[2017-12-19 17:20] VITALS: PULSE 59
[2017-12-19] MEDS: Vitamin B Complex/Vit C/Folic Tablet PO SCH (18:27)
[2017-12-19] MEDS: amLODIPine 10 MG Tablet PO SCH (18:27)
[2017-12-19] MEDS: Calcium Acetate 667 MG Capsule PO SCH ×2 (18:27→18:28)
[2017-12-19] MEDS: Gabapentin 300 MG Capsule PO SCH (18:27)
[2017-12-19] MEDS: Pantoprazole Inj 40 MG Vial IV.PUSH SCH (18:29)
== END 2017-12-19 18:15 | disposition home or self-care (01) ==
LOC: NEPE 12:58 → NEDA 12:58 → NEPGCP 20:41 → N04 12-16 21:15 → HCIS 12-17 14:41 → HCPC 12-17 16:38
PROVIDERS: ADMIT Hospitalist; ATTEND Hospitalist

== ENCOUNTER 2017-12-29 12:00 | Observation (INO) ==
--- NOTE | 2017-12-29 15:11 | ED ---
HPI General Chief complaint: Eye Problems Stated complaint: Pressure Time Seen by Provider: 12/29/17 14:35 Source: patient Mode of arrival: EMS Limitations: no limitations History of Present Illness HPI Narrative: Patient is a 67-year-old male that is here today for left eye visual changes-seeing double out of L eye as well as pain over temporal artery, pt states "you can feel it pulsating". He states that pain has been intermittent for the past 2 months however became worse today during dialysis so dialysis was stopped early, he only received approximately 15 minutes and EMS was called. Light makes it much worse, nothing has made it better. He does have a history of end-stage renal disease with dialysis, hypertension, previous stroke, GI bleed, anemia, CAD, and right temporal arteritis that required surgery. MD chief complaint: Reports eye pain and vision change Onset (ago): month(s) Onset description: gradual (worse today during dialysis) Duration: constant Location: Reports left eye Eye Symptoms: Reports decreased vision, blurry vision and photophobia Place: other Mechanism: none Severity: moderate Severity scale (1-10): 5 If Pain, Quality: throbbing Treatments Prior to Arrival: Reports none Related Data Home Medications Medication Instructions Recorded Confirmed B complex-vitamin C-folic acid 1 tab PO DAILY 11/17/17 12/29/17 [Gaby-Cruz] amlodipine 10 mg PO DAILY 11/17/17 12/29/17 aspirin 81 mg PO DAILY 11/17/17 12/29/17 calcium acetate 2 - 3 tab PO TID 11/17/17 12/29/17 clopidogrel 75 mg PO DAILY 11/17/17 12/29/17 gabapentin 300 mg PO TID 11/17/17 12/29/17 lisinopril 10 mg PO HS 11/17/17 12/29/17 metoprolol succinate 25 mg PO DAILY 11/17/17 12/29/17 omeprazole 40 mg PO DAILY 11/17/17 12/29/17 insulin glargine [Lantus Solostar 35 unit SUBCUT HS 12/15/17 12/29/17 U-100 Insulin] ranitidine HCl [Zantac] 150 mg PO DAILY 12/15/17 12/29/17 Previous Rx's Medication Instructions Recorded atorvastatin 40 mg PO HS #30 tab 12/19/17 Allergies Allergy/AdvReac Type Severity Reaction Status Date / Time Iodinated Contrast- Oral and Allergy Severe Swelling Verified 11/17/17 15:42 IV Dye shellfish derived Allergy Severe Swelling Verified 11/17/17 15:42 diphenhydramine Allergy Hives Verified 12/16/17 22:38 [From [place]] Review of Systems ROS: all other systems reviewed are negative [facility] Medical History Medical History GERD (gastroesophageal reflux disease) (Acute) Prostate cancer (Acute) AV fistula (Acute) Anemia (Acute) CAD (coronary artery disease) (Acute) CVA (cerebral vascular accident) (Acute) Diabetes (Acute) Dialysis patient (Acute) ESRD (end stage renal disease) (Acute) HTN (hypertension) (Acute) Hypokalemia (Acute) TIA (transient ischemic attack) (Acute) Temporal arteritis (Acute) Surgical History Surgical History H/O prostatectomy (Acute) History of ankle surgery (Acute) History of cardiac catheterization (Acute) History of knee surgery (Acute) Social History Social History Substance History: No History of Abuse Second Hand Smoke Exposure: No Smoking Status: Former smoker Tobacco Type: Cigarettes How Often Do You Have a Drink Containing Alcohol: Never Recent Travel in [facility] within the Last 8 Weeks: No Recent Out of Country Travel within the Last 8 Weeks: No Immunization History Tetanus Immunization: <5 Years Exam Narrative Exam Narrative: GENERAL: Pt awake, alert, oriented. No acute distress. Speech clear, face is symmetrical. SKIN: Focused skin assessment warm/dry. HEAD: Atraumatic. Normocephalic. EYES: Pupils equal and round reactive. In the direct light, both are approx 2- 3 mm equal. No scleral icterus. No injection or drainage. (+) cataracts bilaterally. ENT: No nasal bleeding or discharge. Mucous membranes pink and moist. NECK: Trachea midline. No JVD. CARDIOVASCULAR: Regular rate and rhythm. No murmur appreciated. RESPIRATORY: No accessory muscle use. Clear to auscultation. Breath sounds equal bilaterally. GASTROINTESTINAL: Abdomen soft, non-tender, nondistended. Hepatic and splenic margins not palpable. (+) bowel sounds bilaterally. MUSCULOSKELETAL: No obvious deformities. No clubbing. No cyanosis. No edema. NEUROLOGICAL: Awake and alert. No obvious cranial nerve deficits. Motor grossly within normal limits. Normal speech.Strong equal scarrer bilaterally at 4 (+). Leg strength equal and approx 3 (+) bilaterally, which pt states is normal for him. He ambulates with a cane. PSYCHIATRIC: Appropriate mood and affect; insight and judgment normal. Course Initial Documented Vital Signs Temperature 98.2 F 12/29/17 14:32 Pulse Rate 54 L 12/29/17 14:32 Respiratory Rate 16 12/29/17 14:32 Blood Pressure 152/70 H 12/29/17 14:32 Pulse Oximetry 100 12/29/17 14:32 Last Documented Vital Signs Temperature 97.9 F 12/30/17 12:00 Pulse Rate 68 12/30/17 12:00 Respiratory Rate 18 12/30/17 12:00 Blood Pressure 165/74 H 12/30/17 12:00 Pulse Oximetry 99 12/30/17 12:00 Medical Decision Making MDM Narrative Medical decision making narrative: Pt is medically complex that was getting dialysis today and states his L eye discomfort and photophobia became much worse. He also developed double vision in this eye. He states dialysis was stopped after 15 minutes and he was brought here by EMS. See hpi for description. Hx cva as well as temporal arteritis. CT brain ordered, visual acuity ordered, cbc, esr, cmp. Numbed both eyes with proparacaine- LEFT ocular pressure=24 RIGHT ocular pressure= 20 Multiple abnormalities on his lab work however none of it is unexpected as he is a dialysis patient. There is nothing that needs acute management at this time. I spoke with ophthalmology, Dr. Pagan, who stated to admit patient for possible vascular enteritis and to go ahead and administer IV Solu-Medrol 1000 mg IV. Requested to admit through [facility] and also possibly consult general surgery. Patient aware of this [facility] consulted at 1700 I spoke directly with the nurse practitioner for them. She is currently evaluating patient will place admission orders patient stable for admission. Medical Screen Exam Complete: Yes Emergency Medical Condition: Yes Differential Diagnosis Differential Diagnosis: CVA, temporal arteritis on L, foreign body. Lab Data Lab results reviewed: Yes I reviewed the patient's lab results. Result diagrams: 12/29/17 15:10 12/30/17 13:14 Lab Results 12/29/17 12/29/17 12/29/17 Range/Units 15:10 15:10 15:10 WBC 6.9 (4.0-11.0) th/mm3 RBC 2.81 L (4.50-5.90) mil/mm3 Hgb 9.8 L (13.0-17.0) gm/dL Hct 30.6 L (39.0-51.0) % MCV 108.8 H (80.0-100.0) fL MCH 34.9 H (27.0-34.0) pg MCHC 32.0 (32.0-36.0) % RDW 16.8 (11.6-17.2) % Plt Count 221 (150-450) th/mm3 MPV 7.6 (7.0-11.0) fL Neut % (Auto) 54.9 (16.0-70.0) % Lymph % (Auto) 21.7 (9.0-44.0) % [place] % (Auto) 5.8 (0.0-8.0) % Eos % (Auto) 16.3 H (0.0-4.0) % Baso % (Auto) 1.3 (0.0-2.0) % Neut # (Auto) 3.8 (1.8-7.7) th/mm3 Lymph # (Auto) 1.5 (1.0-4.8) th/mm3 [place]ett # (Auto) 0.4 (0.0-0.9) th/mm3 Eos # (Auto) 1.1 H (0.0-0.4) th/mm3 Baso # (Auto) 0.1 (0.0-0.2) th/mm3 WBC Differential . Differential Comment Auto diff final ESR 36 H (0-20) mm/hr Sodium 140 (136-145) meq/L Potassium 4.6 (3.5-5.1) meq/L Chloride 111 H (98-107) meq/L Carbon Dioxide 20.1 L (21.0-32.0) meq/L Anion Gap 9 (5-15) meq/L BUN 37 H (7-18) mg/dL Creatinine 10.54 H* (0.60-1.30) mg/dL Estimated GFR 6 L (>89) mL/min POC Glucose (68-110) mg/dl Random Glucose 73 L (74-106) mg/dL Calcium 8.4 L (8.5-10.1) mg/dL Total Bilirubin 0.4 (0.2-1.0) mg/dL AST 18 (15-37) U/L ALT 16 (12-78) U/L Alkaline Phosphatase 83 (45-117) U/L Total Protein 7.3 (6.4-8.2) g/dL Albumin 3.5 (3.4-5.0) g/dL 12/29/17 12/30/17 12/30/17 Range/Units 20:03 06:00 07:33 WBC (4.0-11.0) th/mm3 RBC (4.50-5.90) mil/mm3 Hgb (13.0-17.0) gm/dL Hct (39.0-51.0) % MCV (80.0-100.0) fL MCH (27.0-34.0) pg MCHC (32.0-36.0) % RDW (11.6-17.2) % Plt Count (150-450) th/mm3 MPV (7.0-11.0) fL Neut % (Auto) (16.0-70.0) % Lymph % (Auto) (9.0-44.0) % Burnett % (Auto) (0.0-8.0) % Eos % (Auto) (0.0-4.0) % Baso % (Auto) (0.0-2.0) % Neut # (Auto) (1.8-7.7) th/mm3 Lymph # (Auto) (1.0-4.8) th/mm3 Burnett # (Auto) (0.0-0.9) th/mm3 Eos # (Auto) (0.0-0.4) th/mm3 Baso # (Auto) (0.0-0.2) th/mm3 WBC Differential Differential Comment ESR (0-20) mm/hr Sodium 135 L (136-145) meq/L Potassium 6.8 H* D (3.5-5.1) meq/L Chloride 105 (98-107) meq/L Carbon Dioxide 18.2 L (21.0-32.0) meq/L Anion Gap 12 (5-15) meq/L BUN 44 H (7-18) mg/dL Creatinine 11.53 H* (0.60-1.30) mg/dL Estimated GFR 5 L (>89) mL/min POC Glucose 93 315 H (68-110) mg/dl Random Glucose 330 H D (74-106) mg/dL Calcium 8.3 L (8.5-10.1) mg/dL Total Bilirubin (0.2-1.0) mg/dL AST (15-37) U/L ALT (12-78) U/L Alkaline Phosphatase (45-117) U/L Total Protein (6.4-8.2) g/dL Albumin (3.4-5.0) g/dL 12/30/17 12/30/17 12/30/17 Range/Units 08:35 11:56 13:14 WBC (4.0-11.0) th/mm3 RBC (4.50-5.90) mil/mm3 Hgb (13.0-17.0) gm/dL Hct (39.0-51.0) % MCV (80.0-100.0) fL MCH (27.0-34.0) pg MCHC (32.0-36.0) % RDW (11.6-17.2) % Plt Count (150-450) th/mm3 MPV (7.0-11.0) fL Neut % (Auto) (16.0-70.0) % Lymph % (Auto) (9.0-44.0) % Burnett % (Auto) (0.0-8.0) % Eos % (Auto) (0.0-4.0) % Baso % (Auto) (0.0-2.0) % Neut # (Auto) (1.8-7.7) th/mm3 Lymph # (Auto) (1.0-4.8) th/mm3 Burnett # (Auto) (0.0-0.9) th/mm3 Eos # (Auto) (0.0-0.4) th/mm3 Baso # (Auto) (0.0-0.2) th/mm3 WBC Differential Differential Comment ESR (0-20) mm/hr Sodium (136-145) meq/L Potassium 5.7 H D (3.5-5.1) meq/L Chloride (98-107) meq/L Carbon Dioxide (21.0-32.0) meq/L Anion Gap (5-15) meq/L BUN (7-18) mg/dL Creatinine (0.60-1.30) mg/dL Estimated GFR (>89) mL/min POC Glucose 339 H 340 H (68-110) mg/dl Random Glucose (74-106) mg/dL Calcium (8.5-10.1) mg/dL Total Bilirubin (0.2-1.0) mg/dL AST (15-37) U/L ALT (12-78) U/L Alkaline Phosphatase (45-117) U/L Total Protein (6.4-8.2) g/dL Albumin (3.4-5.0) g/dL Imaging Data Radiologist's impression: Head CT 12/29/17 14:54 CONCLUSION: No acute intracranial findings Discharge Plan Discharge Disposition Patient Disposition: 30 Still Patient Discharge Condition Condition: Stable Discharge Order Discharge Orders: Discharge Order (Routine); Ordered 12/30/17 Ordered By: Jess Velazquez Physicians Team ED Provider: Alen Sommer ED Midlevel Provider: Jess Velazquez Primary Care Provider: Eunice Riggs Attending Provider: Eduard Arora Other Providers: Romina Krishnamurthy Nishita Discharge Interventions Interventions: ED Discharge Assessment Last Done: 12/29/17 18:22 Status ED Status: Left Department Discharge Information Discharge Date/Time: 12/29/17 18:23
[2017-12-29 15:27] LABS: Baso # (Auto) 0.1 th/mm3 (0.0-0.2); Baso % (Auto) 1.3 % (0.0-2.0); Eos # (Auto) 1.1 th/mm3 (0.0-0.4); Eos % (Auto) 16.3 % (0.0-4.0); Hematocrit 30.6 % (39.0-51.0); Hemoglobin 9.8 gm/dL (13.0-17.0); Lymph # (Auto) 1.5 th/mm3 (1.0-4.8); Lymph % (Auto) 21.7 % (9.0-44.0); Mean Corpuscular Hemoglobin 34.9 pg (27.0-34.0); Mean Corpuscular Volume 108.8 fL (80.0-100.0); Mean Platelet Volume 7.6 fL (7.0-11.0); Mono # (Auto) 0.4 th/mm3 (0.0-0.9); Mono % (Auto) 5.8 % (0.0-8.0); Neut # (Auto) 3.8 th/mm3 (1.8-7.7); Neut % (Auto) 54.9 % (16.0-70.0); Platelet Count 221 th/mm3 (150-450); Red Blood Count 2.81 mil/mm3 (4.50-5.90); Red Cell Distribution Width 16.8 % (11.6-17.2); White Blood Count 6.9 th/mm3 (4.0-11.0)
[2017-12-29 15:43] LABS: Alanine Aminotransferase 16 U/L (12-78); Albumin 3.5 g/dL (3.4-5.0); Anion Gap 9 meq/L (5-15); Aspartate Aminotransferase 18 U/L (15-37); Blood Urea Nitrogen 37 mg/dL (7-18); Calcium 8.4 mg/dL (8.5-10.1); Carbon Dioxide 20.1 meq/L (21.0-32.0); Chloride 111 meq/L (98-107); Glomerular Filtration Rate 6 mL/min (>89); Glucose,Random 73 mg/dL (74-106); Potassium 4.6 meq/L (3.5-5.1); Sodium 140 meq/L (136-145)
[2017-12-29 15:46] LABS: Alkaline Phosphatase 83 U/L (45-117); Total Protein 7.3 g/dL (6.4-8.2)
--- NOTE | 2017-12-29 16:28 | CT ---
EXAM DATE: 12/29/2017 3:14 PM EDT AGE/SEX: 67 years / Male INDICATIONS: Left sided visual disturbances and headache for two weeks. CLINICAL DATA: This is the patient's initial encounter. Patient reports that signs and symptoms have been present for 1 day and indicates a pain score of 4/10. MEDICAL/SURGICAL HISTORY: Cardiovascular disease. Cerebrovascular disease. Transient ischemic att ack. End stage renal disease, anemia, av fistula, diabetes, temporal arthritis. . Cardiac cath, rig ht temporal bone surgery. RADIATION DOSE: 39.73 CTDI (mGy) [place] [facility] [place]/17/[place]. . TECHNIQUE: CT of the head without contrast. Using automated exposure control and adjustment of the mA and/or kV according to patient size, radiation dose was kept as low as reasonably achievable to ob tain optimal diagnostic quality images. DICOM format image data is available electronically for revi ew and comparison. FINDINGS: Cerebrum: The ventricles are normal for age. No evidence of midline shift, mass lesion, hemorrhage or acute infarction. No extraaxial fluid collections are seen. Posterior Fossa: The cerebellum and brainstem are intact. The 4th ventricle is midline. The cerebe llopontine angle is unremarkable. Extracranial: The visualized portion of the orbits is intact. Skull: The calvaria is intact. No evidence of skull fracture. CONCLUSION: No acute intracranial findings Electronically signed by: Andrey Adamson MD 12/29/2017 4:27 PM EDT
[2017-12-29] MEDS ORDERED: MethylPREDNISolone Sod Suc Inj 1,000 MG in Sodium Chlor 0.9% Inj 100 ML IV.SIG ONE (16:58)
[2017-12-29] MEDS ORDERED: Acetaminophen 325 MG Tablet PO PRN (17:15)
[2017-12-29] MEDS ORDERED: Bisacodyl 10 MG Supp RECTAL PRN (17:15)
[2017-12-29] MEDS ORDERED: Heparin - SQ 10,000 UNITS/ML Vial SQ SCH (17:15)
--- NOTE | 2017-12-29 17:17 | P.HP ---
History of Present Illness Service: [facility] Primary Care Physician: Eunice Riggs DO Chief Complaint: "My left eye started to hurt" History of Present Illness: 67-year-old pleasant -[place] male with past medical history significant for HTN, [place] with stenting in the past, CVA, TIA, ESRD on chronic HD for the past 3 years (Friday, Friday, Friday), temporal arteritis, prostate cancer and GERD who presents to the emergency department with complaints of left eye vision changes as well as temporal pain. Patient reports that back in 2011 he had a biopsy done of the right side and was treated for temporal arteritis he reports that today he has been having symptoms similar on the left side. Patient states that he has been having temporal tenderness as well as pulsating sensation on the left side for about the past 2 weeks. Today he was being dialyzed when he began to have left eye and temporal pain which worsened, he also endorses tenderness to palpation on left temporal area. States that it felt as if there was blood in his eye. He reports that his eye has also been watery for the past 6 months, endorses photophobia, as well as blurred vision on the left side from time to time. He denies any scalp tenderness but does endorse some discomfort when turning his head to the left side. He denies any fevers, chills, cough, shortness of breath or chest pain. - Diagnosis (1) Temporal arteritis (2) Visual changes (3) ESRD (end stage renal disease) (4) Hypertension Review of Systems All other systems reviewed negative except as stated in [facility] - History History Provided By: Patient, Medical Record - Medical History Medical History: Medical History (Last Updated 12/29/17 @ 17:30 by Marina Mckeon) GERD (gastroesophageal reflux disease) Prostate cancer AV fistula Anemia CAD (coronary artery disease) CVA (cerebral vascular accident) Diabetes Dialysis patient ESRD (end stage renal disease) HTN (hypertension) Hypokalemia TIA (transient ischemic attack) Temporal arteritis - Surgical History Surgical History: Surgical History (Last Updated 12/29/17 @ 17:30 by Marina Mckeon) H/O prostatectomy History of ankle surgery History of cardiac catheterization History of knee surgery - Family History Family History: Family History (Last Reviewed 12/29/17 @ 17:27 by Marina Mckeon) Other CAD (coronary artery disease) Diabetes mellitus - Tobacco History Second Hand Smoke Exposure: No Smoking Status: Former smoker (Quit 1999) Tobacco Type: Cigarettes - Alcohol History How Often Do You Have a Drink Containing Alcohol: Monthly or less - Substance Use History Substance History: No History of Abuse - Travel History Recent Travel in the [place] Within the Last 8 Weeks: No Recent Travel Out of the Country Within the Last 8 Weeks: No - Immunization History Tetanus Immunization: <5 Years Medications and Allergies Active Medications: Active Medications Methylprednisolone Sodium Succinate 1,000 mg/ Sodium Chloride 116 mls @ 100 mls /hr IV.SIG ONCE ONE Stop: 12/29/17 18:07 Allergies Allergy/AdvReac Type Severity Reaction Status Date / Time Iodinated Contrast- Oral and Allergy Severe Swelling Verified 11/17/17 15:42 IV Dye shellfish derived Allergy Severe Swelling Verified 11/17/17 15:42 diphenhydramine Allergy Hives Verified 12/16/17 22:38 [From [facility]] Home Medications Medication Instructions Recorded Confirmed Type B complex-vitamin C-folic acid 1 tab PO DAILY 11/17/17 12/29/17 History [Gaby-Cruz] amlodipine 10 mg PO DAILY 11/17/17 12/29/17 History aspirin 81 mg PO DAILY 11/17/17 12/29/17 History calcium acetate 2 - 3 tab PO TID 11/17/17 12/29/17 History clopidogrel 75 mg PO DAILY 11/17/17 12/29/17 History gabapentin 300 mg PO TID 11/17/17 12/29/17 History lisinopril 10 mg PO HS 11/17/17 12/29/17 History metoprolol succinate 25 mg PO DAILY 11/17/17 12/29/17 History omeprazole 40 mg PO DAILY 11/17/17 12/29/17 History insulin glargine [Lantus Solostar 35 unit SUBCUT HS 12/15/17 12/29/17 History U-100 Insulin] ranitidine HCl [Zantac] 150 mg PO DAILY 12/15/17 12/29/17 History Exam Vital signs: Vital Signs 12/29/17 14:32 Temperature 98.2 F Pulse Rate 54 L Respiratory Rate 16 Blood Pressure 152/70 H Pulse Oximetry 100 Intake & Output 12/28/17 12/29/17 12/29/17 18:59 06:59 18:59 Weight 90.718 kg Narrative: GENERAL: Well-nourished, overweight -[place] male in no acute distress. SKIN: Warm and dry. HEAD: Atraumatic. Normocephalic. EYES: Pupils equal and round, reactive, 2mm bilaterally. EOMI. No scleral icterus. No injection or drainage. ENT: No nasal bleeding or discharge. Mucous membranes pink and moist. NECK: Trachea midline. No JVD. CARDIOVASCULAR: Regular rate and rhythm. Left upper arm fistula with positive bruit and thrill. RESPIRATORY: No accessory muscle use. Clear to auscultation. Breath sounds equal bilaterally. GASTROINTESTINAL: Abdomen soft, non-tender, nondistended. + Bowel sounds MUSCULOSKELETAL: Extremities without clubbing, cyanosis, or edema. No obvious deformities. NEUROLOGICAL: Awake, alert, oriented x3. No obvious cranial nerve deficits. Motor grossly within normal limits. Five out of 5 muscle strength in the arms and legs. Normal speech. PSYCHIATRIC: Appropriate mood and affect; insight and judgment normal. Results - Labs CBC & Chem 7: 12/29/17 15:10 12/29/17 15:10 Labs: Laboratory Results - last 24 hr 12/29/17 12/29/17 12/29/17 15:10 15:10 15:10 WBC 6.9 RBC 2.81 L Hgb 9.8 L Hct 30.6 L MCV 108.8 H MCH 34.9 H MCHC 32.0 RDW 16.8 Plt Count 221 MPV 7.6 Neut % (Auto) 54.9 Lymph % (Auto) 21.7 [place] % (Auto) 5.8 Eos % (Auto) 16.3 H Baso % (Auto) 1.3 Neut # (Auto) 3.8 Lymph # (Auto) 1.5 [place] # (Auto) 0.4 Eos # (Auto) 1.1 H Baso # (Auto) 0.1 WBC Differential . Differential Comment Auto diff final ESR 36 H Sodium 140 Potassium 4.6 Chloride 111 H Carbon Dioxide 20.1 L Anion Gap 9 BUN 37 H Creatinine 10.54 H* Estimated GFR 6 L Random Glucose 73 L Calcium 8.4 L Total Bilirubin 0.4 AST 18 ALT 16 Alkaline Phosphatase 83 Total Protein 7.3 Albumin 3.5 - Imaging Impressions Head CT 12/29/17 14:54 CONCLUSION: No acute intracranial findings Caprini VTE Risk Assessment Caprini VTE Risk Assessment: Moderate/High Risk (score >= 2) Caprini Risk Assessment Model: Point Value = 1 Point Value = 2 Point Value = 3 Point Value = 5 Age 41-60 Minor surgery BMI > 25 kg/m2 Swollen legs Varicose veins or History of unexplained or recurrent spontaneous Oral contraceptives or hormone replacement Sepsis (< 1 month) Serious lung disease, including pneumonia (< 1 month) Abnormal pulmonary function Acute myocardial infarction Congestive heart failure (< 1 month) History of inflammatory bowel disease Medical patient at bed rest Age 61-74 Arthroscopic surgery Major open surgery (> 45 min) Laparoscopic surgery (> 45 min) Malignancy Confined to bed (> 72 hours) Immobilizing plaster cast Central venous access Age >= 75 History of VTE Family history of VTE Factor V Leiden Prothrombin [id number] Lupus anticoagulant Anticardiolipin antibodies Elevated serum homocysteine Heparin-induced thrombocytopenia Other congenital or acquired thrombophilia Stroke (< 1 month) Elective arthroplasty Hip, pelvis, or leg fracture Acute spinal cord injury (< 1 month) Prophylaxis Regimen: Total Risk Factor Score Risk Level Prophylaxis Regimen 0-1 Low Early ambulation 2 Moderate Order ONE of the following: *Sequential Compression Device (SCD) *Heparin 5000 units SQ BID 3-4 Higher Order ONE of the following medications: *Heparin 5000 units SQ TID *Enoxaparin/Lovenox 40 mg SQ daily (WT < 150 kg, CrCl > 30 mL/min) *Enoxaparin/Lovenox 30 mg SQ daily (WT < 150 kg, CrCl > 10-29 mL/min) *Enoxaparin/Lovenox 30 mg SQ BID (WT < 150 kg, CrCl > 30 mL/min) AND/OR *Sequential Compression Device (SCD) 5 or more Highest Order ONE of the following medications: *Heparin 5000 units SQ TID (Preferred with Epidurals) *Enoxaparin/Lovenox 40 mg SQ daily (WT < 150 kg, CrCl > 30 mL/min) *Enoxaparin/Lovenox 30 mg SQ daily (WT < 150 kg, CrCl > 10-29 mL/min) *Enoxaparin/Lovenox 30 mg SQ BID (WT < 150 kg, CrCl > 30 mL/min) AND *Sequential Compression Device (SCD) Assessment and Plan - Assessment (1) Temporal arteritis Code(s): M31.6 - Other giant cell arteritis Status: Acute (2) Visual changes Code(s): H53.9 - Unspecified visual disturbance Status: Acute (3) ESRD (end stage renal disease) Code(s): N18.6 - End stage renal disease Status: Chronic (4) Hypertension Code(s): I10 - Essential (primary) hypertension Status: Chronic - Plan 67-year-old pleasant -[place] male with past medical history significant for HTN, [place] with stenting in the past, CVA, TIA, ESRD on chronic HD for the past 3 years (Friday, Friday, Friday), temporal arteritis, prostate cancer and GERD who presents to the emergency department with complaints of left eye vision changes as well as temporal pain. Possible temporal cell arteritis + Visual changes, photophobia ESR 36 -Ocular pressure tested in ER. Left equals 24, right equals 20 -Head CT negative for acute process -Patient with a history of temporal arteritis in 2011 with biopsy done. -ED has spoken to ophthalmology Dr. Pagan who recommends admission and initiation of IV steroids. Consult placed, greatly appreciate assistance. - Will defer further Solu-Medrol dosing to ophthalmology. Possible consult to general surgery, will wait for ophthalmology evaluation. -Pain control with p.o. [place] End-stage renal disease on hemodialysis -Patient's usual dialysis days Mondays, Wednesdays, Fridays -Consult nephrology, appreciate assistance Diabetes mellitus, chronic -Diabetic and renal diet -Continue Lantus insulin at bedtime at 25 units -Checks with insulin sliding scale CAD with Hx stenting Hx WI HTN,chronic -Continue low-dose aspirin, Lipitor, Plavix, and Norvasc, Metoprolol hold off on Lisinopril unless resumed by nephrology - Continue Gabapentin Anemia, chronic -Likely 2/2 CKD -Monitor H&H, no reports of bleeding - Stable sine last H&H on 12/18 was 8.4/25.0 GERD-continue Zantac and omeprazole DVT prophylaxisSCDs Discussed Condition With: SHAHRAM Mercado, patient and
[2017-12-29] MEDS ORDERED: Dextrose 50% in Water 50 ML Vial IV.PUSH PRN (17:23)
[2017-12-29] MEDS: Gabapentin 300 MG Capsule PO SCH (19:01)
[2017-12-29] MEDS: Calcium Acetate 667 MG Capsule PO SCH (20:43)
[2017-12-29] MEDS: Insulin NovoLOG Aspart Correctional Sugar Inj SQ SCH (20:43)
[2017-12-29] MEDS: Senna/Docusate Sodium 8.6/50 MG Tablet PO SCH (20:44)
[2017-12-29] MEDS ORDERED: Insulin Detemir Inj 1,000 UNIT/10 ML Vial SQ SCH (21:00)
[2017-12-30 07:25] LABS: Calcium 8.3 mg/dL (8.5-10.1); Carbon Dioxide 18.2 meq/L (21.0-32.0)
[2017-12-30 08:00] LABS: Potassium 6.8 meq/L (3.5-5.1)
[2017-12-30] MEDS: Calcium Acetate 667 MG Capsule PO SCH ×3 (09:05→18:16)
[2017-12-30] MEDS: amLODIPine 10 MG Tablet PO SCH (09:05)
[2017-12-30] MEDS: Vitamins A,C,E/Lutein/Minerals Tablet PO SCH (09:05)
[2017-12-30] MEDS: Gabapentin 300 MG Capsule PO SCH ×3 (09:05→18:16)
[2017-12-30] MEDS: Famotidine 20 MG Tablet PO SCH ×2 (09:06→20:57)
[2017-12-30] MEDS: Insulin NovoLOG Aspart Correctional Sugar Inj SQ SCH ×4 (09:06→20:56)
[2017-12-30] MEDS: Senna/Docusate Sodium 8.6/50 MG Tablet PO SCH ×2 (09:06→20:59)
[2017-12-30] MEDS ORDERED: Insulin Detemir Inj 1,000 UNIT/10 ML Vial SQ ONE (09:14)
--- NOTE | 2017-12-30 09:27 | P.CON ---
History of Present Illness Service: Ophthalmology Reason for Consult: possible temporal arteritis OS Primary Care Provider: Eunice Riggs DO Chief Complaint: "My left eye started to hurt" History of Present Illness: Poor historian: 67 yo BM with history of end-stage renal disease with dialysis, hypertension, CVA, GI bleed, anemia, CAD with stent, prostate cancer that presented to ED for left eye blurry vision. He's had left temporal pain for the last 2 months and last week started noticing monocular diplopia and blurry vision in his left eye which concerned him. In 2012, pt had similar symptoms on his right side with temporal headache/pain - his ESR at that time was 80, CRP 3.94. A temporal artery biopsy was done at that admission which was negative. They still treated him with steroids for months after discharge. ROS today for GCA (+ left temporal headache, + jaw pain, +malaise). ESR 36, Platelets 221. PMFSH - History History Provided By: Patient - Medical History Medical History: Medical History (Last Updated 12/29/17 @ 17:30 by Marina Mckeon) GERD (gastroesophageal reflux disease) Prostate cancer AV fistula Anemia CAD (coronary artery disease) CVA (cerebral vascular accident) Diabetes Dialysis patient ESRD (end stage renal disease) HTN (hypertension) Hypokalemia TIA (transient ischemic attack) Temporal arteritis - Surgical History Surgical History: Surgical History (Last Updated 12/29/17 @ 17:30 by Marina Mckeon) H/O prostatectomy History of ankle surgery History of cardiac catheterization History of knee surgery - Family History Family History: Family History (Last Reviewed 12/29/17 @ 17:27 by Marina Mckeon) Other CAD (coronary artery disease) Diabetes mellitus - Tobacco History Second Hand Smoke Exposure: No Smoking Status: Former smoker Tobacco Type: Cigarettes - Alcohol History How Often Do You Have a Drink Containing Alcohol: Never - Substance Use History Substance History: No History of Abuse - Travel History Recent Travel in the [place] Within the Last 8 Weeks: No Recent Travel Out of the Country Within the Last 8 Weeks: No - Immunization History Tetanus Immunization: <5 Years Hx Influenza Vaccine This Season: Yes Medications and Allergies Active Medications: Active Medications Acetaminophen (Tylenol) 650 mg PO Q4H PRN PRN Reason: Temp > 100.4 Hydrocodone Bitart/Acetaminophen ([place] 5/325) 1 tab PO Q6H PRN PRN Reason: Pain 2-5 Hydrocodone Bitart/Acetaminophen ([place] 7.5/325) 1 tab PO Q6H PRN PRN Reason: Pain 6-10 Al Hydroxide/Mg Hydroxide (Milk Of Magnesia Liq) 30 ml PO Q12H PRN PRN Reason: Mild Constipation Amlodipine Besylate (Norvasc) 10 mg PO DAILY [facility] Last Admin: 12/30/17 09:05 Dose: 10 mg Aspirin (Aspirin Chew) 81 mg PO DAILY [facility] Last Admin: 12/30/17 09:05 Dose: 81 mg Atorvastatin Calcium (Lipitor) 40 mg PO HS [facility] Last Admin: 12/29/17 20:43 Dose: 40 mg Bisacodyl (Dulcolax Supp) 10 mg RECTAL DAILY PRN PRN Reason: SEVERE CONSITIPATION Calcium Acetate (Phoslo) 1,334 mg PO TID [facility] Last Admin: 12/30/17 09:05 Dose: 1,334 mg Clopidogrel Bisulfate (Plavix) 75 mg PO DAILY [facility] Last Admin: 12/30/17 09:05 Dose: 75 mg Dextrose (D50w Vial) 50 ml IV.PUSH UNSCH PRN PRN Reason: PER HYPOGLYCEMIA PROTOCOL Famotidine (Pepcid) 10 mg PO BID [facility] Last Admin: 12/30/17 09:06 Dose: 10 mg Gabapentin (Neurontin) 300 mg PO TID [facility] Last Admin: 12/30/17 09:05 Dose: 300 mg Glucagon (Glucagon Inj) 1 mg OTHER PRN PRN PRN Reason: for Hypoglycemia Protocol Insulin Aspart (Novolog Insulin Correctional Sugar Inj) 0 unit SQ [facility]; Protocol Last Admin: 12/30/17 09:06 Dose: 7 unit Insulin Detemir (Levemir Inj) 25 unit SQ [facility] Lactulose (Lactulose Liq) 30 ml PO DAILY PRN PRN Reason: SEVERE CONSITIPATION Metoprolol Succinate (Toprol Xl) 25 mg PO DAILY [facility] Last Admin: 12/30/17 09:05 Dose: 25 mg Multivitamins/Minerals (Ocuvite With Lutein) 1 tab PO DAILY [facility] Last Admin: 12/30/17 09:05 Dose: 1 tab Pantoprazole Sodium (Protonix) 40 mg PO DAILY [facility] Last Admin: 12/30/17 09:05 Dose: 40 mg Senna/Docusate Sodium (Francesca-Colace) 1 tab PO BID [facility] Last Admin: 12/30/17 09:06 Dose: Not Given Sennosides (Senokot) 17.2 mg PO Q12H PRN PRN Reason: Moderate Constipation Allergies Allergy/AdvReac Type Severity Reaction Status Date / Time Iodinated Contrast- Oral and Allergy Severe Swelling Verified 11/17/17 15:42 IV Dye shellfish derived Allergy Severe Swelling Verified 11/17/17 15:42 diphenhydramine Allergy Hives Verified 12/16/17 22:38 [From [facility]] Home Medications Medication Instructions Recorded Confirmed Type B complex-vitamin C-folic acid 1 tab PO DAILY 11/17/17 12/29/17 History [Gaby-Cruz] amlodipine 10 mg PO DAILY 11/17/17 12/29/17 History aspirin 81 mg PO DAILY 11/17/17 12/29/17 History calcium acetate 2 - 3 tab PO TID 11/17/17 12/29/17 History clopidogrel 75 mg PO DAILY 11/17/17 12/29/17 History gabapentin 300 mg PO TID 11/17/17 12/29/17 History lisinopril 10 mg PO HS 11/17/17 12/29/17 History metoprolol succinate 25 mg PO DAILY 11/17/17 12/29/17 History omeprazole 40 mg PO DAILY 11/17/17 12/29/17 History insulin glargine [Lantus Solostar 35 unit SUBCUT HS 12/15/17 12/29/17 History U-100 Insulin] ranitidine HCl [Zantac] 150 mg PO DAILY 12/15/17 12/29/17 History Physical Exam Vital signs: Vital Signs 12/29/17 14:32 12/29/17 20:00 12/29/17 23:00 Temperature 98.2 F 97.4 F L Pulse Rate 54 L 57 L 58 L Respiratory Rate 16 16 Blood Pressure 152/70 H 144/66 H Pulse Oximetry 100 100 12/30/17 00:00 12/30/17 04:00 12/30/17 08:00 Temperature 97.2 F L 97.4 F L 97.6 F Pulse Rate 56 L 61 66 Respiratory Rate 17 17 18 Blood Pressure 141/67 H 146/68 H 162/76 H Pulse Oximetry 97 98 100 Intake & Output 12/29/17 12/30/17 12/30/17 18:59 06:59 18:59 Intake Total 476 / 476 Balance 476 / 476 Weight 90.718 kg 69.1 kg Intake: IV SoluMEDROL Inj 1,000 MG In NS 116 Inj 100 ML @ 100 mls/hr IV.SIG ONCE ONE Rx#:[id number] Oral 360 / 360 Other: # Voids 2 Date of Last Bowel Movement 12/29/17 - Detailed Eye Exam Comments: Va cc at near OD 20/60, OS 20/40 EOM full OU, no diplopia CVF full OU Pupils 2-1 no APD OU IOP normal to palpation OU Anterior exam OD - normal eyelid, C/S W&Q, K clear, AC deep, pupil round, lens clear OS - normal eyelid, C/S W&Q, K clear, AC deep, pupil round, lens clear Dilated exam OD - ON s/p/f, ves normal, vit clear, retina flat OS - ON s/p/f, ves normal, vit clear, retina flat Assessment and Plan - Assessment (1) Visual changes Code(s): H53.9 - Unspecified visual disturbance Status: Acute Plan: Normal dilated exam. ESR mildly elevated. Temporal arteritis unlikely. Will defer to Primary team to decide if patient needs temporal artery biopsy or continued steroid treatment.
--- NOTE | 2017-12-30 11:28 | P.PNIM ---
Subjective Interval history: Photophobia present at time of admit, no visual loss. Patient reports slightly decreased headache compared to yesterday but still has tenderness at the left episcopalian. He has a prior history of temporal arteritis and his right. Clinical risk is high, even if he had a negative biopsy treatment would be recommended ( no need for biopsy in this setting). Potassium level is significantly elevated today, patient missed dialysis yesterday. Physical Exam Vital signs: Vital Signs 12/29/17 14:32 12/29/17 20:00 12/29/17 23:00 Temperature 98.2 F 97.4 F L Pulse Rate 54 L 57 L 58 L Respiratory Rate 16 16 Blood Pressure 152/70 H 144/66 H Pulse Oximetry 100 100 12/30/17 00:00 12/30/17 04:00 12/30/17 08:00 Temperature 97.2 F L 97.4 F L 97.6 F Pulse Rate 56 L 61 64 Respiratory Rate 17 17 18 Blood Pressure 141/67 H 146/68 H 162/76 H Pulse Oximetry 97 98 100 Intake & Output 12/29/17 12/30/17 12/30/17 18:59 06:59 18:59 Intake Total 476 / 476 Balance 476 / 476 Weight 90.718 kg 69.1 kg Intake: IV 116 / 116 SoluMEDROL Inj 1,000 MG In NS 116 / 116 Inj 100 ML @ 100 mls/hr IV.SIG ONCE ONE Rx#:[id number] Oral 360 / 360 Other: # Voids 2 Date of Last Bowel Movement 12/29/17 12/30/17 Narrative: GENERAL: NAD, A&Ox3 HEAD: Normocephalic. Tenderness at left episcopalian. NECK: Supple, trachea midline. No lymphadenopathy. EYES: No scleral icterus. No injection or drainage. CARDIOVASCULAR: Regular rate and rhythm without murmurs, gallops, or rubs. RESPIRATORY: Breath sounds equal bilaterally. No accessory muscle use. GASTROINTESTINAL: Abdomen soft, non-tender, nondistended. MUSCULOSKELETAL: No cyanosis, or edema. SKIN: Warm and dry. NEURO: No focal neurological deficits. Results - Labs CBC & Chem 7: 12/29/17 15:10 12/30/17 06:00 Laboratory Results - last 24 hr 10/22/18 10/22/18 10/22/18 15:10 15:10 15:10 WBC 6.9 RBC 2.81 L Hgb 9.8 L Hct 30.6 L MCV 108.8 H MCH 34.9 H MCHC 32.0 RDW 16.8 Plt Count 221 MPV 7.6 Neut % (Auto) 54.9 Lymph % (Auto) 21.7 [place] % (Auto) 5.8 Eos % (Auto) 16.3 H Baso % (Auto) 1.3 Neut # (Auto) 3.8 Lymph # (Auto) 1.5 [place] # (Auto) 0.4 Eos # (Auto) 1.1 H Baso # (Auto) 0.1 WBC Differential . Differential Comment Auto diff final ESR 36 H Sodium 140 Potassium 4.6 Chloride 111 H Carbon Dioxide 20.1 L Anion Gap 9 BUN 37 H Creatinine 10.54 H* Estimated GFR 6 L POC Glucose Random Glucose 73 L Calcium 8.4 L Total Bilirubin 0.4 AST 18 ALT 16 Alkaline Phosphatase 83 Total Protein 7.3 Albumin 3.5 12/29/17 12/30/17 12/30/17 20:03 06:00 07:33 WBC RBC Hgb Hct MCV MCH MCHC RDW Plt Count MPV Neut % (Auto) Lymph % (Auto) [place] % (Auto) Eos % (Auto) Baso % (Auto) Neut # (Auto) Lymph # (Auto) [place] # (Auto) Eos # (Auto) Baso # (Auto) WBC Differential Differential Comment ESR Sodium 135 L Potassium 6.8 H* D Chloride 105 Carbon Dioxide 18.2 L Anion Gap 12 BUN 44 H Creatinine 11.53 H* Estimated GFR 5 L POC Glucose 93 315 H Random Glucose 330 H D Calcium 8.3 L Total Bilirubin AST ALT Alkaline Phosphatase Total Protein Albumin 12/30/17 08:35 WBC RBC Hgb Hct MCV MCH MCHC RDW Plt Count MPV Neut % (Auto) Lymph % (Auto) [place] % (Auto) Eos % (Auto) Baso % (Auto) Neut # (Auto) Lymph # (Auto) [place] # (Auto) Eos # (Auto) Baso # (Auto) WBC Differential Differential Comment ESR Sodium Potassium Chloride Carbon Dioxide Anion Gap BUN Creatinine Estimated GFR POC Glucose 339 H Random Glucose Calcium Total Bilirubin AST ALT Alkaline Phosphatase Total Protein Albumin - Imaging Impressions Head CT 12/29/17 14:54 CONCLUSION: No acute intracranial findings Assessment and Plan - Assessment (1) Temporal arteritis Code(s): M31.6 - Other giant cell arteritis Status: Acute (2) Visual changes Code(s): H53.9 - Unspecified visual disturbance Status: Acute (3) ESRD (end stage renal disease) Code(s): N18.6 - End stage renal disease Status: Chronic (4) Hypertension Code(s): I10 - Essential (primary) hypertension Status: Chronic - Plan 67-year-old male with suspected left temporal arteritis, past history of right temporal arteritis. Left temporal cell arteritis Photophobia improved ESR 36 Given no active visual loss at this time, will initiate a 1 mg/kg/day treatment Continue prednisone at 60 mg daily divided into 3 doses Clinical presentation is highly suspicious, biopsy may not be needed Monitor for improvement in symptoms Ophthalmology following Continue pain treatments as needed Hyperkalemia Patient may need dialysis Insulin provided this morning Recheck potassium level at noon End-stage renal disease on hemodialysis Continue dialysis Nephrology consulted Diabetes mellitus type 2 Follow blood sugars Insulin sliding scale Diabetic diet Continue long-acting insulin (detemir) CAD with Hx stenting Hx NH HTN,chronic Continue aspirin, Lipitor, Plavix, and Norvasc, Metoprolol Chronic anemia Related to CKD Follow hemoglobin levels GERD Zantac and omeprazole DVT prophylaxis SCDs Discharge planning Improvement in temporal arteritis symptoms needed prior to discharge Improvement in electrolytes needed prior to discharge
[2017-12-30] MEDS ORDERED: Acetaminophen 325 MG Tablet PO PRN (15:54)
[2017-12-30] MEDS ORDERED: Gelatin 12 MM/7 MM Topical Foam TOPICAL PRN (15:54)
[2017-12-30] MEDS ORDERED: Albumin Human 25% Inj 100 ML IV.SIG PRN (15:54)
[2017-12-30] MEDS ORDERED: Sod Chloride 0.9% Inj 1,000 ML OTHER PRN ×2 (15:54)
[2017-12-30] MEDS ORDERED: Sod Chloride 0.9% Inj 1,000 ML IV.CONT PRN (15:54)
[2017-12-30] MEDS ORDERED: Heparin 10,000 UNITS/10 ML Vial (for IV use) OTHER PRN ×2 (15:54)
--- NOTE | 2017-12-30 16:36 | P.CONNP ---
History of Present Illness Service: Nephrology Consult date: 12/30/17 Requesting Physician: Eduard Arora Reason for Consult: End-stage renal disease Primary Care Provider: Eunice Riggs DO Chief Complaint: "My left eye started to hurt" History of Present Illness: Patient is a 67-year-old -[place] male with history of end-stage renal disease, hypertension, coronary artery disease, history of CVA, temporal arteritis, he stated he was having headaches and has issues with left eye pain, admitted with temporal arteritis exacerbation and started on prednisone, he is noncompliant with his hemodialysis and was missing Friday on regular basis, he did have discussed with Dr. Day recently and stated that extra dialysis usually cause antibody depletion according to his research on the Internet, he was here last 1 week ago and has a coronary artery stent placement , at that time he was refusing dialysis on his scheduled day, he now claims that extra dialysis caused him to have a cold and then he developed headaches afterwards. He was told about his high potassium today it was hemolyzed and the repeat sample was 5.7, patient admits to drinking milk. He stated he went on Friday for his dialysis but cut short his treatment. Review of Systems Constitutional: Reports anorexia, Reports fatigue Eyes: Reports blurry vision, Reports change in vision Ears, Nose, Mouth, and Throat: Reports other Cardiovascular: Reports shortness of breath with activity Respiratory: Reports shortness of breath with activity Gastrointestinal: Reports change in stools Genitourinary: Reports other Musculoskeletal: Reports muscle cramps Skin/Breast: Reports other Neurologic: Reports weakness Psychiatric: Reports other Endocrine: Reports other PMFSH - History History Provided By: Patient - Medical History Medical History: Medical History (Last Updated 12/29/17 @ 17:30 by Marina Mckeon) AV fistula Anemia CAD (coronary artery disease) CVA (cerebral vascular accident) Diabetes Dialysis patient ESRD (end stage renal disease) GERD (gastroesophageal reflux disease) HTN (hypertension) Hypokalemia Prostate cancer TIA (transient ischemic attack) Temporal arteritis - Surgical History Surgical History: Surgical History (Last Updated 12/29/17 @ 17:30 by Marina Mckeon) H/O prostatectomy History of ankle surgery History of cardiac catheterization History of knee surgery - Family History Family History: Family History (Last Reviewed 12/29/17 @ 17:27 by Marina Mckeon) Other CAD (coronary artery disease) Diabetes mellitus - Tobacco History Second Hand Smoke Exposure: No Smoking Status: Former smoker Tobacco Type: Cigarettes - Alcohol History How Often Do You Have a Drink Containing Alcohol: Never - Substance Use History Substance History: No History of Abuse - Travel History Recent Travel in the [place] Within the Last 8 Weeks: No Recent Travel Out of the Country Within the Last 8 Weeks: No - Immunization History Tetanus Immunization: <5 Years Hx Influenza Vaccine This Season: Yes Medications and Allergies Active Medications: Active Medications Acetaminophen (Tylenol) 650 mg PO Q4H PRN PRN Reason: Temp > 100.4 Acetaminophen (Tylenol) 650 mg PO UNSCH PRN PRN Reason: SEE LABEL COMMENTS Hydrocodone Bitart/Acetaminophen ([place] 5/325) 1 tab PO Q6H PRN PRN Reason: Pain 2-5 Hydrocodone Bitart/Acetaminophen ([place] 7.5/325) 1 tab PO Q6H PRN PRN Reason: Pain 6-10 Al Hydroxide/Mg Hydroxide (Milk Of [place]co[place] Liq) 30 ml PO Q12H PRN PRN Reason: Mild Constipation Amlodipine Besylate (Norvasc) 10 mg PO DAILY [facility] Last Admin: 12/30/17 09:05 Dose: 10 mg Aspirin (Aspirin Chew) 81 mg PO DAILY [facility] Last Admin: 12/30/17 09:05 Dose: 81 mg Atorvastatin Calcium (Lipitor) 40 mg PO HS [facility] Last Admin: 12/29/17 20:43 Dose: 40 mg Bisacodyl (Dulcolax Supp) 10 mg RECTAL DAILY PRN PRN Reason: SEVERE CONSITIPATION Calcium Acetate (Phoslo) 1,334 mg PO TID [facility] Last Admin: 12/30/17 12:57 Dose: 1,334 mg Clonidine HCl ([place]ap[place]) 0.1 mg PO UNSCH PRN PRN Reason: SEE LABEL COMMENTS Clopidogrel Bisulfate (Plavix) 75 mg PO DAILY [facility] Last Admin: 12/30/17 09:05 Dose: 75 mg Dextrose (D50w Vial) 50 ml IV.PUSH UNSCH PRN PRN Reason: PER HYPOGLYCEMIA PROTOCOL Diphenhydramine HCl (Benadryl) 25 mg PO UNSCH PRN PRN Reason: SEE LABEL COMMENTS Epoetin Linus (Epogen Inj) 4,000 unit IV.PUSH UNSCH PRN PRN Reason: SEE LABEL COMMENTS Famotidine (Pepcid) 10 mg PO BID [facility] Last Admin: 12/30/17 09:06 Dose: 10 mg Gabapentin (Neurontin) 300 mg PO TID [facility] Last Admin: 12/30/17 12:57 Dose: 300 mg Gelatin (Gelfoam 12 Mm/7 Mm Topical) 1 foam TOPICAL PRN PRN PRN Reason: help stop bleeding from site Gentamicin Sulfate (Gentamicin Inj) 20 mg OTHER WITH DIALYSIS PRN PRN Reason: Dwell Gentamycin Lock Glucagon (Glucagon Inj) 1 mg OTHER PRN PRN PRN Reason: for Hypoglycemia Protocol Heparin Sodium (Porcine) (Heparin Inj) 8,000 units OTHER WITH DIALYSIS PRN PRN Reason: for machine prime Heparin Sodium (Porcine) (Heparin Inj) 1,000 units OTHER WITH DIALYSIS PRN PRN Reason: Dwell Heparin to Fill Catheter Albumin Human (Flexbumin 25% Inj) 100 mls @ 60 mls/hr IV.SIG WITH DIALYSIS PRN PRN Reason: hypotension / volume replace Sodium Chloride (Ns Inj) 1,000 mls @ 0 mls/hr OTHER .Q0M PRN PRN Reason: for prime and rinse back Sodium Chloride (Ns Inj) 1,000 mls @ 200 mls/hr OTHER .Q5H PRN PRN Reason: for dialyzer flush PRN Sodium Chloride (Ns Inj) 1,000 mls @ 0 mls/hr IV.CONT .Q0M PRN PRN Reason: hypotension / volume replace Insulin Aspart (Novolog Insulin Correctional Sugar Inj) 0 unit SQ ACHS [facility]; Protocol Last Admin: 12/30/17 12:57 Dose: 7 unit Insulin Detemir (Levemir Inj) 25 unit SQ HS [facility] Lactulose (Lactulose Liq) 30 ml PO DAILY PRN PRN Reason: SEVERE CONSITIPATION Mannitol (Mannitol Inj) 12.5 gm IV.PUSH UNSCH PRN PRN Reason: hypotension / volume replace Metoprolol Succinate (Toprol Xl) 25 mg PO DAILY [facility] Last Admin: 12/30/17 09:05 Dose: 25 mg Multivitamins/Minerals (Ocuvite With Lutein) 1 tab PO DAILY [facility] Last Admin: 12/30/17 09:05 Dose: 1 tab Nitroglycerin (Nitrostat Sl) 0.4 mg SL Q5M PRN PRN Reason: CHEST PAIN Ondansetron HCl (Zofran Inj) 4 mg IV.PUSH UNSCH PRN PRN Reason: NAUSEA OR VOMITING Pantoprazole Sodium (Protonix) 40 mg PO DAILY [facility] Last Admin: 12/30/17 09:05 Dose: 40 mg Prednisone (Deltasone) 20 mg PO TID [facility] Senna/Docusate Sodium (Francesca-Colace) 1 tab PO BID [facility] Last Admin: 12/30/17 09:06 Dose: Not Given Sennosides (Senokot) 17.2 mg PO Q12H PRN PRN Reason: Moderate Constipation Sodium Chloride (Ns Flush) 5 ml IV.FLUSH PRN PRN PRN Reason: flush each lumen during HD Allergies Allergy/AdvReac Type Severity Reaction Status Date / Time Iodinated Contrast- Oral and Allergy Severe Swelling Verified 11/17/17 15:42 IV Dye shellfish derived Allergy Severe Swelling Verified 11/17/17 15:42 diphenhydramine Allergy Hives Verified 12/16/17 22:38 [From [facility]] Home Medications Medication Instructions Recorded Confirmed Type B complex-vitamin C-folic acid 1 tab PO DAILY 11/17/17 12/29/17 History [Gaby-Cruz] amlodipine 10 mg PO DAILY 11/17/17 12/29/17 History aspirin 81 mg PO DAILY 11/17/17 12/29/17 History calcium acetate 2 - 3 tab PO TID 11/17/17 12/29/17 History clopidogrel 75 mg PO DAILY 11/17/17 12/29/17 History gabapentin 300 mg PO TID 11/17/17 12/29/17 History lisinopril 10 mg PO HS 11/17/17 12/29/17 History metoprolol succinate 25 mg PO DAILY 11/17/17 12/29/17 History omeprazole 40 mg PO DAILY 11/17/17 12/29/17 History insulin glargine [Lantus Solostar 35 unit SUBCUT HS 12/15/17 12/29/17 History U-100 Insulin] ranitidine HCl [Zantac] 150 mg PO DAILY 12/15/17 12/29/17 History Exam Vital signs: Vital Signs 12/29/17 20:00 12/29/17 23:00 12/30/17 00:00 Temperature 97.4 F L 97.2 F L Pulse Rate 57 L 58 L 56 L Respiratory Rate 16 17 Blood Pressure 144/66 H 141/67 H Pulse Oximetry 100 97 12/30/17 04:00 12/30/17 08:00 12/30/17 12:00 Temperature 97.4 F L 97.6 F 97.9 F Pulse Rate 61 64 68 Respiratory Rate 17 18 18 Blood Pressure 146/68 H 162/76 H 165/74 H Pulse Oximetry 98 100 99 Intake & Output 12/29/17 12/30/17 12/30/17 18:59 06:59 18:59 Intake Total 476 / 476 Balance 476 / 476 Weight 90.718 kg 69.1 kg Intake: IV 116 / 116 SoluMEDROL Inj 1,000 MG In NS 116 / 116 Inj 100 ML @ 100 mls/hr IV.SIG ONCE ONE Rx#:[id number] Oral 360 / 360 Other: # Voids 2 Date of Last Bowel Movement 12/29/17 12/30/17 Narrative: GENERAL: Well-nourished, well-developed patient. SKIN: Warm and dry. HEAD: Normocephalic. EYES: No scleral icterus. No injection or drainage. NECK: Supple, trachea midline. No JVD or lymphadenopathy. CARDIOVASCULAR: Regular rate and rhythm without murmurs, gallops, or rubs. RESPIRATORY: Breath sounds equal bilaterally. No accessory muscle use. GASTROINTESTINAL: Abdomen soft, non-tender, nondistended. EXTREMITIES: No edema NEUROLOGICAL: Awake, alert, and oriented x 3. Non-focal. Results - Lab Results 12/29/17 15:10 12/30/17 13:14 Most recent lab results Calcium 8.3 mg/dL (8.5-10.1) L 12/30/17 06:00 Assessment and Plan - Assessment (1) Hyperkalemia Code(s): E87.5 - Hyperkalemia Status: Acute (2) Noncompliance of patient with renal dialysis Code(s): Z91.15 - Patient's noncompliance with renal dialysis Status: Acute (3) ESRD (end stage renal disease) Code(s): N18.6 - End stage renal disease Status: Chronic (4) Hypertension Code(s): I10 - Essential (primary) hypertension Status: Chronic (5) Anemia Code(s): D64.9 - Anemia, unspecified Status: Acute (6) CAD (coronary artery disease) Code(s): I25.10 - Atherosclerotic heart disease of [place] coronary artery without angina pectoris Status: Acute - Plan Patient has been told to limit his diet on potassium and phosphorus supplements , I again explained to him that the only way potassium and phosphorus is removed from his body is we are dialysis and he has to restrict intake of the potassium and phosphorus 3 times a week is preferred for dialysis and removal of raised products He he has recently went with cardiovascular event more than likely due to noncompliance, high phosphorus can lead to accelerated vascular disease Increase of morbidity and mortality. Limit potassium in the diet and phosphorus in the diet Hemodialysis is planned for tomorrow [place] 16.8 g ordered for today follow CMP and phosphorus levels he was offered dialysis today but wants to wait till Friday. He has been treated for temporal arteritis with prednisone. (5) Anemia Qualifiers: Anemia type: unspecified type Qualified Code(s): D64.9 - Anemia, unspecified
[2017-12-30] MEDS: predniSONE 20 MG Tablet PO SCH (22:30)
[2017-12-31] MEDS: Insulin NovoLOG Aspart Correctional Sugar Inj SQ SCH ×2 (08:01→13:34)
[2017-12-31] MEDS: Senna/Docusate Sodium 8.6/50 MG Tablet PO SCH (08:04)
[2017-12-31] MEDS: Calcium Acetate 667 MG Capsule PO SCH ×2 (08:04→13:35)
[2017-12-31] MEDS: predniSONE 20 MG Tablet PO SCH ×2 (08:05→13:34)
[2017-12-31] MEDS: amLODIPine 10 MG Tablet PO SCH (08:05)
[2017-12-31] MEDS: Famotidine 20 MG Tablet PO SCH (08:06)
[2017-12-31] MEDS: Gabapentin 300 MG Capsule PO SCH ×2 (08:06→13:34)
--- NOTE | 2017-12-31 11:52 | P.PNNP ---
Subjective Interval history: Patient seen at dialysis Physical Exam Vital signs: Vital Signs 12/30/17 12:00 12/30/17 16:00 12/30/17 19:56 Temperature 97.9 F 97.9 F 98.4 F Pulse Rate 68 70 74 Respiratory Rate 18 18 18 Blood Pressure 165/74 H 167/79 H 152/67 H Pulse Oximetry 99 98 12/30/17 19:57 12/30/17 20:00 12/31/17 00:00 Temperature 97.5 F L Pulse Rate 75 68 Respiratory Rate 18 Blood Pressure 134/61 Pulse Oximetry 99 99 98 12/31/17 04:00 12/31/17 08:00 Temperature 97.4 F L 97.4 F L Pulse Rate 63 62 Respiratory Rate 18 18 Blood Pressure 174/61 H 157/71 H Pulse Oximetry 98 100 Intake & Output 12/30/17 12/31/17 12/31/17 18:59 06:59 18:59 Intake Total 840 / 840 Output Total 950 / 950 Balance 840 / 840 -950 / -950 Weight 174.1 kg Intake: Oral 840 / 840 Output: Urine 950 / 950 Other: # Voids 1 # Incontinent Voids 3 Date of Last Bowel Movement 12/30/17 12/30/17 12/30/17 # Bowel Movements 1 Narrative: GENERAL: Well-nourished, well-developed patient. SKIN: Warm and dry. HEAD: Normocephalic. EYES: No scleral icterus. No injection or drainage. NECK: Supple, trachea midline. No JVD or lymphadenopathy. CARDIOVASCULAR: Regular rate and rhythm without murmurs, gallops, or rubs. RESPIRATORY: Breath sounds equal bilaterally. No accessory muscle use. GASTROINTESTINAL: Abdomen soft, non-tender, nondistended. EXTREMITIES: No edema NEUROLOGICAL: Awake, alert, and oriented x 3. Non-focal. Assessment and Plan - Assessment (1) Hyperkalemia Code(s): E87.5 - Hyperkalemia Status: Acute (2) Noncompliance of patient with renal dialysis Code(s): Z91.15 - Patient's noncompliance with renal dialysis Status: Acute (3) ESRD (end stage renal disease) Code(s): N18.6 - End stage renal disease Status: Chronic (4) Hypertension Code(s): I10 - Essential (primary) hypertension Status: Chronic (5) Anemia Code(s): D64.9 - Anemia, unspecified Status: Acute Qualifiers: Anemia type: unspecified type Qualified Code(s): D64.9 - Anemia, unspecified (6) CAD (coronary artery disease) Code(s): I25.10 - Atherosclerotic heart disease of [place] coronary artery without angina pectoris Status: Acute - Plan Patient is seen at end of dialysis Tolerating ultrafiltration of 2.5 L On binders the blood work was not drawn today Follow renal panel in a.m. Patient is on dietary restriction He has been treated for temporal arteritis with prednisone
[2017-12-31] MEDS: Vitamins A,C,E/Lutein/Minerals Tablet PO SCH (13:33)
--- NOTE | 2017-12-31 13:44 | P.DS ---
Date of admission: 12/29/17 17:21 Primary care physician: Eunice Riggs DO Brief History from admission: 67-year-old pleasant -[place] male with past medical history significant for HTN, NM with stenting in the past, CVA, TIA, ESRD on chronic HD for the past 3 years (Friday, Friday, Friday), temporal arteritis, prostate cancer and GERD who presents to the emergency department with complaints of left eye vision changes as well as temporal pain. Patient reports that back in 2011 he had a biopsy done of the right side and was treated for temporal arteritis he reports that today he has been having symptoms similar on the left side. Patient states that he has been having temporal tenderness as well as pulsating sensation on the left side for about the past 2 weeks. Today he was being dialyzed when he began to have left eye and temporal pain which worsened, he also endorses tenderness to palpation on left temporal area. States that it felt as if there was blood in his eye. He reports that his eye has also been watery for the past 6 months, endorses photophobia, as well as blurred vision on the left side from time to time. He denies any scalp tenderness but does endorse some discomfort when turning his head to the left side. He denies any fevers, chills, cough, shortness of breath or chest pain. DS: Diagnosis - Discharge Diagnosis (1) Temporal arteritis Status: Acute (2) Visual changes Status: Acute (3) ESRD (end stage renal disease) Status: Chronic (4) Hypertension Status: Chronic DS: Medications - Discharge Medications Prescriptions: prednisone 10 mg PO DIRECTED #186 tab prednisone 2.5 mg PO DIRECTED #84 tab DS: Summary Hospital Course: Mr. Fairchild is a 67-year-old male. He has a history of end-stage renal disease and is on dialysis 3 times a week. He came in secondary to left temporal pain with visual changes of the left eye. He has a history of temporal arteritis at the right. His right temporal arteritis has resolved. He says the sensations he is having are very similar to his previous temporal arteritis. Steroid treatment was initiated. Patient's symptoms improved by today. He still has some headache involving his left temporal region but his visual changes have resolved. Clinical suspicion is for temporal arteritis is high, biopsy would not change treatment at this point. Patient recommended to continue treatment and a long steroid taper has been provided. Hyperkalemia was present at time of admit as patient has been as part of his dialysis due to the headache. Dialysis has been provided and patient is medically clear and stable for discharge to home at this point. - Time Spent with Patient Total time spent providing and/or coordinating discharge services: Less than 30 minutes - Quality: VTE Deep Vein Thrombosis/Pulmonary Embolism Present on Admission: No Exam Vital signs: Vital Signs 12/30/17 16:00 12/30/17 19:56 12/30/17 19:57 Temperature 97.9 F 98.4 F Pulse Rate 70 74 Respiratory Rate 18 18 Blood Pressure 167/79 H 152/67 H Pulse Oximetry 98 99 12/30/17 20:00 12/31/17 00:00 12/31/17 04:00 Temperature 97.5 F L 97.4 F L Pulse Rate 75 68 63 Respiratory Rate 18 18 Blood Pressure 134/61 174/61 H Pulse Oximetry 99 98 98 12/31/17 08:00 12/31/17 12:00 Temperature 97.4 F L 97.3 F L Pulse Rate 62 68 Respiratory Rate 18 18 Blood Pressure 157/71 H 120/74 Pulse Oximetry 100 100 Intake & Output 12/30/17 12/31/17 12/31/17 18:59 06:59 18:59 Intake Total 840 / 840 Output Total 950 / 950 2500 / 2500 Balance 840 / 840 -950 / -950 -2500 / -2500 Weight 174.1 kg Intake: Oral 840 / 840 Output: Urine 950 / 950 Hemodialysis Amount 2500 / 2500 Other: # Voids 1 # Incontinent Voids 3 Date of Last Bowel Movement 12/30/17 12/30/17 12/30/17 # Bowel Movements 1 Results Procedures completed during hospitalization: Dialysis Labs on day of discharge: Labs from last 24 hours 12/31/17 12/31/17 12/31/17 12:16 11:07 07:34 Potassium POC Glucose 169 H 207 H 261 H 12/30/17 12/30/17 20:14 13:14 Potassium 5.7 H D POC Glucose 367 H - Impressions ITS Impressions Head CT 12/29/17 14:54 CONCLUSION: No acute intracranial findings Discharge Plan - Discharge Disposition Patient Disposition: 01 Discharge Home - Discharge Condition Condition: Stable - Discharge Order Discharge Orders: Discharge Order (Routine); Ordered 12/31/17 Ordered By: Eduard Arora - Discharge Details Anticipated Discharge Date: 12/31/17 - Physicians Team Primary Care Provider: Eunice Riggs Attending Provider: Eduard Arora Other Providers: Romina Krishnamurthy MD ; Jazz Pagan MD
[2017-12-31] MEDS ORDERED: Insulin Detemir Inj 1,000 UNIT/10 ML Vial SQ SCH (21:00)
== END 2017-12-31 15:07 | disposition home or self-care (01) ==
LOC: NEPD 12:00 → INTOOBSV 17:21 → NEDA 17:21 → N04 18:32
PROVIDERS: ADMIT Hospitalist; ATTEND Hospitalist
DX: K21.9 Gastro-esophageal reflux disease without esophagitis; E87.6 Hypokalemia; D63.1 Anemia in chronic kidney disease; I12.0 Hypertensive chronic kidney disease with stage 5 chronic kidney disease or end stage renal disease; I25.2 Old myocardial infarction; Z91.19 Patient's noncompliance with other medical treatment and regimen; E11.22 Type 2 diabetes mellitus with diabetic chronic kidney disease; Z79.899 Other long term (current) drug therapy; E87.5 Hyperkalemia; Z86.73 Personal history of transient ischemic attack (TIA), and cerebral infarction without residual deficits; I25.10 Atherosclerotic heart disease of native coronary artery without angina pectoris; N18.6 End stage renal disease; Z79.4 Long term (current) use of insulin; C61 Malignant neoplasm of prostate; Z79.82 Long term (current) use of aspirin; Z99.2 Dependence on renal dialysis; Z79.02 Long term (current) use of antithrombotics/antiplatelets; Z95.5 Presence of coronary angioplasty implant and graft; Z83.3 Family history of diabetes mellitus; Z82.49 Family history of ischemic heart disease and other diseases of the circulatory system; M31.6 Other giant cell arteritis; Z91.15 Patient's noncompliance with renal dialysis; F17.210 Nicotine dependence, cigarettes, uncomplicated